=== PATIENT | female | born 1940 | race Caucasian/White ===

== ENCOUNTER 2017-10-22 19:36 | Inpatient (IN) | payer MEDICARE, OTHER ==
[~2017-10-22] VITALS: Ht 170.2 cm; Wt 69.1 kg
[2017-10-22] MEDS ORDERED: HALOPERIDOL LACT 5 MG/ML VIAL. ONE (19:51)
[2017-10-22] MEDS ORDERED: HALOPERIDOL LACT 5 MG/ML VIAL. IM ONE (20:00)
[2017-10-22] MEDS ORDERED: LORazepam 1 MG TABLET PO ONE (20:15)
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
[2017-10-22 20:40] LABS: BASO # 0.1 x10^3/uL (0.0-0.2); BASO % 1 % (0-3); EOS # 0.2 x10^3/uL (0.0-0.7); EOS % 2 % (0-3); HEMATOCRIT 32.8 % (36.0-47.0); HEMOGLOBIN 11.2 g/dL (12.0-15.5); LYMPH # 2.7 x10^3/uL (1.0-4.8); LYMPH % 29 % (24-48); MEAN CORPUSCULAR HEMOGLOBIN 30 pg (25-35); MEAN CORPUSCULAR HGB CONC 34 g/dL (31-37); MEAN CORPUSCULAR VOLUME 88 fL (79-100); MONO # 0.9 x10^3/uL (0.0-1.1); MONO % 10 % (0-9); NEUT # 5.4 x10^3uL (1.8-7.7); NEUT % 58 % (31-73); PLATELET COUNT 379 x10^3/uL (140-400); RED BLOOD COUNT 3.73 x10^6/uL (3.50-5.40); RED CELL DISTRIBUTION WIDTH 13.4 % (11.5-14.5); WHITE BLOOD COUNT 9.3 x10^3/uL (4.0-11.0)
[2017-10-22] MEDS ORDERED: BISA5TAB4 PO (20:51)
[2017-10-22] MEDS ORDERED: MAGN2400 PO (20:51)
[2017-10-22] MEDS ORDERED: ACET325T9 PO ×2 (20:51)
[2017-10-22] MEDS ORDERED: QUET50TA5 PO ×2 (20:51)
[2017-10-22] MEDS ORDERED: ASPI-612 PO (20:51)
[2017-10-22] MEDS ORDERED: CHOL10003 PO (20:51)
[2017-10-22] MEDS ORDERED: METF500T5 PO (20:51)
[2017-10-22] MEDS ORDERED: LEVE500T56 PO (20:51)
[2017-10-22] MEDS ORDERED: FURO20TA3 PO (20:51)
[2017-10-22] MEDS ORDERED: POTA10TA10 PO (20:51)
[2017-10-22] MEDS ORDERED: LORA0.5T PO (20:51)
[2017-10-22] MEDS ORDERED: QUET25TA5 PO (20:51)
[2017-10-22] MEDS ORDERED: CYAN100031 PO (20:51)
[2017-10-22] MEDS ORDERED: TRAZ50TA15 PO (20:51)
[2017-10-22 20:54] LABS: ALBUMIN 2.8 g/dL (3.4-5.0); ALBUMIN/GLOBULIN RATIO 0.6 (1.0-1.7); CALCIUM 9.3 mg/dL (8.5-10.1); CREATININE 0.9 mg/dL (0.6-1.0); GFR 60.7; POTASSIUM 4.5 mmol/L (3.5-5.1); TOTAL BILIRUBIN 0.3 mg/dL (0.2-1.0); TOTAL PROTEIN 7.3 g/dL (6.4-8.2)
[2017-10-22] MEDS ORDERED: CEPHALEXIN 250 MG CAPSULE PO ONE (21:00)
[2017-10-22 21:06] LABS: BILIRUBIN,URINE NEG (NEG); CLARITY,URINE CLOUDY; COLOR,URINE YELLOW; GLUCOSE,URINE NEG (NEG)
[2017-10-22 21:08] LABS: BACTERIA,URINE FEW /HPF (0-FEW); NITRITE,URINE POS (NEG); UROBILINOGEN,URINE 0.2 mg/dL (0.2 mg/dL); WBC,URINE >40 /HPF (0-4)
[2017-10-22] MEDS ORDERED: MAGNESIUM HYDROXIDE 2,400 MG/30 ML ORAL.SUSP. PO PRN (22:00)
[2017-10-22] MEDS ORDERED: METHYL SALICYLATE/MENTHOL TOPICAL OINTMENT 29GM TUBE. TP PRN (22:00)
[2017-10-22] MEDS ORDERED: MAG HYDROX/AL HYDROX/SIMETH 30 ML ORAL.SUSP PO PRN (22:00)
--- NOTE | 2017-10-22 22:25 | EKG ---
[address] [address] Test Date: 2017-10-22 Test Time: 20:43:10 Pat Name: GEENA CALVO Department: Room: [address] [place] [address] Gender: F [employer]: : 1940 Requested By: ZENAIDA LOZADA Order Number: [id number] Reading MD: Bob Rush MD Measurements Intervals [place] Rate: 79 P: 35 CO: 204 QRS: 24 QRSD: 86 T: 47 QT: 372 QTc: 428 Interpretive Statements SINUS RHYTHM 1ST DEGREE AVB Electronically Signed On 10-25-2017 13:10:09 CDT by Bob Rush MD
--- NOTE | 2017-10-22 22:43 | PDOC ---
Exam Note: [place] Note: Please also refer to the separate dictated note~for this date of service dictated separately.~Patient seen individually. Discussed the patient with Nursing staff reviewed the chart.~Reviewed interim history and current functioning. Reviewed vital signs,~Labs/ Radiology~and current medications noted below. Continue current treatment with the changes noted in the dictated addendum note Assessment: Vital Signs: Vital Signs Date Time Temp Pulse Resp B/P (MAP) Pulse Ox O2 Delivery O2 Flow Rate FiO2 10/22/17 20:49 98.0 84 20 98 Room Air Labs: Laboratory Tests Test 10/22/17 20:20 10/22/17 20:30 White Blood Count 9.3 x10^3/uL (4.0-11.0) Red Blood Count 3.73 x10^6/uL (3.50-5.40) Hemoglobin 11.2 g/dL (12.0-15.5) L Hematocrit 32.8 % (36.0-47.0) L Mean Corpuscular Volume 88 fL (79-100) Mean Corpuscular Hemoglobin 30 pg (25-35) Mean Corpuscular Hemoglobin Concent 34 g/dL (31-37) Red Cell Distribution Width 13.4 % (11.5-14.5) Platelet Count 379 x10^3/uL (140-400) Neutrophils (%) (Auto) 58 % (31-73) Lymphocytes (%) (Auto) 29 % (24-48) Monocytes (%) (Auto) 10 % (0-9) H Eosinophils (%) (Auto) 2 % (0-3) Basophils (%) (Auto) 1 % (0-3) Neutrophils # (Auto) 5.4 x10^3uL (1.8-7.7) Lymphocytes # (Auto) 2.7 x10^3/uL (1.0-4.8) Monocytes # (Auto) 0.9 x10^3/uL (0.0-1.1) Eosinophils # (Auto) 0.2 x10^3/uL (0.0-0.7) Basophils # (Auto) 0.1 x10^3/uL (0.0-0.2) Sodium Level 137 mmol/L (136-145) Potassium Level 4.5 mmol/L (3.5-5.1) Chloride Level 101 mmol/L (98-107) Carbon Dioxide Level 27 mmol/L (21-32) Anion Gap 9 (6-14) Blood Urea Nitrogen 18 mg/dL (7-20) Creatinine 0.9 mg/dL (0.6-1.0) Estimated GFR (Cockcroft-Gault) 60.7 BUN/Creatinine Ratio 20 (6-20) Glucose Level 141 mg/dL (70-99) H Calcium Level 9.3 mg/dL (8.5-10.1) Magnesium Level 1.8 mg/dL (1.8-2.4) Total Bilirubin 0.3 mg/dL (0.2-1.0) Aspartate Amino Transferase (AST) 20 U/L (15-37) Alanine Aminotransferase (ALT) 23 U/L (14-59) Alkaline Phosphatase 106 U/L (46-116) Total Protein 7.3 g/dL (6.4-8.2) Albumin 2.8 g/dL (3.4-5.0) L Albumin/Globulin Ratio 0.6 (1.0-1.7) L Urine Collection Type Unknown Urine Color Yellow Urine Clarity Cloudy Urine pH 5.0 Urine Specific [place] <=1.005 Urine Protein Neg (NEG-TRACE) Urine Glucose (UA) Neg mg/dL (NEG) Urine Ketones (Stick) Neg mg/dL (NEG) Urine Blood Small (NEG) Urine Nitrite Pos (NEG) Urine Bilirubin Neg (NEG) Urine Urobilinogen Dipstick 0.2 mg/dL (0.2 mg/dL) Urine Leukocyte Esterase Large (NEG) Urine RBC 3-5 /HPF (0-2) Urine WBC >40 /HPF (0-4) Urine Squamous Epithelial Cells None /LPF Urine Bacteria Few /HPF (0-FEW) Current Medications: Meds: Current Medications Haloperidol Lactate (Haldol) 5 mg STK-MED ONCE .ROUTE ; Start 10/22/17 at 19:51; Stop 10/22/17 at 19:52; Status DC Haloperidol Lactate (Haldol) 5 mg 1X ONCE IM Last administered on 10/22/17at 19: 56; Start 10/22/17 at 20:00; Stop 10/22/17 at 20:55; Status DC Lorazepam (Ativan) 1 mg 1X ONCE PO ; Start 10/22/17 at 20:15; Stop 10/22/17 at 20 :38; Status DC Cephalexin HCl (Keflex) 500 mg 1X ONCE PO Last administered on 10/22/17at 20:56 ; Start 10/22/17 at 21:00; Stop 10/22/17 at 21:01; Status DC Acetaminophen (Tylenol) 650 mg PRN Q6HRS PRN PO PAIN / TEMP; Start 10/22/17 at 22:00; Status UNV Multi-Ingredient Ointment (Analgesic [place]) 1 dane PRN QID PRN TP MUSCLE PAIN; Start 10/22/17 at 22:00; Status UNV Al Hydroxide/Mg Hydroxide (Mylanta Plus Xs) 15 ml PRN AFTMEALHC PRN PO DYSPEPSIA; Start 10/22/17 at 22:00; Status UNV Magnesium Hydroxide (Milk Of Magnesia) 2,400 mg PRN QHS PRN PO CONSTIPATION; Start 10/22/17 at 22:00; Status UNV Active Scripts Active Reported Seroquel (Quetiapine Fumarate) 50 Mg Tablet 50 Mg PO Seroquel (Quetiapine Fumarate) 25 Mg Tablet 25 Mg PO TID Seroquel (Quetiapine Fumarate) 50 Mg Tablet 50 Mg PO QHS Lorazepam 0.5 Mg Tablet 0.5 Mg PO PRN QID PRN Bisacodyl 5 Mg Tablet.dr 10 Mg PO PRN DAILY PRN Tylenol (Acetaminophen) 325 Mg Tablet 325 Mg PO PRN Q6HRS PRN Tylenol (Acetaminophen) 325 Mg Tablet 325 Mg PO PRN Q6HRS PRN Milk Of Magnesia (Magnesium Hydroxide) 2,400 Mg/10 Ml Oral.susp 2,400 Mg PO PRN Q4HRS PRN Furosemide 20 Mg Tablet 20 Mg PO DAILY Furosemide 20 Mg Tablet 1 Tab PO DAILY Potassium Chloride 10 Meq Tablet.er 10 Meq PO DAILY Vitamin D3 (Cholecalciferol (Vitamin D3)) 1,000 Unit Tablet 1,000 Unit PO DAILY B-12 (Cyanocobalamin (Vitamin B-12)) 1,000 Mcg Tablet.er 1,000 Mcg PO DAILY Aspirin Ec (Aspirin) 81 Mg Tablet.dr 81 Mg PO DAILY Trazodone Hcl 50 Mg Tablet 25 Mg PO BID@1700,2100 Keppra (Levetiracetam) 500 Mg Tablet 500 Mg PO BID Metformin Hcl 500 Mg Tablet 500 Mg PO BIDWMEALS I have reviewed the current psychotropics carefully including drug interactions. Risk benefit ratio favors no change other than as noted in my dictated progress note. MELANIE COSTELLO MD Oct 22, 2017 22:43
[2017-10-22 23:42] VITALS: BP 118/95
[2017-10-23 05:48] VITALS: BP 139/68
[2017-10-23] MEDS: QUEtiapine 25 MG TABLET. PO SCH ×3 (08:54→19:53)
[2017-10-23] MEDS: LORazepam 0.5 MG TABLET PO PRN ×2 (08:55→15:52)
[2017-10-23 11:07] LABS: T3 TOTAL 60 ng/dL (71-180); THYROXINE 6.3 ug/dL (4.5-12.0)
[2017-10-23 11:15] LABS: THYROID STIM HORMONE (TSH) 3.729 uIU/mL (0.358-3.740)
[2017-10-23 15:38] VITALS: BP 125/66
--- NOTE | 2017-10-23 15:56 | PDOC ---
Exam Note: [place] Note: Please also refer to the separate dictated note~for this date of service dictated separately.~Patient seen individually. Discussed the patient with Nursing staff reviewed the chart.~Reviewed interim history and current functioning. Reviewed vital signs,~Labs/ Radiology~and current medications noted below. Continue current treatment with the changes noted in the dictated addendum note Assessment: Vital Signs: Vital Signs Date Time Temp Pulse Resp B/P (MAP) Pulse Ox O2 Delivery O2 Flow Rate FiO2 10/23/17 15:38 97.4 81 20 125/66 (85) 99 10/22/17 20:49 Room Air Labs: Laboratory Tests Test 10/22/17 20:20 10/22/17 20:30 10/23/17 07:13 10/23/17 11:31 White Blood Count 9.3 x10^3/uL (4.0-11.0) Red Blood Count 3.73 x10^6/uL (3.50-5.40) Hemoglobin 11.2 g/dL (12.0-15.5) L Hematocrit 32.8 % (36.0-47.0) L Mean Corpuscular Volume 88 fL (79-100) Mean Corpuscular Hemoglobin 30 pg (25-35) Mean Corpuscular Hemoglobin Concent 34 g/dL (31-37) Red Cell Distribution Width 13.4 % (11.5-14.5) Platelet Count 379 x10^3/uL (140-400) Neutrophils (%) (Auto) 58 % (31-73) Lymphocytes (%) (Auto) 29 % (24-48) Monocytes (%) (Auto) 10 % (0-9) H Eosinophils (%) (Auto) 2 % (0-3) Basophils (%) (Auto) 1 % (0-3) Neutrophils # (Auto) 5.4 x10^3uL (1.8-7.7) Lymphocytes # (Auto) 2.7 x10^3/uL (1.0-4.8) Monocytes # (Auto) 0.9 x10^3/uL (0.0-1.1) Eosinophils # (Auto) 0.2 x10^3/uL (0.0-0.7) Basophils # (Auto) 0.1 x10^3/uL (0.0-0.2) Sodium Level 137 mmol/L (136-145) Potassium Level 4.5 mmol/L (3.5-5.1) Chloride Level 101 mmol/L (98-107) Carbon Dioxide Level 27 mmol/L (21-32) Anion Gap 9 (6-14) Blood Urea Nitrogen 18 mg/dL (7-20) Creatinine 0.9 mg/dL (0.6-1.0) Estimated GFR (Cockcroft-Gault) 60.7 BUN/Creatinine Ratio 20 (6-20) Glucose Level 141 mg/dL (70-99) H Calcium Level 9.3 mg/dL (8.5-10.1) Magnesium Level 1.8 mg/dL (1.8-2.4) Iron Level 26 ug/dL (50-170) L Total Iron Binding Capacity 215 ug/dL (250-450) L Iron Saturation 12 % (15-34) L Total Bilirubin 0.3 mg/dL (0.2-1.0) Aspartate Amino Transferase (AST) 20 U/L (15-37) Alanine Aminotransferase (ALT) 23 U/L (14-59) Alkaline Phosphatase 106 U/L (46-116) Total Protein 7.3 g/dL (6.4-8.2) Albumin 2.8 g/dL (3.4-5.0) L Albumin/Globulin Ratio 0.6 (1.0-1.7) L Triglycerides Level 132 mg/dL (0-150) Cholesterol Level 212 mg/dL (0-200) H LDL Cholesterol, Calculated 131 mg/dL (0-100) H VLDL Cholesterol, Calculated 26 mg/dL (0-40) Non-HDL Cholesterol Calculated 157 mg/dL (0-129) H HDL Cholesterol 55 mg/dL (40-60) Cholesterol/HDL Ratio 3.0 Thyroid Stimulating Hormone (TSH) 3.729 uIU/mL (0.358-3.740) Thyroxine (T4) 6.3 ug/dL (4.5-12.0) Total Triiodothyronine (TT3) 60 ng/dL (71-180) L Rapid Plasma Reagin Pending Urine Collection Type Unknown Urine Color Yellow Urine Clarity Cloudy Urine pH 5.0 Urine Specific [place] <=1.005 Urine Protein Neg (NEG-TRACE) Urine Glucose (UA) Neg mg/dL (NEG) Urine Ketones (Stick) Neg mg/dL (NEG) Urine Blood Small (NEG) Urine Nitrite Pos (NEG) Urine Bilirubin Neg (NEG) Urine Urobilinogen Dipstick 0.2 mg/dL (0.2 mg/dL) Urine Leukocyte Esterase Large (NEG) Urine RBC 3-5 /HPF (0-2) Urine WBC >40 /HPF (0-4) Urine Squamous Epithelial Cells None /LPF Urine Bacteria Few /HPF (0-FEW) Glucose (Fingerstick) 119 mg/dL (70-99) H 197 mg/dL (70-99) H Current Medications: Meds: Current Medications Haloperidol Lactate (Haldol) 5 mg STK-MED ONCE .ROUTE ; Start 10/22/17 at 19:51; Stop 10/22/17 at 19:52; Status DC Haloperidol Lactate (Haldol) 5 mg 1X ONCE IM Last administered on 10/22/17at 19: 56; Start 10/22/17 at 20:00; Stop 10/22/17 at 20:55; Status DC Lorazepam (Ativan) 1 mg 1X ONCE PO ; Start 10/22/17 at 20:15; Stop 10/22/17 at 20 :38; Status DC Cephalexin HCl (Keflex) 500 mg 1X ONCE PO Last administered on 10/22/17at 20:56 ; Start 10/22/17 at 21:00; Stop 10/22/17 at 21:01; Status DC Acetaminophen (Tylenol) 650 mg PRN Q6HRS PRN PO PAIN / TEMP; Start 10/22/17 at 22:00 Multi-Ingredient Ointment (Analgesic [place]) 1 dane PRN QID PRN TP MUSCLE PAIN; Start 10/22/17 at 22:00 Al Hydroxide/Mg Hydroxide (Mylanta Plus Xs) 15 ml PRN AFTMEALHC PRN PO DYSPEPSIA; Start 10/22/17 at 22:00 Magnesium Hydroxide (Milk Of Magnesia) 2,400 mg PRN QHS PRN PO CONSTIPATION; Start 10/22/17 at 22:00 Lorazepam (Ativan) 0.5 mg PRN QID PRN PO ANXIETY Last administered on 10/23/17at 15:52; Start 10/22/17 at 23:00 Quetiapine Fumarate (SEROquel) 25 mg TID PO Last administered on 10/23/17at 13:22 ; Start 10/23/17 at 09:00 Quetiapine Fumarate (SEROquel) 50 mg QHS PO ; Start 10/23/17 at 21:00 Trazodone HCl (Desyrel) 25 mg BID@1700,2100 PO ; Start 10/23/17 at 17:00 Cefpodoxime Proxetil (Vantin) 200 mg BID PO ; Start 10/23/17 at 21:00 Lactobacillus Rhamnosus (Culturelle) 1 cap BID PO ; Start 10/23/17 at 21:00 Active Scripts Active Reported Seroquel (Quetiapine Fumarate) 50 Mg Tablet 50 Mg PO Seroquel (Quetiapine Fumarate) 25 Mg Tablet 25 Mg PO TID Seroquel (Quetiapine Fumarate) 50 Mg Tablet 50 Mg PO QHS Lorazepam 0.5 Mg Tablet 0.5 Mg PO PRN QID PRN Bisacodyl 5 Mg Tablet.dr 10 Mg PO PRN DAILY PRN Tylenol (Acetaminophen) 325 Mg Tablet 325 Mg PO PRN Q6HRS PRN Tylenol (Acetaminophen) 325 Mg Tablet 325 Mg PO PRN Q6HRS PRN Milk Of Magnesia (Magnesium Hydroxide) 2,400 Mg/10 Ml Oral.susp 2,400 Mg PO PRN Q4HRS PRN Furosemide 20 Mg Tablet 20 Mg PO DAILY Furosemide 20 Mg Tablet 1 Tab PO DAILY Potassium Chloride 10 Meq Tablet.er 10 Meq PO DAILY Vitamin D3 (Cholecalciferol (Vitamin D3)) 1,000 Unit Tablet 1,000 Unit PO DAILY B-12 (Cyanocobalamin (Vitamin B-12)) 1,000 Mcg Tablet.er 1,000 Mcg PO DAILY Aspirin Ec (Aspirin) 81 Mg Tablet.dr 81 Mg PO DAILY Trazodone Hcl 50 Mg Tablet 25 Mg PO BID@1700,2100 Keppra (Levetiracetam) 500 Mg Tablet 500 Mg PO BID Metformin Hcl 500 Mg Tablet 500 Mg PO BIDWMEALS I have reviewed the current psychotropics carefully including drug interactions. Risk benefit ratio favors no change other than as noted in my dictated progress note. Diagnosis: Problems: (1) Anxiety disorder (2) Dementia in Alzheimer's disease with delusions (3) Dementia in Alzheimer's disease with depression (4) Impulse control disorder (5) Dementia, vascular, with delusions (6) Dementia, vascular, with depression MELANIE COSTELLO MD Oct 23, 2017 15:56
[2017-10-23] MEDS: traZODone 50 MG TABLET. PO SCH ×2 (17:04→19:53)
--- NOTE | 2017-10-23 17:04 | RAD ---
Three-view study of the left hand Clinical indications: Left hand pain with swelling. Findings: No acute fracture or dislocation or osteolytic process is evident. 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 Degenerative cystic change of the capitate bone is seen. IMPRESSION: No acute fracture.
[2017-10-23] MEDS: LACTOBACILLUS RHAMNOSUS GG 1 CAPSULE. PO SCH (19:53)
[2017-10-23] MEDS: CEFPODOXIME PROXETIL 100 MG TABLET PO SCH (19:54)
[2017-10-23] MEDS: MIRTAZAPINE 7.5 MG TABLET. PO SCH (19:54)
[2017-10-23] MEDS: QUEtiapine 50 MG TABLET. PO SCH (19:54)
--- NOTE | 2017-10-23 20:48 | PDOC ---
Exam Note: [place] Note: Please also refer to the separate dictated note~for this date of service dictated separately.~Patient seen individually. Discussed the patient with Nursing staff reviewed the chart.~Reviewed interim history and current functioning. Reviewed vital signs,~Labs/ Radiology~and current medications noted below. Continue current treatment with the changes noted in the dictated addendum note Assessment: Vital Signs: Vital Signs Date Time Temp Pulse Resp B/P (MAP) Pulse Ox O2 Delivery O2 Flow Rate FiO2 10/23/17 15:38 97.4 81 20 125/66 (85) 99 10/22/17 20:49 Room Air Labs: Laboratory Tests Test 10/23/17 07:13 10/23/17 11:31 10/23/17 16:13 10/23/17 19:15 Glucose (Fingerstick) 119 mg/dL (70-99) H 197 mg/dL (70-99) H 164 mg/dL (70-99) H 169 mg/dL (70-99) H Current Medications: Meds: Current Medications Haloperidol Lactate (Haldol) 5 mg STK-MED ONCE .ROUTE ; Start 10/22/17 at 19:51; Stop 10/22/17 at 19:52; Status DC Haloperidol Lactate (Haldol) 5 mg 1X ONCE IM Last administered on 10/22/17at 19: 56; Start 10/22/17 at 20:00; Stop 10/22/17 at 20:55; Status DC Lorazepam (Ativan) 1 mg 1X ONCE PO ; Start 10/22/17 at 20:15; Stop 10/22/17 at 20 :38; Status DC Cephalexin HCl (Keflex) 500 mg 1X ONCE PO Last administered on 10/22/17at 20:56 ; Start 10/22/17 at 21:00; Stop 10/22/17 at 21:01; Status DC Acetaminophen (Tylenol) 650 mg PRN Q6HRS PRN PO PAIN / TEMP; Start 10/22/17 at 22:00 Multi-Ingredient Ointment (Analgesic [place]) 1 dane PRN QID PRN TP MUSCLE PAIN; Start 10/22/17 at 22:00 Al Hydroxide/Mg Hydroxide (Mylanta Plus Xs) 15 ml PRN AFTMEALHC PRN PO DYSPEPSIA; Start 10/22/17 at 22:00 Magnesium Hydroxide (Milk Of Magnesia) 2,400 mg PRN QHS PRN PO CONSTIPATION; Start 10/22/17 at 22:00 Lorazepam (Ativan) 0.5 mg PRN QID PRN PO ANXIETY Last administered on 10/23/17 15:52; Start 10/22/17 at 23:00 Quetiapine Fumarate (SEROquel) 25 mg TID PO Last administered on 10/23/17 19:53 ; Start 10/23/17 at 09:00 Quetiapine Fumarate (SEROquel) 50 mg QHS PO Last administered on 10/23/17 19:54 ; Start 10/23/17 at 21:00 Trazodone HCl (Desyrel) 25 mg BID@1700,2100 PO Last administered on 10/23/17 19 :53; Start 10/23/17 at 17:00 Cefpodoxime Proxetil (Vantin) 200 mg BID PO Last administered on 10/23/17 19:54 ; Start 10/23/17 at 21:00 Lactobacillus Rhamnosus (Culturelle) 1 cap BID PO Last administered on 19:53; Start 10/23/17 at 21:00 Olanzapine (ZyPREXA ZYDIS) 2.5 mg PRN Q2HR PRN PO A Last administered on 17:04; Start 10/23/17 at 17:00 Mirtazapine (Remeron) 7.5 mg QHS PO Last administered on 10/23/17 19:54; Start 10/23/17 at 21:00 Active Scripts Active Reported Seroquel (Quetiapine Fumarate) 50 Mg Tablet 50 Mg PO Seroquel (Quetiapine Fumarate) 25 Mg Tablet 25 Mg PO TID Seroquel (Quetiapine Fumarate) 50 Mg Tablet 50 Mg PO QHS Lorazepam 0.5 Mg Tablet 0.5 Mg PO PRN QID PRN Bisacodyl 5 Mg Tablet.dr 10 Mg PO PRN DAILY PRN Tylenol (Acetaminophen) 325 Mg Tablet 325 Mg PO PRN Q6HRS PRN Tylenol (Acetaminophen) 325 Mg Tablet 325 Mg PO PRN Q6HRS PRN Milk Of Magnesia (Magnesium Hydroxide) 2,400 Mg/10 Ml Oral.susp 2,400 Mg PO PRN Q4HRS PRN Furosemide 20 Mg Tablet 20 Mg PO DAILY Furosemide 20 Mg Tablet 1 Tab PO DAILY Potassium Chloride 10 Meq Tablet.er 10 Meq PO DAILY Vitamin D3 (Cholecalciferol (Vitamin D3)) 1,000 Unit Tablet 1,000 Unit PO DAILY B-12 (Cyanocobalamin (Vitamin B-12)) 1,000 Mcg Tablet.er 1,000 Mcg PO DAILY Aspirin Ec (Aspirin) 81 Mg Tablet.dr 81 Mg PO DAILY Trazodone Hcl 50 Mg Tablet 25 Mg PO BID@1700,2100 Keppra (Levetiracetam) 500 Mg Tablet 500 Mg PO BID Metformin Hcl 500 Mg Tablet 500 Mg PO BIDWMEALS I have reviewed the current psychotropics carefully including drug interactions. Risk benefit ratio favors no change other than as noted in my dictated progress note. Diagnosis: Problems: (1) Anxiety disorder (2) Impulse control disorder (3) Dementia, vascular, with depression (4) Dementia, vascular, with delusions (5) Dementia in Alzheimer's disease with depression (6) Dementia in Alzheimer's disease with delusions MELANIE COSTELLO MD Oct 23, 2017 20:48
--- NOTE | 2017-10-24 03:19 | HP ---
ADMIT DATE: PSYCHIATRIC ADMISSION HISTORY/EVALUATION This note covers elements not covered in my initial note of 10/23/2017. IDENTIFYING DATA: The patient is a 76-year-old female referred to us from [facility] in [place], [place] by Dr. Ced Ruffin, her primary care physician, on account of worsening confusion, being distracted, not compliant with cares with a significant drop in her appetite, taking her clothes off, and urinating on the floors. She is rambling in her speech, upset with romel cares, sitting on the floor and urine with a drop in weight. Symptoms have worsened for the past 2-3 weeks. Multiple changes in her psychotropics were attempted at the long-term including Seroquel initiated 10/03/2017, trazodone added 25 mg 4 times a day, Ativan added q.i.d. p.r.n. on 10/09/2017, Haldol added 5 mg q. 4 hours p.r.n., and Keppra 500 mg daily added as well. She has failed all of these interventions, unmanageable at the long-term, potentially dangerous with the behavior and is referred for inpatient psychiatric stabilization. CHIEF COMPLAINT: "No." The patient is quite confused, disorganized. HISTORY OF PRESENT ILLNESS: The patient has a history of dementia, Alzheimer's vascular type. She has been residing at the above long-term for some time, but behaviors have been worsening for the past 2-3 weeks. In addition to above, she has had sleep changes, appetite and weight loss as noted, appeared somewhat delusional, depressed, extremely impulsive, aggressive. No clear symptoms of bipolar disorder, suicidal or homicidal ideation. PAST PSYCHIATRIC HISTORY: As above. MEDICAL HISTORY: UTI diagnosed in the ER at [facility], started on Vantin. She slept 1-1/2 hours previous evening. Diet is regular. Takes her medications whole. Ambulates ad riaj with walker. CODE STATUS: DNR. DRUG ALLERGIES: Negative. CURRENT PSYCHOTROPICS: Trazodone 25 mg at 1700 hours and at bedtime, Ativan 0.5 mg q.i.d. p.r.n., and Seroquel 25 mg t.i.d. 50 mg at bedtime. FAMILY HISTORY: Noncontributory. SOCIAL HISTORY: No history of alcohol, drug abuse, or physical, sexual or elder abuse history is noted. She is not known to be a perpetrator. MENTAL STATUS EXAMINATION: The patient was seen individually in the evening of 10/23/2017. She is oriented to herself, not very verbal. Insight, judgment, recent and remote memory, attention, concentration, fund of knowledge is poor consistent with her diagnoses. She was unaware of where she was, when she came here, where she was prior to coming here, essentially oriented to herself. REACTION TO HOSPITALIZATION: The patient is oblivious of this. ASSETS: Supportive living at the long-term. IMPRESSION: Major neurocognitive disorder; Alzheimer, vascular with delusion, depression, behavioral disturbance, anxiety disorder, unspecified; impulse control disorder, unspecified; and urinary tract infection. Rest diagnoses as noted above. PLAN: Admit to Geropsychiatry Unit at [facility]. I will see the patient daily individually from a psychiatric standpoint. Medical followup per Dr. Laguerre/Dr. Forrest. Continue the patient on her current psychotropics, treat the UTI, which should help with some of the agitation, mood lability. Start Remeron 7.5 mg p.o. at bedtime for her insomnia. Continue rest of the psychotropics. Adjust further as clinically indicated. MAN Glory COSTELLO MD DR: MATEO/richie JOB#: [id number] / [id number]
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
[2017-10-24 06:15] VITALS: BP 122/68
[2017-10-24] MEDS: CEFPODOXIME PROXETIL 100 MG TABLET PO SCH ×2 (08:50→19:15)
[2017-10-24] MEDS: LACTOBACILLUS RHAMNOSUS GG 1 CAPSULE. PO SCH ×2 (08:50→19:15)
[2017-10-24] MEDS: QUEtiapine 25 MG TABLET. PO SCH ×3 (08:50→17:22)
[2017-10-24] MEDS: LORazepam 0.5 MG TABLET PO PRN (08:52)
[2017-10-24] MEDS: ACETAMINOPHEN 325 MG TABLET PO PRN (08:52)
--- NOTE | 2017-10-24 12:36 | RAD ---
Left lower extremity venous duplex ultrasound. 10/24/2017 12:33 PM Indication: swelling of left leg more than right. SPOKE W/ RN, WILL DO AT 10 Comparison study: None available Discussion: Sonographic evaluation of the deep veins of the left lower extremity was performed. This includes grayscale imaging and color duplex imaging with spectral analysis. No evidence of deep venous thrombosis is seen. Interrogated veins are compressible and demonstrate augmentable blood flow and color Doppler imaging. Impression: No evidence of deep venous thrombosis involving the left lower extremity
[2017-10-24 16:06] VITALS: BP 110/68
[2017-10-24] MEDS: traZODone 50 MG TABLET. PO SCH ×2 (17:21→19:16)
[2017-10-24] MEDS ORDERED: CHOLECALCIFEROL (VITAMIN D3) 50,000 UNIT CAPSULE PO SCH (18:00)
[2017-10-24] MEDS: QUEtiapine 50 MG TABLET. PO SCH (19:16)
[2017-10-24] MEDS: MIRTAZAPINE 7.5 MG TABLET. PO SCH (19:16)
--- NOTE | 2017-10-24 21:15 | PN ---
DATE: 10/24/2017 NO DICTATION. MAN Glory COSTELLO MD DR: Satish JOB#: [id number] / [id number]
--- NOTE | 2017-10-24 21:59 | PDOC ---
Exam Note: Gonzales Note: Please also refer to the separate dictated note~for this date of service dictated separately.~Patient seen individually. Discussed the patient with Nursing staff reviewed the chart.~Reviewed interim history and current functioning. Reviewed vital signs,~Labs/ Radiology~and current medications noted below. Continue current treatment with the changes noted in the dictated addendum note Assessment: Vital Signs: Vital Signs Date Time Temp Pulse Resp B/P (MAP) Pulse Ox O2 Delivery O2 Flow Rate FiO2 10/24/17 16:06 97.5 82 20 110/68 (82) 98 10/22/17 20:49 Room Air I&O Intake and Output 10/24/17 07:00 Intake Total 1200 ml Balance 1200 ml Intake Oral 1200 ml Labs: Laboratory Tests Test 10/24/17 07:47 10/24/17 12:02 10/24/17 16:27 10/24/17 19:11 Glucose (Fingerstick) 130 mg/dL (70-99) H 104 mg/dL (70-99) H 125 mg/dL (70-99) H 174 mg/dL (70-99) H Current Medications: Meds: Current Medications Haloperidol Lactate (Haldol) 5 mg STK-MED ONCE .ROUTE ; Start 10/22/17 at 19:51; Stop 10/22/17 at 19:52; Status DC Haloperidol Lactate (Haldol) 5 mg 1X ONCE IM Last administered on 10/22/17at 19: 56; Start 10/22/17 at 20:00; Stop 10/22/17 at 20:55; Status DC Lorazepam (Ativan) 1 mg 1X ONCE PO ; Start 10/22/17 at 20:15; Stop 10/22/17 at 20 :38; Status DC Cephalexin HCl (Keflex) 500 mg 1X ONCE PO Last administered on 10/22/17at 20:56 ; Start 10/22/17 at 21:00; Stop 10/22/17 at 21:01; Status DC Acetaminophen (Tylenol) 650 mg PRN Q6HRS PRN PO PAIN / TEMP Last administered on 10/24/17at 08:52; Start 10/22/17 at 22:00 Multi-Ingredient Ointment (Analgesic [place]) 1 dane PRN QID PRN TP MUSCLE PAIN; Start 10/22/17 at 22:00 Al Hydroxide/Mg Hydroxide (Mylanta Plus Xs) 15 ml PRN AFTMEALHC PRN PO DYSPEPSIA; Start 10/22/17 at 22:00 Magnesium Hydroxide (Milk Of Magnesia) 2,400 mg PRN QHS PRN PO CONSTIPATION; Start 10/22/17 at 22:00 Lorazepam (Ativan) 0.5 mg PRN QID PRN PO ANXIETY Last administered on 10/24/17 08:52; Start 10/22/17 at 23:00 Quetiapine Fumarate (SEROquel) 25 mg TID PO Last administered on 10/23/17 19:53 ; Start 10/23/17 at 09:00; Stop 10/24/17 at 01:41; Status DC Quetiapine Fumarate (SEROquel) 50 mg QHS PO Last administered on 10/24/17 19:16 ; Start 10/23/17 at 21:00 Trazodone HCl (Desyrel) 25 mg BID@1700,2100 PO Last administered on 10/24/17 19 :16; Start 10/23/17 at 17:00 Cefpodoxime Proxetil (Vantin) 200 mg BID PO Last administered on 10/24/17 19:15 ; Start 10/23/17 at 21:00; Stop 10/31/17 at 21:00 Lactobacillus Rhamnosus (Culturelle) 1 cap BID PO Last administered on 19:15; Start 10/23/17 at 21:00 Olanzapine (ZyPREXA ZYDIS) 2.5 mg PRN Q2HR PRN PO A Last administered on 08:52; Start 10/23/17 at 17:00 Mirtazapine (Remeron) 7.5 mg QHS PO Last administered on 10/24/17 19:16; Start 10/23/17 at 21:00 Quetiapine Fumarate (SEROquel) 25 mg TID@0900,1300,1700 PO Last administered on 10/24/17 17:22; Start 10/24/17 at 09:00 Vitamin D (Vitamin D3) 50,000 unit WEEKLY PO ; Start 10/24/17 at 18:00; Stop 10/24 at 18:00; Status DC Levothyroxine Sodium (Synthroid) 25 mcg DAILY07 PO ; Start 10/25/17 at 07:00 Vitamin D (Vitamin D3) 50,000 unit WEEKLY PO ; Start 10/25/17 at 09:00 Divalproex Sodium (Depakote Sprinkles) 125 mg BID@0900,1300 PO ; Start 10/25/17 at 09:00 Active Scripts Active Reported Seroquel (Quetiapine Fumarate) 50 Mg Tablet 50 Mg PO Seroquel (Quetiapine Fumarate) 25 Mg Tablet 25 Mg PO TID Seroquel (Quetiapine Fumarate) 50 Mg Tablet 50 Mg PO QHS Lorazepam 0.5 Mg Tablet 0.5 Mg PO PRN QID PRN Bisacodyl 5 Mg Tablet.dr 10 Mg PO PRN DAILY PRN Tylenol (Acetaminophen) 325 Mg Tablet 325 Mg PO PRN Q6HRS PRN Tylenol (Acetaminophen) 325 Mg Tablet 325 Mg PO PRN Q6HRS PRN Milk Of Magnesia (Magnesium Hydroxide) 2,400 Mg/10 Ml Oral.susp 2,400 Mg PO PRN Q4HRS PRN Furosemide 20 Mg Tablet 20 Mg PO DAILY Furosemide 20 Mg Tablet 1 Tab PO DAILY Potassium Chloride 10 Meq Tablet.er 10 Meq PO DAILY Vitamin D3 (Cholecalciferol (Vitamin D3)) 1,000 Unit Tablet 1,000 Unit PO DAILY B-12 (Cyanocobalamin (Vitamin B-12)) 1,000 Mcg Tablet.er 1,000 Mcg PO DAILY Aspirin Ec (Aspirin) 81 Mg Tablet. 81 Mg PO DAILY Trazodone Hcl 50 Mg Tablet 25 Mg PO BID@1700,2100 Keppra (Levetiracetam) 500 Mg Tablet 500 Mg PO BID Metformin Hcl 500 Mg Tablet 500 Mg PO BIDWMEALS I have reviewed the current psychotropics carefully including drug interactions. Risk benefit ratio favors no change other than as noted in my dictated progress note. Diagnosis: Problems: (1) Anxiety disorder (2) Impulse control disorder (3) Dementia, vascular, with depression (4) Dementia, vascular, with delusions (5) Dementia in Alzheimer's disease with depression (6) Dementia in Alzheimer's disease with delusions MELANIE COSTELLO MD Oct 24, 2017 21:58
[2017-10-25 05:57] VITALS: BP 119/52
[2017-10-25] MEDS: LEVOTHYROXINE 25 MCG TABLET. PO SCH (06:28)
[2017-10-25] MEDS: LACTOBACILLUS RHAMNOSUS GG 1 CAPSULE. PO SCH ×2 (07:55→19:25)
[2017-10-25] MEDS: CEFPODOXIME PROXETIL 100 MG TABLET PO SCH ×2 (07:55→19:26)
[2017-10-25] MEDS: QUEtiapine 25 MG TABLET. PO SCH ×3 (07:56→16:42)
[2017-10-25] MEDS: CHOLECALCIFEROL (VITAMIN D3) 50,000 UNIT CAPSULE PO SCH (07:58)
[2017-10-25] MEDS: DIVALPROEX 125 MG CAP.SPRINK PO SCH ×2 (07:58→13:09)
--- NOTE | 2017-10-25 13:00 | PN ---
DATE: 10/24/2017 PSYCHIATRIC PROGRESS NOTE This is a late entry 10/24/2017, covers elements not covered in my initial note 10/24/2017. SUBJECTIVE: I met with the patient the evening of 10/24/2017. The patient slept 7-3/4 hours previous evening. The patient remains somewhat labile, restless, anxious, resistive to cares. Doppler was negative for DVT. In the evening, she was hallucinating, actively sarcastic having a conversation when no one was around. She remains quite manic and psychotic and certainly confused. REVIEW OF SYSTEMS: No CV, , pulmonary, eye, ENT system symptoms on review. Reliability poor. MENTAL STATUS EXAM: Oriented to herself. Insight, judgment, recent and remote memory, attention, concentration, fund of knowledge poor, consistent with her diagnoses mentioned in my initial note. IMPRESSION: Major neurocognitive disorder, Alzheimer, vascular with delusion, depression, behavioral disturbance, urinary tract infection. Rest unchanged. PLAN: Start Depakote Sprinkles 125 mg at 9:00 a.m., 1:00 p.m. Check CBC, CMP, valproic acid level in 3 days. Continue rest of the psychotropics unchanged from my initial note. MAN Glory COSTELLO MD DR: MATEO/richie JOB#: [id number] / [id number]
[2017-10-25 15:37] VITALS: BP 124/60
[2017-10-25] MEDS: traZODone 50 MG TABLET. PO SCH (16:42)
[2017-10-25] MEDS: LORazepam 0.5 MG TABLET PO PRN (16:42)
[2017-10-25] MEDS: MIRTAZAPINE 7.5 MG TABLET. PO SCH (19:25)
[2017-10-25] MEDS: QUEtiapine 50 MG TABLET. PO SCH (19:26)
--- NOTE | 2017-10-25 20:47 | PDOC ---
Exam Note: Gonzales Note: Please also refer to the separate dictated note~for this date of service dictated separately.~Patient seen individually. Discussed the patient with Nursing staff reviewed the chart.~Reviewed interim history and current functioning. Reviewed vital signs,~Labs/ Radiology~and current medications noted below. Continue current treatment with the changes noted in the dictated addendum note Assessment: Vital Signs: Vital Signs Date Time Temp Pulse Resp B/P (MAP) Pulse Ox O2 Delivery O2 Flow Rate FiO2 10/25/17 15:37 97.3 65 18 124/60 (81) 100 10/22/17 20:49 Room Air I&O Intake and Output 10/25/17 07:00 Intake Total 720 ml Balance 720 ml Intake Oral 720 ml # Voids 2 Labs: Laboratory Tests Test 10/25/17 07:26 10/25/17 11:13 10/25/17 19:27 10/25/17 19:41 Glucose (Fingerstick) 110 mg/dL (70-99) H 134 mg/dL (70-99) H 160 mg/dL (70-99) H 140 mg/dL (70-99) H Current Medications: Meds: Current Medications Haloperidol Lactate (Haldol) 5 mg STK-MED ONCE .ROUTE ; Start 10/22/17 at 19:51; Stop 10/22/17 at 19:52; Status DC Haloperidol Lactate (Haldol) 5 mg 1X ONCE IM Last administered on 10/22/17at 19: 56; Start 10/22/17 at 20:00; Stop 10/22/17 at 20:55; Status DC Lorazepam (Ativan) 1 mg 1X ONCE PO ; Start 10/22/17 at 20:15; Stop 10/22/17 at 20 :38; Status DC Cephalexin HCl (Keflex) 500 mg 1X ONCE PO Last administered on 10/22/17at 20:56 ; Start 10/22/17 at 21:00; Stop 10/22/17 at 21:01; Status DC Acetaminophen (Tylenol) 650 mg PRN Q6HRS PRN PO PAIN / TEMP Last administered on 10/24/17at 08:52; Start 10/22/17 at 22:00 Multi-Ingredient Ointment (Analgesic [place]) 1 dane PRN QID PRN TP MUSCLE PAIN; Start 10/22/17 at 22:00 Al Hydroxide/Mg Hydroxide (Mylanta Plus Xs) 15 ml PRN AFTMEALHC PRN PO DYSPEPSIA; Start 10/22/17 at 22:00 Magnesium Hydroxide (Milk Of Magnesia) 2,400 mg PRN QHS PRN PO CONSTIPATION Last administered on 10/25/17 07:58; Start 10/22/17 at 22:00 Lorazepam (Ativan) 0.5 mg PRN QID PRN PO ANXIETY Last administered on 16:42; Start 10/22/17 at 23:00 Quetiapine Fumarate (SEROquel) 25 mg TID PO Last administered on 10/23/17 19:53 ; Start 10/23/17 at 09:00; Stop 10/24/17 at 01:41; Status DC Quetiapine Fumarate (SEROquel) 50 mg QHS PO Last administered on 10/25/17 19: 26; Start 10/23/17 at 21:00 Trazodone HCl (Desyrel) 25 mg BID@1700,2100 PO Last administered on 10/25/17 16:42; Start 10/23/17 at 17:00; Stop 10/25/17 at 18:24; Status DC Cefpodoxime Proxetil (Vantin) 200 mg BID PO Last administered on 10/25/17 19: 26; Start 10/23/17 at 21:00; Stop 10/31/17 at 21:00 Lactobacillus Rhamnosus (Culturelle) 1 cap BID PO Last administered on 19:25; Start 10/23/17 at 21:00 Olanzapine (ZyPREXA ZYDIS) 2.5 mg PRN Q2HR PRN PO A Last administered on 07:58; Start 10/23/17 at 17:00 Mirtazapine (Remeron) 7.5 mg QHS PO Last administered on 10/25/17 19:25; Start 10/23/17 at 21:00 Quetiapine Fumarate (SEROquel) 25 mg TID@0900,1300,1700 PO Last administered on 10/25/17 16:42; Start 10/24/17 at 09:00 Vitamin D (Vitamin D3) 50,000 unit WEEKLY PO ; Start 10/24/17 at 18:00; Stop 10/24 at 18:00; Status DC Levothyroxine Sodium (Synthroid) 25 mcg DAILY07 PO Last administered on at 06:28; Start 10/25/17 at 07:00 Vitamin D (Vitamin D3) 50,000 unit WEEKLY PO Last administered on 10/25/17at 07: 58; Start 10/25/17 at 09:00 Divalproex Sodium (Depakote Sprinkles) 125 mg BID@0900,1300 PO Last administered on 10/25/17at 13:09; Start 10/25/17 at 09:00 Trazodone HCl (Desyrel) 25 mg TID@0900,1300,1700 PO ; Start 10/26/17 at 09:00 Active Scripts Active Reported Seroquel (Quetiapine Fumarate) 50 Mg Tablet 50 Mg PO Seroquel (Quetiapine Fumarate) 25 Mg Tablet 25 Mg PO TID Seroquel (Quetiapine Fumarate) 50 Mg Tablet 50 Mg PO QHS Lorazepam 0.5 Mg Tablet 0.5 Mg PO PRN QID PRN Bisacodyl 5 Mg Tablet.dr 10 Mg PO PRN DAILY PRN Tylenol (Acetaminophen) 325 Mg Tablet 325 Mg PO PRN Q6HRS PRN Tylenol (Acetaminophen) 325 Mg Tablet 325 Mg PO PRN Q6HRS PRN Milk Of Magnesia (Magnesium Hydroxide) 2,400 Mg/10 Ml Oral.susp 2,400 Mg PO PRN Q4HRS PRN Furosemide 20 Mg Tablet 20 Mg PO DAILY Furosemide 20 Mg Tablet 1 Tab PO DAILY Potassium Chloride 10 Meq Tablet.er 10 Meq PO DAILY Vitamin D3 (Cholecalciferol (Vitamin D3)) 1,000 Unit Tablet 1,000 Unit PO DAILY B-12 (Cyanocobalamin (Vitamin B-12)) 1,000 Mcg Tablet.er 1,000 Mcg PO DAILY Aspirin Ec (Aspirin) 81 Mg Tablet.dr 81 Mg PO DAILY Trazodone Hcl 50 Mg Tablet 25 Mg PO BID@1700,2100 Keppra (Levetiracetam) 500 Mg Tablet 500 Mg PO BID Metformin Hcl 500 Mg Tablet 500 Mg PO BIDWMEALS I have reviewed the current psychotropics carefully including drug interactions. Risk benefit ratio favors no change other than as noted in my dictated progress note. Diagnosis: Problems: (1) Anxiety disorder (2) Impulse control disorder (3) Dementia, vascular, with depression (4) Dementia, vascular, with delusions (5) Dementia in Alzheimer's disease with depression (6) Dementia in Alzheimer's disease with delusions MELANIE COSTELLO MD Oct 25, 2017 20:47
[2017-10-26] MEDS: LEVOTHYROXINE 25 MCG TABLET. PO SCH (06:06)
[2017-10-26 06:26] VITALS: BP 115/60
[2017-10-26] MEDS: QUEtiapine 25 MG TABLET. PO SCH ×3 (08:40→17:49)
[2017-10-26] MEDS: DIVALPROEX 125 MG CAP.SPRINK PO SCH ×2 (08:40→12:32)
[2017-10-26] MEDS: LACTOBACILLUS RHAMNOSUS GG 1 CAPSULE. PO SCH ×2 (08:40→19:46)
[2017-10-26] MEDS: CEFPODOXIME PROXETIL 100 MG TABLET PO SCH ×2 (08:41→19:46)
[2017-10-26] MEDS: traZODone 50 MG TABLET. PO SCH ×3 (08:42→17:49)
[2017-10-26] MEDS: ACETAMINOPHEN 325 MG TABLET PO PRN (12:32)
[2017-10-26 16:17] VITALS: BP 108/67
[2017-10-26] MEDS: QUEtiapine 50 MG TABLET. PO SCH (19:46)
[2017-10-26] MEDS: ACETAMINOPHEN 325 MG TABLET PO SCH (19:46)
[2017-10-26] MEDS: MIRTAZAPINE 7.5 MG TABLET. PO SCH (19:46)
--- NOTE | 2017-10-26 20:47 | PDOC ---
Exam Note: Gonzales Note: Please also refer to the separate dictated note~for this date of service dictated separately.~Patient seen individually. Discussed the patient with Nursing staff reviewed the chart.~Reviewed interim history and current functioning. Reviewed vital signs,~Labs/ Radiology~and current medications noted below. Continue current treatment with the changes noted in the dictated addendum note Assessment: Vital Signs: Vital Signs Date Time Temp Pulse Resp B/P (MAP) Pulse Ox O2 Delivery O2 Flow Rate FiO2 10/26/17 16:17 97.4 75 20 108/67 (81) 99 10/26/17 06:26 Room Air I&O Intake and Output 10/26/17 07:00 Intake Total 1080 ml Balance 1080 ml Intake Oral 1080 ml # Voids 2 # Bowel Movements 1 Labs: Laboratory Tests Test 10/26/17 07:14 Glucose (Fingerstick) 215 mg/dL (70-99) H Current Medications: Meds: Current Medications Haloperidol Lactate (Haldol) 5 mg STK-MED ONCE .ROUTE ; Start 10/22/17 at 19:51; Stop 10/22/17 at 19:52; Status DC Haloperidol Lactate (Haldol) 5 mg 1X ONCE IM Last administered on 10/22/17at 19: 56; Start 10/22/17 at 20:00; Stop 10/22/17 at 20:55; Status DC Lorazepam (Ativan) 1 mg 1X ONCE PO ; Start 10/22/17 at 20:15; Stop 10/22/17 at 20 :38; Status DC Cephalexin HCl (Keflex) 500 mg 1X ONCE PO Last administered on 10/22/17at 20:56 ; Start 10/22/17 at 21:00; Stop 10/22/17 at 21:01; Status DC Acetaminophen (Tylenol) 650 mg PRN Q6HRS PRN PO PAIN / TEMP Last administered on 10/26/17at 12:32; Start 10/22/17 at 22:00 Multi-Ingredient Ointment (Analgesic [place]) 1 dane PRN QID PRN TP MUSCLE PAIN; Start 10/22/17 at 22:00 Al Hydroxide/Mg Hydroxide (Mylanta Plus Xs) 15 ml PRN AFTMEALHC PRN PO DYSPEPSIA; Start 10/22/17 at 22:00 Magnesium Hydroxide (Milk Of Magnesia) 2,400 mg PRN QHS PRN PO CONSTIPATION Last administered on 10/25/17 07:58; Start 10/22/17 at 22:00 Lorazepam (Ativan) 0.5 mg PRN QID PRN PO ANXIETY Last administered on 16:42; Start 10/22/17 at 23:00 Quetiapine Fumarate (SEROquel) 25 mg TID PO Last administered on 10/23/17 19:53 ; Start 10/23/17 at 09:00; Stop 10/24/17 at 01:41; Status DC Quetiapine Fumarate (SEROquel) 50 mg QHS PO Last administered on 10/26/17 19: 46; Start 10/23/17 at 21:00 Trazodone HCl (Desyrel) 25 mg BID@1700,2100 PO Last administered on 10/25/17 16:42; Start 10/23/17 at 17:00; Stop 10/25/17 at 18:24; Status DC Cefpodoxime Proxetil (Vantin) 200 mg BID PO Last administered on 10/26/17 19: 46; Start 10/23/17 at 21:00; Stop 10/31/17 at 21:00 Lactobacillus Rhamnosus (Culturelle) 1 cap BID PO Last administered on 19:46; Start 10/23/17 at 21:00 Olanzapine (ZyPREXA ZYDIS) 2.5 mg PRN Q2HR PRN PO A Last administered on 07:58; Start 10/23/17 at 17:00 Mirtazapine (Remeron) 7.5 mg QHS PO Last administered on 10/26/17 19:46; Start 10/23/17 at 21:00 Quetiapine Fumarate (SEROquel) 25 mg TID@0900,1300,1700 PO Last administered on 10/26/17 17:49; Start 10/24/17 at 09:00 Vitamin D (Vitamin D3) 50,000 unit WEEKLY PO ; Start 10/24/17 at 18:00; Stop 10/24 at 18:00; Status DC Levothyroxine Sodium (Synthroid) 25 mcg DAILY07 PO Last administered on 06:06; Start 10/25/17 at 07:00 Vitamin D (Vitamin D3) 50,000 unit WEEKLY PO Last administered on 10/25/17at 07: 58; Start 10/25/17 at 09:00 Divalproex Sodium (Depakote Sprinkles) 125 mg BID@0900,1300 PO Last administered on 10/26/17at 12:32; Start 10/25/17 at 09:00 Trazodone HCl (Desyrel) 25 mg TID@0900,1300,1700 PO Last administered on at 17:49; Start 10/26/17 at 09:00 Acetaminophen (Tylenol) 650 mg TID PO Last administered on 10/26/17at 19:46; Start 10/26/17 at 21:00 Active Scripts Active Reported Seroquel (Quetiapine Fumarate) 50 Mg Tablet 50 Mg PO Seroquel (Quetiapine Fumarate) 25 Mg Tablet 25 Mg PO TID Seroquel (Quetiapine Fumarate) 50 Mg Tablet 50 Mg PO QHS Lorazepam 0.5 Mg Tablet 0.5 Mg PO PRN QID PRN Bisacodyl 5 Mg Tablet.dr 10 Mg PO PRN DAILY PRN Tylenol (Acetaminophen) 325 Mg Tablet 325 Mg PO PRN Q6HRS PRN Tylenol (Acetaminophen) 325 Mg Tablet 325 Mg PO PRN Q6HRS PRN Milk Of Magnesia (Magnesium Hydroxide) 2,400 Mg/10 Ml Oral.susp 2,400 Mg PO PRN Q4HRS PRN Furosemide 20 Mg Tablet 20 Mg PO DAILY Furosemide 20 Mg Tablet 1 Tab PO DAILY Potassium Chloride 10 Meq Tablet.er 10 Meq PO DAILY Vitamin D3 (Cholecalciferol (Vitamin D3)) 1,000 Unit Tablet 1,000 Unit PO DAILY B-12 (Cyanocobalamin (Vitamin B-12)) 1,000 Mcg Tablet.er 1,000 Mcg PO DAILY Aspirin Ec (Aspirin) 81 Mg Tablet. 81 Mg PO DAILY Trazodone Hcl 50 Mg Tablet 25 Mg PO BID@1700,2100 Keppra (Levetiracetam) 500 Mg Tablet 500 Mg PO BID Metformin Hcl 500 Mg Tablet 500 Mg PO BIDWMEALS I have reviewed the current psychotropics carefully including drug interactions. Risk benefit ratio favors no change other than as noted in my dictated progress note. Diagnosis: Problems: (1) Anxiety disorder (2) Impulse control disorder (3) Dementia, vascular, with depression (4) Dementia, vascular, with delusions (5) Dementia in Alzheimer's disease with depression (6) Dementia in Alzheimer's disease with delusions MELANIE COSTELLO MD Oct 26, 2017 20:47
[2017-10-27 06:04] VITALS: BP 114/51
[2017-10-27] MEDS: LEVOTHYROXINE 25 MCG TABLET. PO SCH (06:11)
[2017-10-27] MEDS: ACETAMINOPHEN 325 MG TABLET PO SCH ×3 (09:02→19:52)
[2017-10-27] MEDS: metFORMIN 500 MG TABLET PO SCH ×2 (09:02→16:59)
[2017-10-27] MEDS: traZODone 50 MG TABLET. PO SCH ×3 (09:02→16:59)
[2017-10-27] MEDS: QUEtiapine 25 MG TABLET. PO SCH (09:02)
[2017-10-27] MEDS: DIVALPROEX 125 MG CAP.SPRINK PO SCH ×2 (09:02→13:43)
[2017-10-27] MEDS: CEFPODOXIME PROXETIL 100 MG TABLET PO SCH ×2 (09:02→19:52)
[2017-10-27] MEDS: LACTOBACILLUS RHAMNOSUS GG 1 CAPSULE. PO SCH ×2 (09:03→19:52)
--- NOTE | 2017-10-27 09:06 | PN ---
DATE: 10/25/2017 This late entry 10/25/2017 covers elements not covered in my initial note 10/25/2017. Met with the patient evening of 10/25/2017. The patient slept 7-1/2 hours previous evening, extremely labile. At one moment, she tells the nursing staff she hates the nursing staff; next Moment, "I love you." Quite confused. REVIEW OF SYSTEMS: Ambulation impaired, in wheelchair or walker. No CV, , pulmonary, eye, ENT system symptoms on review. MENTAL STATUS EXAM: Oriented to herself. Insight, judgment, recent and remote memory, attention, concentration, fund of knowledge poor, consistent with her diagnosis. IMPRESSION: Major neurocognitive disorder, Alzheimer, vascular with delusion, depression. PLAN: Continue psychotropics mentioned in my initial note and Vantin for UTI. Start trazodone 25 mg at 8:00 a.m.; continue with 25 mg at 1700 and at bedtime. Rest unchanged from initial note. Follow labs level on the Depakote, then adjust as indicated. MAN Glory COSTELLO MD DR: MATEO/richie JOB#: [id number] / [id number]
[2017-10-27 09:48] LABS: BASO # 0.1 x10^3/uL (0.0-0.2); BASO % 1 % (0-3); EOS # 0.2 x10^3/uL (0.0-0.7); EOS % 2 % (0-3); HEMATOCRIT 31.9 % (36.0-47.0); HEMOGLOBIN 10.8 g/dL (12.0-15.5); LYMPH # 2.3 x10^3/uL (1.0-4.8); LYMPH % 24 % (24-48); MEAN CORPUSCULAR HEMOGLOBIN 30 pg (25-35); MEAN CORPUSCULAR HGB CONC 34 g/dL (31-37); MEAN CORPUSCULAR VOLUME 89 fL (79-100); MONO # 0.9 x10^3/uL (0.0-1.1); MONO % 9 % (0-9); NEUT # 6.1 x10^3uL (1.8-7.7); NEUT % 64 % (31-73); PLATELET COUNT 386 x10^3/uL (140-400); RED BLOOD COUNT 3.58 x10^6/uL (3.50-5.40); RED CELL DISTRIBUTION WIDTH 13.4 % (11.5-14.5); WHITE BLOOD COUNT 9.6 x10^3/uL (4.0-11.0)
[2017-10-27 10:01] LABS: ALBUMIN 2.7 g/dL (3.4-5.0); ALBUMIN/GLOBULIN RATIO 0.7 (1.0-1.7); ALK PHOS 99 U/L (46-116); ALT (SGPT) 25 U/L (14-59); ANION GAP 7 (6-14); AST (SGOT) 28 U/L (15-37); BLOOD UREA NITROGEN 29 mg/dL (7-20); BUN/CREATININE RATIO 32 (6-20); CALCIUM 9.2 mg/dL (8.5-10.1); CARBON DIOXIDE 29 mmol/L (21-32); CHLORIDE 103 mmol/L (98-107); CREATININE 0.9 mg/dL (0.6-1.0); GFR 60.7; GLUCOSE 120 mg/dL (70-99); MAGNESIUM 2.1 mg/dL (1.8-2.4); SODIUM 139 mmol/L (136-145); TOTAL BILIRUBIN 0.4 mg/dL (0.2-1.0); TOTAL PROTEIN 6.8 g/dL (6.4-8.2); VAL ACID 9 mcg/mL (50-100)
[2017-10-27] MEDS: risperiDONE 0.25 MG TABLET. PO SCH ×2 (13:43→16:59)
[2017-10-27 15:30] VITALS: BP 108/52
[2017-10-27] MEDS: LORazepam 0.5 MG TABLET PO PRN (16:03)
[2017-10-27] MEDS: MIRTAZAPINE 7.5 MG TABLET. PO SCH (19:52)
--- NOTE | 2017-10-27 20:48 | PDOC ---
Exam Note: [place] Note: Please also refer to the separate dictated note~for this date of service dictated separately.~Patient seen individually. Discussed the patient with Nursing staff reviewed the chart.~Reviewed interim history and current functioning. Reviewed vital signs,~Labs/ Radiology~and current medications noted below. Continue current treatment with the changes noted in the dictated addendum note Assessment: Vital Signs: Vital Signs Date Time Temp Pulse Resp B/P (MAP) Pulse Ox O2 Delivery O2 Flow Rate FiO2 10/27/17 15:30 96.7 86 18 108/52 (70) 97 10/26/17 06:26 Room Air I&O Intake and Output 10/27/17 07:00 Intake Total 1080 ml Balance 1080 ml Intake Oral 1080 ml # Voids 1 Labs: Laboratory Tests Test 10/27/17 07:13 10/27/17 09:20 Glucose (Fingerstick) 133 mg/dL (70-99) H White Blood Count 9.6 x10^3/uL (4.0-11.0) Red Blood Count 3.58 x10^6/uL (3.50-5.40) Hemoglobin 10.8 g/dL (12.0-15.5) L Hematocrit 31.9 % (36.0-47.0) L Mean Corpuscular Volume 89 fL (79-100) Mean Corpuscular Hemoglobin 30 pg (25-35) Mean Corpuscular Hemoglobin Concent 34 g/dL (31-37) Red Cell Distribution Width 13.4 % (11.5-14.5) Platelet Count 386 x10^3/uL (140-400) Neutrophils (%) (Auto) 64 % (31-73) Lymphocytes (%) (Auto) 24 % (24-48) Monocytes (%) (Auto) 9 % (0-9) Eosinophils (%) (Auto) 2 % (0-3) Basophils (%) (Auto) 1 % (0-3) Neutrophils # (Auto) 6.1 x10^3uL (1.8-7.7) Lymphocytes # (Auto) 2.3 x10^3/uL (1.0-4.8) Monocytes # (Auto) 0.9 x10^3/uL (0.0-1.1) Eosinophils # (Auto) 0.2 x10^3/uL (0.0-0.7) Basophils # (Auto) 0.1 x10^3/uL (0.0-0.2) Sodium Level 139 mmol/L (136-145) Potassium Level 5.0 mmol/L (3.5-5.1) Chloride Level 103 mmol/L (98-107) Carbon Dioxide Level 29 mmol/L (21-32) Anion Gap 7 (6-14) Blood Urea Nitrogen 29 mg/dL (7-20) H Creatinine 0.9 mg/dL (0.6-1.0) Estimated GFR (Cockcroft-Gault) 60.7 BUN/Creatinine Ratio 32 (6-20) H Glucose Level 120 mg/dL (70-99) H Calcium Level 9.2 mg/dL (8.5-10.1) Magnesium Level 2.1 mg/dL (1.8-2.4) Total Bilirubin 0.4 mg/dL (0.2-1.0) Aspartate Amino Transferase (AST) 28 U/L (15-37) Alanine Aminotransferase (ALT) 25 U/L (14-59) Alkaline Phosphatase 99 U/L (46-116) Total Protein 6.8 g/dL (6.4-8.2) Albumin 2.7 g/dL (3.4-5.0) L Albumin/Globulin Ratio 0.7 (1.0-1.7) L Valproic Acid Level 9 mcg/mL (50-100) L Valproic Acid Last Dose Date 10/26/17 Valproic Acid Last Dose Time 1300 Current Medications: Meds: Current Medications Haloperidol Lactate (Haldol) 5 mg STK-MED ONCE .ROUTE ; Start 10/22/17 at 19:51; Stop 10/22/17 at 19:52; Status DC Haloperidol Lactate (Haldol) 5 mg 1X ONCE IM Last administered on 10/22/17at 19: 56; Start 10/22/17 at 20:00; Stop 10/22/17 at 20:55; Status DC Lorazepam (Ativan) 1 mg 1X ONCE PO ; Start 10/22/17 at 20:15; Stop 10/22/17 at 20 :38; Status DC Cephalexin HCl (Keflex) 500 mg 1X ONCE PO Last administered on 10/22/17at 20:56 ; Start 10/22/17 at 21:00; Stop 10/22/17 at 21:01; Status DC Acetaminophen (Tylenol) 650 mg PRN Q6HRS PRN PO PAIN / TEMP Last administered on 10/26/17at 12:32; Start 10/22/17 at 22:00 Multi-Ingredient Ointment (Analgesic [place]) 1 dane PRN QID PRN TP MUSCLE PAIN; Start 10/22/17 at 22:00 Al Hydroxide/Mg Hydroxide (Mylanta Plus Xs) 15 ml PRN AFTMEALHC PRN PO DYSPEPSIA; Start 10/22/17 at 22:00 Magnesium Hydroxide (Milk Of Magnesia) 2,400 mg PRN QHS PRN PO CONSTIPATION Last administered on 10/25/17at 07:58; Start 10/22/17 at 22:00 Lorazepam (Ativan) 0.5 mg PRN QID PRN PO ANXIETY Last administered on 16:03; Start 10/22/17 at 23:00 Quetiapine Fumarate (SEROquel) 25 mg TID PO Last administered on 10/23/17 19:53 ; Start 10/23/17 at 09:00; Stop 10/24/17 at 01:41; Status DC Quetiapine Fumarate (SEROquel) 50 mg QHS PO Last administered on 10/26/17at 19: 46; Start 10/23/17 at 21:00; Stop 10/27/17 at 10:32; Status DC Trazodone HCl (Desyrel) 25 mg BID@1700,2100 PO Last administered on 10/25/17at 16:42; Start 10/23/17 at 17:00; Stop 10/25/17 at 18:24; Status DC Cefpodoxime Proxetil (Vantin) 200 mg BID PO Last administered on 10/27/17 19: 52; Start 10/23/17 at 21:00; Stop 10/31/17 at 21:00 Lactobacillus Rhamnosus (Culturelle) 1 cap BID PO Last administered on 19:52; Start 10/23/17 at 21:00 Olanzapine (ZyPREXA ZYDIS) 2.5 mg PRN Q2HR PRN PO A Last administered on at 07:58; Start 10/23/17 at 17:00 Mirtazapine (Remeron) 7.5 mg QHS PO Last administered on 10/27/17 19:52; Start 10/23/17 at 21:00 Quetiapine Fumarate (SEROquel) 25 mg TID@0900,1300,1700 PO Last administered on 10/27/17at 09:02; Start 10/24/17 at 09:00; Stop 10/27/17 at 10:32; Status DC Vitamin D (Vitamin D3) 50,000 unit WEEKLY PO ; Start 10/24/17 at 18:00; Stop 10/24 at 18:00; Status DC Levothyroxine Sodium (Synthroid) 25 mcg DAILY07 PO Last administered on 06:11; Start 10/25/17 at 07:00 Vitamin D (Vitamin D3) 50,000 unit WEEKLY PO Last administered on 10/25/17at 07: 58; Start 10/25/17 at 09:00 Divalproex Sodium (Depakote Sprinkles) 125 mg BID@0900,1300 PO Last administered on 10/27/17at 13:43; Start 10/25/17 at 09:00 Trazodone HCl (Desyrel) 25 mg TID@0900,1300,1700 PO Last administered on 16:59; Start 10/26/17 at 09:00 Acetaminophen (Tylenol) 650 mg TID PO Last administered on 10/27/17 19:52; Start 10/26/17 at 21:00 Metformin HCl (Glucophage) 500 mg BIDWMEALS PO Last administered on 10/27/17 16:59; Start 10/27/17 at 08:00 Risperidone (RisperDAL) 0.125 mg TID@0900,1300,1700 PO Last administered on 16:59; Start 10/27/17 at 13:00 Active Scripts Active Reported Seroquel (Quetiapine Fumarate) 50 Mg Tablet 50 Mg PO Seroquel (Quetiapine Fumarate) 25 Mg Tablet 25 Mg PO TID Seroquel (Quetiapine Fumarate) 50 Mg Tablet 50 Mg PO QHS Lorazepam 0.5 Mg Tablet 0.5 Mg PO PRN QID PRN Bisacodyl 5 Mg Tablet.dr 10 Mg PO PRN DAILY PRN Tylenol (Acetaminophen) 325 Mg Tablet 325 Mg PO PRN Q6HRS PRN Tylenol (Acetaminophen) 325 Mg Tablet 325 Mg PO PRN Q6HRS PRN Milk Of Magnesia (Magnesium Hydroxide) 2,400 Mg/10 Ml Oral.susp 2,400 Mg PO PRN Q4HRS PRN Furosemide 20 Mg Tablet 20 Mg PO DAILY Furosemide 20 Mg Tablet 1 Tab PO DAILY Potassium Chloride 10 Meq Tablet.er 10 Meq PO DAILY Vitamin D3 (Cholecalciferol (Vitamin D3)) 1,000 Unit Tablet 1,000 Unit PO DAILY B-12 (Cyanocobalamin (Vitamin B-12)) 1,000 Mcg Tablet.er 1,000 Mcg PO DAILY Aspirin Ec (Aspirin) 81 Mg Tablet.dr 81 Mg PO DAILY Trazodone Hcl 50 Mg Tablet 25 Mg PO BID@1700,2100 Keppra (Levetiracetam) 500 Mg Tablet 500 Mg PO BID Metformin Hcl 500 Mg Tablet 500 Mg PO BIDWMEALS I have reviewed the current psychotropics carefully including drug interactions. Risk benefit ratio favors no change other than as noted in my dictated progress note. Diagnosis: Problems: (1) Anxiety disorder (2) Impulse control disorder (3) Dementia, vascular, with depression (4) Dementia, vascular, with delusions (5) Dementia in Alzheimer's disease with depression (6) Dementia in Alzheimer's disease with delusions MELANIE COSTELLO MD Oct 27, 2017 20:48
[2017-10-28] MEDS: LEVOTHYROXINE 25 MCG TABLET. PO SCH (06:02)
[2017-10-28 06:34] VITALS: BP 141/55
[2017-10-28] MEDS: risperiDONE 0.25 MG TABLET. PO SCH ×3 (08:01→17:00)
[2017-10-28] MEDS: LACTOBACILLUS RHAMNOSUS GG 1 CAPSULE. PO SCH ×2 (08:01→19:14)
[2017-10-28] MEDS: traZODone 50 MG TABLET. PO SCH ×3 (08:01→17:00)
[2017-10-28] MEDS: metFORMIN 500 MG TABLET PO SCH ×2 (08:01→17:00)
[2017-10-28] MEDS: CEFPODOXIME PROXETIL 100 MG TABLET PO SCH ×2 (08:02→19:14)
[2017-10-28] MEDS: ACETAMINOPHEN 325 MG TABLET PO SCH ×3 (08:02→19:14)
[2017-10-28] MEDS: DIVALPROEX 125 MG CAP.SPRINK PO SCH ×2 (08:03→12:43)
[2017-10-28 16:10] VITALS: BP 162/71
[2017-10-28] MEDS: MIRTAZAPINE 7.5 MG TABLET. PO SCH (19:14)
[2017-10-28] MEDS: LORazepam 0.5 MG TABLET PO PRN (19:15)
--- NOTE | 2017-10-28 20:44 | PDOC ---
Exam Note: [place] Note: Please also refer to the separate dictated note~for this date of service dictated separately.~Patient seen individually. Discussed the patient with Nursing staff reviewed the chart.~Reviewed interim history and current functioning. Reviewed vital signs,~Labs/ Radiology~and current medications noted below. Continue current treatment with the changes noted in the dictated addendum note Assessment: Vital Signs: Vital Signs Date Time Temp Pulse Resp B/P (MAP) Pulse Ox O2 Delivery O2 Flow Rate FiO2 10/28/17 16:10 97.8 73 16 162/71 (101) 94 10/26/17 06:26 Room Air I&O Intake and Output 10/28/17 07:00 Intake Total 600 ml Balance 600 ml Intake Oral 600 ml # Voids 1 # Bowel Movements 1 Labs: Laboratory Tests Test 10/28/17 07:12 Glucose (Fingerstick) 106 mg/dL (70-99) H Current Medications: Meds: Current Medications Haloperidol Lactate (Haldol) 5 mg STK-MED ONCE .ROUTE ; Start 10/22/17 at 19:51; Stop 10/22/17 at 19:52; Status DC Haloperidol Lactate (Haldol) 5 mg 1X ONCE IM Last administered on 10/22/17at 19: 56; Start 10/22/17 at 20:00; Stop 10/22/17 at 20:55; Status DC Lorazepam (Ativan) 1 mg 1X ONCE PO ; Start 10/22/17 at 20:15; Stop 10/22/17 at 20 :38; Status DC Cephalexin HCl (Keflex) 500 mg 1X ONCE PO Last administered on 10/22/17at 20:56 ; Start 10/22/17 at 21:00; Stop 10/22/17 at 21:01; Status DC Acetaminophen (Tylenol) 650 mg PRN Q6HRS PRN PO PAIN / TEMP Last administered on 10/26/17at 12:32; Start 10/22/17 at 22:00 Multi-Ingredient Ointment (Analgesic [place]) 1 dane PRN QID PRN TP MUSCLE PAIN; Start 10/22/17 at 22:00 Al Hydroxide/Mg Hydroxide (Mylanta Plus Xs) 15 ml PRN AFTMEALHC PRN PO DYSPEPSIA; Start 10/22/17 at 22:00 Magnesium Hydroxide (Milk Of Magnesia) 2,400 mg PRN QHS PRN PO CONSTIPATION Last administered on 10/25/17 07:58; Start 10/22/17 at 22:00 Lorazepam (Ativan) 0.5 mg PRN QID PRN PO ANXIETY Last administered on 19:15; Start 10/22/17 at 23:00 Quetiapine Fumarate (SEROquel) 25 mg TID PO Last administered on 10/23/17 19:53 ; Start 10/23/17 at 09:00; Stop 10/24/17 at 01:41; Status DC Quetiapine Fumarate (SEROquel) 50 mg QHS PO Last administered on 10/26/17 19: 46; Start 10/23/17 at 21:00; Stop 10/27/17 at 10:32; Status DC Trazodone HCl (Desyrel) 25 mg BID@1700,2100 PO Last administered on 10/25/17 16:42; Start 10/23/17 at 17:00; Stop 10/25/17 at 18:24; Status DC Cefpodoxime Proxetil (Vantin) 200 mg BID PO Last administered on 10/28/17 19: 14; Start 10/23/17 at 21:00; Stop 10/31/17 at 21:00 Lactobacillus Rhamnosus (Culturelle) 1 cap BID PO Last administered on 19:14; Start 10/23/17 at 21:00 Olanzapine (ZyPREXA ZYDIS) 2.5 mg PRN Q2HR PRN PO A Last administered on 21:41; Start 10/23/17 at 17:00 Mirtazapine (Remeron) 7.5 mg QHS PO Last administered on 10/28/17 19:14; Start 10/23/17 at 21:00 Quetiapine Fumarate (SEROquel) 25 mg TID@0900,1300,1700 PO Last administered on 10/27/17 09:02; Start 10/24/17 at 09:00; Stop 10/27/17 at 10:32; Status DC Vitamin D (Vitamin D3) 50,000 unit WEEKLY PO ; Start 10/24/17 at 18:00; Stop 10/24 at 18:00; Status DC Levothyroxine Sodium (Synthroid) 25 mcg DAILY07 PO Last administered on 06:02; Start 10/25/17 at 07:00 Vitamin D (Vitamin D3) 50,000 unit WEEKLY PO Last administered on 10/25/17 07: 58; Start 10/25/17 at 09:00 Divalproex Sodium (Depakote Sprinkles) 125 mg BID@0900,1300 PO Last administered on 10/28/17 12:43; Start 10/25/17 at 09:00 Trazodone HCl (Desyrel) 25 mg TID@0900,1300,1700 PO Last administered on 17:00; Start 10/26/17 at 09:00 Acetaminophen (Tylenol) 650 mg TID PO Last administered on 10/28/17 19:14; Start 10/26/17 at 21:00 Metformin HCl (Glucophage) 500 mg BIDWMEALS PO Last administered on 10/28/17 17:00; Start 10/27/17 at 08:00 Risperidone (RisperDAL) 0.125 mg TID@0900,1300,1700 PO Last administered on 17:00; Start 10/27/17 at 13:00 Active Scripts Active Reported Seroquel (Quetiapine Fumarate) 50 Mg Tablet 50 Mg PO Seroquel (Quetiapine Fumarate) 25 Mg Tablet 25 Mg PO TID Seroquel (Quetiapine Fumarate) 50 Mg Tablet 50 Mg PO QHS Lorazepam 0.5 Mg Tablet 0.5 Mg PO PRN QID PRN Bisacodyl 5 Mg Tablet.dr 10 Mg PO PRN DAILY PRN Tylenol (Acetaminophen) 325 Mg Tablet 325 Mg PO PRN Q6HRS PRN Tylenol (Acetaminophen) 325 Mg Tablet 325 Mg PO PRN Q6HRS PRN Milk Of Magnesia (Magnesium Hydroxide) 2,400 Mg/10 Ml Oral.susp 2,400 Mg PO PRN Q4HRS PRN Furosemide 20 Mg Tablet 20 Mg PO DAILY Furosemide 20 Mg Tablet 1 Tab PO DAILY Potassium Chloride 10 Meq Tablet.er 10 Meq PO DAILY Vitamin D3 (Cholecalciferol (Vitamin D3)) 1,000 Unit Tablet 1,000 Unit PO DAILY B-12 (Cyanocobalamin (Vitamin B-12)) 1,000 Mcg Tablet.er 1,000 Mcg PO DAILY Aspirin Ec (Aspirin) 81 Mg Tablet. 81 Mg PO DAILY Trazodone Hcl 50 Mg Tablet 25 Mg PO BID@1700,2100 Keppra (Levetiracetam) 500 Mg Tablet 500 Mg PO BID Metformin Hcl 500 Mg Tablet 500 Mg PO BIDWMEALS I have reviewed the current psychotropics carefully including drug interactions. Risk benefit ratio favors no change other than as noted in my dictated progress note. Diagnosis: Problems: (1) Anxiety disorder (2) Impulse control disorder (3) Dementia, vascular, with depression (4) Dementia, vascular, with delusions (5) Dementia in Alzheimer's disease with depression (6) Dementia in Alzheimer's disease with delusions MELANIE COSTELLO MD Oct 28, 2017 20:44
--- NOTE | 2017-10-28 22:15 | PN ---
DATE: 10/26/2017 This is a late entry for 10/26/2017 covers elements not covered in my initial note of 10/26/2017. SUBJECTIVE: I met with the patient in the evening of 10/26/2017. The patient remains confused, somewhat rambling in her speech, labile, restless, slept 7 hours. We will be checking labs in the morning of 10/27/2017. REVIEW OF SYSTEMS: Ambulation impaired, in wheelchair. No CV, , pulmonary, eye, ENT system symptoms on review. Reliability poor. MENTAL STATUS EXAM: Oriented to herself. Insight, judgment, recent and remote memory, attention, concentration, fund of knowledge poor, consistent with her diagnosis, quite disorganized, but able to refer to me as doctor, which in itself was surprising because often she is oblivious totally to her situation. IMPRESSION: Major neurocognitive disorder, Alzheimer, vascular with depression, delusion, behavioral disturbance. Rest unchanged. PLAN: Continue psychotropics mentioned in my initial note. Check labs on 10/27/2017. Adjust Depakote thereafter. MAN Glory COSTELLO MD DR: MATEO/richie JOB#: [id number] / [id number]
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
[2017-10-29 06:24] VITALS: BP 133/55
[2017-10-29] MEDS: LEVOTHYROXINE 25 MCG TABLET. PO SCH (06:27)
[2017-10-29] MEDS: LACTOBACILLUS RHAMNOSUS GG 1 CAPSULE. PO SCH ×2 (07:54→19:33)
[2017-10-29] MEDS: CEFPODOXIME PROXETIL 100 MG TABLET PO SCH ×2 (07:54→19:34)
[2017-10-29] MEDS: traZODone 50 MG TABLET. PO SCH ×3 (07:54→16:53)
[2017-10-29] MEDS: ACETAMINOPHEN 325 MG TABLET PO SCH ×3 (07:54→19:34)
[2017-10-29] MEDS: DIVALPROEX 125 MG CAP.SPRINK PO SCH ×3 (07:55→19:36)
[2017-10-29] MEDS: risperiDONE 0.25 MG TABLET. PO SCH ×3 (07:55→16:53)
[2017-10-29] MEDS: metFORMIN 500 MG TABLET PO SCH ×2 (07:58→16:53)
[2017-10-29 16:24] VITALS: BP 106/61
[2017-10-29] MEDS: LORazepam 0.5 MG TABLET PO PRN (16:57)
[2017-10-29] MEDS: MIRTAZAPINE 7.5 MG TABLET. PO SCH (19:34)
--- NOTE | 2017-10-29 19:41 | PDOC ---
Exam Note: [place] Note: Please also refer to the separate dictated note~for this date of service dictated separately.~Patient seen individually. Discussed the patient with Nursing staff reviewed the chart.~Reviewed interim history and current functioning. Reviewed vital signs,~Labs/ Radiology~and current medications noted below. Continue current treatment with the changes noted in the dictated addendum note Assessment: Vital Signs: Vital Signs Date Time Temp Pulse Resp B/P (MAP) Pulse Ox O2 Delivery O2 Flow Rate FiO2 10/29/17 16:24 97.3 95 26 106/61 (76) 98 Room Air I&O Intake and Output 10/29/17 07:00 Intake Total 840 ml Balance 840 ml Intake Oral 840 ml # Voids 1 Labs: Laboratory Tests Test 10/29/17 11:35 Glucose (Fingerstick) 105 mg/dL (70-99) H Current Medications: Meds: Current Medications Haloperidol Lactate (Haldol) 5 mg STK-MED ONCE .ROUTE ; Start 10/22/17 at 19:51; Stop 10/22/17 at 19:52; Status DC Haloperidol Lactate (Haldol) 5 mg 1X ONCE IM Last administered on 10/22/17at 19: 56; Start 10/22/17 at 20:00; Stop 10/22/17 at 20:55; Status DC Lorazepam (Ativan) 1 mg 1X ONCE PO ; Start 10/22/17 at 20:15; Stop 10/22/17 at 20 :38; Status DC Cephalexin HCl (Keflex) 500 mg 1X ONCE PO Last administered on 10/22/17at 20:56 ; Start 10/22/17 at 21:00; Stop 10/22/17 at 21:01; Status DC Acetaminophen (Tylenol) 650 mg PRN Q6HRS PRN PO PAIN / TEMP Last administered on 10/26/17at 12:32; Start 10/22/17 at 22:00 Multi-Ingredient Ointment (Analgesic [place]) 1 dane PRN QID PRN TP MUSCLE PAIN; Start 10/22/17 at 22:00 Al Hydroxide/Mg Hydroxide (Mylanta Plus Xs) 15 ml PRN AFTMEALHC PRN PO DYSPEPSIA; Start 10/22/17 at 22:00 Magnesium Hydroxide (Milk Of Magnesia) 2,400 mg PRN QHS PRN PO CONSTIPATION Last administered on 10/25/17 07:58; Start 10/22/17 at 22:00 Lorazepam (Ativan) 0.5 mg PRN QID PRN PO ANXIETY Last administered on 16:57; Start 10/22/17 at 23:00 Quetiapine Fumarate (SEROquel) 25 mg TID PO Last administered on 10/23/17 19:53 ; Start 10/23/17 at 09:00; Stop 10/24/17 at 01:41; Status DC Quetiapine Fumarate (SEROquel) 50 mg QHS PO Last administered on 10/26/17 19: 46; Start 10/23/17 at 21:00; Stop 10/27/17 at 10:32; Status DC Trazodone HCl (Desyrel) 25 mg BID@1700,2100 PO Last administered on 10/25/17 16:42; Start 10/23/17 at 17:00; Stop 10/25/17 at 18:24; Status DC Cefpodoxime Proxetil (Vantin) 200 mg BID PO Last administered on 10/29/17 19: 34; Start 10/23/17 at 21:00; Stop 10/31/17 at 21:00 Lactobacillus Rhamnosus (Culturelle) 1 cap BID PO Last administered on 19:33; Start 10/23/17 at 21:00 Olanzapine (ZyPREXA ZYDIS) 2.5 mg PRN Q2HR PRN PO A Last administered on 19:36; Start 10/23/17 at 17:00 Mirtazapine (Remeron) 7.5 mg QHS PO Last administered on 10/29/17 19:34; Start 10/23/17 at 21:00 Quetiapine Fumarate (SEROquel) 25 mg TID@0900,1300,1700 PO Last administered on 10/27/17at 09:02; Start 10/24/17 at 09:00; Stop 10/27/17 at 10:32; Status DC Vitamin D (Vitamin D3) 50,000 unit WEEKLY PO ; Start 10/24/17 at 18:00; Stop 10/24 at 18:00; Status DC Levothyroxine Sodium (Synthroid) 25 mcg DAILY07 PO Last administered on at 06:27; Start 10/25/17 at 07:00 Vitamin D (Vitamin D3) 50,000 unit WEEKLY PO Last administered on 10/25/17at 07: 58; Start 10/25/17 at 09:00 Divalproex Sodium (Depakote Sprinkles) 125 mg BID@0900,1300 PO Last administered on 10/29/17at 14:55; Start 10/25/17 at 09:00; Stop 10/29/17 at 18:18 ; Status DC Trazodone HCl (Desyrel) 25 mg TID@0900,1300,1700 PO Last administered on at 16:53; Start 10/26/17 at 09:00 Acetaminophen (Tylenol) 650 mg TID PO Last administered on 10/29/17at 19:34; Start 10/26/17 at 21:00 Metformin HCl (Glucophage) 500 mg BIDWMEALS PO Last administered on 10/29/17at 16:53; Start 10/27/17 at 08:00 Risperidone (RisperDAL) 0.125 mg TID@0900,1300,1700 PO Last administered on at 16:53; Start 10/27/17 at 13:00 Divalproex Sodium (Depakote Sprinkles) 125 mg QID PO Last administered on at 19:36; Start 10/29/17 at 21:00 Active Scripts Active Reported Seroquel (Quetiapine Fumarate) 50 Mg Tablet 50 Mg PO Seroquel (Quetiapine Fumarate) 25 Mg Tablet 25 Mg PO TID Seroquel (Quetiapine Fumarate) 50 Mg Tablet 50 Mg PO QHS Lorazepam 0.5 Mg Tablet 0.5 Mg PO PRN QID PRN Bisacodyl 5 Mg Tablet.dr 10 Mg PO PRN DAILY PRN Tylenol (Acetaminophen) 325 Mg Tablet 325 Mg PO PRN Q6HRS PRN Tylenol (Acetaminophen) 325 Mg Tablet 325 Mg PO PRN Q6HRS PRN Milk Of Magnesia (Magnesium Hydroxide) 2,400 Mg/10 Ml Oral.susp 2,400 Mg PO PRN Q4HRS PRN Furosemide 20 Mg Tablet 20 Mg PO DAILY Furosemide 20 Mg Tablet 1 Tab PO DAILY Potassium Chloride 10 Meq Tablet.er 10 Meq PO DAILY Vitamin D3 (Cholecalciferol (Vitamin D3)) 1,000 Unit Tablet 1,000 Unit PO DAILY B-12 (Cyanocobalamin (Vitamin B-12)) 1,000 Mcg Tablet.er 1,000 Mcg PO DAILY Aspirin Ec (Aspirin) 81 Mg Tablet.dr 81 Mg PO DAILY Trazodone Hcl 50 Mg Tablet 25 Mg PO BID@1700,2100 Keppra (Levetiracetam) 500 Mg Tablet 500 Mg PO BID Metformin Hcl 500 Mg Tablet 500 Mg PO BIDWMEALS I have reviewed the current psychotropics carefully including drug interactions. Risk benefit ratio favors no change other than as noted in my dictated progress note. Diagnosis: Problems: (1) Anxiety disorder (2) Impulse control disorder (3) Dementia, vascular, with depression (4) Dementia, vascular, with delusions (5) Dementia in Alzheimer's disease with depression (6) Dementia in Alzheimer's disease with delusions MELANIE COSTELLO MD Oct 29, 2017 19:41
[2017-10-30] MEDS: LEVOTHYROXINE 25 MCG TABLET. PO SCH (06:01)
[2017-10-30 06:05] VITALS: BP 104/48
[2017-10-30] MEDS: ACETAMINOPHEN 325 MG TABLET PO SCH ×3 (07:36→19:25)
[2017-10-30] MEDS: LACTOBACILLUS RHAMNOSUS GG 1 CAPSULE. PO SCH ×2 (07:36→19:24)
[2017-10-30] MEDS: CEFPODOXIME PROXETIL 100 MG TABLET PO SCH ×2 (07:36→19:24)
[2017-10-30] MEDS: traZODone 50 MG TABLET. PO SCH ×3 (07:36→17:31)
[2017-10-30] MEDS: DIVALPROEX 125 MG CAP.SPRINK PO SCH ×4 (07:37→19:24)
[2017-10-30] MEDS: risperiDONE 0.25 MG TABLET. PO SCH ×3 (07:37→17:31)
[2017-10-30] MEDS: metFORMIN 500 MG TABLET PO SCH ×2 (07:37→17:34)
[2017-10-30 16:43] VITALS: BP 121/66
[2017-10-30] MEDS: MIRTAZAPINE 7.5 MG TABLET. PO SCH (19:24)
--- NOTE | 2017-10-30 22:07 | PDOC ---
Exam Note: [place] Note: Please also refer to the separate dictated note~for this date of service dictated separately.~Patient seen individually. Discussed the patient with Nursing staff reviewed the chart.~Reviewed interim history and current functioning. Reviewed vital signs,~Labs/ Radiology~and current medications noted below. Continue current treatment with the changes noted in the dictated addendum note Assessment: Vital Signs: Vital Signs Date Time Temp Pulse Resp B/P (MAP) Pulse Ox O2 Delivery O2 Flow Rate FiO2 10/30/17 16:43 98.4 100 20 121/66 (84) 95 10/30/17 06:05 Room Air I&O Intake and Output 10/30/17 07:00 Intake Total 240 ml Balance 240 ml Intake Oral 240 ml # Voids 1 Current Medications: Meds: Current Medications Haloperidol Lactate (Haldol) 5 mg STK-MED ONCE .ROUTE ; Start 10/22/17 at 19:51; Stop 10/22/17 at 19:52; Status DC Haloperidol Lactate (Haldol) 5 mg 1X ONCE IM Last administered on 10/22/17at 19: 56; Start 10/22/17 at 20:00; Stop 10/22/17 at 20:55; Status DC Lorazepam (Ativan) 1 mg 1X ONCE PO ; Start 10/22/17 at 20:15; Stop 10/22/17 at 20 :38; Status DC Cephalexin HCl (Keflex) 500 mg 1X ONCE PO Last administered on 10/22/17at 20:56 ; Start 10/22/17 at 21:00; Stop 10/22/17 at 21:01; Status DC Acetaminophen (Tylenol) 650 mg PRN Q6HRS PRN PO PAIN / TEMP Last administered on 10/26/17at 12:32; Start 10/22/17 at 22:00 Multi-Ingredient Ointment (Analgesic [place]) 1 dane PRN QID PRN TP MUSCLE PAIN; Start 10/22/17 at 22:00 Al Hydroxide/Mg Hydroxide (Mylanta Plus Xs) 15 ml PRN AFTMEALHC PRN PO DYSPEPSIA; Start 10/22/17 at 22:00 Magnesium Hydroxide (Milk Of Magnesia) 2,400 mg PRN QHS PRN PO CONSTIPATION Last administered on 10/25/17at 07:58; Start 10/22/17 at 22:00 Lorazepam (Ativan) 0.5 mg PRN QID PRN PO ANXIETY Last administered on 16:57; Start 10/22/17 at 23:00 Quetiapine Fumarate (SEROquel) 25 mg TID PO Last administered on 10/23/17 19:53 ; Start 10/23/17 at 09:00; Stop 10/24/17 at 01:41; Status DC Quetiapine Fumarate (SEROquel) 50 mg QHS PO Last administered on 10/26/17 19: 46; Start 10/23/17 at 21:00; Stop 10/27/17 at 10:32; Status DC Trazodone HCl (Desyrel) 25 mg BID@1700,2100 PO Last administered on 10/25/17 16:42; Start 10/23/17 at 17:00; Stop 10/25/17 at 18:24; Status DC Cefpodoxime Proxetil (Vantin) 200 mg BID PO Last administered on 10/30/17 19: 24; Start 10/23/17 at 21:00; Stop 10/31/17 at 21:00 Lactobacillus Rhamnosus (Culturelle) 1 cap BID PO Last administered on 19:24; Start 10/23/17 at 21:00 Olanzapine (ZyPREXA ZYDIS) 2.5 mg PRN Q2HR PRN PO A Last administered on 17:31; Start 10/23/17 at 17:00 Mirtazapine (Remeron) 7.5 mg QHS PO Last administered on 10/30/17 19:24; Start 10/23/17 at 21:00 Quetiapine Fumarate (SEROquel) 25 mg TID@0900,1300,1700 PO Last administered on 10/27/17 09:02; Start 10/24/17 at 09:00; Stop 10/27/17 at 10:32; Status DC Vitamin D (Vitamin D3) 50,000 unit WEEKLY PO ; Start 10/24/17 at 18:00; Stop 10/24 at 18:00; Status DC Levothyroxine Sodium (Synthroid) 25 mcg DAILY07 PO Last administered on at 06:01; Start 10/25/17 at 07:00 Vitamin D (Vitamin D3) 50,000 unit WEEKLY PO Last administered on 10/25/17at 07: 58; Start 10/25/17 at 09:00 Divalproex Sodium (Depakote Sprinkles) 125 mg BID@0900,1300 PO Last administered on 10/29/17at 14:55; Start 10/25/17 at 09:00; Stop 10/29/17 at 18:18 ; Status DC Trazodone HCl (Desyrel) 25 mg TID@0900,1300,1700 PO Last administered on at 17:31; Start 10/26/17 at 09:00 Acetaminophen (Tylenol) 650 mg TID PO Last administered on 10/30/17 19:25; Start 10/26/17 at 21:00 Metformin HCl (Glucophage) 500 mg BIDWMEALS PO Last administered on 10/30/17 17:34; Start 10/27/17 at 08:00 Risperidone (RisperDAL) 0.125 mg TID@0900,1300,1700 PO Last administered on at 17:31; Start 10/27/17 at 13:00 Divalproex Sodium (Depakote Sprinkles) 125 mg QID PO Last administered on 19:24; Start 10/29/17 at 21:00 Active Scripts Active Reported Seroquel (Quetiapine Fumarate) 50 Mg Tablet 50 Mg PO Seroquel (Quetiapine Fumarate) 25 Mg Tablet 25 Mg PO TID Seroquel (Quetiapine Fumarate) 50 Mg Tablet 50 Mg PO QHS Lorazepam 0.5 Mg Tablet 0.5 Mg PO PRN QID PRN Bisacodyl 5 Mg Tablet.dr 10 Mg PO PRN DAILY PRN Tylenol (Acetaminophen) 325 Mg Tablet 325 Mg PO PRN Q6HRS PRN Tylenol (Acetaminophen) 325 Mg Tablet 325 Mg PO PRN Q6HRS PRN Milk Of Magnesia (Magnesium Hydroxide) 2,400 Mg/10 Ml Oral.susp 2,400 Mg PO PRN Q4HRS PRN Furosemide 20 Mg Tablet 20 Mg PO DAILY Furosemide 20 Mg Tablet 1 Tab PO DAILY Potassium Chloride 10 Meq Tablet.er 10 Meq PO DAILY Vitamin D3 (Cholecalciferol (Vitamin D3)) 1,000 Unit Tablet 1,000 Unit PO DAILY B-12 (Cyanocobalamin (Vitamin B-12)) 1,000 Mcg Tablet.er 1,000 Mcg PO DAILY Aspirin Ec (Aspirin) 81 Mg Tablet. 81 Mg PO DAILY Trazodone Hcl 50 Mg Tablet 25 Mg PO BID@1700,2100 Keppra (Levetiracetam) 500 Mg Tablet 500 Mg PO BID Metformin Hcl 500 Mg Tablet 500 Mg PO BIDWMEALS I have reviewed the current psychotropics carefully including drug interactions. Risk benefit ratio favors no change other than as noted in my dictated progress note. Diagnosis: Problems: (1) Anxiety disorder (2) Impulse control disorder (3) Dementia, vascular, with depression (4) Dementia, vascular, with delusions (5) Dementia in Alzheimer's disease with depression (6) Dementia in Alzheimer's disease with delusions MELANIE COSTELLO MD Oct 30, 2017 22:07
--- NOTE | 2017-10-30 22:13 | PN ---
DATE: 10/28/2017 This is a late entry of 10/28/2017, and covers the elements not covered in my initial note of 10/28/2017. SUBJECTIVE: I met with the patient in the evening of 10/28/2017. Overall, the patient remains confused, walks up and down the hallway ____. She slept through a supple overstimulation ____ visual hallucinations previous evening, received Zyprexa at night. REVIEW OF SYSTEMS: No CV, , pulmonary, eye, ENT system symptoms on review. Reliability poor. MENTAL STATUS EXAM: Oriented to herself. Insight, judgment, recent and remote memory, attention, concentration, fund of knowledge poor, consistent with her diagnosis mentioned in my initial note. IMPRESSION: Major neurocognitive disorder, Alzheimer, vascular with delusion, depression, behavioral disturbance. PLAN: Continue psychotropics mentioned in my initial note. MAN Glory COSTELLO MD DR: MATEO/richie JOB#: [id number] / [id number]
--- NOTE | 2017-10-31 02:25 | OP ---
DATE OF SURGERY: 10/29/2017 PSYCHIATRIC PROGRESS NOTE This is a late entry of date of service 10/29/2017 covers elements not covered in my initial note of 10/29/2017. SUBJECTIVE: I met with the patient evening of 10/29/2017. The patient slept 5-3/4 hours previous evening. She remains quite confused, has been intermittently hallucinating, cursing all day, using foul language, hyperverbal, distractible. Valproic acid is low at 9. No CV, , pulmonary, eye, ENT system symptoms on review. Reliability is poor. MENTAL STATUS EXAM: Oriented to herself. Insight, judgment, recent and remote memory, attention, concentration, fund of knowledge poor, consistent with her diagnosis mentioned in my initial note. IMPRESSION: Major neurocognitive disorder, Alzheimer, vascular with depression, delusion, behavioral disturbance. Rest unchanged. PLAN: Increase Depakote from 125 mg b.i.d. to 125 mg 4 times a day. Continue rest unchanged. Check CBC, CMP, valproic acid level in 3 days. MAN Glory COSTELLO MD DR: MATEO/richie JOB#: [id number] / [id number]
[2017-10-31] MEDS: LEVOTHYROXINE 25 MCG TABLET. PO SCH (05:57)
[2017-10-31 06:07] VITALS: BP 122/58
[2017-10-31] MEDS: metFORMIN 500 MG TABLET PO SCH ×2 (08:50→18:31)
[2017-10-31] MEDS: LACTOBACILLUS RHAMNOSUS GG 1 CAPSULE. PO SCH ×2 (08:50→20:00)
[2017-10-31] MEDS: traZODone 50 MG TABLET. PO SCH ×3 (08:50→18:31)
[2017-10-31] MEDS: CEFPODOXIME PROXETIL 100 MG TABLET PO SCH ×2 (08:50→20:00)
[2017-10-31] MEDS: DIVALPROEX 125 MG CAP.SPRINK PO SCH ×4 (08:50→20:00)
[2017-10-31] MEDS: risperiDONE 0.25 MG TABLET. PO SCH ×3 (08:50→18:31)
[2017-10-31] MEDS: ACETAMINOPHEN 325 MG TABLET PO SCH ×3 (08:50→20:00)
[2017-10-31 15:47] VITALS: BP 108/62
[2017-10-31] MEDS: MIRTAZAPINE 7.5 MG TABLET. PO SCH (20:00)
--- NOTE | 2017-10-31 21:05 | PDOC ---
Exam Note: [place] Note: Please also refer to the separate dictated note~for this date of service dictated separately.~Patient seen individually. Discussed the patient with Nursing staff reviewed the chart.~Reviewed interim history and current functioning. Reviewed vital signs,~Labs/ Radiology~and current medications noted below. Continue current treatment with the changes noted in the dictated addendum note Assessment: Vital Signs: Vital Signs Date Time Temp Pulse Resp B/P (MAP) Pulse Ox O2 Delivery O2 Flow Rate FiO2 10/31/17 15:47 72 108/62 (77) 10/31/17 06:07 98.1 18 94 10/30/17 06:05 Room Air I&O Intake and Output 10/31/17 07:00 Intake Total 600 ml Balance 600 ml Intake Oral 600 ml # Voids 1 # Bowel Movements 1 Labs: Laboratory Tests Test 10/31/17 07:11 Glucose (Fingerstick) 93 mg/dL (70-99) Current Medications: Meds: Current Medications Haloperidol Lactate (Haldol) 5 mg STK-MED ONCE .ROUTE ; Start 10/22/17 at 19:51; Stop 10/22/17 at 19:52; Status DC Haloperidol Lactate (Haldol) 5 mg 1X ONCE IM Last administered on 10/22/17at 19: 56; Start 10/22/17 at 20:00; Stop 10/22/17 at 20:55; Status DC Lorazepam (Ativan) 1 mg 1X ONCE PO ; Start 10/22/17 at 20:15; Stop 10/22/17 at 20 :38; Status DC Cephalexin HCl (Keflex) 500 mg 1X ONCE PO Last administered on 10/22/17at 20:56 ; Start 10/22/17 at 21:00; Stop 10/22/17 at 21:01; Status DC Acetaminophen (Tylenol) 650 mg PRN Q6HRS PRN PO PAIN / TEMP Last administered on 10/26/17at 12:32; Start 10/22/17 at 22:00 Multi-Ingredient Ointment (Analgesic [place]) 1 dane PRN QID PRN TP MUSCLE PAIN; Start 10/22/17 at 22:00 Al Hydroxide/Mg Hydroxide (Mylanta Plus Xs) 15 ml PRN AFTMEALHC PRN PO DYSPEPSIA; Start 10/22/17 at 22:00 Magnesium Hydroxide (Milk Of Magnesia) 2,400 mg PRN QHS PRN PO CONSTIPATION Last administered on 10/25/17 07:58; Start 10/22/17 at 22:00 Lorazepam (Ativan) 0.5 mg PRN QID PRN PO ANXIETY Last administered on 16:57; Start 10/22/17 at 23:00 Quetiapine Fumarate (SEROquel) 25 mg TID PO Last administered on 10/23/17at 19:53 ; Start 10/23/17 at 09:00; Stop 10/24/17 at 01:41; Status DC Quetiapine Fumarate (SEROquel) 50 mg QHS PO Last administered on 10/26/17 19: 46; Start 10/23/17 at 21:00; Stop 10/27/17 at 10:32; Status DC Trazodone HCl (Desyrel) 25 mg BID@1700,2100 PO Last administered on 10/25/17at 16:42; Start 10/23/17 at 17:00; Stop 10/25/17 at 18:24; Status DC Cefpodoxime Proxetil (Vantin) 200 mg BID PO Last administered on 10/31/17at 20: 00; Start 10/23/17 at 21:00; Stop 10/31/17 at 21:00; Status DC Lactobacillus Rhamnosus (Culturelle) 1 cap BID PO Last administered on at 20:00; Start 10/23/17 at 21:00 Olanzapine (ZyPREXA ZYDIS) 2.5 mg PRN Q2HR PRN PO A Last administered on at 13:37; Start 10/23/17 at 17:00 Mirtazapine (Remeron) 7.5 mg QHS PO Last administered on 10/31/17at 20:00; Start 10/23/17 at 21:00 Quetiapine Fumarate (SEROquel) 25 mg TID@0900,1300,1700 PO Last administered on 10/27/17at 09:02; Start 10/24/17 at 09:00; Stop 10/27/17 at 10:32; Status DC Vitamin D (Vitamin D3) 50,000 unit WEEKLY PO ; Start 10/24/17 at 18:00; Stop 10/24 at 18:00; Status DC Levothyroxine Sodium (Synthroid) 25 mcg DAILY07 PO Last administered on at 05:57; Start 10/25/17 at 07:00 Vitamin D (Vitamin D3) 50,000 unit WEEKLY PO Last administered on 10/25/17at 07: 58; Start 10/25/17 at 09:00 Divalproex Sodium (Depakote Sprinkles) 125 mg BID@0900,1300 PO Last administered on 10/29/17at 14:55; Start 10/25/17 at 09:00; Stop 10/29/17 at 18:18 ; Status DC Trazodone HCl (Desyrel) 25 mg TID@0900,1300,1700 PO Last administered on at 18:31; Start 10/26/17 at 09:00 Acetaminophen (Tylenol) 650 mg TID PO Last administered on 10/31/17at 20:00; Start 10/26/17 at 21:00 Metformin HCl (Glucophage) 500 mg BIDWMEALS PO Last administered on 10/31/17at 18:31; Start 10/27/17 at 08:00 Risperidone (RisperDAL) 0.125 mg TID@0900,1300,1700 PO Last administered on at 18:31; Start 10/27/17 at 13:00; Stop 10/31/17 at 19:23; Status DC Divalproex Sodium (Depakote Sprinkles) 125 mg QID PO Last administered on at 20:00; Start 10/29/17 at 21:00 Risperidone (RisperDAL) 0.125 mg BID@0900,1300 PO ; Start 11/01/17 at 09:00 Risperidone (RisperDAL) 0.25 mg DAILY@1700 PO ; Start 11/01/17 at 17:00 Active Scripts Active Reported Seroquel (Quetiapine Fumarate) 50 Mg Tablet 50 Mg PO Seroquel (Quetiapine Fumarate) 25 Mg Tablet 25 Mg PO TID Seroquel (Quetiapine Fumarate) 50 Mg Tablet 50 Mg PO QHS Lorazepam 0.5 Mg Tablet 0.5 Mg PO PRN QID PRN Bisacodyl 5 Mg Tablet.dr 10 Mg PO PRN DAILY PRN Tylenol (Acetaminophen) 325 Mg Tablet 325 Mg PO PRN Q6HRS PRN Tylenol (Acetaminophen) 325 Mg Tablet 325 Mg PO PRN Q6HRS PRN Milk Of Magnesia (Magnesium Hydroxide) 2,400 Mg/10 Ml Oral.susp 2,400 Mg PO PRN Q4HRS PRN Furosemide 20 Mg Tablet 20 Mg PO DAILY Furosemide 20 Mg Tablet 1 Tab PO DAILY Potassium Chloride 10 Meq Tablet.er 10 Meq PO DAILY Vitamin D3 (Cholecalciferol (Vitamin D3)) 1,000 Unit Tablet 1,000 Unit PO DAILY B-12 (Cyanocobalamin (Vitamin B-12)) 1,000 Mcg Tablet.er 1,000 Mcg PO DAILY Aspirin Ec (Aspirin) 81 Mg Tablet.dr 81 Mg PO DAILY Trazodone Hcl 50 Mg Tablet 25 Mg PO BID@1700,2100 Keppra (Levetiracetam) 500 Mg Tablet 500 Mg PO BID Metformin Hcl 500 Mg Tablet 500 Mg PO BIDWMEALS I have reviewed the current psychotropics carefully including drug interactions. Risk benefit ratio favors no change other than as noted in my dictated progress note. Diagnosis: Problems: (1) Anxiety disorder (2) Impulse control disorder (3) Dementia, vascular, with depression (4) Dementia, vascular, with delusions (5) Dementia in Alzheimer's disease with depression (6) Dementia in Alzheimer's disease with delusions MELANIE COSTELLO MD Oct 31, 2017 21:05
--- NOTE | 2017-11-01 04:21 | PN ---
DATE: 10/30/2017 This is a late entry for 10/30, covers elements not covered in my initial note of 10/30. I met with the patient in the evening of 10/30. The patient remains confused, has been intermittently hallucinating having a conversation with no one, somewhat nonstop, unable to redirect, arguing with no one, agitated, aggressive with cares and redirection. REVIEW OF SYSTEMS: No CV, , pulmonary, eye, ENT system symptoms on review. Reliability poor. Gait unsteady with walker. MENTAL STATUS EXAMINATION: Oriented to herself. Insight, judgment, recent and remote memory, attention, concentration, fund of knowledge poor, consistent with her diagnosis mentioned in my initial note. IMPRESSION: Major neurocognitive disorder, Alzheimer, vascular with depression, delusion, behavioral disturbance. Rest unchanged. PLAN: Continue psychotropics mentioned in my initial note. Depakote was increased. Labs level awaited, 11/01. Risperdal initiated, may need to increase the latter. MAN Glory COSTELLO MD DR: MATEO/richie JOB#: [id number] / [id number]
[2017-11-01] MEDS: LEVOTHYROXINE 25 MCG TABLET. PO SCH ×2 (05:58→09:37)
[2017-11-01 07:02] VITALS: BP 110/61
[2017-11-01 07:43] LABS: BASO # 0.1 x10^3/uL (0.0-0.2); BASO % 1 % (0-3); EOS # 0.3 x10^3/uL (0.0-0.7); EOS % 4 % (0-3); HEMATOCRIT 33.5 % (36.0-47.0); HEMOGLOBIN 11.2 g/dL (12.0-15.5); LYMPH # 2.6 x10^3/uL (1.0-4.8); LYMPH % 33 % (24-48); MEAN CORPUSCULAR HEMOGLOBIN 30 pg (25-35); MEAN CORPUSCULAR HGB CONC 33 g/dL (31-37); MEAN CORPUSCULAR VOLUME 90 fL (79-100); MONO # 0.9 x10^3/uL (0.0-1.1); MONO % 11 % (0-9); NEUT # 4.2 x10^3uL (1.8-7.7); NEUT % 52 % (31-73); PLATELET COUNT 328 x10^3/uL (140-400); RED BLOOD COUNT 3.74 x10^6/uL (3.50-5.40)
[2017-11-01 08:04] LABS: ALBUMIN 2.8 g/dL (3.4-5.0); ALBUMIN/GLOBULIN RATIO 0.7 (1.0-1.7); ALK PHOS 89 U/L (46-116); ALT (SGPT) 23 U/L (14-59); ANION GAP 8 (6-14); AST (SGOT) 24 U/L (15-37); BLOOD UREA NITROGEN 30 mg/dL (7-20); BUN/CREATININE RATIO 33 (6-20); CALCIUM 9.4 mg/dL (8.5-10.1); CARBON DIOXIDE 28 mmol/L (21-32); CHLORIDE 104 mmol/L (98-107); CREATININE 0.9 mg/dL (0.6-1.0); GFR 60.7; GLUCOSE 107 mg/dL (70-99); POTASSIUM 4.5 mmol/L (3.5-5.1); SODIUM 140 mmol/L (136-145); TOTAL BILIRUBIN 0.5 mg/dL (0.2-1.0); TOTAL PROTEIN 6.9 g/dL (6.4-8.2)
[2017-11-01 08:05] LABS: VAL ACID 29 mcg/mL (50-100)
[2017-11-01] MEDS: CHOLECALCIFEROL (VITAMIN D3) 50,000 UNIT CAPSULE PO SCH (09:00)
[2017-11-01] MEDS: LACTOBACILLUS RHAMNOSUS GG 1 CAPSULE. PO SCH ×2 (09:37→20:01)
[2017-11-01] MEDS: metFORMIN 500 MG TABLET PO SCH ×2 (09:37→16:51)
[2017-11-01] MEDS: ACETAMINOPHEN 325 MG TABLET PO SCH ×3 (09:37→20:01)
[2017-11-01] MEDS: traZODone 50 MG TABLET. PO SCH ×3 (09:37→16:51)
[2017-11-01] MEDS: DIVALPROEX 125 MG CAP.SPRINK PO SCH ×3 (09:37→16:51)
[2017-11-01] MEDS: risperiDONE 0.25 MG TABLET. PO SCH ×3 (09:38→16:51)
[2017-11-01 15:41] VITALS: BP 112/57
[2017-11-01] MEDS: MIRTAZAPINE 7.5 MG TABLET. PO SCH (20:00)
--- NOTE | 2017-11-01 20:53 | PDOC ---
Exam Note: [place] Note: Please also refer to the separate dictated note~for this date of service dictated separately.~Patient seen individually. Discussed the patient with Nursing staff reviewed the chart.~Reviewed interim history and current functioning. Reviewed vital signs,~Labs/ Radiology~and current medications noted below. Continue current treatment with the changes noted in the dictated addendum note Assessment: Vital Signs: Vital Signs Date Time Temp Pulse Resp B/P (MAP) Pulse Ox O2 Delivery O2 Flow Rate FiO2 11/01/17 15:41 97.6 79 18 112/57 (75) 98 10/30/17 06:05 Room Air I&O Intake and Output 11/01/17 07:00 Intake Total 600 ml Balance 600 ml Intake Oral 600 ml # Voids 1 # Bowel Movements 1 Labs: Laboratory Tests Test 11/01/17 07:21 11/01/17 07:22 White Blood Count 8.0 x10^3/uL (4.0-11.0) Red Blood Count 3.74 x10^6/uL (3.50-5.40) Hemoglobin 11.2 g/dL (12.0-15.5) L Hematocrit 33.5 % (36.0-47.0) L Mean Corpuscular Volume 90 fL (79-100) Mean Corpuscular Hemoglobin 30 pg (25-35) Mean Corpuscular Hemoglobin Concent 33 g/dL (31-37) Red Cell Distribution Width 14.0 % (11.5-14.5) Platelet Count 328 x10^3/uL (140-400) Neutrophils (%) (Auto) 52 % (31-73) Lymphocytes (%) (Auto) 33 % (24-48) Monocytes (%) (Auto) 11 % (0-9) H Eosinophils (%) (Auto) 4 % (0-3) H Basophils (%) (Auto) 1 % (0-3) Neutrophils # (Auto) 4.2 x10^3uL (1.8-7.7) Lymphocytes # (Auto) 2.6 x10^3/uL (1.0-4.8) Monocytes # (Auto) 0.9 x10^3/uL (0.0-1.1) Eosinophils # (Auto) 0.3 x10^3/uL (0.0-0.7) Basophils # (Auto) 0.1 x10^3/uL (0.0-0.2) Sodium Level 140 mmol/L (136-145) Potassium Level 4.5 mmol/L (3.5-5.1) Chloride Level 104 mmol/L (98-107) Carbon Dioxide Level 28 mmol/L (21-32) Anion Gap 8 (6-14) Blood Urea Nitrogen 30 mg/dL (7-20) H Creatinine 0.9 mg/dL (0.6-1.0) Estimated GFR (Cockcroft-Gault) 60.7 BUN/Creatinine Ratio 33 (6-20) H Glucose Level 107 mg/dL (70-99) H Calcium Level 9.4 mg/dL (8.5-10.1) Total Bilirubin 0.5 mg/dL (0.2-1.0) Aspartate Amino Transferase (AST) 24 U/L (15-37) Alanine Aminotransferase (ALT) 23 U/L (14-59) Alkaline Phosphatase 89 U/L (46-116) Total Protein 6.9 g/dL (6.4-8.2) Albumin 2.8 g/dL (3.4-5.0) L Albumin/Globulin Ratio 0.7 (1.0-1.7) L Valproic Acid Level 29 mcg/mL (50-100) L Valproic Acid Last Dose Date 10/31/17 Valproic Acid Last Dose Time 2100 Glucose (Fingerstick) 113 mg/dL (70-99) H Current Medications: Meds: Current Medications Haloperidol Lactate (Haldol) 5 mg STK-MED ONCE .ROUTE ; Start 10/22/17 at 19:51; Stop 10/22/17 at 19:52; Status DC Haloperidol Lactate (Haldol) 5 mg 1X ONCE IM Last administered on 10/22/17at 19: 56; Start 10/22/17 at 20:00; Stop 10/22/17 at 20:55; Status DC Lorazepam (Ativan) 1 mg 1X ONCE PO ; Start 10/22/17 at 20:15; Stop 10/22/17 at 20 :38; Status DC Cephalexin HCl (Keflex) 500 mg 1X ONCE PO Last administered on 10/22/17at 20:56 ; Start 10/22/17 at 21:00; Stop 10/22/17 at 21:01; Status DC Acetaminophen (Tylenol) 650 mg PRN Q6HRS PRN PO PAIN / TEMP Last administered on 10/26/17at 12:32; Start 10/22/17 at 22:00 Multi-Ingredient Ointment (Analgesic [place]) 1 dane PRN QID PRN TP MUSCLE PAIN; Start 10/22/17 at 22:00 Al Hydroxide/Mg Hydroxide (Mylanta Plus Xs) 15 ml PRN AFTMEALHC PRN PO DYSPEPSIA; Start 10/22/17 at 22:00 Magnesium Hydroxide (Milk Of Magnesia) 2,400 mg PRN QHS PRN PO CONSTIPATION Last administered on 10/25/17at 07:58; Start 10/22/17 at 22:00 Lorazepam (Ativan) 0.5 mg PRN QID PRN PO ANXIETY Last administered on at 16:57; Start 10/22/17 at 23:00 Quetiapine Fumarate (SEROquel) 25 mg TID PO Last administered on 10/23/17at 19:53 ; Start 10/23/17 at 09:00; Stop 10/24/17 at 01:41; Status DC Quetiapine Fumarate (SEROquel) 50 mg QHS PO Last administered on 10/26/17at 19: 46; Start 10/23/17 at 21:00; Stop 10/27/17 at 10:32; Status DC Trazodone HCl (Desyrel) 25 mg BID@1700,2100 PO Last administered on 10/25/17at 16:42; Start 10/23/17 at 17:00; Stop 10/25/17 at 18:24; Status DC Cefpodoxime Proxetil (Vantin) 200 mg BID PO Last administered on 10/31/17at 20: 00; Start 10/23/17 at 21:00; Stop 10/31/17 at 21:00; Status DC Lactobacillus Rhamnosus (Culturelle) 1 cap BID PO Last administered on at 20:01; Start 10/23/17 at 21:00 Olanzapine (ZyPREXA ZYDIS) 2.5 mg PRN Q2HR PRN PO A Last administered on at 13:37; Start 10/23/17 at 17:00 Mirtazapine (Remeron) 7.5 mg QHS PO Last administered on 11/01/17at 20:00; Start 10/23/17 at 21:00 Quetiapine Fumarate (SEROquel) 25 mg TID@0900,1300,1700 PO Last administered on 10/27/17at 09:02; Start 10/24/17 at 09:00; Stop 10/27/17 at 10:32; Status DC Vitamin D (Vitamin D3) 50,000 unit WEEKLY PO ; Start 10/24/17 at 18:00; Stop 10/24 at 18:00; Status DC Levothyroxine Sodium (Synthroid) 25 mcg DAILY07 PO Last administered on at 09:37; Start 10/25/17 at 07:00 Vitamin D (Vitamin D3) 50,000 unit WEEKLY PO Last administered on 11/01/17at 09: 00; Start 10/25/17 at 09:00 Divalproex Sodium (Depakote Sprinkles) 125 mg BID@0900,1300 PO Last administered on 10/29/17at 14:55; Start 10/25/17 at 09:00; Stop 10/29/17 at 18:18 ; Status DC Trazodone HCl (Desyrel) 25 mg TID@0900,1300,1700 PO Last administered on at 16:51; Start 10/26/17 at 09:00 Acetaminophen (Tylenol) 650 mg TID PO Last administered on 11/01/17at 20:01; Start 10/26/17 at 21:00 Metformin HCl (Glucophage) 500 mg BIDWMEALS PO Last administered on 11/01/17at 16:51; Start 10/27/17 at 08:00 Risperidone (RisperDAL) 0.125 mg TID@0900,1300,1700 PO Last administered on at 18:31; Start 10/27/17 at 13:00; Stop 10/31/17 at 19:23; Status DC Divalproex Sodium (Depakote Sprinkles) 125 mg QID PO Last administered on at 16:51; Start 10/29/17 at 21:00; Stop 11/01/17 at 18:38; Status DC Risperidone (RisperDAL) 0.125 mg BID@0900,1300 PO Last administered on at 13:10; Start 11/01/17 at 09:00 Risperidone (RisperDAL) 0.25 mg DAILY@1700 PO Last administered on 11/01/17at 16 :51; Start 11/01/17 at 17:00 Divalproex Sodium (Depakote Sprinkles) 125 mg TID@0900,1300,1700 PO ; Start at 09:00 Active Scripts Active Reported Seroquel (Quetiapine Fumarate) 50 Mg Tablet 50 Mg PO Seroquel (Quetiapine Fumarate) 25 Mg Tablet 25 Mg PO TID Seroquel (Quetiapine Fumarate) 50 Mg Tablet 50 Mg PO QHS Lorazepam 0.5 Mg Tablet 0.5 Mg PO PRN QID PRN Bisacodyl 5 Mg Tablet.dr 10 Mg PO PRN DAILY PRN Tylenol (Acetaminophen) 325 Mg Tablet 325 Mg PO PRN Q6HRS PRN Tylenol (Acetaminophen) 325 Mg Tablet 325 Mg PO PRN Q6HRS PRN Milk Of Magnesia (Magnesium Hydroxide) 2,400 Mg/10 Ml Oral.susp 2,400 Mg PO PRN Q4HRS PRN Furosemide 20 Mg Tablet 20 Mg PO DAILY Furosemide 20 Mg Tablet 1 Tab PO DAILY Potassium Chloride 10 Meq Tablet.er 10 Meq PO DAILY Vitamin D3 (Cholecalciferol (Vitamin D3)) 1,000 Unit Tablet 1,000 Unit PO DAILY B-12 (Cyanocobalamin (Vitamin B-12)) 1,000 Mcg Tablet.er 1,000 Mcg PO DAILY Aspirin Ec (Aspirin) 81 Mg Tablet.dr 81 Mg PO DAILY Trazodone Hcl 50 Mg Tablet 25 Mg PO BID@1700,2100 Keppra (Levetiracetam) 500 Mg Tablet 500 Mg PO BID Metformin Hcl 500 Mg Tablet 500 Mg PO BIDWMEALS I have reviewed the current psychotropics carefully including drug interactions. Risk benefit ratio favors no change other than as noted in my dictated progress note. Diagnosis: Problems: (1) Anxiety disorder (2) Impulse control disorder (3) Dementia, vascular, with depression (4) Dementia, vascular, with delusions (5) Dementia in Alzheimer's disease with depression (6) Dementia in Alzheimer's disease with delusions MELANIE COSTELLO MD Nov 01, 2017 20:53
--- NOTE | 2017-11-01 23:21 | PN ---
DATE: 10/31/2017 This is a late entry, 10/31/2017, covers the elements not covered in my initial note for 10/31/2017. SUBJECTIVE: I met with the patient evening of 10/31/2017. The patient is compliant with her medications if it was given in one bite of pudding. She has been cursing; labile in the morning; received Zyprexa at 1340, seemed to help. She is in [place] because she tries to undress herself, slept 7-1/2 hours the previous evening. REVIEW OF SYSTEMS: No CV, , pulmonary, eye, ENT system symptoms on review. Ambulation impaired with walker. Reliability poor. MENTAL STATUS EXAM: Oriented to herself. Insight, judgment, recent and remote memory, attention, concentration, fund of knowledge poor, consistent with her diagnosis as mentioned in my initial note. The patient remains quite psychotic, as I assessed. LABORATORY DATA: Reviewed. IMPRESSION: Major neurocognitive disorder, Alzheimer, vascular with depression, delusion, behavioral disturbance. PLAN: Increase the 5 p.m. Risperdal from 0.125 mg to as needed 0.25 mg. Continue rest unchanged. MAN Glory COSTELLO MD DR: MATEO/richie JOB#: [id number] / [id number]
[2017-11-02 06:10] VITALS: BP 137/60
[2017-11-02] MEDS: ACETAMINOPHEN 325 MG TABLET PO SCH ×3 (08:53→19:58)
[2017-11-02] MEDS: risperiDONE 0.25 MG TABLET. PO SCH ×3 (08:53→16:37)
[2017-11-02] MEDS: metFORMIN 500 MG TABLET PO SCH ×2 (08:53→16:38)
[2017-11-02] MEDS: traZODone 50 MG TABLET. PO SCH ×3 (08:53→16:38)
[2017-11-02] MEDS: LACTOBACILLUS RHAMNOSUS GG 1 CAPSULE. PO SCH ×2 (08:53→19:58)
[2017-11-02] MEDS ORDERED: DIVALPROEX 125 MG CAP.SPRINK PO SCH (09:00)
[2017-11-02] MEDS: DIVALPROEX 125 MG CAP.SPRINK PO SCH ×3 (09:04→16:37)
[2017-11-02 16:22] VITALS: BP 96/50
--- NOTE | 2017-11-02 18:28 | PN ---
DATE: 11/01/2017 PSYCHIATRIC PROGRESS NOTE This late entry of 11/01/2017, covers elements not covered in my initial note of 11/01/2017. I met with the patient evening of 11/01/2017. HISTORY OF PRESENT ILLNESS: The patient slept 7 hours previous evening, somewhat labile, confused, angry, tearful at times, up and down in her moods per nursing report. She remains quite paranoid, restless, anxious, trying to get out of her wheelchair. She is a fall risk. REVIEW OF SYSTEMS: No CV, , pulmonary, eye, ENT system symptoms on review. MENTAL STATUS EXAM: Oriented to herself. Insight, judgment, recent and remote memory, attention, concentration, fund of knowledge poor, consistent with her diagnosis. Valproic acid level is 29, subtherapeutic. IMPRESSION: Major neurocognitive disorder, Alzheimer, vascular with delusion, depression, behavioral disturbance. PLAN: Increase Depakote from 125 mg 4 times a day to 250 mg 3 times a day. Check CBC, CMP, valproic acid level in 3 days and increase the 5 p.m. Risperdal from 0.125 mg to 0.25 mg. Continue rest unchanged. MAN Glory COSTELLO MD DR: MATEO/richie JOB#: [id number] / [id number]
[2017-11-02] MEDS: MIRTAZAPINE 7.5 MG TABLET. PO SCH (19:58)
--- NOTE | 2017-11-02 21:12 | PDOC ---
Exam Note: [place] Note: Please also refer to the separate dictated note~for this date of service dictated separately.~Patient seen individually. Discussed the patient with Nursing staff reviewed the chart.~Reviewed interim history and current functioning. Reviewed vital signs,~Labs/ Radiology~and current medications noted below. Continue current treatment with the changes noted in the dictated addendum note Assessment: Vital Signs: Vital Signs Date Time Temp Pulse Resp B/P (MAP) Pulse Ox O2 Delivery O2 Flow Rate FiO2 11/02/17 16:22 98.2 81 18 96/50 (65) 97 10/30/17 06:05 Room Air I&O Intake and Output 11/02/17 07:00 Intake Total 1080 ml Balance 1080 ml Intake Oral 1080 ml # Bowel Movements 1 Labs: Laboratory Tests Test 11/02/17 07:27 Glucose (Fingerstick) 84 mg/dL (70-99) Current Medications: Meds: Current Medications Haloperidol Lactate (Haldol) 5 mg STK-MED ONCE .ROUTE ; Start 10/22/17 at 19:51; Stop 10/22/17 at 19:52; Status DC Haloperidol Lactate (Haldol) 5 mg 1X ONCE IM Last administered on 10/22/17at 19: 56; Start 10/22/17 at 20:00; Stop 10/22/17 at 20:55; Status DC Lorazepam (Ativan) 1 mg 1X ONCE PO ; Start 10/22/17 at 20:15; Stop 10/22/17 at 20 :38; Status DC Cephalexin HCl (Keflex) 500 mg 1X ONCE PO Last administered on 10/22/17at 20:56 ; Start 10/22/17 at 21:00; Stop 10/22/17 at 21:01; Status DC Acetaminophen (Tylenol) 650 mg PRN Q6HRS PRN PO PAIN / TEMP Last administered on 10/26/17at 12:32; Start 10/22/17 at 22:00 Multi-Ingredient Ointment (Analgesic [place]) 1 dane PRN QID PRN TP MUSCLE PAIN; Start 10/22/17 at 22:00 Al Hydroxide/Mg Hydroxide (Mylanta Plus Xs) 15 ml PRN AFTMEALHC PRN PO DYSPEPSIA; Start 10/22/17 at 22:00 Magnesium Hydroxide (Milk Of Magnesia) 2,400 mg PRN QHS PRN PO CONSTIPATION Last administered on 10/25/17 07:58; Start 10/22/17 at 22:00 Lorazepam (Ativan) 0.5 mg PRN QID PRN PO ANXIETY Last administered on 16:57; Start 10/22/17 at 23:00 Quetiapine Fumarate (SEROquel) 25 mg TID PO Last administered on 10/23/17 19:53 ; Start 10/23/17 at 09:00; Stop 10/24/17 at 01:41; Status DC Quetiapine Fumarate (SEROquel) 50 mg QHS PO Last administered on 10/26/17 19: 46; Start 10/23/17 at 21:00; Stop 10/27/17 at 10:32; Status DC Trazodone HCl (Desyrel) 25 mg BID@1700,2100 PO Last administered on 10/25/17 16:42; Start 10/23/17 at 17:00; Stop 10/25/17 at 18:24; Status DC Cefpodoxime Proxetil (Vantin) 200 mg BID PO Last administered on 10/31/17at 20: 00; Start 10/23/17 at 21:00; Stop 10/31/17 at 21:00; Status DC Lactobacillus Rhamnosus (Culturelle) 1 cap BID PO Last administered on 19:58; Start 10/23/17 at 21:00 Olanzapine (ZyPREXA ZYDIS) 2.5 mg PRN Q2HR PRN PO A Last administered on at 13:37; Start 10/23/17 at 17:00 Mirtazapine (Remeron) 7.5 mg QHS PO Last administered on 11/02/17 19:58; Start 10/23/17 at 21:00 Quetiapine Fumarate (SEROquel) 25 mg TID@0900,1300,1700 PO Last administered on 10/27/17 09:02; Start 10/24/17 at 09:00; Stop 10/27/17 at 10:32; Status DC Vitamin D (Vitamin D3) 50,000 unit WEEKLY PO ; Start 10/24/17 at 18:00; Stop 10/24 at 18:00; Status DC Levothyroxine Sodium (Synthroid) 25 mcg DAILY07 PO Last administered on at 09:37; Start 10/25/17 at 07:00 Vitamin D (Vitamin D3) 50,000 unit WEEKLY PO Last administered on 11/01/17at 09: 00; Start 10/25/17 at 09:00 Divalproex Sodium (Depakote Sprinkles) 125 mg BID@0900,1300 PO Last administered on 10/29/17at 14:55; Start 10/25/17 at 09:00; Stop 10/29/17 at 18:18 ; Status DC Trazodone HCl (Desyrel) 25 mg TID@0900,1300,1700 PO Last administered on 16:38; Start 10/26/17 at 09:00 Acetaminophen (Tylenol) 650 mg TID PO Last administered on 11/02/17 19:58; Start 10/26/17 at 21:00 Metformin HCl (Glucophage) 500 mg BIDWMEALS PO Last administered on 11/02/17at 16:38; Start 10/27/17 at 08:00 Risperidone (RisperDAL) 0.125 mg TID@0900,1300,1700 PO Last administered on at 18:31; Start 10/27/17 at 13:00; Stop 10/31/17 at 19:23; Status DC Divalproex Sodium (Depakote Sprinkles) 125 mg QID PO Last administered on at 16:51; Start 10/29/17 at 21:00; Stop 11/01/17 at 18:38; Status DC Risperidone (RisperDAL) 0.125 mg BID@0900,1300 PO Last administered on at 13:14; Start 11/01/17 at 09:00 Risperidone (RisperDAL) 0.25 mg DAILY@1700 PO Last administered on 11/02/17at 16 :37; Start 11/01/17 at 17:00 Divalproex Sodium (Depakote Sprinkles) 125 mg TID@0900,1300,1700 PO ; Start at 09:00; Stop 11/02/17 at 09:00; Status DC Divalproex Sodium (Depakote Sprinkles) 250 mg TID@0900,1300,1700 PO Last administered on 11/02/17at 16:37; Start 11/02/17 at 09:00 Active Scripts Active Reported Seroquel (Quetiapine Fumarate) 50 Mg Tablet 50 Mg PO Seroquel (Quetiapine Fumarate) 25 Mg Tablet 25 Mg PO TID Seroquel (Quetiapine Fumarate) 50 Mg Tablet 50 Mg PO QHS Lorazepam 0.5 Mg Tablet 0.5 Mg PO PRN QID PRN Bisacodyl 5 Mg Tablet.dr 10 Mg PO PRN DAILY PRN Tylenol (Acetaminophen) 325 Mg Tablet 325 Mg PO PRN Q6HRS PRN Tylenol (Acetaminophen) 325 Mg Tablet 325 Mg PO PRN Q6HRS PRN Milk Of Magnesia (Magnesium Hydroxide) 2,400 Mg/10 Ml Oral.susp 2,400 Mg PO PRN Q4HRS PRN Furosemide 20 Mg Tablet 20 Mg PO DAILY Furosemide 20 Mg Tablet 1 Tab PO DAILY Potassium Chloride 10 Meq Tablet.er 10 Meq PO DAILY Vitamin D3 (Cholecalciferol (Vitamin D3)) 1,000 Unit Tablet 1,000 Unit PO DAILY B-12 (Cyanocobalamin (Vitamin B-12)) 1,000 Mcg Tablet.er 1,000 Mcg PO DAILY Aspirin Ec (Aspirin) 81 Mg Tablet.dr 81 Mg PO DAILY Trazodone Hcl 50 Mg Tablet 25 Mg PO BID@1700,2100 Keppra (Levetiracetam) 500 Mg Tablet 500 Mg PO BID Metformin Hcl 500 Mg Tablet 500 Mg PO BIDWMEALS I have reviewed the current psychotropics carefully including drug interactions. Risk benefit ratio favors no change other than as noted in my dictated progress note. Diagnosis: Problems: (1) Anxiety disorder (2) Impulse control disorder (3) Dementia, vascular, with depression (4) Dementia, vascular, with delusions (5) Dementia in Alzheimer's disease with depression (6) Dementia in Alzheimer's disease with delusions MELANIE COSTELLO MD Nov 02, 2017 21:12
[2017-11-03] MEDS: LEVOTHYROXINE 25 MCG TABLET. PO SCH (05:25)
[2017-11-03 05:45] VITALS: BP 124/52
[2017-11-03] MEDS: risperiDONE 0.25 MG TABLET. PO SCH ×3 (09:26→16:47)
[2017-11-03] MEDS: metFORMIN 500 MG TABLET PO SCH ×2 (09:27→16:47)
[2017-11-03] MEDS: LACTOBACILLUS RHAMNOSUS GG 1 CAPSULE. PO SCH ×2 (09:27→19:44)
[2017-11-03] MEDS: traZODone 50 MG TABLET. PO SCH ×3 (09:27→16:47)
[2017-11-03] MEDS: ACETAMINOPHEN 325 MG TABLET PO SCH ×3 (09:28→19:44)
[2017-11-03] MEDS: DIVALPROEX 125 MG CAP.SPRINK PO SCH ×3 (09:28→16:47)
[2017-11-03 16:13] VITALS: BP 118/56
[2017-11-03] MEDS: MIRTAZAPINE 7.5 MG TABLET. PO SCH (19:44)
--- NOTE | 2017-11-03 20:54 | PDOC ---
Exam Note: [place] Note: Please also refer to the separate dictated note~for this date of service dictated separately.~Patient seen individually. Discussed the patient with Nursing staff reviewed the chart.~Reviewed interim history and current functioning. Reviewed vital signs,~Labs/ Radiology~and current medications noted below. Continue current treatment with the changes noted in the dictated addendum note Assessment: Vital Signs: Vital Signs Date Time Temp Pulse Resp B/P (MAP) Pulse Ox O2 Delivery O2 Flow Rate FiO2 11/03/17 16:13 98.0 77 15 118/56 (76) 100 Room Air I&O Intake and Output 11/03/17 07:00 Intake Total 720 ml Balance 720 ml Intake Oral 720 ml # Voids 1 # Bowel Movements 1 Labs: Laboratory Tests Test 11/03/17 07:41 Glucose (Fingerstick) 88 mg/dL (70-99) Current Medications: Meds: Current Medications Haloperidol Lactate (Haldol) 5 mg STK-MED ONCE .ROUTE ; Start 10/22/17 at 19:51; Stop 10/22/17 at 19:52; Status DC Haloperidol Lactate (Haldol) 5 mg 1X ONCE IM Last administered on 10/22/17at 19: 56; Start 10/22/17 at 20:00; Stop 10/22/17 at 20:55; Status DC Lorazepam (Ativan) 1 mg 1X ONCE PO ; Start 10/22/17 at 20:15; Stop 10/22/17 at 20 :38; Status DC Cephalexin HCl (Keflex) 500 mg 1X ONCE PO Last administered on 10/22/17at 20:56 ; Start 10/22/17 at 21:00; Stop 10/22/17 at 21:01; Status DC Acetaminophen (Tylenol) 650 mg PRN Q6HRS PRN PO PAIN / TEMP Last administered on 10/26/17at 12:32; Start 10/22/17 at 22:00 Multi-Ingredient Ointment (Analgesic [place]) 1 dane PRN QID PRN TP MUSCLE PAIN; Start 10/22/17 at 22:00 Al Hydroxide/Mg Hydroxide (Mylanta Plus Xs) 15 ml PRN AFTMEALHC PRN PO DYSPEPSIA; Start 10/22/17 at 22:00 Magnesium Hydroxide (Milk Of Magnesia) 2,400 mg PRN QHS PRN PO CONSTIPATION Last administered on 10/25/17 07:58; Start 10/22/17 at 22:00 Lorazepam (Ativan) 0.5 mg PRN QID PRN PO ANXIETY Last administered on 16:57; Start 10/22/17 at 23:00 Quetiapine Fumarate (SEROquel) 25 mg TID PO Last administered on 10/23/17 19:53 ; Start 10/23/17 at 09:00; Stop 10/24/17 at 01:41; Status DC Quetiapine Fumarate (SEROquel) 50 mg QHS PO Last administered on 10/26/17 19: 46; Start 10/23/17 at 21:00; Stop 10/27/17 at 10:32; Status DC Trazodone HCl (Desyrel) 25 mg BID@1700,2100 PO Last administered on 10/25/17 16:42; Start 10/23/17 at 17:00; Stop 10/25/17 at 18:24; Status DC Cefpodoxime Proxetil (Vantin) 200 mg BID PO Last administered on 10/31/17at 20: 00; Start 10/23/17 at 21:00; Stop 10/31/17 at 21:00; Status DC Lactobacillus Rhamnosus (Culturelle) 1 cap BID PO Last administered on 19:44; Start 10/23/17 at 21:00 Olanzapine (ZyPREXA ZYDIS) 2.5 mg PRN Q2HR PRN PO A Last administered on 13:37; Start 10/23/17 at 17:00 Mirtazapine (Remeron) 7.5 mg QHS PO Last administered on 11/03/17at 19:44; Start 10/23/17 at 21:00 Quetiapine Fumarate (SEROquel) 25 mg TID@0900,1300,1700 PO Last administered on 10/27/17at 09:02; Start 10/24/17 at 09:00; Stop 10/27/17 at 10:32; Status DC Vitamin D (Vitamin D3) 50,000 unit WEEKLY PO ; Start 10/24/17 at 18:00; Stop 10/24 at 18:00; Status DC Levothyroxine Sodium (Synthroid) 25 mcg DAILY07 PO Last administered on at 05:25; Start 10/25/17 at 07:00 Vitamin D (Vitamin D3) 50,000 unit WEEKLY PO Last administered on 11/01/17at 09: 00; Start 10/25/17 at 09:00 Divalproex Sodium (Depakote Sprinkles) 125 mg BID@0900,1300 PO Last administered on 10/29/17at 14:55; Start 10/25/17 at 09:00; Stop 10/29/17 at 18:18 ; Status DC Trazodone HCl (Desyrel) 25 mg TID@0900,1300,1700 PO Last administered on at 16:47; Start 10/26/17 at 09:00 Acetaminophen (Tylenol) 650 mg TID PO Last administered on 11/03/17at 19:44; Start 10/26/17 at 21:00 Metformin HCl (Glucophage) 500 mg BIDWMEALS PO Last administered on 11/03/17at 16:47; Start 10/27/17 at 08:00 Risperidone (RisperDAL) 0.125 mg TID@0900,1300,1700 PO Last administered on at 18:31; Start 10/27/17 at 13:00; Stop 10/31/17 at 19:23; Status DC Divalproex Sodium (Depakote Sprinkles) 125 mg QID PO Last administered on at 16:51; Start 10/29/17 at 21:00; Stop 11/01/17 at 18:38; Status DC Risperidone (RisperDAL) 0.125 mg BID@0900,1300 PO Last administered on at 09:26; Start 11/01/17 at 09:00; Stop 11/03/17 at 11:28; Status DC Risperidone (RisperDAL) 0.25 mg DAILY@1700 PO Last administered on 11/02/17at 16 :37; Start 11/01/17 at 17:00; Stop 11/03/17 at 11:28; Status DC Divalproex Sodium (Depakote Sprinkles) 125 mg TID@0900,1300,1700 PO ; Start at 09:00; Stop 11/02/17 at 09:00; Status DC Divalproex Sodium (Depakote Sprinkles) 250 mg TID@0900,1300,1700 PO Last administered on 11/03/17at 16:47; Start 11/02/17 at 09:00 Risperidone (RisperDAL) 0.25 mg TID@0900,1300,1700 PO Last administered on 11/03at 16:47; Start 11/03/17 at 13:00 Active Scripts Active Reported Seroquel (Quetiapine Fumarate) 50 Mg Tablet 50 Mg PO Seroquel (Quetiapine Fumarate) 25 Mg Tablet 25 Mg PO TID Seroquel (Quetiapine Fumarate) 50 Mg Tablet 50 Mg PO QHS Lorazepam 0.5 Mg Tablet 0.5 Mg PO PRN QID PRN Bisacodyl 5 Mg Tablet.dr 10 Mg PO PRN DAILY PRN Tylenol (Acetaminophen) 325 Mg Tablet 325 Mg PO PRN Q6HRS PRN Tylenol (Acetaminophen) 325 Mg Tablet 325 Mg PO PRN Q6HRS PRN Milk Of Magnesia (Magnesium Hydroxide) 2,400 Mg/10 Ml Oral.susp 2,400 Mg PO PRN Q4HRS PRN Furosemide 20 Mg Tablet 20 Mg PO DAILY Furosemide 20 Mg Tablet 1 Tab PO DAILY Potassium Chloride 10 Meq Tablet.er 10 Meq PO DAILY Vitamin D3 (Cholecalciferol (Vitamin D3)) 1,000 Unit Tablet 1,000 Unit PO DAILY B-12 (Cyanocobalamin (Vitamin B-12)) 1,000 Mcg Tablet.er 1,000 Mcg PO DAILY Aspirin Ec (Aspirin) 81 Mg Tablet. 81 Mg PO DAILY Trazodone Hcl 50 Mg Tablet 25 Mg PO BID@1700,2100 Keppra (Levetiracetam) 500 Mg Tablet 500 Mg PO BID Metformin Hcl 500 Mg Tablet 500 Mg PO BIDWMEALS I have reviewed the current psychotropics carefully including drug interactions. Risk benefit ratio favors no change other than as noted in my dictated progress note. Diagnosis: Problems: (1) Anxiety disorder (2) Impulse control disorder (3) Dementia, vascular, with depression (4) Dementia, vascular, with delusions (5) Dementia in Alzheimer's disease with depression (6) Dementia in Alzheimer's disease with delusions MELANIE COSTELLO MD Nov 03, 2017 20:54
[2017-11-04] MEDS: LEVOTHYROXINE 25 MCG TABLET. PO SCH (05:33)
[2017-11-04 05:51] VITALS: BP 125/54
[2017-11-04 09:27] LABS: BASO # 0.1 x10^3/uL (0.0-0.2); BASO % 2 % (0-3); EOS # 0.2 x10^3/uL (0.0-0.7); EOS % 3 % (0-3); HEMATOCRIT 32.4 % (36.0-47.0); HEMOGLOBIN 10.9 g/dL (12.0-15.5); LYMPH # 1.7 x10^3/uL (1.0-4.8); LYMPH % 23 % (24-48); MEAN CORPUSCULAR HEMOGLOBIN 30 pg (25-35); MEAN CORPUSCULAR HGB CONC 34 g/dL (31-37); MEAN CORPUSCULAR VOLUME 90 fL (79-100); MONO # 0.6 x10^3/uL (0.0-1.1); MONO % 8 % (0-9); NEUT # 4.8 x10^3uL (1.8-7.7); NEUT % 64 % (31-73); PLATELET COUNT 288 x10^3/uL (140-400); RED BLOOD COUNT 3.61 x10^6/uL (3.50-5.40); RED CELL DISTRIBUTION WIDTH 13.7 % (11.5-14.5); WHITE BLOOD COUNT 7.5 x10^3/uL (4.0-11.0)
[2017-11-04 09:44] LABS: ALBUMIN 2.8 g/dL (3.4-5.0); ALBUMIN/GLOBULIN RATIO 0.7 (1.0-1.7); ALK PHOS 79 U/L (46-116); ALT (SGPT) 22 U/L (14-59); ANION GAP 7 (6-14); AST (SGOT) 24 U/L (15-37); BLOOD UREA NITROGEN 31 mg/dL (7-20); BUN/CREATININE RATIO 34 (6-20); CALCIUM 9.3 mg/dL (8.5-10.1); CARBON DIOXIDE 30 mmol/L (21-32); CHLORIDE 102 mmol/L (98-107); CREATININE 0.9 mg/dL (0.6-1.0); GFR 60.7; GLUCOSE 120 mg/dL (70-99); MAGNESIUM 1.8 mg/dL (1.8-2.4); POTASSIUM 4.8 mmol/L (3.5-5.1); SODIUM 139 mmol/L (136-145); TOTAL BILIRUBIN 0.3 mg/dL (0.2-1.0); TOTAL PROTEIN 6.8 g/dL (6.4-8.2)
[2017-11-04] MEDS: metFORMIN 500 MG TABLET PO SCH ×2 (09:45→16:23)
[2017-11-04] MEDS: LACTOBACILLUS RHAMNOSUS GG 1 CAPSULE. PO SCH ×2 (09:45→19:38)
[2017-11-04 09:46] LABS: VAL ACID 31 mcg/mL (50-100)
[2017-11-04] MEDS: DIVALPROEX 125 MG CAP.SPRINK PO SCH ×3 (09:46→16:24)
[2017-11-04] MEDS: traZODone 50 MG TABLET. PO SCH ×3 (09:46→16:23)
[2017-11-04] MEDS: risperiDONE 0.25 MG TABLET. PO SCH ×3 (09:46→16:23)
[2017-11-04] MEDS: ACETAMINOPHEN 325 MG TABLET PO SCH ×3 (09:47→19:38)
[2017-11-04 16:04] VITALS: BP 134/58
--- NOTE | 2017-11-04 19:14 | PN ---
DATE: 11/02/2017 PSYCHIATRIC PROGRESS NOTE This is a late entry for 11/02/2017 and covers elements not covered in my initial note of 11/02/2017. I met with the patient evening of 11/02/2017. The patient has been less restless, still talking to herself, resistive to medications, wandering. She has intermittent crying. Nursing staff wonder if it is consistent with some symptoms of pseudobulbar mood lability. REVIEW OF SYSTEMS: Ambulation impaired with walker. No CV, , pulmonary, eye, ENT system symptoms on review. Reliability poor. MENTAL STATUS EXAM: Oriented to herself. Insight, judgment, recent and remote memory, attention, concentration, fund of knowledge poor, consistent with her diagnosis as mentioned in my initial note. IMPRESSION: Major neurocognitive disorder, Alzheimer, vascular with depression, delusion, behavioral disturbance. Rest unchanged. PLAN: Continue psychotropics as mentioned in my initial note. MAN Glory COSTELLO MD DR: MATEO/richie JOB#: [id number] / [id number]
[2017-11-04] MEDS: MIRTAZAPINE 7.5 MG TABLET. PO SCH (19:38)
--- NOTE | 2017-11-04 20:49 | PDOC ---
Exam Note: [place] Note: Please also refer to the separate dictated note~for this date of service dictated separately.~Patient seen individually. Discussed the patient with Nursing staff reviewed the chart.~Reviewed interim history and current functioning. Reviewed vital signs,~Labs/ Radiology~and current medications noted below. Continue current treatment with the changes noted in the dictated addendum note Assessment: Vital Signs: Vital Signs Date Time Temp Pulse Resp B/P (MAP) Pulse Ox O2 Delivery O2 Flow Rate FiO2 11/04/17 16:04 97.0 79 18 134/58 (83) 99 Room Air I&O Intake and Output 11/04/17 07:00 Intake Total 840 ml Balance 840 ml Intake Oral 840 ml # Voids 1 # Bowel Movements 1 Labs: Laboratory Tests Test 11/04/17 07:27 11/04/17 09:15 11/04/17 11:50 Glucose (Fingerstick) 86 mg/dL (70-99) 101 mg/dL (70-99) H White Blood Count 7.5 x10^3/uL (4.0-11.0) Red Blood Count 3.61 x10^6/uL (3.50-5.40) Hemoglobin 10.9 g/dL (12.0-15.5) L Hematocrit 32.4 % (36.0-47.0) L Mean Corpuscular Volume 90 fL (79-100) Mean Corpuscular Hemoglobin 30 pg (25-35) Mean Corpuscular Hemoglobin Concent 34 g/dL (31-37) Red Cell Distribution Width 13.7 % (11.5-14.5) Platelet Count 288 x10^3/uL (140-400) Neutrophils (%) (Auto) 64 % (31-73) Lymphocytes (%) (Auto) 23 % (24-48) L Monocytes (%) (Auto) 8 % (0-9) Eosinophils (%) (Auto) 3 % (0-3) Basophils (%) (Auto) 2 % (0-3) Neutrophils # (Auto) 4.8 x10^3uL (1.8-7.7) Lymphocytes # (Auto) 1.7 x10^3/uL (1.0-4.8) Monocytes # (Auto) 0.6 x10^3/uL (0.0-1.1) Eosinophils # (Auto) 0.2 x10^3/uL (0.0-0.7) Basophils # (Auto) 0.1 x10^3/uL (0.0-0.2) Sodium Level 139 mmol/L (136-145) Potassium Level 4.8 mmol/L (3.5-5.1) Chloride Level 102 mmol/L (98-107) Carbon Dioxide Level 30 mmol/L (21-32) Anion Gap 7 (6-14) Blood Urea Nitrogen 31 mg/dL (7-20) H Creatinine 0.9 mg/dL (0.6-1.0) Estimated GFR (Cockcroft-Gault) 60.7 BUN/Creatinine Ratio 34 (6-20) H Glucose Level 120 mg/dL (70-99) H Calcium Level 9.3 mg/dL (8.5-10.1) Magnesium Level 1.8 mg/dL (1.8-2.4) Total Bilirubin 0.3 mg/dL (0.2-1.0) Aspartate Amino Transferase (AST) 24 U/L (15-37) Alanine Aminotransferase (ALT) 22 U/L (14-59) Alkaline Phosphatase 79 U/L (46-116) Total Protein 6.8 g/dL (6.4-8.2) Albumin 2.8 g/dL (3.4-5.0) L Albumin/Globulin Ratio 0.7 (1.0-1.7) L Valproic Acid Level 31 mcg/mL (50-100) L Valproic Acid Last Dose Date 11/03/2017 Valproic Acid Last Dose Time 1700 Current Medications: Meds: Current Medications Haloperidol Lactate (Haldol) 5 mg STK-MED ONCE .ROUTE ; Start 10/22/17 at 19:51; Stop 10/22/17 at 19:52; Status DC Haloperidol Lactate (Haldol) 5 mg 1X ONCE IM Last administered on 10/22/17at 19: 56; Start 10/22/17 at 20:00; Stop 10/22/17 at 20:55; Status DC Lorazepam (Ativan) 1 mg 1X ONCE PO ; Start 10/22/17 at 20:15; Stop 10/22/17 at 20 :38; Status DC Cephalexin HCl (Keflex) 500 mg 1X ONCE PO Last administered on 10/22/17at 20:56 ; Start 10/22/17 at 21:00; Stop 10/22/17 at 21:01; Status DC Acetaminophen (Tylenol) 650 mg PRN Q6HRS PRN PO PAIN / TEMP Last administered on 10/26/17at 12:32; Start 10/22/17 at 22:00 Multi-Ingredient Ointment (Analgesic [place]) 1 dane PRN QID PRN TP MUSCLE PAIN; Start 10/22/17 at 22:00 Al Hydroxide/Mg Hydroxide (Mylanta Plus Xs) 15 ml PRN AFTMEALHC PRN PO DYSPEPSIA; Start 10/22/17 at 22:00 Magnesium Hydroxide (Milk Of Magnesia) 2,400 mg PRN QHS PRN PO CONSTIPATION Last administered on 10/25/17 07:58; Start 10/22/17 at 22:00 Lorazepam (Ativan) 0.5 mg PRN QID PRN PO ANXIETY Last administered on 16:57; Start 10/22/17 at 23:00 Quetiapine Fumarate (SEROquel) 25 mg TID PO Last administered on 10/23/17 19:53 ; Start 10/23/17 at 09:00; Stop 10/24/17 at 01:41; Status DC Quetiapine Fumarate (SEROquel) 50 mg QHS PO Last administered on 10/26/17 19: 46; Start 10/23/17 at 21:00; Stop 10/27/17 at 10:32; Status DC Trazodone HCl (Desyrel) 25 mg BID@1700,2100 PO Last administered on 10/25/17 16:42; Start 10/23/17 at 17:00; Stop 10/25/17 at 18:24; Status DC Cefpodoxime Proxetil (Vantin) 200 mg BID PO Last administered on 10/31/17 20: 00; Start 10/23/17 at 21:00; Stop 10/31/17 at 21:00; Status DC Lactobacillus Rhamnosus (Culturelle) 1 cap BID PO Last administered on 19:38; Start 10/23/17 at 21:00 Olanzapine (ZyPREXA ZYDIS) 2.5 mg PRN Q2HR PRN PO A Last administered on 4/16/ 18at 13:37; Start 10/23/17 at 17:00 Mirtazapine (Remeron) 7.5 mg QHS PO Last administered on 11/04/17at 19:38; Start 10/23/17 at 21:00 Quetiapine Fumarate (SEROquel) 25 mg TID@0900,1300,1700 PO Last administered on 10/27/17at 09:02; Start 10/24/17 at 09:00; Stop 10/27/17 at 10:32; Status DC Vitamin D (Vitamin D3) 50,000 unit WEEKLY PO ; Start 10/24/17 at 18:00; Stop 10/24 at 18:00; Status DC Levothyroxine Sodium (Synthroid) 25 mcg DAILY07 PO Last administered on 05:33; Start 10/25/17 at 07:00 Vitamin D (Vitamin D3) 50,000 unit WEEKLY PO Last administered on 11/01/17at 09: 00; Start 10/25/17 at 09:00 Divalproex Sodium (Depakote Sprinkles) 125 mg BID@0900,1300 PO Last administered on 10/29/17at 14:55; Start 10/25/17 at 09:00; Stop 10/29/17 at 18:18 ; Status DC Trazodone HCl (Desyrel) 25 mg TID@0900,1300,1700 PO Last administered on 16:23; Start 10/26/17 at 09:00 Acetaminophen (Tylenol) 650 mg TID PO Last administered on 11/04/17 19:38; Start 10/26/17 at 21:00 Metformin HCl (Glucophage) 500 mg BIDWMEALS PO Last administered on 11/04/17 16:23; Start 10/27/17 at 08:00 Risperidone (RisperDAL) 0.125 mg TID@0900,1300,1700 PO Last administered on at 18:31; Start 10/27/17 at 13:00; Stop 10/31/17 at 19:23; Status DC Divalproex Sodium (Depakote Sprinkles) 125 mg QID PO Last administered on at 16:51; Start 10/29/17 at 21:00; Stop 11/01/17 at 18:38; Status DC Risperidone (RisperDAL) 0.125 mg BID@0900,1300 PO Last administered on at 09:26; Start 11/01/17 at 09:00; Stop 11/03/17 at 11:28; Status DC Risperidone (RisperDAL) 0.25 mg DAILY@1700 PO Last administered on 11/02/17at 16 :37; Start 11/01/17 at 17:00; Stop 11/03/17 at 11:28; Status DC Divalproex Sodium (Depakote Sprinkles) 125 mg TID@0900,1300,1700 PO ; Start at 09:00; Stop 11/02/17 at 09:00; Status DC Divalproex Sodium (Depakote Sprinkles) 250 mg TID@0900,1300,1700 PO Last administered on 11/04/17at 16:24; Start 11/02/17 at 09:00; Stop 11/04/17 at 18:07 ; Status DC Risperidone (RisperDAL) 0.25 mg TID@0900,1300,1700 PO Last administered on 11/04at 16:23; Start 11/03/17 at 13:00 Divalproex Sodium (Depakote Sprinkles) 375 mg TID@0900,1300,1700 PO ; Start at 09:00 Active Scripts Active Reported Seroquel (Quetiapine Fumarate) 50 Mg Tablet 50 Mg PO Seroquel (Quetiapine Fumarate) 25 Mg Tablet 25 Mg PO TID Seroquel (Quetiapine Fumarate) 50 Mg Tablet 50 Mg PO QHS Lorazepam 0.5 Mg Tablet 0.5 Mg PO PRN QID PRN Bisacodyl 5 Mg Tablet.dr 10 Mg PO PRN DAILY PRN Tylenol (Acetaminophen) 325 Mg Tablet 325 Mg PO PRN Q6HRS PRN Tylenol (Acetaminophen) 325 Mg Tablet 325 Mg PO PRN Q6HRS PRN Milk Of Magnesia (Magnesium Hydroxide) 2,400 Mg/10 Ml Oral.susp 2,400 Mg PO PRN Q4HRS PRN Furosemide 20 Mg Tablet 20 Mg PO DAILY Furosemide 20 Mg Tablet 1 Tab PO DAILY Potassium Chloride 10 Meq Tablet.er 10 Meq PO DAILY Vitamin D3 (Cholecalciferol (Vitamin D3)) 1,000 Unit Tablet 1,000 Unit PO DAILY B-12 (Cyanocobalamin (Vitamin B-12)) 1,000 Mcg Tablet.er 1,000 Mcg PO DAILY Aspirin Ec (Aspirin) 81 Mg Tablet.dr 81 Mg PO DAILY Trazodone Hcl 50 Mg Tablet 25 Mg PO BID@1700,2100 Keppra (Levetiracetam) 500 Mg Tablet 500 Mg PO BID Metformin Hcl 500 Mg Tablet 500 Mg PO BIDWMEALS I have reviewed the current psychotropics carefully including drug interactions. Risk benefit ratio favors no change other than as noted in my dictated progress note. Diagnosis: Problems: (1) Anxiety disorder (2) Impulse control disorder (3) Dementia, vascular, with depression (4) Dementia, vascular, with delusions (5) Dementia in Alzheimer's disease with depression (6) Dementia in Alzheimer's disease with delusions MELANIE COSTELLO MD Nov 04, 2017 20:49
--- NOTE | 2017-11-04 20:59 | PN ---
DATE: 11/03/2017 This is a late entry for 11/03/2017 covers elements not covered in my initial note of 11/03/2017. SUBJECTIVE: I met with the patient in the evening of 11/03/2017. The patient slept 7-1/4 hours previous evening and she was staffed at a treatment team meeting with the entire team morning of 11/03/2017. She is quite anxious, restless, distractible. confused. REVIEW OF SYSTEMS: No CV, , pulmonary, eye, ENT system symptoms on review. Gait unsteady in wheelchair. MENTAL STATUS EXAM: Oriented to herself. Insight, judgment, recent and remote memory, attention, concentration, fund of knowledge poor, consistent with her diagnosis mentioned in my initial note. PLAN: Increase Risperdal from 0.125 mg twice a day, 0.25 mg at 1700 to 0.25 mg 3 times a day. Continue rest unchanged. MAN Glory COSTELLO MD DR: MATEO/richie JOB#: [id number] / [id number]
[2017-11-05 05:51] VITALS: BP 124/59
[2017-11-05] MEDS: LEVOTHYROXINE 25 MCG TABLET. PO SCH (05:52)
[2017-11-05] MEDS: risperiDONE 0.25 MG TABLET. PO SCH ×3 (07:54→17:59)
[2017-11-05] MEDS: LACTOBACILLUS RHAMNOSUS GG 1 CAPSULE. PO SCH ×2 (07:55→19:43)
[2017-11-05] MEDS: traZODone 50 MG TABLET. PO SCH ×3 (07:55→17:58)
[2017-11-05] MEDS: metFORMIN 500 MG TABLET PO SCH ×2 (07:55→17:58)
[2017-11-05] MEDS: DIVALPROEX 125 MG CAP.SPRINK PO SCH ×3 (07:56→17:58)
[2017-11-05] MEDS: ACETAMINOPHEN 325 MG TABLET PO SCH ×3 (07:56→19:43)
[2017-11-05 16:10] VITALS: BP 113/46
[2017-11-05] MEDS: MIRTAZAPINE 7.5 MG TABLET. PO SCH (19:43)
--- NOTE | 2017-11-05 22:31 | PDOC ---
Exam Note: [place] Note: Please also refer to the separate dictated note~for this date of service dictated separately.~Patient seen individually. Discussed the patient with Nursing staff reviewed the chart.~Reviewed interim history and current functioning. Reviewed vital signs,~Labs/ Radiology~and current medications noted below. Continue current treatment with the changes noted in the dictated addendum note Assessment: Vital Signs: Vital Signs Date Time Temp Pulse Resp B/P (MAP) Pulse Ox O2 Delivery O2 Flow Rate FiO2 11/05/17 16:10 98.5 65 16 113/46 (68) 95 Room Air I&O Intake and Output 11/05/17 07:00 Intake Total 840 ml Balance 840 ml Intake Oral 840 ml # Voids 1 # Bowel Movements 1 Labs: Laboratory Tests Test 11/05/17 07:07 Glucose (Fingerstick) 82 mg/dL (70-99) Current Medications: Meds: Current Medications Haloperidol Lactate (Haldol) 5 mg STK-MED ONCE .ROUTE ; Start 10/22/17 at 19:51; Stop 10/22/17 at 19:52; Status DC Haloperidol Lactate (Haldol) 5 mg 1X ONCE IM Last administered on 10/22/17at 19: 56; Start 10/22/17 at 20:00; Stop 10/22/17 at 20:55; Status DC Lorazepam (Ativan) 1 mg 1X ONCE PO ; Start 10/22/17 at 20:15; Stop 10/22/17 at 20 :38; Status DC Cephalexin HCl (Keflex) 500 mg 1X ONCE PO Last administered on 10/22/17at 20:56 ; Start 10/22/17 at 21:00; Stop 10/22/17 at 21:01; Status DC Acetaminophen (Tylenol) 650 mg PRN Q6HRS PRN PO PAIN / TEMP Last administered on 10/26/17at 12:32; Start 10/22/17 at 22:00 Multi-Ingredient Ointment (Analgesic [place]) 1 dane PRN QID PRN TP MUSCLE PAIN; Start 10/22/17 at 22:00 Al Hydroxide/Mg Hydroxide (Mylanta Plus Xs) 15 ml PRN AFTMEALHC PRN PO DYSPEPSIA; Start 10/22/17 at 22:00 Magnesium Hydroxide (Milk Of Magnesia) 2,400 mg PRN QHS PRN PO CONSTIPATION Last administered on 10/25/17 07:58; Start 10/22/17 at 22:00 Lorazepam (Ativan) 0.5 mg PRN QID PRN PO ANXIETY Last administered on 16:57; Start 10/22/17 at 23:00 Quetiapine Fumarate (SEROquel) 25 mg TID PO Last administered on 10/23/17 19:53 ; Start 10/23/17 at 09:00; Stop 10/24/17 at 01:41; Status DC Quetiapine Fumarate (SEROquel) 50 mg QHS PO Last administered on 10/26/17 19: 46; Start 10/23/17 at 21:00; Stop 10/27/17 at 10:32; Status DC Trazodone HCl (Desyrel) 25 mg BID@1700,2100 PO Last administered on 10/25/17 16:42; Start 10/23/17 at 17:00; Stop 10/25/17 at 18:24; Status DC Cefpodoxime Proxetil (Vantin) 200 mg BID PO Last administered on 10/31/17at 20: 00; Start 10/23/17 at 21:00; Stop 10/31/17 at 21:00; Status DC Lactobacillus Rhamnosus (Culturelle) 1 cap BID PO Last administered on 19:43; Start 10/23/17 at 21:00 Olanzapine (ZyPREXA ZYDIS) 2.5 mg PRN Q2HR PRN PO A Last administered on 18:04; Start 10/23/17 at 17:00 Mirtazapine (Remeron) 7.5 mg QHS PO Last administered on 11/05/17 19:43; Start 10/23/17 at 21:00 Quetiapine Fumarate (SEROquel) 25 mg TID@0900,1300,1700 PO Last administered on 10/27/17 09:02; Start 10/24/17 at 09:00; Stop 10/27/17 at 10:32; Status DC Vitamin D (Vitamin D3) 50,000 unit WEEKLY PO ; Start 10/24/17 at 18:00; Stop 10/24 at 18:00; Status DC Levothyroxine Sodium (Synthroid) 25 mcg DAILY07 PO Last administered on at 05:52; Start 10/25/17 at 07:00 Vitamin D (Vitamin D3) 50,000 unit WEEKLY PO Last administered on 11/01/17at 09: 00; Start 10/25/17 at 09:00 Divalproex Sodium (Depakote Sprinkles) 125 mg BID@0900,1300 PO Last administered on 10/29/17at 14:55; Start 10/25/17 at 09:00; Stop 10/29/17 at 18:18 ; Status DC Trazodone HCl (Desyrel) 25 mg TID@0900,1300,1700 PO Last administered on 17:58; Start 10/26/17 at 09:00 Acetaminophen (Tylenol) 650 mg TID PO Last administered on 11/05/17at 19:43; Start 10/26/17 at 21:00 Metformin HCl (Glucophage) 500 mg BIDWMEALS PO Last administered on 11/05/17at 17:58; Start 10/27/17 at 08:00 Risperidone (RisperDAL) 0.125 mg TID@0900,1300,1700 PO Last administered on at 18:31; Start 10/27/17 at 13:00; Stop 10/31/17 at 19:23; Status DC Divalproex Sodium (Depakote Sprinkles) 125 mg QID PO Last administered on at 16:51; Start 10/29/17 at 21:00; Stop 11/01/17 at 18:38; Status DC Risperidone (RisperDAL) 0.125 mg BID@0900,1300 PO Last administered on at 09:26; Start 11/01/17 at 09:00; Stop 11/03/17 at 11:28; Status DC Risperidone (RisperDAL) 0.25 mg DAILY@1700 PO Last administered on 11/02/17at 16 :37; Start 11/01/17 at 17:00; Stop 11/03/17 at 11:28; Status DC Divalproex Sodium (Depakote Sprinkles) 125 mg TID@0900,1300,1700 PO ; Start at 09:00; Stop 11/02/17 at 09:00; Status DC Divalproex Sodium (Depakote Sprinkles) 250 mg TID@0900,1300,1700 PO Last administered on 11/04/17at 16:24; Start 11/02/17 at 09:00; Stop 11/04/17 at 18:07 ; Status DC Risperidone (RisperDAL) 0.25 mg TID@0900,1300,1700 PO Last administered on 11/05at 17:59; Start 11/03/17 at 13:00 Divalproex Sodium (Depakote Sprinkles) 375 mg TID@0900,1300,1700 PO Last administered on 11/05/17at 17:58; Start 11/05/17 at 09:00 Active Scripts Active Reported Seroquel (Quetiapine Fumarate) 50 Mg Tablet 50 Mg PO Seroquel (Quetiapine Fumarate) 25 Mg Tablet 25 Mg PO TID Seroquel (Quetiapine Fumarate) 50 Mg Tablet 50 Mg PO QHS Lorazepam 0.5 Mg Tablet 0.5 Mg PO PRN QID PRN Bisacodyl 5 Mg Tablet.dr 10 Mg PO PRN DAILY PRN Tylenol (Acetaminophen) 325 Mg Tablet 325 Mg PO PRN Q6HRS PRN Tylenol (Acetaminophen) 325 Mg Tablet 325 Mg PO PRN Q6HRS PRN Milk Of Magnesia (Magnesium Hydroxide) 2,400 Mg/10 Ml Oral.susp 2,400 Mg PO PRN Q4HRS PRN Furosemide 20 Mg Tablet 20 Mg PO DAILY Furosemide 20 Mg Tablet 1 Tab PO DAILY Potassium Chloride 10 Meq Tablet.er 10 Meq PO DAILY Vitamin D3 (Cholecalciferol (Vitamin D3)) 1,000 Unit Tablet 1,000 Unit PO DAILY B-12 (Cyanocobalamin (Vitamin B-12)) 1,000 Mcg Tablet.er 1,000 Mcg PO DAILY Aspirin Ec (Aspirin) 81 Mg Tablet.dr 81 Mg PO DAILY Trazodone Hcl 50 Mg Tablet 25 Mg PO BID@1700,2100 Keppra (Levetiracetam) 500 Mg Tablet 500 Mg PO BID Metformin Hcl 500 Mg Tablet 500 Mg PO BIDWMEALS I have reviewed the current psychotropics carefully including drug interactions. Risk benefit ratio favors no change other than as noted in my dictated progress note. Diagnosis: Problems: (1) Anxiety disorder (2) Impulse control disorder (3) Dementia, vascular, with depression (4) Dementia, vascular, with delusions (5) Dementia in Alzheimer's disease with depression (6) Dementia in Alzheimer's disease with delusions MELANIE COSTELLO MD Nov 05, 2017 22:31
[2017-11-06] MEDS: LEVOTHYROXINE 25 MCG TABLET. PO SCH (06:05)
[2017-11-06 06:12] VITALS: BP 126/46
[2017-11-06] MEDS: DIVALPROEX 125 MG CAP.SPRINK PO SCH ×3 (08:06→16:53)
[2017-11-06] MEDS: traZODone 50 MG TABLET. PO SCH ×3 (08:07→16:54)
[2017-11-06] MEDS: metFORMIN 500 MG TABLET PO SCH ×2 (08:07→16:55)
[2017-11-06] MEDS: risperiDONE 0.25 MG TABLET. PO SCH ×3 (08:07→16:54)
[2017-11-06] MEDS: LACTOBACILLUS RHAMNOSUS GG 1 CAPSULE. PO SCH ×2 (08:07→19:50)
[2017-11-06] MEDS: ACETAMINOPHEN 325 MG TABLET PO SCH ×3 (08:07→19:50)
--- NOTE | 2017-11-06 09:56 | PN ---
DATE: 11/04/2017 PSYCHIATRIC PROGRESS NOTE This late entry of 11/04/2017 covers elements not covered in my initial note 11/04/2017. SUBJECTIVE: I met with the patient the evening of 11/04/2017. The patient remains confused, delusional, wanders the hallways, hallucinating, combative with cares. Take some of her medications whole. Valproic acid level subtherapeutic at 31 on Depakote 250 t.i.d. REVIEW OF SYSTEMS: Ambulation impaired, in wheelchair. No CV, , pulmonary, eye, ENT system symptoms on review. Reliability poor. MENTAL STATUS EXAM: Oriented to herself. Insight, judgment, recent and remote memory, attention, concentration, fund of knowledge poor, consistent with her diagnoses mentioned in my initial note. IMPRESSION: Major neurocognitive disorder, Alzheimer, vascular with delusion, depression, behavioral disturbance. PLAN: Increase Depakote to 375 mg 3 times a day. Check CBC, CMP, valproic acid level in 3 days. Rest unchanged. MAN Glory COSTELLO MD DR: MATEO/richie JOB#: [id number] / [id number]
[2017-11-06 15:40] VITALS: BP 106/60
[2017-11-06] MEDS: MIRTAZAPINE 7.5 MG TABLET. PO SCH (19:50)
--- NOTE | 2017-11-06 20:51 | PDOC ---
Exam Note: [place] Note: Please also refer to the separate dictated note~for this date of service dictated separately.~Patient seen individually. Discussed the patient with Nursing staff reviewed the chart.~Reviewed interim history and current functioning. Reviewed vital signs,~Labs/ Radiology~and current medications noted below. Continue current treatment with the changes noted in the dictated addendum note Assessment: Vital Signs: Vital Signs Date Time Temp Pulse Resp B/P (MAP) Pulse Ox O2 Delivery O2 Flow Rate FiO2 11/06/17 15:40 98.2 86 17 106/60 (75) 92 11/06/17 06:12 Room Air I&O Intake and Output 11/06/17 07:00 Intake Total 725 ml Balance 725 ml Intake Oral 725 ml # Voids 1 # Bowel Movements 3 Labs: Laboratory Tests Test 11/06/17 07:59 Glucose (Fingerstick) 75 mg/dL (70-99) Current Medications: Meds: Current Medications Haloperidol Lactate (Haldol) 5 mg STK-MED ONCE .ROUTE ; Start 10/22/17 at 19:51; Stop 10/22/17 at 19:52; Status DC Haloperidol Lactate (Haldol) 5 mg 1X ONCE IM Last administered on 10/22/17at 19: 56; Start 10/22/17 at 20:00; Stop 10/22/17 at 20:55; Status DC Lorazepam (Ativan) 1 mg 1X ONCE PO ; Start 10/22/17 at 20:15; Stop 10/22/17 at 20 :38; Status DC Cephalexin HCl (Keflex) 500 mg 1X ONCE PO Last administered on 10/22/17at 20:56 ; Start 10/22/17 at 21:00; Stop 10/22/17 at 21:01; Status DC Acetaminophen (Tylenol) 650 mg PRN Q6HRS PRN PO PAIN / TEMP Last administered on 10/26/17at 12:32; Start 10/22/17 at 22:00 Multi-Ingredient Ointment (Analgesic [place]) 1 dane PRN QID PRN TP MUSCLE PAIN; Start 10/22/17 at 22:00 Al Hydroxide/Mg Hydroxide (Mylanta Plus Xs) 15 ml PRN AFTMEALHC PRN PO DYSPEPSIA; Start 10/22/17 at 22:00 Magnesium Hydroxide (Milk Of Magnesia) 2,400 mg PRN QHS PRN PO CONSTIPATION Last administered on 10/25/17at 07:58; Start 10/22/17 at 22:00 Lorazepam (Ativan) 0.5 mg PRN QID PRN PO ANXIETY Last administered on at 16:57; Start 10/22/17 at 23:00 Quetiapine Fumarate (SEROquel) 25 mg TID PO Last administered on 10/23/17 19:53 ; Start 10/23/17 at 09:00; Stop 10/24/17 at 01:41; Status DC Quetiapine Fumarate (SEROquel) 50 mg QHS PO Last administered on 10/26/17at 19: 46; Start 10/23/17 at 21:00; Stop 10/27/17 at 10:32; Status DC Trazodone HCl (Desyrel) 25 mg BID@1700,2100 PO Last administered on 10/25/17at 16:42; Start 10/23/17 at 17:00; Stop 10/25/17 at 18:24; Status DC Cefpodoxime Proxetil (Vantin) 200 mg BID PO Last administered on 10/31/17at 20: 00; Start 10/23/17 at 21:00; Stop 10/31/17 at 21:00; Status DC Lactobacillus Rhamnosus (Culturelle) 1 cap BID PO Last administered on at 19:50; Start 10/23/17 at 21:00 Olanzapine (ZyPREXA ZYDIS) 2.5 mg PRN Q2HR PRN PO A Last administered on at 18:04; Start 10/23/17 at 17:00 Mirtazapine (Remeron) 7.5 mg QHS PO Last administered on 11/06/17at 19:50; Start 10/23/17 at 21:00 Quetiapine Fumarate (SEROquel) 25 mg TID@0900,1300,1700 PO Last administered on 10/27/17at 09:02; Start 10/24/17 at 09:00; Stop 10/27/17 at 10:32; Status DC Vitamin D (Vitamin D3) 50,000 unit WEEKLY PO ; Start 10/24/17 at 18:00; Stop 10/24 at 18:00; Status DC Levothyroxine Sodium (Synthroid) 25 mcg DAILY07 PO Last administered on at 06:05; Start 10/25/17 at 07:00 Vitamin D (Vitamin D3) 50,000 unit WEEKLY PO Last administered on 11/01/17at 09: 00; Start 10/25/17 at 09:00 Divalproex Sodium (Depakote Sprinkles) 125 mg BID@0900,1300 PO Last administered on 10/29/17at 14:55; Start 10/25/17 at 09:00; Stop 10/29/17 at 18:18 ; Status DC Trazodone HCl (Desyrel) 25 mg TID@0900,1300,1700 PO Last administered on 16:54; Start 10/26/17 at 09:00 Acetaminophen (Tylenol) 650 mg TID PO Last administered on 11/06/17 19:50; Start 10/26/17 at 21:00 Metformin HCl (Glucophage) 500 mg BIDWMEALS PO Last administered on 11/06/17 16:55; Start 10/27/17 at 08:00 Risperidone (RisperDAL) 0.125 mg TID@0900,1300,1700 PO Last administered on at 18:31; Start 10/27/17 at 13:00; Stop 10/31/17 at 19:23; Status DC Divalproex Sodium (Depakote Sprinkles) 125 mg QID PO Last administered on at 16:51; Start 10/29/17 at 21:00; Stop 11/01/17 at 18:38; Status DC Risperidone (RisperDAL) 0.125 mg BID@0900,1300 PO Last administered on at 09:26; Start 11/01/17 at 09:00; Stop 11/03/17 at 11:28; Status DC Risperidone (RisperDAL) 0.25 mg DAILY@1700 PO Last administered on 11/02/17at 16 :37; Start 11/01/17 at 17:00; Stop 11/03/17 at 11:28; Status DC Divalproex Sodium (Depakote Sprinkles) 125 mg TID@0900,1300,1700 PO ; Start at 09:00; Stop 11/02/17 at 09:00; Status DC Divalproex Sodium (Depakote Sprinkles) 250 mg TID@0900,1300,1700 PO Last administered on 11/04/17at 16:24; Start 11/02/17 at 09:00; Stop 11/04/17 at 18:07 ; Status DC Risperidone (RisperDAL) 0.25 mg TID@0900,1300,1700 PO Last administered on 11/06at 16:54; Start 11/03/17 at 13:00 Divalproex Sodium (Depakote Sprinkles) 375 mg TID@0900,1300,1700 PO Last administered on 11/06/17at 16:53; Start 11/05/17 at 09:00 Active Scripts Active Reported Seroquel (Quetiapine Fumarate) 50 Mg Tablet 50 Mg PO Seroquel (Quetiapine Fumarate) 25 Mg Tablet 25 Mg PO TID Seroquel (Quetiapine Fumarate) 50 Mg Tablet 50 Mg PO QHS Lorazepam 0.5 Mg Tablet 0.5 Mg PO PRN QID PRN Bisacodyl 5 Mg Tablet.dr 10 Mg PO PRN DAILY PRN Tylenol (Acetaminophen) 325 Mg Tablet 325 Mg PO PRN Q6HRS PRN Tylenol (Acetaminophen) 325 Mg Tablet 325 Mg PO PRN Q6HRS PRN Milk Of Magnesia (Magnesium Hydroxide) 2,400 Mg/10 Ml Oral.susp 2,400 Mg PO PRN Q4HRS PRN Furosemide 20 Mg Tablet 20 Mg PO DAILY Furosemide 20 Mg Tablet 1 Tab PO DAILY Potassium Chloride 10 Meq Tablet.er 10 Meq PO DAILY Vitamin D3 (Cholecalciferol (Vitamin D3)) 1,000 Unit Tablet 1,000 Unit PO DAILY B-12 (Cyanocobalamin (Vitamin B-12)) 1,000 Mcg Tablet.er 1,000 Mcg PO DAILY Aspirin Ec (Aspirin) 81 Mg Tablet. 81 Mg PO DAILY Trazodone Hcl 50 Mg Tablet 25 Mg PO BID@1700,2100 Keppra (Levetiracetam) 500 Mg Tablet 500 Mg PO BID Metformin Hcl 500 Mg Tablet 500 Mg PO BIDWMEALS I have reviewed the current psychotropics carefully including drug interactions. Risk benefit ratio favors no change other than as noted in my dictated progress note. Diagnosis: Problems: (1) Anxiety disorder (2) Impulse control disorder (3) Dementia, vascular, with depression (4) Dementia, vascular, with delusions (5) Dementia in Alzheimer's disease with depression (6) Dementia in Alzheimer's disease with delusions MELANIE COSTELLO MD Nov 06, 2017 20:51
[2017-11-07 06:29] VITALS: BP 121/64
[2017-11-07] MEDS: LEVOTHYROXINE 25 MCG TABLET. PO SCH (06:40)
[2017-11-07] MEDS: ACETAMINOPHEN 325 MG TABLET PO SCH ×3 (08:21→19:51)
[2017-11-07] MEDS: DIVALPROEX 125 MG CAP.SPRINK PO SCH ×3 (08:21→17:16)
[2017-11-07] MEDS: risperiDONE 0.25 MG TABLET. PO SCH ×3 (08:21→17:16)
[2017-11-07] MEDS: LACTOBACILLUS RHAMNOSUS GG 1 CAPSULE. PO SCH ×2 (08:21→19:50)
[2017-11-07] MEDS: metFORMIN 500 MG TABLET PO SCH ×2 (08:21→17:17)
[2017-11-07] MEDS: traZODone 50 MG TABLET. PO SCH ×3 (08:22→17:17)
--- NOTE | 2017-11-07 09:17 | PN ---
DATE: 11/06/2017 PSYCHIATRIC PROGRESS NOTE This note covers elements not covered in my initial note 11/06/2017. SUBJECTIVE: I met with the patient afternoon of 11/06/1017. The patient slept 8-1/4 hours previous evening. At times, she is talking to people who are not there. Undressing herself inappropriately, oblivious of what she is doing, resistive to medications. We will be checking labs in the morning. REVIEW OF SYSTEMS: Ambulation impaired, in wheelchair. No CV, , pulmonary, eye, ENT system symptoms on review. MENTAL STATUS EXAM: Oriented to herself. Insight, judgment, recent and remote memory, attention, concentration, fund of knowledge poor, consistent with her diagnosis mentioned in my initial note. IMPRESSION: Major neurocognitive disorder, Alzheimer, vascular with depression, delusion, behavioral disturbance. Rest unchanged PLAN: Contributes psychotropics mentioned in my initial note. MAN Glory COSTELLO MD DR: MATEO/richie JOB#: [id number] / [id number]
--- NOTE | 2017-11-07 15:50 | PN ---
DATE: 11/05/2017 This late entry 11/05/2017 covers elements not covered in my initial note of 11/05/2017. I met with the patient evening of 11/05/2017. The patient is quite psychotic. ____. REVIEW OF SYSTEMS: No CV, , pulmonary, eye, ENT system symptoms on review ____. MENTAL STATUS EXAM: Oriented to herself. Insight, judgment, recent and remote memory, attention, concentration, fund of knowledge poor, consistent with the diagnosis mentioned in my initial note. PLAN: ____ adjusting this Depakote. LABORATORY DATA: To be checked on 11/08/2017. If symptoms persist, then we have to increase the Risperdal for psychotic symptoms. MELANIE COSTELLO MD DR: MATEO/richie JOB#: [id number] / [id number]
[2017-11-07 16:17] VITALS: BP 110/61
[2017-11-07] MEDS: MIRTAZAPINE 7.5 MG TABLET. PO SCH (19:50)
--- NOTE | 2017-11-07 20:47 | PDOC ---
Exam Note: [place] Note: Please also refer to the separate dictated note~for this date of service dictated separately.~Patient seen individually. Discussed the patient with Nursing staff reviewed the chart.~Reviewed interim history and current functioning. Reviewed vital signs,~Labs/ Radiology~and current medications noted below. Continue current treatment with the changes noted in the dictated addendum note Assessment: Vital Signs: Vital Signs Date Time Temp Pulse Resp B/P (MAP) Pulse Ox O2 Delivery O2 Flow Rate FiO2 11/07/17 16:17 98.4 88 16 110/61 (77) 98 11/07/17 06:29 Room Air I&O Intake and Output 11/07/17 07:00 Intake Total 1080 ml Balance 1080 ml Intake Oral 1080 ml # Voids 1 Labs: Laboratory Tests Test 11/07/17 07:25 Glucose (Fingerstick) 85 mg/dL (70-99) Current Medications: Meds: Current Medications Haloperidol Lactate (Haldol) 5 mg STK-MED ONCE .ROUTE ; Start 10/22/17 at 19:51; Stop 10/22/17 at 19:52; Status DC Haloperidol Lactate (Haldol) 5 mg 1X ONCE IM Last administered on 10/22/17at 19: 56; Start 10/22/17 at 20:00; Stop 10/22/17 at 20:55; Status DC Lorazepam (Ativan) 1 mg 1X ONCE PO ; Start 10/22/17 at 20:15; Stop 10/22/17 at 20 :38; Status DC Cephalexin HCl (Keflex) 500 mg 1X ONCE PO Last administered on 10/22/17at 20:56 ; Start 10/22/17 at 21:00; Stop 10/22/17 at 21:01; Status DC Acetaminophen (Tylenol) 650 mg PRN Q6HRS PRN PO PAIN / TEMP Last administered on 10/26/17at 12:32; Start 10/22/17 at 22:00 Multi-Ingredient Ointment (Analgesic [place]) 1 dane PRN QID PRN TP MUSCLE PAIN; Start 10/22/17 at 22:00 Al Hydroxide/Mg Hydroxide (Mylanta Plus Xs) 15 ml PRN AFTMEALHC PRN PO DYSPEPSIA; Start 10/22/17 at 22:00 Magnesium Hydroxide (Milk Of Magnesia) 2,400 mg PRN QHS PRN PO CONSTIPATION Last administered on 10/25/17 07:58; Start 10/22/17 at 22:00 Lorazepam (Ativan) 0.5 mg PRN QID PRN PO ANXIETY Last administered on 16:57; Start 10/22/17 at 23:00 Quetiapine Fumarate (SEROquel) 25 mg TID PO Last administered on 10/23/17 19:53 ; Start 10/23/17 at 09:00; Stop 10/24/17 at 01:41; Status DC Quetiapine Fumarate (SEROquel) 50 mg QHS PO Last administered on 10/26/17 19: 46; Start 10/23/17 at 21:00; Stop 10/27/17 at 10:32; Status DC Trazodone HCl (Desyrel) 25 mg BID@1700,2100 PO Last administered on 10/25/17 16:42; Start 10/23/17 at 17:00; Stop 10/25/17 at 18:24; Status DC Cefpodoxime Proxetil (Vantin) 200 mg BID PO Last administered on 10/31/17at 20: 00; Start 10/23/17 at 21:00; Stop 10/31/17 at 21:00; Status DC Lactobacillus Rhamnosus (Culturelle) 1 cap BID PO Last administered on 19:50; Start 10/23/17 at 21:00 Olanzapine (ZyPREXA ZYDIS) 2.5 mg PRN Q2HR PRN PO A Last administered on 18:04; Start 10/23/17 at 17:00 Mirtazapine (Remeron) 7.5 mg QHS PO Last administered on 11/07/17 19:50; Start 10/23/17 at 21:00 Quetiapine Fumarate (SEROquel) 25 mg TID@0900,1300,1700 PO Last administered on 10/27/17 09:02; Start 10/24/17 at 09:00; Stop 10/27/17 at 10:32; Status DC Vitamin D (Vitamin D3) 50,000 unit WEEKLY PO ; Start 10/24/17 at 18:00; Stop 10/24 at 18:00; Status DC Levothyroxine Sodium (Synthroid) 25 mcg DAILY07 PO Last administered on at 06:40; Start 10/25/17 at 07:00 Vitamin D (Vitamin D3) 50,000 unit WEEKLY PO Last administered on 11/01/17at 09: 00; Start 10/25/17 at 09:00 Divalproex Sodium (Depakote Sprinkles) 125 mg BID@0900,1300 PO Last administered on 10/29/17at 14:55; Start 10/25/17 at 09:00; Stop 10/29/17 at 18:18 ; Status DC Trazodone HCl (Desyrel) 25 mg TID@0900,1300,1700 PO Last administered on 17:17; Start 10/26/17 at 09:00 Acetaminophen (Tylenol) 650 mg TID PO Last administered on 11/07/17at 19:51; Start 10/26/17 at 21:00 Metformin HCl (Glucophage) 500 mg BIDWMEALS PO Last administered on 11/07/17at 17:17; Start 10/27/17 at 08:00 Risperidone (RisperDAL) 0.125 mg TID@0900,1300,1700 PO Last administered on at 18:31; Start 10/27/17 at 13:00; Stop 10/31/17 at 19:23; Status DC Divalproex Sodium (Depakote Sprinkles) 125 mg QID PO Last administered on at 16:51; Start 10/29/17 at 21:00; Stop 11/01/17 at 18:38; Status DC Risperidone (RisperDAL) 0.125 mg BID@0900,1300 PO Last administered on at 09:26; Start 11/01/17 at 09:00; Stop 11/03/17 at 11:28; Status DC Risperidone (RisperDAL) 0.25 mg DAILY@1700 PO Last administered on 11/02/17at 16 :37; Start 11/01/17 at 17:00; Stop 11/03/17 at 11:28; Status DC Divalproex Sodium (Depakote Sprinkles) 125 mg TID@0900,1300,1700 PO ; Start at 09:00; Stop 11/02/17 at 09:00; Status DC Divalproex Sodium (Depakote Sprinkles) 250 mg TID@0900,1300,1700 PO Last administered on 11/04/17at 16:24; Start 11/02/17 at 09:00; Stop 11/04/17 at 18:07 ; Status DC Risperidone (RisperDAL) 0.25 mg TID@0900,1300,1700 PO Last administered on 11/07at 17:16; Start 11/03/17 at 13:00 Divalproex Sodium (Depakote Sprinkles) 375 mg TID@0900,1300,1700 PO Last administered on 11/07/17at 17:16; Start 11/05/17 at 09:00 Active Scripts Active Reported Seroquel (Quetiapine Fumarate) 50 Mg Tablet 50 Mg PO Seroquel (Quetiapine Fumarate) 25 Mg Tablet 25 Mg PO TID Seroquel (Quetiapine Fumarate) 50 Mg Tablet 50 Mg PO QHS Lorazepam 0.5 Mg Tablet 0.5 Mg PO PRN QID PRN Bisacodyl 5 Mg Tablet.dr 10 Mg PO PRN DAILY PRN Tylenol (Acetaminophen) 325 Mg Tablet 325 Mg PO PRN Q6HRS PRN Tylenol (Acetaminophen) 325 Mg Tablet 325 Mg PO PRN Q6HRS PRN Milk Of Magnesia (Magnesium Hydroxide) 2,400 Mg/10 Ml Oral.susp 2,400 Mg PO PRN Q4HRS PRN Furosemide 20 Mg Tablet 20 Mg PO DAILY Furosemide 20 Mg Tablet 1 Tab PO DAILY Potassium Chloride 10 Meq Tablet.er 10 Meq PO DAILY Vitamin D3 (Cholecalciferol (Vitamin D3)) 1,000 Unit Tablet 1,000 Unit PO DAILY B-12 (Cyanocobalamin (Vitamin B-12)) 1,000 Mcg Tablet.er 1,000 Mcg PO DAILY Aspirin Ec (Aspirin) 81 Mg Tablet.dr 81 Mg PO DAILY Trazodone Hcl 50 Mg Tablet 25 Mg PO BID@1700,2100 Keppra (Levetiracetam) 500 Mg Tablet 500 Mg PO BID Metformin Hcl 500 Mg Tablet 500 Mg PO BIDWMEALS I have reviewed the current psychotropics carefully including drug interactions. Risk benefit ratio favors no change other than as noted in my dictated progress note. Diagnosis: Problems: (1) Anxiety disorder (2) Impulse control disorder (3) Dementia, vascular, with depression (4) Dementia, vascular, with delusions (5) Dementia in Alzheimer's disease with depression (6) Dementia in Alzheimer's disease with delusions MELANIE COSTELLO MD Nov 07, 2017 20:47
--- NOTE | 2017-11-08 01:17 | PN ---
DATE: 11/06/2017 This is a late entry for 11/06/2017 and covers elements not covered in my initial note of 11/06/2017. SUBJECTIVE: I met with the patient in the afternoon. This note is being redictated as requested by medical records. The patient slept 8-1/4 hours, talking to people not there, actively hallucinating, resistive to medications. Labs to be checked morning of 11/07/2017. No CV, , pulmonary, eye, ENT system symptoms on review. Gait unsteady, in wheelchair. MENTAL STATUS EXAM: Oriented to herself. Insight, judgment, recent and remote memory, attention, concentration, fund of knowledge poor, consistent with her diagnosis as mentioned in my initial note. IMPRESSION: Major neurocognitive disorder, Alzheimer, vascular with depression, delusion, behavioral disturbance. Rest unchanged. PLAN: Continue current psychotropics. We will adjust Depakote post labs and may need to increase Risperdal as well. MAN Glory COSTELLO MD DR: MATEO/richie JOB#: [id number] / [id number]
--- NOTE | 2017-11-08 01:37 | PN ---
DATE: 11/05/2017 This late entry 11/05/2017 covers elements not covered in my initial note 11/05/2017. SUBJECTIVE: I met with the patient in the evening. This note is being redictated as requested by medical records. She has been hallucinating the previous evening, wandering labile mostly in her wheelchair, looking for her baby. REVIEW OF SYSTEMS: No CV, , pulmonary, eye system symptoms on review. Reliability poor. MENTAL STATUS EXAM: Oriented to herself. Insight, judgment, recent and remote memory, attention, concentration, fund of knowledge poor, consistent with her diagnosis mentioned in my initial note. PLAN: Continue psychotropics mentioned in my initial note. Depakote is being adjusted, may need to increase Risperdal after that. MAN Glory COSTELLO MD DR: MATEO/richie JOB#: [id number] / [id number]
[2017-11-08] MEDS: LEVOTHYROXINE 25 MCG TABLET. PO SCH (05:49)
[2017-11-08 06:27] VITALS: BP 159/81
[2017-11-08 07:55] LABS: BASO # 0.1 x10^3/uL (0.0-0.2); BASO % 1 % (0-3); EOS # 0.2 x10^3/uL (0.0-0.7); EOS % 3 % (0-3); HEMATOCRIT 33.9 % (36.0-47.0); HEMOGLOBIN 11.4 g/dL (12.0-15.5); LYMPH # 1.7 x10^3/uL (1.0-4.8); LYMPH % 19 % (24-48); MEAN CORPUSCULAR HEMOGLOBIN 30 pg (25-35); MEAN CORPUSCULAR HGB CONC 34 g/dL (31-37); MEAN CORPUSCULAR VOLUME 89 fL (79-100); MONO # 0.8 x10^3/uL (0.0-1.1); MONO % 9 % (0-9); NEUT # 6.1 x10^3uL (1.8-7.7); NEUT % 68 % (31-73); PLATELET COUNT 274 x10^3/uL (140-400); RED CELL DISTRIBUTION WIDTH 14.4 % (11.5-14.5)
[2017-11-08 08:05] LABS: ALBUMIN 2.9 g/dL (3.4-5.0); ALBUMIN/GLOBULIN RATIO 0.7 (1.0-1.7); ALK PHOS 82 U/L (46-116); ALT (SGPT) 24 U/L (14-59); ANION GAP 5 (6-14); AST (SGOT) 25 U/L (15-37); BLOOD UREA NITROGEN 33 mg/dL (7-20); BUN/CREATININE RATIO 37 (6-20); CALCIUM 9.1 mg/dL (8.5-10.1); CARBON DIOXIDE 32 mmol/L (21-32); CHLORIDE 103 mmol/L (98-107); CREATININE 0.9 mg/dL (0.6-1.0); GFR 60.7; GLUCOSE 94 mg/dL (70-99); POTASSIUM 4.5 mmol/L (3.5-5.1); SODIUM 140 mmol/L (136-145); TOTAL BILIRUBIN 0.4 mg/dL (0.2-1.0); TOTAL PROTEIN 6.9 g/dL (6.4-8.2); VAL ACID 35 mcg/mL (50-100)
[2017-11-08] MEDS: traZODone 50 MG TABLET. PO SCH ×3 (08:09→17:17)
[2017-11-08] MEDS: metFORMIN 500 MG TABLET PO SCH ×2 (08:09→17:17)
[2017-11-08] MEDS: DIVALPROEX 125 MG CAP.SPRINK PO SCH ×3 (08:09→17:20)
[2017-11-08] MEDS: LACTOBACILLUS RHAMNOSUS GG 1 CAPSULE. PO SCH ×2 (08:09→20:48)
[2017-11-08] MEDS: risperiDONE 0.25 MG TABLET. PO SCH ×3 (08:09→17:17)
[2017-11-08] MEDS: ACETAMINOPHEN 325 MG TABLET PO SCH ×3 (08:10→20:48)
[2017-11-08] MEDS: CHOLECALCIFEROL (VITAMIN D3) 50,000 UNIT CAPSULE PO SCH (08:11)
[2017-11-08 08:19] LABS: MAGNESIUM 1.9 mg/dL (1.8-2.4)
--- NOTE | 2017-11-08 20:45 | PDOC ---
Exam Note: [place] Note: Please also refer to the separate dictated note~for this date of service dictated separately.~Patient seen individually. Discussed the patient with Nursing staff reviewed the chart.~Reviewed interim history and current functioning. Reviewed vital signs,~Labs/ Radiology~and current medications noted below. Continue current treatment with the changes noted in the dictated addendum note Assessment: Vital Signs: Vital Signs Date Time Temp Pulse Resp B/P (MAP) Pulse Ox O2 Delivery O2 Flow Rate FiO2 11/08/17 06:27 98.1 88 18 159/81 (107) 98 11/07/17 06:29 Room Air I&O Intake and Output 11/08/17 07:00 Intake Total 720 ml Balance 720 ml Intake Oral 720 ml # Voids 1 # Bowel Movements 1 Labs: Laboratory Tests Test 11/08/17 07:10 11/08/17 07:45 Glucose (Fingerstick) 101 mg/dL (70-99) H White Blood Count 9.0 x10^3/uL (4.0-11.0) Red Blood Count 3.80 x10^6/uL (3.50-5.40) Hemoglobin 11.4 g/dL (12.0-15.5) L Hematocrit 33.9 % (36.0-47.0) L Mean Corpuscular Volume 89 fL (79-100) Mean Corpuscular Hemoglobin 30 pg (25-35) Mean Corpuscular Hemoglobin Concent 34 g/dL (31-37) Red Cell Distribution Width 14.4 % (11.5-14.5) Platelet Count 274 x10^3/uL (140-400) Neutrophils (%) (Auto) 68 % (31-73) Lymphocytes (%) (Auto) 19 % (24-48) L Monocytes (%) (Auto) 9 % (0-9) Eosinophils (%) (Auto) 3 % (0-3) Basophils (%) (Auto) 1 % (0-3) Neutrophils # (Auto) 6.1 x10^3uL (1.8-7.7) Lymphocytes # (Auto) 1.7 x10^3/uL (1.0-4.8) Monocytes # (Auto) 0.8 x10^3/uL (0.0-1.1) Eosinophils # (Auto) 0.2 x10^3/uL (0.0-0.7) Basophils # (Auto) 0.1 x10^3/uL (0.0-0.2) Sodium Level 140 mmol/L (136-145) Potassium Level 4.5 mmol/L (3.5-5.1) Chloride Level 103 mmol/L (98-107) Carbon Dioxide Level 32 mmol/L (21-32) Anion Gap 5 (6-14) L Blood Urea Nitrogen 33 mg/dL (7-20) H Creatinine 0.9 mg/dL (0.6-1.0) Estimated GFR (Cockcroft-Gault) 60.7 BUN/Creatinine Ratio 37 (6-20) H Glucose Level 94 mg/dL (70-99) Calcium Level 9.1 mg/dL (8.5-10.1) Magnesium Level 1.9 mg/dL (1.8-2.4) Total Bilirubin 0.4 mg/dL (0.2-1.0) Aspartate Amino Transferase (AST) 25 U/L (15-37) Alanine Aminotransferase (ALT) 24 U/L (14-59) Alkaline Phosphatase 82 U/L (46-116) Total Protein 6.9 g/dL (6.4-8.2) Albumin 2.9 g/dL (3.4-5.0) L Albumin/Globulin Ratio 0.7 (1.0-1.7) L Valproic Acid Level 35 mcg/mL (50-100) L Valproic Acid Last Dose Date 11/07/17 Valproic Acid Last Dose Time 1700 Current Medications: Meds: Current Medications Haloperidol Lactate (Haldol) 5 mg STK-MED ONCE .ROUTE ; Start 10/22/17 at 19:51; Stop 10/22/17 at 19:52; Status DC Haloperidol Lactate (Haldol) 5 mg 1X ONCE IM Last administered on 10/22/17at 19: 56; Start 10/22/17 at 20:00; Stop 10/22/17 at 20:55; Status DC Lorazepam (Ativan) 1 mg 1X ONCE PO ; Start 10/22/17 at 20:15; Stop 10/22/17 at 20 :38; Status DC Cephalexin HCl (Keflex) 500 mg 1X ONCE PO Last administered on 10/22/17at 20:56 ; Start 10/22/17 at 21:00; Stop 10/22/17 at 21:01; Status DC Acetaminophen (Tylenol) 650 mg PRN Q6HRS PRN PO PAIN / TEMP Last administered on 10/26/17at 12:32; Start 10/22/17 at 22:00 Multi-Ingredient Ointment (Analgesic [place]) 1 dane PRN QID PRN TP MUSCLE PAIN; Start 10/22/17 at 22:00 Al Hydroxide/Mg Hydroxide (Mylanta Plus Xs) 15 ml PRN AFTMEALHC PRN PO DYSPEPSIA; Start 10/22/17 at 22:00 Magnesium Hydroxide (Milk Of Magnesia) 2,400 mg PRN QHS PRN PO CONSTIPATION Last administered on 10/25/17at 07:58; Start 10/22/17 at 22:00 Lorazepam (Ativan) 0.5 mg PRN QID PRN PO ANXIETY Last administered on 16:57; Start 10/22/17 at 23:00 Quetiapine Fumarate (SEROquel) 25 mg TID PO Last administered on 10/23/17at 19:53 ; Start 10/23/17 at 09:00; Stop 10/24/17 at 01:41; Status DC Quetiapine Fumarate (SEROquel) 50 mg QHS PO Last administered on 10/26/17at 19: 46; Start 10/23/17 at 21:00; Stop 10/27/17 at 10:32; Status DC Trazodone HCl (Desyrel) 25 mg BID@1700,2100 PO Last administered on 10/25/17at 16:42; Start 10/23/17 at 17:00; Stop 10/25/17 at 18:24; Status DC Cefpodoxime Proxetil (Vantin) 200 mg BID PO Last administered on 10/31/17at 20: 00; Start 10/23/17 at 21:00; Stop 10/31/17 at 21:00; Status DC Lactobacillus Rhamnosus (Culturelle) 1 cap BID PO Last administered on at 08:09; Start 10/23/17 at 21:00 Olanzapine (ZyPREXA ZYDIS) 2.5 mg PRN Q2HR PRN PO A Last administered on at 18:04; Start 10/23/17 at 17:00 Mirtazapine (Remeron) 7.5 mg QHS PO Last administered on 11/07/17at 19:50; Start 10/23/17 at 21:00 Quetiapine Fumarate (SEROquel) 25 mg TID@0900,1300,1700 PO Last administered on 10/27/17at 09:02; Start 10/24/17 at 09:00; Stop 10/27/17 at 10:32; Status DC Vitamin D (Vitamin D3) 50,000 unit WEEKLY PO ; Start 10/24/17 at 18:00; Stop 10/24 at 18:00; Status DC Levothyroxine Sodium (Synthroid) 25 mcg DAILY07 PO Last administered on at 05:49; Start 10/25/17 at 07:00 Vitamin D (Vitamin D3) 50,000 unit WEEKLY PO Last administered on 11/08/17at 08: 11; Start 10/25/17 at 09:00 Divalproex Sodium (Depakote Sprinkles) 125 mg BID@0900,1300 PO Last administered on 10/29/17at 14:55; Start 10/25/17 at 09:00; Stop 10/29/17 at 18:18 ; Status DC Trazodone HCl (Desyrel) 25 mg TID@0900,1300,1700 PO Last administered on at 17:17; Start 10/26/17 at 09:00 Acetaminophen (Tylenol) 650 mg TID PO Last administered on 11/08/17at 13:36; Start 10/26/17 at 21:00 Metformin HCl (Glucophage) 500 mg BIDWMEALS PO Last administered on 11/08/17at 17:17; Start 10/27/17 at 08:00 Risperidone (RisperDAL) 0.125 mg TID@0900,1300,1700 PO Last administered on at 18:31; Start 10/27/17 at 13:00; Stop 10/31/17 at 19:23; Status DC Divalproex Sodium (Depakote Sprinkles) 125 mg QID PO Last administered on at 16:51; Start 10/29/17 at 21:00; Stop 11/01/17 at 18:38; Status DC Risperidone (RisperDAL) 0.125 mg BID@0900,1300 PO Last administered on at 09:26; Start 11/01/17 at 09:00; Stop 11/03/17 at 11:28; Status DC Risperidone (RisperDAL) 0.25 mg DAILY@1700 PO Last administered on 11/02/17at 16 :37; Start 11/01/17 at 17:00; Stop 11/03/17 at 11:28; Status DC Divalproex Sodium (Depakote Sprinkles) 125 mg TID@0900,1300,1700 PO ; Start at 09:00; Stop 11/02/17 at 09:00; Status DC Divalproex Sodium (Depakote Sprinkles) 250 mg TID@0900,1300,1700 PO Last administered on 11/04/17at 16:24; Start 11/02/17 at 09:00; Stop 11/04/17 at 18:07 ; Status DC Risperidone (RisperDAL) 0.25 mg TID@0900,1300,1700 PO Last administered on 11/08at 17:17; Start 11/03/17 at 13:00 Divalproex Sodium (Depakote Sprinkles) 375 mg TID@0900,1300,1700 PO Last administered on 11/08/17at 17:20; Start 11/05/17 at 09:00; Stop 11/08/17 at 19:21 ; Status DC Divalproex Sodium (Depakote Sprinkles) 375 mg BID@0900,1700 PO ; Start 11/09/17 at 09:00 Divalproex Sodium (Depakote Sprinkles) 375 mg DAILY@1300 PO ; Start 11/09/17 at 13:00 Active Scripts Active Reported Seroquel (Quetiapine Fumarate) 50 Mg Tablet 50 Mg PO Seroquel (Quetiapine Fumarate) 25 Mg Tablet 25 Mg PO TID Seroquel (Quetiapine Fumarate) 50 Mg Tablet 50 Mg PO QHS Lorazepam 0.5 Mg Tablet 0.5 Mg PO PRN QID PRN Bisacodyl 5 Mg Tablet.dr 10 Mg PO PRN DAILY PRN Tylenol (Acetaminophen) 325 Mg Tablet 325 Mg PO PRN Q6HRS PRN Tylenol (Acetaminophen) 325 Mg Tablet 325 Mg PO PRN Q6HRS PRN Milk Of Magnesia (Magnesium Hydroxide) 2,400 Mg/10 Ml Oral.susp 2,400 Mg PO PRN Q4HRS PRN Furosemide 20 Mg Tablet 20 Mg PO DAILY Furosemide 20 Mg Tablet 1 Tab PO DAILY Potassium Chloride 10 Meq Tablet.er 10 Meq PO DAILY Vitamin D3 (Cholecalciferol (Vitamin D3)) 1,000 Unit Tablet 1,000 Unit PO DAILY B-12 (Cyanocobalamin (Vitamin B-12)) 1,000 Mcg Tablet.er 1,000 Mcg PO DAILY Aspirin Ec (Aspirin) 81 Mg Tablet.dr 81 Mg PO DAILY Trazodone Hcl 50 Mg Tablet 25 Mg PO BID@1700,2100 Keppra (Levetiracetam) 500 Mg Tablet 500 Mg PO BID Metformin Hcl 500 Mg Tablet 500 Mg PO BIDWMEALS I have reviewed the current psychotropics carefully including drug interactions. Risk benefit ratio favors no change other than as noted in my dictated progress note. Diagnosis: Problems: (1) Anxiety disorder (2) Impulse control disorder (3) Dementia, vascular, with depression (4) Dementia, vascular, with delusions (5) Dementia in Alzheimer's disease with depression (6) Dementia in Alzheimer's disease with delusions MELANIE COSTELLO MD Nov 08, 2017 20:45
[2017-11-08] MEDS: MIRTAZAPINE 7.5 MG TABLET. PO SCH (20:48)
--- NOTE | 2017-11-08 22:35 | PN ---
DATE: 11/07/2017 This is a late entry for 11/07/2017 covers elements not covered in my initial note of 11/07/2017. SUBJECTIVE: I met with the patient in the evening of 11/07/2017. The patient slept 6-3/4 hours previous evening, doing about the same, confused, forgetful, somewhat delusional. We will check labs in the morning of 11/08/2017. REVIEW OF SYSTEMS: Ambulation impaired, in wheelchair. No CV, , pulmonary, eye system symptoms on review. MENTAL STATUS EXAM: Oriented to herself. Insight, judgment, recent and remote memory, attention, concentration, fund of knowledge poor, consistent with her diagnosis mentioned in my initial note. IMPRESSION: Major neurocognitive disorder, Alzheimer, vascular with delusion, depression, behavioral disturbance. Rest unchanged. PLAN: Continue psychotropics mentioned in my initial note. MAN Glory COSTELLO MD DR: MATEO/richie JOB#: [id number] / [id number]
[2017-11-09 06:30] VITALS: BP 150/64
[2017-11-09] MEDS: LEVOTHYROXINE 25 MCG TABLET. PO SCH (06:50)
[2017-11-09] MEDS ORDERED: DIVALPROEX 125 MG CAP.SPRINK PO SCH (09:00)
[2017-11-09] MEDS: metFORMIN 500 MG TABLET PO SCH ×2 (09:04→18:08)
[2017-11-09] MEDS: ACETAMINOPHEN 325 MG TABLET PO SCH ×3 (09:04→20:05)
[2017-11-09] MEDS: traZODone 50 MG TABLET. PO SCH ×3 (09:04→18:08)
[2017-11-09] MEDS: risperiDONE 0.25 MG TABLET. PO SCH ×3 (09:04→18:08)
[2017-11-09] MEDS: LACTOBACILLUS RHAMNOSUS GG 1 CAPSULE. PO SCH ×2 (09:04→20:05)
[2017-11-09] MEDS: DIVALPROEX 125 MG CAP.SPRINK PO SCH ×3 (09:10→18:09)
[2017-11-09 15:44] VITALS: BP 107/54
[2017-11-09] MEDS: MIRTAZAPINE 7.5 MG TABLET. PO SCH (20:05)
--- NOTE | 2017-11-09 20:22 | PDOC ---
Exam Note: [place] Note: Please also refer to the separate dictated note~for this date of service dictated separately.~Patient seen individually. Discussed the patient with Nursing staff reviewed the chart.~Reviewed interim history and current functioning. Reviewed vital signs,~Labs/ Radiology~and current medications noted below. Continue current treatment with the changes noted in the dictated addendum note Assessment: Vital Signs: Vital Signs Date Time Temp Pulse Resp B/P (MAP) Pulse Ox O2 Delivery O2 Flow Rate FiO2 11/09/17 15:44 97.7 75 16 107/54 (71) 100 11/09/17 06:30 Room Air I&O Intake and Output 11/09/17 07:00 Intake Total 1320 ml Balance 1320 ml Intake Oral 1320 ml # Voids 1 Labs: Laboratory Tests Test 11/09/17 07:41 Glucose (Fingerstick) 105 mg/dL (70-99) H Current Medications: Meds: Current Medications Haloperidol Lactate (Haldol) 5 mg STK-MED ONCE .ROUTE ; Start 10/22/17 at 19:51; Stop 10/22/17 at 19:52; Status DC Haloperidol Lactate (Haldol) 5 mg 1X ONCE IM Last administered on 10/22/17at 19: 56; Start 10/22/17 at 20:00; Stop 10/22/17 at 20:55; Status DC Lorazepam (Ativan) 1 mg 1X ONCE PO ; Start 10/22/17 at 20:15; Stop 10/22/17 at 20 :38; Status DC Cephalexin HCl (Keflex) 500 mg 1X ONCE PO Last administered on 10/22/17at 20:56 ; Start 10/22/17 at 21:00; Stop 10/22/17 at 21:01; Status DC Acetaminophen (Tylenol) 650 mg PRN Q6HRS PRN PO PAIN / TEMP Last administered on 10/26/17at 12:32; Start 10/22/17 at 22:00 Multi-Ingredient Ointment (Analgesic [place]) 1 dane PRN QID PRN TP MUSCLE PAIN; Start 10/22/17 at 22:00 Al Hydroxide/Mg Hydroxide (Mylanta Plus Xs) 15 ml PRN AFTMEALHC PRN PO DYSPEPSIA; Start 10/22/17 at 22:00 Magnesium Hydroxide (Milk Of Magnesia) 2,400 mg PRN QHS PRN PO CONSTIPATION Last administered on 10/25/17 07:58; Start 10/22/17 at 22:00 Lorazepam (Ativan) 0.5 mg PRN QID PRN PO ANXIETY Last administered on 16:57; Start 10/22/17 at 23:00 Quetiapine Fumarate (SEROquel) 25 mg TID PO Last administered on 10/23/17 19:53 ; Start 10/23/17 at 09:00; Stop 10/24/17 at 01:41; Status DC Quetiapine Fumarate (SEROquel) 50 mg QHS PO Last administered on 10/26/17at 19: 46; Start 10/23/17 at 21:00; Stop 10/27/17 at 10:32; Status DC Trazodone HCl (Desyrel) 25 mg BID@1700,2100 PO Last administered on 10/25/17at 16:42; Start 10/23/17 at 17:00; Stop 10/25/17 at 18:24; Status DC Cefpodoxime Proxetil (Vantin) 200 mg BID PO Last administered on 10/31/17at 20: 00; Start 10/23/17 at 21:00; Stop 10/31/17 at 21:00; Status DC Lactobacillus Rhamnosus (Culturelle) 1 cap BID PO Last administered on 20:05; Start 10/23/17 at 21:00 Olanzapine (ZyPREXA ZYDIS) 2.5 mg PRN Q2HR PRN PO A Last administered on at 18:04; Start 10/23/17 at 17:00 Mirtazapine (Remeron) 7.5 mg QHS PO Last administered on 11/09/17at 20:05; Start 10/23/17 at 21:00 Quetiapine Fumarate (SEROquel) 25 mg TID@0900,1300,1700 PO Last administered on 10/27/17at 09:02; Start 10/24/17 at 09:00; Stop 10/27/17 at 10:32; Status DC Vitamin D (Vitamin D3) 50,000 unit WEEKLY PO ; Start 10/24/17 at 18:00; Stop 10/24 at 18:00; Status DC Levothyroxine Sodium (Synthroid) 25 mcg DAILY07 PO Last administered on 06:50; Start 10/25/17 at 07:00 Vitamin D (Vitamin D3) 50,000 unit WEEKLY PO Last administered on 11/08/17at 08: 11; Start 10/25/17 at 09:00 Divalproex Sodium (Depakote Sprinkles) 125 mg BID@0900,1300 PO Last administered on 10/29/17at 14:55; Start 10/25/17 at 09:00; Stop 10/29/17 at 18:18 ; Status DC Trazodone HCl (Desyrel) 25 mg TID@0900,1300,1700 PO Last administered on 18:08; Start 10/26/17 at 09:00 Acetaminophen (Tylenol) 650 mg TID PO Last administered on 11/09/17at 20:05; Start 10/26/17 at 21:00 Metformin HCl (Glucophage) 500 mg BIDWMEALS PO Last administered on 11/09/17 18:08; Start 10/27/17 at 08:00 Risperidone (RisperDAL) 0.125 mg TID@0900,1300,1700 PO Last administered on at 18:31; Start 10/27/17 at 13:00; Stop 10/31/17 at 19:23; Status DC Divalproex Sodium (Depakote Sprinkles) 125 mg QID PO Last administered on at 16:51; Start 10/29/17 at 21:00; Stop 11/01/17 at 18:38; Status DC Risperidone (RisperDAL) 0.125 mg BID@0900,1300 PO Last administered on at 09:26; Start 11/01/17 at 09:00; Stop 11/03/17 at 11:28; Status DC Risperidone (RisperDAL) 0.25 mg DAILY@1700 PO Last administered on 11/02/17at 16 :37; Start 11/01/17 at 17:00; Stop 11/03/17 at 11:28; Status DC Divalproex Sodium (Depakote Sprinkles) 125 mg TID@0900,1300,1700 PO ; Start at 09:00; Stop 11/02/17 at 09:00; Status DC Divalproex Sodium (Depakote Sprinkles) 250 mg TID@0900,1300,1700 PO Last administered on 11/04/17at 16:24; Start 11/02/17 at 09:00; Stop 11/04/17 at 18:07 ; Status DC Risperidone (RisperDAL) 0.25 mg TID@0900,1300,1700 PO Last administered on 11/09at 18:08; Start 11/03/17 at 13:00 Divalproex Sodium (Depakote Sprinkles) 375 mg TID@0900,1300,1700 PO Last administered on 11/08/17at 17:20; Start 11/05/17 at 09:00; Stop 11/08/17 at 19:21 ; Status DC Divalproex Sodium (Depakote Sprinkles) 375 mg BID@0900,1700 PO ; Start 11/09/17 at 09:00; Stop 11/09/17 at 09:06; Status DC Divalproex Sodium (Depakote Sprinkles) 375 mg DAILY@1300 PO Last administered on 11/09/17at 12:06; Start 11/09/17 at 13:00 Divalproex Sodium (Depakote Sprinkles) 500 mg BID@0900,1700 PO Last administered on 11/09/17at 18:09; Start 11/09/17 at 09:05 Active Scripts Active Reported Seroquel (Quetiapine Fumarate) 50 Mg Tablet 50 Mg PO Seroquel (Quetiapine Fumarate) 25 Mg Tablet 25 Mg PO TID Seroquel (Quetiapine Fumarate) 50 Mg Tablet 50 Mg PO QHS Lorazepam 0.5 Mg Tablet 0.5 Mg PO PRN QID PRN Bisacodyl 5 Mg Tablet.dr 10 Mg PO PRN DAILY PRN Tylenol (Acetaminophen) 325 Mg Tablet 325 Mg PO PRN Q6HRS PRN Tylenol (Acetaminophen) 325 Mg Tablet 325 Mg PO PRN Q6HRS PRN Milk Of Magnesia (Magnesium Hydroxide) 2,400 Mg/10 Ml Oral.susp 2,400 Mg PO PRN Q4HRS PRN Furosemide 20 Mg Tablet 20 Mg PO DAILY Furosemide 20 Mg Tablet 1 Tab PO DAILY Potassium Chloride 10 Meq Tablet.er 10 Meq PO DAILY Vitamin D3 (Cholecalciferol (Vitamin D3)) 1,000 Unit Tablet 1,000 Unit PO DAILY B-12 (Cyanocobalamin (Vitamin B-12)) 1,000 Mcg Tablet.er 1,000 Mcg PO DAILY Aspirin Ec (Aspirin) 81 Mg Tablet.dr 81 Mg PO DAILY Trazodone Hcl 50 Mg Tablet 25 Mg PO BID@1700,2100 Keppra (Levetiracetam) 500 Mg Tablet 500 Mg PO BID Metformin Hcl 500 Mg Tablet 500 Mg PO BIDWMEALS I have reviewed the current psychotropics carefully including drug interactions. Risk benefit ratio favors no change other than as noted in my dictated progress note. Diagnosis: Problems: (1) Anxiety disorder (2) Impulse control disorder (3) Dementia, vascular, with depression (4) Dementia, vascular, with delusions (5) Dementia in Alzheimer's disease with depression (6) Dementia in Alzheimer's disease with delusions MELANIE COSTELLO MD Nov 09, 2017 20:22
--- NOTE | 2017-11-09 22:06 | PN ---
DATE: 11/08/2017 This is a late entry, 11/08/2017, covers the elements not covered in my initial note, 11/08/2017. SUBJECTIVE: I met with the patient in the evening. The patient slept 7-1/2 hours, extremely restless, anxious, in a wheelchair, labile in her mood quite delusional, paranoid, as I met with her. REVIEW OF SYSTEMS: Ambulation impaired, in a wheelchair. No CV, , pulmonary, eye system symptoms on review. MENTAL STATUS EXAM: Oriented to herself. Insight, judgment, recent and remote memory, attention, concentration, fund of knowledge poor, consistent with her diagnosis. She is constantly trying to get out of her wheelchair. LABORATORY DATA: Reviewed. IMPRESSION: Unchanged from initial note. PLAN: Increase Depakote from 375 mg 3 times a day to 500 mg twice a day, 375 mg once a day. Check CBC, CMP, valproic acid level in 3 days since the current level at the current Depakote dosage is subtherapeutic at 35, continue rest unchanged. MAN Glory COSTELLO MD DR: MATEO/richie JOB#: [id number] / [id number]
[2017-11-10] MEDS: LEVOTHYROXINE 25 MCG TABLET. PO SCH (05:36)
[2017-11-10 06:12] VITALS: BP 134/76
[2017-11-10] MEDS: DIVALPROEX 125 MG CAP.SPRINK PO SCH ×3 (07:54→16:59)
[2017-11-10] MEDS: risperiDONE 0.25 MG TABLET. PO SCH ×3 (07:54→17:00)
[2017-11-10] MEDS: traZODone 50 MG TABLET. PO SCH ×3 (07:55→17:00)
[2017-11-10] MEDS: LACTOBACILLUS RHAMNOSUS GG 1 CAPSULE. PO SCH ×2 (07:55→20:13)
[2017-11-10] MEDS: ACETAMINOPHEN 325 MG TABLET PO SCH ×3 (07:56→20:13)
[2017-11-10] MEDS: metFORMIN 500 MG TABLET PO SCH ×2 (07:56→16:59)
[2017-11-10 16:18] VITALS: BP 106/67
[2017-11-10] MEDS: MIRTAZAPINE 7.5 MG TABLET. PO SCH (20:13)
--- NOTE | 2017-11-10 21:07 | PDOC ---
Exam Note: [place] Note: Please also refer to the separate dictated note~for this date of service dictated separately.~Patient seen individually. Discussed the patient with Nursing staff reviewed the chart.~Reviewed interim history and current functioning. Reviewed vital signs,~Labs/ Radiology~and current medications noted below. Continue current treatment with the changes noted in the dictated addendum note Assessment: Vital Signs: Vital Signs Date Time Temp Pulse Resp B/P (MAP) Pulse Ox O2 Delivery O2 Flow Rate FiO2 11/10/17 16:18 96.6 91 16 106/67 (80) 98 11/09/17 06:30 Room Air I&O Intake and Output 11/10/17 07:00 Intake Total 960 ml Output Total 1 ml Balance 959 ml Intake Oral 960 ml Output Urine Total 1 ml Labs: Laboratory Tests Test 11/10/17 07:12 Glucose (Fingerstick) 83 mg/dL (70-99) Current Medications: Meds: Current Medications Haloperidol Lactate (Haldol) 5 mg STK-MED ONCE .ROUTE ; Start 10/22/17 at 19:51; Stop 10/22/17 at 19:52; Status DC Haloperidol Lactate (Haldol) 5 mg 1X ONCE IM Last administered on 10/22/17at 19: 56; Start 10/22/17 at 20:00; Stop 10/22/17 at 20:55; Status DC Lorazepam (Ativan) 1 mg 1X ONCE PO ; Start 10/22/17 at 20:15; Stop 10/22/17 at 20 :38; Status DC Cephalexin HCl (Keflex) 500 mg 1X ONCE PO Last administered on 10/22/17at 20:56 ; Start 10/22/17 at 21:00; Stop 10/22/17 at 21:01; Status DC Acetaminophen (Tylenol) 650 mg PRN Q6HRS PRN PO PAIN / TEMP Last administered on 10/26/17at 12:32; Start 10/22/17 at 22:00 Multi-Ingredient Ointment (Analgesic [place]) 1 dane PRN QID PRN TP MUSCLE PAIN; Start 10/22/17 at 22:00 Al Hydroxide/Mg Hydroxide (Mylanta Plus Xs) 15 ml PRN AFTMEALHC PRN PO DYSPEPSIA; Start 10/22/17 at 22:00 Magnesium Hydroxide (Milk Of Magnesia) 2,400 mg PRN QHS PRN PO CONSTIPATION Last administered on 10/25/17 07:58; Start 10/22/17 at 22:00 Lorazepam (Ativan) 0.5 mg PRN QID PRN PO ANXIETY Last administered on at 16:57; Start 10/22/17 at 23:00 Quetiapine Fumarate (SEROquel) 25 mg TID PO Last administered on 10/23/17 19:53 ; Start 10/23/17 at 09:00; Stop 10/24/17 at 01:41; Status DC Quetiapine Fumarate (SEROquel) 50 mg QHS PO Last administered on 10/26/17at 19: 46; Start 10/23/17 at 21:00; Stop 10/27/17 at 10:32; Status DC Trazodone HCl (Desyrel) 25 mg BID@1700,2100 PO Last administered on 10/25/17at 16:42; Start 10/23/17 at 17:00; Stop 10/25/17 at 18:24; Status DC Cefpodoxime Proxetil (Vantin) 200 mg BID PO Last administered on 10/31/17at 20: 00; Start 10/23/17 at 21:00; Stop 10/31/17 at 21:00; Status DC Lactobacillus Rhamnosus (Culturelle) 1 cap BID PO Last administered on at 20:13; Start 10/23/17 at 21:00 Olanzapine (ZyPREXA ZYDIS) 2.5 mg PRN Q2HR PRN PO A Last administered on at 18:04; Start 10/23/17 at 17:00 Mirtazapine (Remeron) 7.5 mg QHS PO Last administered on 11/10/17at 20:13; Start 10/23/17 at 21:00 Quetiapine Fumarate (SEROquel) 25 mg TID@0900,1300,1700 PO Last administered on 10/27/17at 09:02; Start 10/24/17 at 09:00; Stop 10/27/17 at 10:32; Status DC Vitamin D (Vitamin D3) 50,000 unit WEEKLY PO ; Start 10/24/17 at 18:00; Stop 10/24 at 18:00; Status DC Levothyroxine Sodium (Synthroid) 25 mcg DAILY07 PO Last administered on at 05:36; Start 10/25/17 at 07:00 Vitamin D (Vitamin D3) 50,000 unit WEEKLY PO Last administered on 11/08/17at 08: 11; Start 10/25/17 at 09:00 Divalproex Sodium (Depakote Sprinkles) 125 mg BID@0900,1300 PO Last administered on 10/29/17at 14:55; Start 10/25/17 at 09:00; Stop 10/29/17 at 18:18 ; Status DC Trazodone HCl (Desyrel) 25 mg TID@0900,1300,1700 PO Last administered on at 17:00; Start 10/26/17 at 09:00 Acetaminophen (Tylenol) 650 mg TID PO Last administered on 11/10/17at 20:13; Start 10/26/17 at 21:00 Metformin HCl (Glucophage) 500 mg BIDWMEALS PO Last administered on 11/10/17at 16:59; Start 10/27/17 at 08:00 Risperidone (RisperDAL) 0.125 mg TID@0900,1300,1700 PO Last administered on at 18:31; Start 10/27/17 at 13:00; Stop 10/31/17 at 19:23; Status DC Divalproex Sodium (Depakote Sprinkles) 125 mg QID PO Last administered on at 16:51; Start 10/29/17 at 21:00; Stop 11/01/17 at 18:38; Status DC Risperidone (RisperDAL) 0.125 mg BID@0900,1300 PO Last administered on at 09:26; Start 11/01/17 at 09:00; Stop 11/03/17 at 11:28; Status DC Risperidone (RisperDAL) 0.25 mg DAILY@1700 PO Last administered on 11/02/17at 16 :37; Start 11/01/17 at 17:00; Stop 11/03/17 at 11:28; Status DC Divalproex Sodium (Depakote Sprinkles) 125 mg TID@0900,1300,1700 PO ; Start at 09:00; Stop 11/02/17 at 09:00; Status DC Divalproex Sodium (Depakote Sprinkles) 250 mg TID@0900,1300,1700 PO Last administered on 11/04/17at 16:24; Start 11/02/17 at 09:00; Stop 11/04/17 at 18:07 ; Status DC Risperidone (RisperDAL) 0.25 mg TID@0900,1300,1700 PO Last administered on 11/10at 17:00; Start 11/03/17 at 13:00 Divalproex Sodium (Depakote Sprinkles) 375 mg TID@0900,1300,1700 PO Last administered on 11/08/17at 17:20; Start 11/05/17 at 09:00; Stop 11/08/17 at 19:21 ; Status DC Divalproex Sodium (Depakote Sprinkles) 375 mg BID@0900,1700 PO ; Start 11/09/17 at 09:00; Stop 11/09/17 at 09:06; Status DC Divalproex Sodium (Depakote Sprinkles) 375 mg DAILY@1300 PO Last administered on 11/10/17at 14:52; Start 11/09/17 at 13:00 Divalproex Sodium (Depakote Sprinkles) 500 mg BID@0900,1700 PO Last administered on 11/10/17at 16:59; Start 11/09/17 at 09:05 Active Scripts Active Reported Seroquel (Quetiapine Fumarate) 50 Mg Tablet 50 Mg PO Seroquel (Quetiapine Fumarate) 25 Mg Tablet 25 Mg PO TID Seroquel (Quetiapine Fumarate) 50 Mg Tablet 50 Mg PO QHS Lorazepam 0.5 Mg Tablet 0.5 Mg PO PRN QID PRN Bisacodyl 5 Mg Tablet.dr 10 Mg PO PRN DAILY PRN Tylenol (Acetaminophen) 325 Mg Tablet 325 Mg PO PRN Q6HRS PRN Tylenol (Acetaminophen) 325 Mg Tablet 325 Mg PO PRN Q6HRS PRN Milk Of Magnesia (Magnesium Hydroxide) 2,400 Mg/10 Ml Oral.susp 2,400 Mg PO PRN Q4HRS PRN Furosemide 20 Mg Tablet 20 Mg PO DAILY Furosemide 20 Mg Tablet 1 Tab PO DAILY Potassium Chloride 10 Meq Tablet.er 10 Meq PO DAILY Vitamin D3 (Cholecalciferol (Vitamin D3)) 1,000 Unit Tablet 1,000 Unit PO DAILY B-12 (Cyanocobalamin (Vitamin B-12)) 1,000 Mcg Tablet.er 1,000 Mcg PO DAILY Aspirin Ec (Aspirin) 81 Mg Tablet.dr 81 Mg PO DAILY Trazodone Hcl 50 Mg Tablet 25 Mg PO BID@1700,2100 Keppra (Levetiracetam) 500 Mg Tablet 500 Mg PO BID Metformin Hcl 500 Mg Tablet 500 Mg PO BIDWMEALS I have reviewed the current psychotropics carefully including drug interactions. Risk benefit ratio favors no change other than as noted in my dictated progress note. Diagnosis: Problems: (1) Anxiety disorder (2) Impulse control disorder (3) Dementia, vascular, with depression (4) Dementia, vascular, with delusions (5) Dementia in Alzheimer's disease with depression (6) Dementia in Alzheimer's disease with delusions MELANIE COSTELLO MD Nov 10, 2017 21:07
[2017-11-11 05:52] VITALS: BP 133/54
[2017-11-11] MEDS: LEVOTHYROXINE 25 MCG TABLET. PO SCH (06:00)
[2017-11-11 08:00] LABS: BASO # 0.1 x10^3/uL (0.0-0.2); BASO % 1 % (0-3); EOS # 0.3 x10^3/uL (0.0-0.7); EOS % 4 % (0-3); HEMATOCRIT 33.2 % (36.0-47.0); HEMOGLOBIN 11.2 g/dL (12.0-15.5); LYMPH # 2.5 x10^3/uL (1.0-4.8); LYMPH % 35 % (24-48); MEAN CORPUSCULAR HEMOGLOBIN 30 pg (25-35); MEAN CORPUSCULAR HGB CONC 34 g/dL (31-37); MEAN CORPUSCULAR VOLUME 89 fL (79-100); MONO # 0.7 x10^3/uL (0.0-1.1); MONO % 11 % (0-9); NEUT # 3.5 x10^3uL (1.8-7.7); NEUT % 49 % (31-73); PLATELET COUNT 286 x10^3/uL (140-400); RED BLOOD COUNT 3.72 x10^6/uL (3.50-5.40); RED CELL DISTRIBUTION WIDTH 14.2 % (11.5-14.5); WHITE BLOOD COUNT 7.1 x10^3/uL (4.0-11.0)
[2017-11-11 08:09] LABS: ALBUMIN 2.8 g/dL (3.4-5.0); ALBUMIN/GLOBULIN RATIO 0.7 (1.0-1.7); ALK PHOS 78 U/L (46-116); ALT (SGPT) 24 U/L (14-59); ANION GAP 3 (6-14); AST (SGOT) 25 U/L (15-37); BLOOD UREA NITROGEN 31 mg/dL (7-20); BUN/CREATININE RATIO 39 (6-20); CALCIUM 9.1 mg/dL (8.5-10.1); CARBON DIOXIDE 32 mmol/L (21-32); CHLORIDE 105 mmol/L (98-107); CREATININE 0.8 mg/dL (0.6-1.0); GFR 69.6; GLUCOSE 82 mg/dL (70-99); MAGNESIUM 1.9 mg/dL (1.8-2.4); POTASSIUM 4.9 mmol/L (3.5-5.1); SODIUM 140 mmol/L (136-145); TOTAL BILIRUBIN 0.4 mg/dL (0.2-1.0); TOTAL PROTEIN 6.9 g/dL (6.4-8.2)
[2017-11-11 08:12] LABS: VAL ACID 40 mcg/mL (50-100)
[2017-11-11] MEDS: risperiDONE 0.25 MG TABLET. PO SCH ×3 (09:33→17:39)
[2017-11-11] MEDS: traZODone 50 MG TABLET. PO SCH ×3 (09:33→17:39)
[2017-11-11] MEDS: DIVALPROEX 125 MG CAP.SPRINK PO SCH ×4 (09:33→19:37)
[2017-11-11] MEDS: metFORMIN 500 MG TABLET PO SCH ×2 (09:33→17:39)
[2017-11-11] MEDS: LACTOBACILLUS RHAMNOSUS GG 1 CAPSULE. PO SCH ×2 (09:33→19:36)
[2017-11-11] MEDS: ACETAMINOPHEN 325 MG TABLET PO SCH ×3 (09:34→19:36)
[2017-11-11 16:21] VITALS: BP 92/51
[2017-11-11] MEDS: MIRTAZAPINE 7.5 MG TABLET. PO SCH (19:36)
--- NOTE | 2017-11-11 22:54 | PDOC ---
Exam Note: [place] Note: Please also refer to the separate dictated note~for this date of service dictated separately.~Patient seen individually. Discussed the patient with Nursing staff reviewed the chart.~Reviewed interim history and current functioning. Reviewed vital signs,~Labs/ Radiology~and current medications noted below. Continue current treatment with the changes noted in the dictated addendum note Assessment: Vital Signs: Vital Signs Date Time Temp Pulse Resp B/P (MAP) Pulse Ox O2 Delivery O2 Flow Rate FiO2 11/11/17 16:21 97.9 66 16 92/51 (65) 96 11/09/17 06:30 Room Air I&O Intake and Output 11/11/17 07:00 Intake Total 1200 ml Balance 1200 ml Intake Oral 1200 ml Labs: Laboratory Tests Test 11/11/17 07:22 11/11/17 07:29 White Blood Count 7.1 x10^3/uL (4.0-11.0) Red Blood Count 3.72 x10^6/uL (3.50-5.40) Hemoglobin 11.2 g/dL (12.0-15.5) L Hematocrit 33.2 % (36.0-47.0) L Mean Corpuscular Volume 89 fL (79-100) Mean Corpuscular Hemoglobin 30 pg (25-35) Mean Corpuscular Hemoglobin Concent 34 g/dL (31-37) Red Cell Distribution Width 14.2 % (11.5-14.5) Platelet Count 286 x10^3/uL (140-400) Neutrophils (%) (Auto) 49 % (31-73) Lymphocytes (%) (Auto) 35 % (24-48) Monocytes (%) (Auto) 11 % (0-9) H Eosinophils (%) (Auto) 4 % (0-3) H Basophils (%) (Auto) 1 % (0-3) Neutrophils # (Auto) 3.5 x10^3uL (1.8-7.7) Lymphocytes # (Auto) 2.5 x10^3/uL (1.0-4.8) Monocytes # (Auto) 0.7 x10^3/uL (0.0-1.1) Eosinophils # (Auto) 0.3 x10^3/uL (0.0-0.7) Basophils # (Auto) 0.1 x10^3/uL (0.0-0.2) Sodium Level 140 mmol/L (136-145) Potassium Level 4.9 mmol/L (3.5-5.1) Chloride Level 105 mmol/L (98-107) Carbon Dioxide Level 32 mmol/L (21-32) Anion Gap 3 (6-14) L Blood Urea Nitrogen 31 mg/dL (7-20) H Creatinine 0.8 mg/dL (0.6-1.0) Estimated GFR (Cockcroft-Gault) 69.6 BUN/Creatinine Ratio 39 (6-20) H Glucose Level 82 mg/dL (70-99) Calcium Level 9.1 mg/dL (8.5-10.1) Magnesium Level 1.9 mg/dL (1.8-2.4) Total Bilirubin 0.4 mg/dL (0.2-1.0) Aspartate Amino Transferase (AST) 25 U/L (15-37) Alanine Aminotransferase (ALT) 24 U/L (14-59) Alkaline Phosphatase 78 U/L (46-116) Total Protein 6.9 g/dL (6.4-8.2) Albumin 2.8 g/dL (3.4-5.0) L Albumin/Globulin Ratio 0.7 (1.0-1.7) L Valproic Acid Level 40 mcg/mL (50-100) L Valproic Acid Last Dose Date 11/10/2016 Valproic Acid Last Dose Time 1700 Glucose (Fingerstick) 79 mg/dL (70-99) Current Medications: Meds: Current Medications Haloperidol Lactate (Haldol) 5 mg STK-MED ONCE .ROUTE ; Start 10/22/17 at 19:51; Stop 10/22/17 at 19:52; Status DC Haloperidol Lactate (Haldol) 5 mg 1X ONCE IM Last administered on 10/22/17at 19: 56; Start 10/22/17 at 20:00; Stop 10/22/17 at 20:55; Status DC Lorazepam (Ativan) 1 mg 1X ONCE PO ; Start 10/22/17 at 20:15; Stop 10/22/17 at 20 :38; Status DC Cephalexin HCl (Keflex) 500 mg 1X ONCE PO Last administered on 10/22/17at 20:56 ; Start 10/22/17 at 21:00; Stop 10/22/17 at 21:01; Status DC Acetaminophen (Tylenol) 650 mg PRN Q6HRS PRN PO PAIN / TEMP Last administered on 10/26/17at 12:32; Start 10/22/17 at 22:00 Multi-Ingredient Ointment (Analgesic [place]) 1 dane PRN QID PRN TP MUSCLE PAIN; Start 10/22/17 at 22:00 Al Hydroxide/Mg Hydroxide (Mylanta Plus Xs) 15 ml PRN AFTMEALHC PRN PO DYSPEPSIA; Start 10/22/17 at 22:00 Magnesium Hydroxide (Milk Of Magnesia) 2,400 mg PRN QHS PRN PO CONSTIPATION Last administered on 10/25/17at 07:58; Start 10/22/17 at 22:00 Lorazepam (Ativan) 0.5 mg PRN QID PRN PO ANXIETY Last administered on at 16:57; Start 10/22/17 at 23:00 Quetiapine Fumarate (SEROquel) 25 mg TID PO Last administered on 10/23/17at 19:53 ; Start 10/23/17 at 09:00; Stop 10/24/17 at 01:41; Status DC Quetiapine Fumarate (SEROquel) 50 mg QHS PO Last administered on 10/26/17at 19: 46; Start 10/23/17 at 21:00; Stop 10/27/17 at 10:32; Status DC Trazodone HCl (Desyrel) 25 mg BID@1700,2100 PO Last administered on 10/25/17at 16:42; Start 10/23/17 at 17:00; Stop 10/25/17 at 18:24; Status DC Cefpodoxime Proxetil (Vantin) 200 mg BID PO Last administered on 10/31/17at 20: 00; Start 10/23/17 at 21:00; Stop 10/31/17 at 21:00; Status DC Lactobacillus Rhamnosus (Culturelle) 1 cap BID PO Last administered on at 19:36; Start 10/23/17 at 21:00 Olanzapine (ZyPREXA ZYDIS) 2.5 mg PRN Q2HR PRN PO A Last administered on at 18:04; Start 10/23/17 at 17:00 Mirtazapine (Remeron) 7.5 mg QHS PO Last administered on 11/11/17 19:36; Start 10/23/17 at 21:00 Quetiapine Fumarate (SEROquel) 25 mg TID@0900,1300,1700 PO Last administered on 10/27/17at 09:02; Start 10/24/17 at 09:00; Stop 10/27/17 at 10:32; Status DC Vitamin D (Vitamin D3) 50,000 unit WEEKLY PO ; Start 10/24/17 at 18:00; Stop 10/24 at 18:00; Status DC Levothyroxine Sodium (Synthroid) 25 mcg DAILY07 PO Last administered on at 06:00; Start 10/25/17 at 07:00 Vitamin D (Vitamin D3) 50,000 unit WEEKLY PO Last administered on 11/08/17at 08: 11; Start 10/25/17 at 09:00 Divalproex Sodium (Depakote Sprinkles) 125 mg BID@0900,1300 PO Last administered on 10/29/17at 14:55; Start 10/25/17 at 09:00; Stop 10/29/17 at 18:18 ; Status DC Trazodone HCl (Desyrel) 25 mg TID@0900,1300,1700 PO Last administered on at 17:39; Start 10/26/17 at 09:00 Acetaminophen (Tylenol) 650 mg TID PO Last administered on 11/11/17 19:36; Start 10/26/17 at 21:00 Metformin HCl (Glucophage) 500 mg BIDWMEALS PO Last administered on 11/11/17at 17:39; Start 10/27/17 at 08:00 Risperidone (RisperDAL) 0.125 mg TID@0900,1300,1700 PO Last administered on at 18:31; Start 10/27/17 at 13:00; Stop 10/31/17 at 19:23; Status DC Divalproex Sodium (Depakote Sprinkles) 125 mg QID PO Last administered on at 16:51; Start 10/29/17 at 21:00; Stop 11/01/17 at 18:38; Status DC Risperidone (RisperDAL) 0.125 mg BID@0900,1300 PO Last administered on at 09:26; Start 11/01/17 at 09:00; Stop 11/03/17 at 11:28; Status DC Risperidone (RisperDAL) 0.25 mg DAILY@1700 PO Last administered on 11/02/17at 16 :37; Start 11/01/17 at 17:00; Stop 11/03/17 at 11:28; Status DC Divalproex Sodium (Depakote Sprinkles) 125 mg TID@0900,1300,1700 PO ; Start at 09:00; Stop 11/02/17 at 09:00; Status DC Divalproex Sodium (Depakote Sprinkles) 250 mg TID@0900,1300,1700 PO Last administered on 11/04/17at 16:24; Start 11/02/17 at 09:00; Stop 11/04/17 at 18:07 ; Status DC Risperidone (RisperDAL) 0.25 mg TID@0900,1300,1700 PO Last administered on 11/11at 17:39; Start 11/03/17 at 13:00 Divalproex Sodium (Depakote Sprinkles) 375 mg TID@0900,1300,1700 PO Last administered on 11/08/17at 17:20; Start 11/05/17 at 09:00; Stop 11/08/17 at 19:21 ; Status DC Divalproex Sodium (Depakote Sprinkles) 375 mg BID@0900,1700 PO ; Start 11/09/17 at 09:00; Stop 11/09/17 at 09:06; Status DC Divalproex Sodium (Depakote Sprinkles) 375 mg DAILY@1300 PO Last administered on 11/11/17at 14:06; Start 11/09/17 at 13:00; Stop 11/11/17 at 18:54; Status DC Divalproex Sodium (Depakote Sprinkles) 500 mg BID@0900,1700 PO Last administered on 11/11/17at 17:40; Start 11/09/17 at 09:05; Stop 11/11/17 at 18:54 ; Status DC Divalproex Sodium (Depakote Sprinkles) 500 mg BID@1300,2100 PO Last administered on 11/11/17at 19:37; Start 11/11/17 at 21:00 Divalproex Sodium (Depakote Sprinkles) 625 mg DAILY@0900 PO ; Start 11/12/17 at 09:00 Active Scripts Active Reported Seroquel (Quetiapine Fumarate) 50 Mg Tablet 50 Mg PO Seroquel (Quetiapine Fumarate) 25 Mg Tablet 25 Mg PO TID Seroquel (Quetiapine Fumarate) 50 Mg Tablet 50 Mg PO QHS Lorazepam 0.5 Mg Tablet 0.5 Mg PO PRN QID PRN Bisacodyl 5 Mg Tablet.dr 10 Mg PO PRN DAILY PRN Tylenol (Acetaminophen) 325 Mg Tablet 325 Mg PO PRN Q6HRS PRN Tylenol (Acetaminophen) 325 Mg Tablet 325 Mg PO PRN Q6HRS PRN Milk Of Magnesia (Magnesium Hydroxide) 2,400 Mg/10 Ml Oral.susp 2,400 Mg PO PRN Q4HRS PRN Furosemide 20 Mg Tablet 20 Mg PO DAILY Furosemide 20 Mg Tablet 1 Tab PO DAILY Potassium Chloride 10 Meq Tablet.er 10 Meq PO DAILY Vitamin D3 (Cholecalciferol (Vitamin D3)) 1,000 Unit Tablet 1,000 Unit PO DAILY B-12 (Cyanocobalamin (Vitamin B-12)) 1,000 Mcg Tablet.er 1,000 Mcg PO DAILY Aspirin Ec (Aspirin) 81 Mg Tablet.dr 81 Mg PO DAILY Trazodone Hcl 50 Mg Tablet 25 Mg PO BID@1700,2100 Keppra (Levetiracetam) 500 Mg Tablet 500 Mg PO BID Metformin Hcl 500 Mg Tablet 500 Mg PO BIDWMEALS I have reviewed the current psychotropics carefully including drug interactions. Risk benefit ratio favors no change other than as noted in my dictated progress note. Diagnosis: Problems: (1) Anxiety disorder (2) Impulse control disorder (3) Dementia, vascular, with depression (4) Dementia, vascular, with delusions (5) Dementia in Alzheimer's disease with depression (6) Dementia in Alzheimer's disease with delusions MELANIE COSTELLO MD Nov 11, 2017 22:54
--- NOTE | 2017-11-11 23:24 | OP ---
DATE OF SURGERY: 11/10/2017 This late entry 11/10/2017 covers elements not covered in my initial note 11/10/2017. The patient was staffed at a treatment team meeting with entire team in the morning and seen individually in the evening. Reviewed her history at length, sleeping about 7-1/2 hours, appetite 75%. She remains confused, cursing at times, had to be placed in ____ anxious. REVIEW OF SYSTEMS: Ambulation impaired, in wheelchair. No CV, , pulmonary, eye, ENT system symptoms on review. Reliability poor. MENTAL STATUS EXAM: Oriented to herself. Insight, judgment, recent and remote memory, attention, concentration, fund of knowledge poor, consistent with her diagnosis mentioned in my initial note. PLAN: Continue current psychotropics. Adjust as clinically indicated. Risperdal was increased, may have to increase further. Check labs morning of 11/11/2017 and then decide on the Depakote dosage. MELANIE COSTELLO MD DR: MATEO/richie JOB#: [id number] / [id number]
[2017-11-12 06:20] VITALS: BP 126/62
[2017-11-12] MEDS: LEVOTHYROXINE 25 MCG TABLET. PO SCH (06:25)
[2017-11-12] MEDS: LACTOBACILLUS RHAMNOSUS GG 1 CAPSULE. PO SCH ×2 (09:40→20:21)
[2017-11-12] MEDS: traZODone 50 MG TABLET. PO SCH ×3 (09:40→17:16)
[2017-11-12] MEDS: metFORMIN 500 MG TABLET PO SCH ×2 (09:41→17:15)
[2017-11-12] MEDS: ACETAMINOPHEN 325 MG TABLET PO SCH ×3 (09:41→20:22)
[2017-11-12] MEDS: risperiDONE 0.25 MG TABLET. PO SCH ×3 (09:41→17:15)
[2017-11-12] MEDS: DIVALPROEX 125 MG CAP.SPRINK PO SCH ×3 (09:43→20:22)
--- NOTE | 2017-11-12 11:08 | PN ---
DATE: 11/09/2017 This late entry, 11/09/2017, covers elements not covered in my initial note of 11/09/2017. SUBJECTIVE: I met with the patient the evening of 11/09/2017. The patient slept 6-3/4 hours previous evening. She is quite confused, anxious, restless, up and down the hallway in her wheelchair, resistive during toileting, takes 3-4 staff members to help her with this. Later, she was calmer, wandering, but still labile in her mood and psychotic. REVIEW OF SYSTEMS: No CV, , pulmonary, eye, ENT system symptoms on review. Reliability poor. MENTAL STATUS EXAM: Oriented to herself. Insight, judgment, recent and remote memory, attention, concentration, fund of knowledge poor, consistent with her diagnosis mentioned in my initial note. PLAN: Continue psychotropics mentioned in my initial note. May need to increase Risperdal further, but given her age, I would like to wait a little longer and see how she does at current dosage. MAN Glory COSTELLO MD DR: MATEO/richie JOB#: [id number] / [id number]
[2017-11-12] MEDS: SERTRALINE 25 MG TABLET. PO SCH (17:15)
[2017-11-12 17:16] VITALS: BP 91/57
[2017-11-12] MEDS: MIRTAZAPINE 7.5 MG TABLET. PO SCH (20:21)
--- NOTE | 2017-11-12 22:24 | PDOC ---
Exam Note: [place] Note: Please also refer to the separate dictated note~for this date of service dictated separately.~Patient seen individually. Discussed the patient with Nursing staff reviewed the chart.~Reviewed interim history and current functioning. Reviewed vital signs,~Labs/ Radiology~and current medications noted below. Continue current treatment with the changes noted in the dictated addendum note Assessment: Vital Signs: Vital Signs Date Time Temp Pulse Resp B/P (MAP) Pulse Ox O2 Delivery O2 Flow Rate FiO2 11/12/17 17:16 98.0 87 20 91/57 (68) 99 Room Air I&O Intake and Output 11/12/17 07:00 Intake Total 1080 ml Balance 1080 ml Intake Oral 1080 ml Labs: Laboratory Tests Test 11/12/17 07:40 Glucose (Fingerstick) 106 mg/dL (70-99) H Current Medications: Meds: Current Medications Haloperidol Lactate (Haldol) 5 mg STK-MED ONCE .ROUTE ; Start 10/22/17 at 19:51; Stop 10/22/17 at 19:52; Status DC Haloperidol Lactate (Haldol) 5 mg 1X ONCE IM Last administered on 10/22/17at 19: 56; Start 10/22/17 at 20:00; Stop 10/22/17 at 20:55; Status DC Lorazepam (Ativan) 1 mg 1X ONCE PO ; Start 10/22/17 at 20:15; Stop 10/22/17 at 20 :38; Status DC Cephalexin HCl (Keflex) 500 mg 1X ONCE PO Last administered on 10/22/17at 20:56 ; Start 10/22/17 at 21:00; Stop 10/22/17 at 21:01; Status DC Acetaminophen (Tylenol) 650 mg PRN Q6HRS PRN PO PAIN / TEMP Last administered on 10/26/17at 12:32; Start 10/22/17 at 22:00 Multi-Ingredient Ointment (Analgesic [place]) 1 dane PRN QID PRN TP MUSCLE PAIN; Start 10/22/17 at 22:00 Al Hydroxide/Mg Hydroxide (Mylanta Plus Xs) 15 ml PRN AFTMEALHC PRN PO DYSPEPSIA; Start 10/22/17 at 22:00 Magnesium Hydroxide (Milk Of Magnesia) 2,400 mg PRN QHS PRN PO CONSTIPATION Last administered on 10/25/17at 07:58; Start 10/22/17 at 22:00 Lorazepam (Ativan) 0.5 mg PRN QID PRN PO ANXIETY Last administered on 16:57; Start 10/22/17 at 23:00 Quetiapine Fumarate (SEROquel) 25 mg TID PO Last administered on 10/23/17 19:53 ; Start 10/23/17 at 09:00; Stop 10/24/17 at 01:41; Status DC Quetiapine Fumarate (SEROquel) 50 mg QHS PO Last administered on 10/26/17 19: 46; Start 10/23/17 at 21:00; Stop 10/27/17 at 10:32; Status DC Trazodone HCl (Desyrel) 25 mg BID@1700,2100 PO Last administered on 10/25/17 16:42; Start 10/23/17 at 17:00; Stop 10/25/17 at 18:24; Status DC Cefpodoxime Proxetil (Vantin) 200 mg BID PO Last administered on 10/31/17 20: 00; Start 10/23/17 at 21:00; Stop 10/31/17 at 21:00; Status DC Lactobacillus Rhamnosus (Culturelle) 1 cap BID PO Last administered on 20:21; Start 10/23/17 at 21:00 Olanzapine (ZyPREXA ZYDIS) 2.5 mg PRN Q2HR PRN PO A Last administered on 09:43; Start 10/23/17 at 17:00 Mirtazapine (Remeron) 7.5 mg QHS PO Last administered on 11/12/17 20:21; Start 10/23/17 at 21:00 Quetiapine Fumarate (SEROquel) 25 mg TID@0900,1300,1700 PO Last administered on 10/27/17 09:02; Start 10/24/17 at 09:00; Stop 10/27/17 at 10:32; Status DC Vitamin D (Vitamin D3) 50,000 unit WEEKLY PO ; Start 10/24/17 at 18:00; Stop 10/24 at 18:00; Status DC Levothyroxine Sodium (Synthroid) 25 mcg DAILY07 PO Last administered on 06:25; Start 10/25/17 at 07:00 Vitamin D (Vitamin D3) 50,000 unit WEEKLY PO Last administered on 11/08/17at 08: 11; Start 10/25/17 at 09:00 Divalproex Sodium (Depakote Sprinkles) 125 mg BID@0900,1300 PO Last administered on 10/29/17at 14:55; Start 10/25/17 at 09:00; Stop 10/29/17 at 18:18 ; Status DC Trazodone HCl (Desyrel) 25 mg TID@0900,1300,1700 PO Last administered on 17:16; Start 10/26/17 at 09:00 Acetaminophen (Tylenol) 650 mg TID PO Last administered on 11/12/17 20:22; Start 10/26/17 at 21:00 Metformin HCl (Glucophage) 500 mg BIDWMEALS PO Last administered on 11/12/17 17:15; Start 10/27/17 at 08:00 Risperidone (RisperDAL) 0.125 mg TID@0900,1300,1700 PO Last administered on at 18:31; Start 10/27/17 at 13:00; Stop 10/31/17 at 19:23; Status DC Divalproex Sodium (Depakote Sprinkles) 125 mg QID PO Last administered on at 16:51; Start 10/29/17 at 21:00; Stop 11/01/17 at 18:38; Status DC Risperidone (RisperDAL) 0.125 mg BID@0900,1300 PO Last administered on at 09:26; Start 11/01/17 at 09:00; Stop 11/03/17 at 11:28; Status DC Risperidone (RisperDAL) 0.25 mg DAILY@1700 PO Last administered on 11/02/17at 16 :37; Start 11/01/17 at 17:00; Stop 11/03/17 at 11:28; Status DC Divalproex Sodium (Depakote Sprinkles) 125 mg TID@0900,1300,1700 PO ; Start at 09:00; Stop 11/02/17 at 09:00; Status DC Divalproex Sodium (Depakote Sprinkles) 250 mg TID@0900,1300,1700 PO Last administered on 11/04/17at 16:24; Start 11/02/17 at 09:00; Stop 11/04/17 at 18:07 ; Status DC Risperidone (RisperDAL) 0.25 mg TID@0900,1300,1700 PO Last administered on 11/12at 17:15; Start 11/03/17 at 13:00 Divalproex Sodium (Depakote Sprinkles) 375 mg TID@0900,1300,1700 PO Last administered on 11/08/17at 17:20; Start 11/05/17 at 09:00; Stop 11/08/17 at 19:21 ; Status DC Divalproex Sodium (Depakote Sprinkles) 375 mg BID@0900,1700 PO ; Start 11/09/17 at 09:00; Stop 11/09/17 at 09:06; Status DC Divalproex Sodium (Depakote Sprinkles) 375 mg DAILY@1300 PO Last administered on 11/11/17at 14:06; Start 11/09/17 at 13:00; Stop 11/11/17 at 18:54; Status DC Divalproex Sodium (Depakote Sprinkles) 500 mg BID@0900,1700 PO Last administered on 11/11/17at 17:40; Start 11/09/17 at 09:05; Stop 11/11/17 at 18:54 ; Status DC Divalproex Sodium (Depakote Sprinkles) 500 mg BID@1300,2100 PO Last administered on 11/12/17at 20:22; Start 11/11/17 at 21:00 Divalproex Sodium (Depakote Sprinkles) 625 mg DAILY@0900 PO Last administered on 11/12/17at 09:43; Start 11/12/17 at 09:00 Sertraline HCl (Zoloft) 25 mg DAILY@1700 PO Last administered on 11/12/17at 17: 15; Start 11/12/17 at 17:00; Stop 11/15/17 at 16:59 Sertraline HCl (Zoloft) 50 mg DAILY@1700 PO ; Start 5/1/18 at 17:00 Active Scripts Active Reported Seroquel (Quetiapine Fumarate) 50 Mg Tablet 50 Mg PO Seroquel (Quetiapine Fumarate) 25 Mg Tablet 25 Mg PO TID Seroquel (Quetiapine Fumarate) 50 Mg Tablet 50 Mg PO QHS Lorazepam 0.5 Mg Tablet 0.5 Mg PO PRN QID PRN Bisacodyl 5 Mg Tablet.dr 10 Mg PO PRN DAILY PRN Tylenol (Acetaminophen) 325 Mg Tablet 325 Mg PO PRN Q6HRS PRN Tylenol (Acetaminophen) 325 Mg Tablet 325 Mg PO PRN Q6HRS PRN Milk Of Magnesia (Magnesium Hydroxide) 2,400 Mg/10 Ml Oral.susp 2,400 Mg PO PRN Q4HRS PRN Furosemide 20 Mg Tablet 20 Mg PO DAILY Furosemide 20 Mg Tablet 1 Tab PO DAILY Potassium Chloride 10 Meq Tablet.er 10 Meq PO DAILY Vitamin D3 (Cholecalciferol (Vitamin D3)) 1,000 Unit Tablet 1,000 Unit PO DAILY B-12 (Cyanocobalamin (Vitamin B-12)) 1,000 Mcg Tablet.er 1,000 Mcg PO DAILY Aspirin Ec (Aspirin) 81 Mg Tablet.dr 81 Mg PO DAILY Trazodone Hcl 50 Mg Tablet 25 Mg PO BID@1700,2100 Keppra (Levetiracetam) 500 Mg Tablet 500 Mg PO BID Metformin Hcl 500 Mg Tablet 500 Mg PO BIDWMEALS I have reviewed the current psychotropics carefully including drug interactions. Risk benefit ratio favors no change other than as noted in my dictated progress note. Diagnosis: Problems: (1) Anxiety disorder (2) Impulse control disorder (3) Dementia, vascular, with depression (4) Dementia, vascular, with delusions (5) Dementia in Alzheimer's disease with depression (6) Dementia in Alzheimer's disease with delusions MELANIE COSTELLO MD Nov 12, 2017 22:24
[2017-11-13] MEDS: LEVOTHYROXINE 25 MCG TABLET. PO SCH (06:02)
[2017-11-13 06:16] VITALS: BP 113/51
[2017-11-13] MEDS: metFORMIN 500 MG TABLET PO SCH ×2 (08:02→17:12)
[2017-11-13] MEDS: traZODone 50 MG TABLET. PO SCH ×3 (08:03→17:12)
[2017-11-13] MEDS: DIVALPROEX 125 MG CAP.SPRINK PO SCH ×3 (08:03→20:26)
[2017-11-13] MEDS: LACTOBACILLUS RHAMNOSUS GG 1 CAPSULE. PO SCH ×2 (08:03→20:26)
[2017-11-13] MEDS: risperiDONE 0.25 MG TABLET. PO SCH ×3 (08:03→17:12)
[2017-11-13] MEDS: ACETAMINOPHEN 325 MG TABLET PO SCH ×3 (08:04→20:26)
[2017-11-13 16:09] VITALS: BP 123/63
[2017-11-13] MEDS: SERTRALINE 25 MG TABLET. PO SCH (17:12)
--- NOTE | 2017-11-13 20:20 | PDOC ---
Exam Note: [place] Note: Please also refer to the separate dictated note~for this date of service dictated separately.~Patient seen individually. Discussed the patient with Nursing staff reviewed the chart.~Reviewed interim history and current functioning. Reviewed vital signs,~Labs/ Radiology~and current medications noted below. Continue current treatment with the changes noted in the dictated addendum note Assessment: Vital Signs: Vital Signs Date Time Temp Pulse Resp B/P (MAP) Pulse Ox O2 Delivery O2 Flow Rate FiO2 11/13/17 16:09 97.6 76 20 123/63 (83) 100 11/12/17 17:16 Room Air I&O Intake and Output 11/13/17 07:00 Intake Total 960 ml Balance 960 ml Intake Oral 960 ml # Bowel Movements 1 Labs: Laboratory Tests Test 11/13/17 07:27 Glucose (Fingerstick) 85 mg/dL (70-99) Current Medications: Meds: Current Medications Haloperidol Lactate (Haldol) 5 mg STK-MED ONCE .ROUTE ; Start 10/22/17 at 19:51; Stop 10/22/17 at 19:52; Status DC Haloperidol Lactate (Haldol) 5 mg 1X ONCE IM Last administered on 10/22/17at 19: 56; Start 10/22/17 at 20:00; Stop 10/22/17 at 20:55; Status DC Lorazepam (Ativan) 1 mg 1X ONCE PO ; Start 10/22/17 at 20:15; Stop 10/22/17 at 20 :38; Status DC Cephalexin HCl (Keflex) 500 mg 1X ONCE PO Last administered on 10/22/17at 20:56 ; Start 10/22/17 at 21:00; Stop 10/22/17 at 21:01; Status DC Acetaminophen (Tylenol) 650 mg PRN Q6HRS PRN PO PAIN / TEMP Last administered on 10/26/17at 12:32; Start 10/22/17 at 22:00 Multi-Ingredient Ointment (Analgesic [place]) 1 dane PRN QID PRN TP MUSCLE PAIN; Start 10/22/17 at 22:00 Al Hydroxide/Mg Hydroxide (Mylanta Plus Xs) 15 ml PRN AFTMEALHC PRN PO DYSPEPSIA; Start 10/22/17 at 22:00 Magnesium Hydroxide (Milk Of Magnesia) 2,400 mg PRN QHS PRN PO CONSTIPATION Last administered on 10/25/17 07:58; Start 10/22/17 at 22:00 Lorazepam (Ativan) 0.5 mg PRN QID PRN PO ANXIETY Last administered on 16:57; Start 10/22/17 at 23:00 Quetiapine Fumarate (SEROquel) 25 mg TID PO Last administered on 10/23/17 19:53 ; Start 10/23/17 at 09:00; Stop 10/24/17 at 01:41; Status DC Quetiapine Fumarate (SEROquel) 50 mg QHS PO Last administered on 10/26/17 19: 46; Start 10/23/17 at 21:00; Stop 10/27/17 at 10:32; Status DC Trazodone HCl (Desyrel) 25 mg BID@1700,2100 PO Last administered on 10/25/17 16:42; Start 10/23/17 at 17:00; Stop 10/25/17 at 18:24; Status DC Cefpodoxime Proxetil (Vantin) 200 mg BID PO Last administered on 10/31/17at 20: 00; Start 10/23/17 at 21:00; Stop 10/31/17 at 21:00; Status DC Lactobacillus Rhamnosus (Culturelle) 1 cap BID PO Last administered on 08:03; Start 10/23/17 at 21:00 Olanzapine (ZyPREXA ZYDIS) 2.5 mg PRN Q2HR PRN PO A Last administered on 09:43; Start 10/23/17 at 17:00 Mirtazapine (Remeron) 7.5 mg QHS PO Last administered on 11/12/17 20:21; Start 10/23/17 at 21:00 Quetiapine Fumarate (SEROquel) 25 mg TID@0900,1300,1700 PO Last administered on 10/27/17 09:02; Start 10/24/17 at 09:00; Stop 10/27/17 at 10:32; Status DC Vitamin D (Vitamin D3) 50,000 unit WEEKLY PO ; Start 10/24/17 at 18:00; Stop 10/24 at 18:00; Status DC Levothyroxine Sodium (Synthroid) 25 mcg DAILY07 PO Last administered on 06:02; Start 10/25/17 at 07:00 Vitamin D (Vitamin D3) 50,000 unit WEEKLY PO Last administered on 11/08/17at 08: 11; Start 10/25/17 at 09:00 Divalproex Sodium (Depakote Sprinkles) 125 mg BID@0900,1300 PO Last administered on 10/29/17at 14:55; Start 10/25/17 at 09:00; Stop 10/29/17 at 18:18 ; Status DC Trazodone HCl (Desyrel) 25 mg TID@0900,1300,1700 PO Last administered on 17:12; Start 10/26/17 at 09:00 Acetaminophen (Tylenol) 650 mg TID PO Last administered on 11/13/17 13:25; Start 10/26/17 at 21:00 Metformin HCl (Glucophage) 500 mg BIDWMEALS PO Last administered on 11/13/17 17:12; Start 10/27/17 at 08:00 Risperidone (RisperDAL) 0.125 mg TID@0900,1300,1700 PO Last administered on at 18:31; Start 10/27/17 at 13:00; Stop 10/31/17 at 19:23; Status DC Divalproex Sodium (Depakote Sprinkles) 125 mg QID PO Last administered on at 16:51; Start 10/29/17 at 21:00; Stop 11/01/17 at 18:38; Status DC Risperidone (RisperDAL) 0.125 mg BID@0900,1300 PO Last administered on at 09:26; Start 11/01/17 at 09:00; Stop 11/03/17 at 11:28; Status DC Risperidone (RisperDAL) 0.25 mg DAILY@1700 PO Last administered on 11/02/17at 16 :37; Start 11/01/17 at 17:00; Stop 11/03/17 at 11:28; Status DC Divalproex Sodium (Depakote Sprinkles) 125 mg TID@0900,1300,1700 PO ; Start at 09:00; Stop 11/02/17 at 09:00; Status DC Divalproex Sodium (Depakote Sprinkles) 250 mg TID@0900,1300,1700 PO Last administered on 11/04/17at 16:24; Start 11/02/17 at 09:00; Stop 11/04/17 at 18:07 ; Status DC Risperidone (RisperDAL) 0.25 mg TID@0900,1300,1700 PO Last administered on 11/13at 17:12; Start 11/03/17 at 13:00 Divalproex Sodium (Depakote Sprinkles) 375 mg TID@0900,1300,1700 PO Last administered on 11/08/17at 17:20; Start 11/05/17 at 09:00; Stop 11/08/17 at 19:21 ; Status DC Divalproex Sodium (Depakote Sprinkles) 375 mg BID@0900,1700 PO ; Start 11/09/17 at 09:00; Stop 11/09/17 at 09:06; Status DC Divalproex Sodium (Depakote Sprinkles) 375 mg DAILY@1300 PO Last administered on 11/11/17at 14:06; Start 11/09/17 at 13:00; Stop 11/11/17 at 18:54; Status DC Divalproex Sodium (Depakote Sprinkles) 500 mg BID@0900,1700 PO Last administered on 11/11/17at 17:40; Start 11/09/17 at 09:05; Stop 11/11/17 at 18:54 ; Status DC Divalproex Sodium (Depakote Sprinkles) 500 mg BID@1300,2100 PO Last administered on 11/13/17at 13:24; Start 11/11/17 at 21:00 Divalproex Sodium (Depakote Sprinkles) 625 mg DAILY@0900 PO Last administered on 11/13/17at 08:03; Start 11/12/17 at 09:00 Sertraline HCl (Zoloft) 25 mg DAILY@1700 PO Last administered on 11/13/17at 17: 12; Start 11/12/17 at 17:00; Stop 11/15/17 at 16:59 Sertraline HCl (Zoloft) 50 mg DAILY@1700 PO ; Start 11/15/17 at 17:00 Active Scripts Active Reported Seroquel (Quetiapine Fumarate) 50 Mg Tablet 50 Mg PO Seroquel (Quetiapine Fumarate) 25 Mg Tablet 25 Mg PO TID Seroquel (Quetiapine Fumarate) 50 Mg Tablet 50 Mg PO QHS Lorazepam 0.5 Mg Tablet 0.5 Mg PO PRN QID PRN Bisacodyl 5 Mg Tablet.dr 10 Mg PO PRN DAILY PRN Tylenol (Acetaminophen) 325 Mg Tablet 325 Mg PO PRN Q6HRS PRN Tylenol (Acetaminophen) 325 Mg Tablet 325 Mg PO PRN Q6HRS PRN Milk Of Magnesia (Magnesium Hydroxide) 2,400 Mg/10 Ml Oral.susp 2,400 Mg PO PRN Q4HRS PRN Furosemide 20 Mg Tablet 20 Mg PO DAILY Furosemide 20 Mg Tablet 1 Tab PO DAILY Potassium Chloride 10 Meq Tablet.er 10 Meq PO DAILY Vitamin D3 (Cholecalciferol (Vitamin D3)) 1,000 Unit Tablet 1,000 Unit PO DAILY B-12 (Cyanocobalamin (Vitamin B-12)) 1,000 Mcg Tablet.er 1,000 Mcg PO DAILY Aspirin Ec (Aspirin) 81 Mg Tablet.dr 81 Mg PO DAILY Trazodone Hcl 50 Mg Tablet 25 Mg PO BID@1700,2100 Keppra (Levetiracetam) 500 Mg Tablet 500 Mg PO BID Metformin Hcl 500 Mg Tablet 500 Mg PO BIDWMEALS I have reviewed the current psychotropics carefully including drug interactions. Risk benefit ratio favors no change other than as noted in my dictated progress note. Diagnosis: Problems: (1) Anxiety disorder (2) Impulse control disorder (3) Dementia, vascular, with depression (4) Dementia, vascular, with delusions (5) Dementia in Alzheimer's disease with depression (6) Dementia in Alzheimer's disease with delusions MELANIE COSTELLO MD Nov 13, 2017 20:19
[2017-11-13] MEDS: MIRTAZAPINE 7.5 MG TABLET. PO SCH (20:26)
--- NOTE | 2017-11-13 23:30 | PN ---
DATE: 11/11/2017 This is a late entry, 11/11/2017, covers the elements not covered in my initial note, 11/11/2017. SUBJECTIVE: I met with the patient in the evening. The patient slept 6-1/2 hours, resistive to medications in the morning, took them later in the day, less tearful. REVIEW OF SYSTEMS: No CV, , pulmonary, eye system symptoms on review. Reliability poor. Gait unsteady in wheelchair. MENTAL STATUS EXAM: Oriented to herself. Insight, judgment, recent and remote memory, attention, concentration, fund of knowledge poor, consistent with her diagnosis as mentioned in my initial note. PLAN: Valproic acid level is 40, on Depakote 500 two times a day 375 mg at 1300. We will increase it to 625 mg in the morning and 500 mg twice a day. Check CBC, CMP, valproic acid level in 3 days. Continue rest unchanged. MAN Glory COSTELLO MD DR: MATEO/richie JOB#: [id number] / [id number]
[2017-11-14] MEDS: LEVOTHYROXINE 25 MCG TABLET. PO SCH (05:28)
[2017-11-14 06:09] VITALS: BP 151/73
--- NOTE | 2017-11-14 09:35 | PN ---
DATE: 11/10/2017 This late entry 11/10/2017 covers elements not covered in my initial note 11/10/2017. The patient was staffed at a treatment team meeting with entire team in the morning and seen individually in the evening. Reviewed her history at length, sleeping about 7-1/2 hours, appetite 75%. She remains confused, cursing at times, had to be placed in ____ anxious. REVIEW OF SYSTEMS: Ambulation impaired, in wheelchair. No CV, , pulmonary, eye, ENT system symptoms on review. Reliability poor. MENTAL STATUS EXAM: Oriented to herself. Insight, judgment, recent and remote memory, attention, concentration, fund of knowledge poor, consistent with her diagnosis mentioned in my initial note. PLAN: Continue current psychotropics. Adjust as clinically indicated. Risperdal was increased, may have to increase further. Check labs morning of 11/11/2017 and then decide on the Depakote dosage. MELANIE COSTELLO MD DR: MATEO/richie JOB#: [id number] / [id number]
[2017-11-14] MEDS: LACTOBACILLUS RHAMNOSUS GG 1 CAPSULE. PO SCH ×2 (10:04→20:29)
[2017-11-14] MEDS: traZODone 50 MG TABLET. PO SCH ×3 (10:04→18:10)
[2017-11-14] MEDS: risperiDONE 0.25 MG TABLET. PO SCH ×3 (10:04→18:10)
[2017-11-14] MEDS: ACETAMINOPHEN 325 MG TABLET PO SCH ×3 (10:04→20:30)
[2017-11-14] MEDS: DIVALPROEX 125 MG CAP.SPRINK PO SCH ×3 (10:04→20:30)
[2017-11-14] MEDS: metFORMIN 500 MG TABLET PO SCH ×2 (10:14→18:10)
[2017-11-14 16:06] VITALS: BP 121/64
[2017-11-14] MEDS: SERTRALINE 25 MG TABLET. PO SCH (18:11)
[2017-11-14] MEDS: MIRTAZAPINE 7.5 MG TABLET. PO SCH (20:30)
--- NOTE | 2017-11-14 21:28 | PDOC ---
Exam Note: [place] Note: Please also refer to the separate dictated note~for this date of service dictated separately.~Patient seen individually. Discussed the patient with Nursing staff reviewed the chart.~Reviewed interim history and current functioning. Reviewed vital signs,~Labs/ Radiology~and current medications noted below. Continue current treatment with the changes noted in the dictated addendum note Assessment: Vital Signs: Vital Signs Date Time Temp Pulse Resp B/P (MAP) Pulse Ox O2 Delivery O2 Flow Rate FiO2 11/14/17 16:06 98.4 91 22 121/64 (83) 94 11/12/17 17:16 Room Air I&O Intake and Output 11/14/17 07:00 Intake Total 1080 ml Balance 1080 ml Intake Oral 1080 ml # Voids 2 Labs: Laboratory Tests Test 11/14/17 07:26 Glucose (Fingerstick) 84 mg/dL (70-99) Current Medications: Meds: Current Medications Haloperidol Lactate (Haldol) 5 mg STK-MED ONCE .ROUTE ; Start 10/22/17 at 19:51; Stop 10/22/17 at 19:52; Status DC Haloperidol Lactate (Haldol) 5 mg 1X ONCE IM Last administered on 10/22/17at 19: 56; Start 10/22/17 at 20:00; Stop 10/22/17 at 20:55; Status DC Lorazepam (Ativan) 1 mg 1X ONCE PO ; Start 10/22/17 at 20:15; Stop 10/22/17 at 20 :38; Status DC Cephalexin HCl (Keflex) 500 mg 1X ONCE PO Last administered on 10/22/17at 20:56 ; Start 10/22/17 at 21:00; Stop 10/22/17 at 21:01; Status DC Acetaminophen (Tylenol) 650 mg PRN Q6HRS PRN PO PAIN / TEMP Last administered on 10/26/17at 12:32; Start 10/22/17 at 22:00 Multi-Ingredient Ointment (Analgesic [place]) 1 dane PRN QID PRN TP MUSCLE PAIN; Start 10/22/17 at 22:00 Al Hydroxide/Mg Hydroxide (Mylanta Plus Xs) 15 ml PRN AFTMEALHC PRN PO DYSPEPSIA; Start 10/22/17 at 22:00 Magnesium Hydroxide (Milk Of Magnesia) 2,400 mg PRN QHS PRN PO CONSTIPATION Last administered on 10/25/17 07:58; Start 10/22/17 at 22:00 Lorazepam (Ativan) 0.5 mg PRN QID PRN PO ANXIETY Last administered on 16:57; Start 10/22/17 at 23:00 Quetiapine Fumarate (SEROquel) 25 mg TID PO Last administered on 10/23/17 19:53 ; Start 10/23/17 at 09:00; Stop 10/24/17 at 01:41; Status DC Quetiapine Fumarate (SEROquel) 50 mg QHS PO Last administered on 10/26/17 19: 46; Start 10/23/17 at 21:00; Stop 10/27/17 at 10:32; Status DC Trazodone HCl (Desyrel) 25 mg BID@1700,2100 PO Last administered on 10/25/17 16:42; Start 10/23/17 at 17:00; Stop 10/25/17 at 18:24; Status DC Cefpodoxime Proxetil (Vantin) 200 mg BID PO Last administered on 10/31/17at 20: 00; Start 10/23/17 at 21:00; Stop 10/31/17 at 21:00; Status DC Lactobacillus Rhamnosus (Culturelle) 1 cap BID PO Last administered on 20:29; Start 10/23/17 at 21:00 Olanzapine (ZyPREXA ZYDIS) 2.5 mg PRN Q2HR PRN PO A Last administered on 09:43; Start 10/23/17 at 17:00 Mirtazapine (Remeron) 7.5 mg QHS PO Last administered on 11/14/17 20:30; Start 10/23/17 at 21:00 Quetiapine Fumarate (SEROquel) 25 mg TID@0900,1300,1700 PO Last administered on 10/27/17 09:02; Start 10/24/17 at 09:00; Stop 10/27/17 at 10:32; Status DC Vitamin D (Vitamin D3) 50,000 unit WEEKLY PO ; Start 10/24/17 at 18:00; Stop 10/24 at 18:00; Status DC Levothyroxine Sodium (Synthroid) 25 mcg DAILY07 PO Last administered on at 05:28; Start 10/25/17 at 07:00 Vitamin D (Vitamin D3) 50,000 unit WEEKLY PO Last administered on 11/08/17at 08: 11; Start 10/25/17 at 09:00 Divalproex Sodium (Depakote Sprinkles) 125 mg BID@0900,1300 PO Last administered on 10/29/17at 14:55; Start 10/25/17 at 09:00; Stop 10/29/17 at 18:18 ; Status DC Trazodone HCl (Desyrel) 25 mg TID@0900,1300,1700 PO Last administered on 18:10; Start 10/26/17 at 09:00 Acetaminophen (Tylenol) 650 mg TID PO Last administered on 11/14/17at 20:30; Start 10/26/17 at 21:00 Metformin HCl (Glucophage) 500 mg BIDWMEALS PO Last administered on 11/14/17at 18:10; Start 10/27/17 at 08:00 Risperidone (RisperDAL) 0.125 mg TID@0900,1300,1700 PO Last administered on at 18:31; Start 10/27/17 at 13:00; Stop 10/31/17 at 19:23; Status DC Divalproex Sodium (Depakote Sprinkles) 125 mg QID PO Last administered on at 16:51; Start 10/29/17 at 21:00; Stop 11/01/17 at 18:38; Status DC Risperidone (RisperDAL) 0.125 mg BID@0900,1300 PO Last administered on at 09:26; Start 11/01/17 at 09:00; Stop 11/03/17 at 11:28; Status DC Risperidone (RisperDAL) 0.25 mg DAILY@1700 PO Last administered on 11/02/17at 16 :37; Start 11/01/17 at 17:00; Stop 11/03/17 at 11:28; Status DC Divalproex Sodium (Depakote Sprinkles) 125 mg TID@0900,1300,1700 PO ; Start at 09:00; Stop 11/02/17 at 09:00; Status DC Divalproex Sodium (Depakote Sprinkles) 250 mg TID@0900,1300,1700 PO Last administered on 11/04/17at 16:24; Start 11/02/17 at 09:00; Stop 11/04/17 at 18:07 ; Status DC Risperidone (RisperDAL) 0.25 mg TID@0900,1300,1700 PO Last administered on 11/14at 18:10; Start 11/03/17 at 13:00 Divalproex Sodium (Depakote Sprinkles) 375 mg TID@0900,1300,1700 PO Last administered on 11/08/17at 17:20; Start 11/05/17 at 09:00; Stop 11/08/17 at 19:21 ; Status DC Divalproex Sodium (Depakote Sprinkles) 375 mg BID@0900,1700 PO ; Start 11/09/17 at 09:00; Stop 11/09/17 at 09:06; Status DC Divalproex Sodium (Depakote Sprinkles) 375 mg DAILY@1300 PO Last administered on 11/11/17at 14:06; Start 11/09/17 at 13:00; Stop 11/11/17 at 18:54; Status DC Divalproex Sodium (Depakote Sprinkles) 500 mg BID@0900,1700 PO Last administered on 11/11/17at 17:40; Start 11/09/17 at 09:05; Stop 11/11/17 at 18:54 ; Status DC Divalproex Sodium (Depakote Sprinkles) 500 mg BID@1300,2100 PO Last administered on 11/14/17at 20:30; Start 11/11/17 at 21:00 Divalproex Sodium (Depakote Sprinkles) 625 mg DAILY@0900 PO Last administered on 11/14/17at 10:04; Start 11/12/17 at 09:00 Sertraline HCl (Zoloft) 25 mg DAILY@1700 PO Last administered on 11/14/17at 18: 11; Start 11/12/17 at 17:00; Stop 11/15/17 at 16:59 Sertraline HCl (Zoloft) 50 mg DAILY@1700 PO ; Start 11/15/17 at 17:00 Active Scripts Active Reported Seroquel (Quetiapine Fumarate) 50 Mg Tablet 50 Mg PO Seroquel (Quetiapine Fumarate) 25 Mg Tablet 25 Mg PO TID Seroquel (Quetiapine Fumarate) 50 Mg Tablet 50 Mg PO QHS Lorazepam 0.5 Mg Tablet 0.5 Mg PO PRN QID PRN Bisacodyl 5 Mg Tablet.dr 10 Mg PO PRN DAILY PRN Tylenol (Acetaminophen) 325 Mg Tablet 325 Mg PO PRN Q6HRS PRN Tylenol (Acetaminophen) 325 Mg Tablet 325 Mg PO PRN Q6HRS PRN Milk Of Magnesia (Magnesium Hydroxide) 2,400 Mg/10 Ml Oral.susp 2,400 Mg PO PRN Q4HRS PRN Furosemide 20 Mg Tablet 20 Mg PO DAILY Furosemide 20 Mg Tablet 1 Tab PO DAILY Potassium Chloride 10 Meq Tablet.er 10 Meq PO DAILY Vitamin D3 (Cholecalciferol (Vitamin D3)) 1,000 Unit Tablet 1,000 Unit PO DAILY B-12 (Cyanocobalamin (Vitamin B-12)) 1,000 Mcg Tablet.er 1,000 Mcg PO DAILY Aspirin Ec (Aspirin) 81 Mg Tablet. 81 Mg PO DAILY Trazodone Hcl 50 Mg Tablet 25 Mg PO BID@1700,2100 Keppra (Levetiracetam) 500 Mg Tablet 500 Mg PO BID Metformin Hcl 500 Mg Tablet 500 Mg PO BIDWMEALS I have reviewed the current psychotropics carefully including drug interactions. Risk benefit ratio favors no change other than as noted in my dictated progress note. Diagnosis: Problems: (1) Anxiety disorder (2) Impulse control disorder (3) Dementia, vascular, with depression (4) Dementia, vascular, with delusions (5) Dementia in Alzheimer's disease with depression (6) Dementia in Alzheimer's disease with delusions MELANIE COSTELLO MD Nov 14, 2017 21:28
--- NOTE | 2017-11-15 02:22 | PN ---
DATE: 11/12/2017 PSYCHIATRIC PROGRESS NOTE This is a late entry for 11/12/2017, covers elements not covered in my initial note of 11/12/2017. SUBJECTIVE: I met with the patient in the evening. She slept 6 hours previous evening, quite agitated in the morning, received Zyprexa, tearful, restless, anxious in the morning, depressed, minimizes this. REVIEW OF SYSTEMS: Ambulation impaired in wheelchair. No CV, , pulmonary, eye, ENT system symptoms on review. Reliability poor. MENTAL STATUS EXAM: Oriented to herself. Insight, judgment, recent and remote memory, attention, concentration, fund of knowledge poor, consistent with her diagnosis mentioned in my initial note. IMPRESSION: Unchanged from initial note. PLAN: Start Zoloft 25 mg a day for 3 days including increasing to 50 mg a day. Continue rest unchanged. MAN Glory COSTELLO MD DR: MATEO/richie JOB#: [id number] / [id number]
--- NOTE | 2017-11-15 03:37 | PN ---
DATE: 11/14/2017 This is a late entry of 11/13/2017 covers elements not covered in my initial note of 11/13/2017. SUBJECTIVE: I met with the patient in the evening. The patient slept 6-1/4 hours, refused her dinner, restless. REVIEW OF SYSTEMS: Ambulation impaired, in wheelchair. No CV, , pulmonary, eye, ENT system symptoms on review. Reliability poor. MENTAL STATUS EXAM: Oriented to herself. Insight, judgment, recent and remote memory, attention, concentration, fund of knowledge poor, consistent with her diagnosis mentioned in my initial note. PLAN: Continue current psychotropics mentioned in my initial note. MAN Glory COSTELLO MD DR: MATEO/richie JOB#: [id number] / [id number]
[2017-11-15 06:20] VITALS: BP 126/69
[2017-11-15] MEDS: LEVOTHYROXINE 25 MCG TABLET. PO SCH (07:06)
[2017-11-15 08:42] LABS: VAL ACID 58 mcg/mL (50-100)
[2017-11-15] MEDS: risperiDONE 0.25 MG TABLET. PO SCH ×3 (09:20→16:56)
[2017-11-15] MEDS: LACTOBACILLUS RHAMNOSUS GG 1 CAPSULE. PO SCH ×2 (09:20→19:20)
[2017-11-15] MEDS: ACETAMINOPHEN 325 MG TABLET PO SCH ×3 (09:20→19:20)
[2017-11-15] MEDS: DIVALPROEX 125 MG CAP.SPRINK PO SCH ×3 (09:21→19:20)
[2017-11-15] MEDS: metFORMIN 500 MG TABLET PO SCH ×2 (09:21→16:55)
[2017-11-15] MEDS: traZODone 50 MG TABLET. PO SCH ×3 (09:22→16:55)
[2017-11-15] MEDS: CHOLECALCIFEROL (VITAMIN D3) 50,000 UNIT CAPSULE PO SCH (09:22)
[2017-11-15 15:52] VITALS: BP 127/52
[2017-11-15] MEDS: SERTRALINE 50 MG TABLET. PO SCH (16:57)
[2017-11-15] MEDS: MIRTAZAPINE 7.5 MG TABLET. PO SCH (19:20)
--- NOTE | 2017-11-15 21:30 | PDOC ---
Exam Note: [place] Note: Please also refer to the separate dictated note~for this date of service dictated separately.~Patient seen individually. Discussed the patient with Nursing staff reviewed the chart.~Reviewed interim history and current functioning. Reviewed vital signs,~Labs/ Radiology~and current medications noted below. Continue current treatment with the changes noted in the dictated addendum note Assessment: Vital Signs: Vital Signs Date Time Temp Pulse Resp B/P (MAP) Pulse Ox O2 Delivery O2 Flow Rate FiO2 11/15/17 15:52 97.3 75 18 127/52 (77) 100 11/15/17 06:20 Room Air I&O Intake and Output 11/15/17 07:00 Intake Total 960 ml Balance 960 ml Intake Oral 960 ml # Voids 1 Labs: Laboratory Tests Test 11/15/17 07:27 11/15/17 07:31 Valproic Acid Level 58 mcg/mL (50-100) Valproic Acid Last Dose Date 11/14/17 Valproic Acid Last Dose Time 1700 Glucose (Fingerstick) 86 mg/dL (70-99) Current Medications: Meds: Current Medications Haloperidol Lactate (Haldol) 5 mg STK-MED ONCE .ROUTE ; Start 10/22/17 at 19:51; Stop 10/22/17 at 19:52; Status DC Haloperidol Lactate (Haldol) 5 mg 1X ONCE IM Last administered on 10/22/17at 19: 56; Start 10/22/17 at 20:00; Stop 10/22/17 at 20:55; Status DC Lorazepam (Ativan) 1 mg 1X ONCE PO ; Start 10/22/17 at 20:15; Stop 10/22/17 at 20 :38; Status DC Cephalexin HCl (Keflex) 500 mg 1X ONCE PO Last administered on 10/22/17at 20:56 ; Start 10/22/17 at 21:00; Stop 10/22/17 at 21:01; Status DC Acetaminophen (Tylenol) 650 mg PRN Q6HRS PRN PO PAIN / TEMP Last administered on 10/26/17at 12:32; Start 10/22/17 at 22:00 Multi-Ingredient Ointment (Analgesic [place]) 1 dane PRN QID PRN TP MUSCLE PAIN; Start 10/22/17 at 22:00 Al Hydroxide/Mg Hydroxide (Mylanta Plus Xs) 15 ml PRN AFTMEALHC PRN PO DYSPEPSIA; Start 10/22/17 at 22:00 Magnesium Hydroxide (Milk Of Magnesia) 2,400 mg PRN QHS PRN PO CONSTIPATION Last administered on 10/25/17 07:58; Start 10/22/17 at 22:00 Lorazepam (Ativan) 0.5 mg PRN QID PRN PO ANXIETY Last administered on 16:57; Start 10/22/17 at 23:00 Quetiapine Fumarate (SEROquel) 25 mg TID PO Last administered on 10/23/17 19:53 ; Start 10/23/17 at 09:00; Stop 10/24/17 at 01:41; Status DC Quetiapine Fumarate (SEROquel) 50 mg QHS PO Last administered on 10/26/17 19: 46; Start 10/23/17 at 21:00; Stop 10/27/17 at 10:32; Status DC Trazodone HCl (Desyrel) 25 mg BID@1700,2100 PO Last administered on 10/25/17 16:42; Start 10/23/17 at 17:00; Stop 10/25/17 at 18:24; Status DC Cefpodoxime Proxetil (Vantin) 200 mg BID PO Last administered on 10/31/17 20: 00; Start 10/23/17 at 21:00; Stop 10/31/17 at 21:00; Status DC Lactobacillus Rhamnosus (Culturelle) 1 cap BID PO Last administered on 19:20; Start 10/23/17 at 21:00 Olanzapine (ZyPREXA ZYDIS) 2.5 mg PRN Q2HR PRN PO A Last administered on 09:43; Start 10/23/17 at 17:00 Mirtazapine (Remeron) 7.5 mg QHS PO Last administered on 11/15/17 19:20; Start 10/23/17 at 21:00 Quetiapine Fumarate (SEROquel) 25 mg TID@0900,1300,1700 PO Last administered on 10/27/17 09:02; Start 10/24/17 at 09:00; Stop 10/27/17 at 10:32; Status DC Vitamin D (Vitamin D3) 50,000 unit WEEKLY PO ; Start 10/24/17 at 18:00; Stop 10/24 at 18:00; Status DC Levothyroxine Sodium (Synthroid) 25 mcg DAILY07 PO Last administered on 07:06; Start 10/25/17 at 07:00 Vitamin D (Vitamin D3) 50,000 unit WEEKLY PO Last administered on 11/15/17 09: 22; Start 10/25/17 at 09:00 Divalproex Sodium (Depakote Sprinkles) 125 mg BID@0900,1300 PO Last administered on 10/29/17 14:55; Start 10/25/17 at 09:00; Stop 10/29/17 at 18:18 ; Status DC Trazodone HCl (Desyrel) 25 mg TID@0900,1300,1700 PO Last administered on 16:55; Start 10/26/17 at 09:00 Acetaminophen (Tylenol) 650 mg TID PO Last administered on 11/15/17 19:20; Start 10/26/17 at 21:00 Metformin HCl (Glucophage) 500 mg BIDWMEALS PO Last administered on 11/15/17 16 :55; Start 10/27/17 at 08:00 Risperidone (RisperDAL) 0.125 mg TID@0900,1300,1700 PO Last administered on 18:31; Start 10/27/17 at 13:00; Stop 10/31/17 at 19:23; Status DC Divalproex Sodium (Depakote Sprinkles) 125 mg QID PO Last administered on at 16:51; Start 10/29/17 at 21:00; Stop 11/01/17 at 18:38; Status DC Risperidone (RisperDAL) 0.125 mg BID@0900,1300 PO Last administered on at 09:26; Start 11/01/17 at 09:00; Stop 11/03/17 at 11:28; Status DC Risperidone (RisperDAL) 0.25 mg DAILY@1700 PO Last administered on 11/02/17at 16 :37; Start 11/01/17 at 17:00; Stop 11/03/17 at 11:28; Status DC Divalproex Sodium (Depakote Sprinkles) 125 mg TID@0900,1300,1700 PO ; Start at 09:00; Stop 11/02/17 at 09:00; Status DC Divalproex Sodium (Depakote Sprinkles) 250 mg TID@0900,1300,1700 PO Last administered on 11/04/17at 16:24; Start 11/02/17 at 09:00; Stop 11/04/17 at 18:07 ; Status DC Risperidone (RisperDAL) 0.25 mg TID@0900,1300,1700 PO Last administered on at 16:56; Start 11/03/17 at 13:00 Divalproex Sodium (Depakote Sprinkles) 375 mg TID@0900,1300,1700 PO Last administered on 11/08/17at 17:20; Start 11/05/17 at 09:00; Stop 11/08/17 at 19:21 ; Status DC Divalproex Sodium (Depakote Sprinkles) 375 mg BID@0900,1700 PO ; Start 11/09/17 at 09:00; Stop 11/09/17 at 09:06; Status DC Divalproex Sodium (Depakote Sprinkles) 375 mg DAILY@1300 PO Last administered on 11/11/17at 14:06; Start 11/09/17 at 13:00; Stop 11/11/17 at 18:54; Status DC Divalproex Sodium (Depakote Sprinkles) 500 mg BID@0900,1700 PO Last administered on 11/11/17at 17:40; Start 11/09/17 at 09:05; Stop 11/11/17 at 18:54 ; Status DC Divalproex Sodium (Depakote Sprinkles) 500 mg BID@1300,2100 PO Last administered on 11/15/17at 19:20; Start 11/11/17 at 21:00 Divalproex Sodium (Depakote Sprinkles) 625 mg DAILY@0900 PO Last administered on 11/15/17at 09:21; Start 11/12/17 at 09:00 Sertraline HCl (Zoloft) 25 mg DAILY@1700 PO Last administered on 4/30/18at 18: 11; Start 11/12/17 at 17:00; Stop 11/15/17 at 16:59; Status DC Sertraline HCl (Zoloft) 50 mg DAILY@1700 PO Last administered on 11/15/17at 16:57 ; Start 11/15/17 at 17:00 Active Scripts Active Reported Seroquel (Quetiapine Fumarate) 50 Mg Tablet 50 Mg PO Seroquel (Quetiapine Fumarate) 25 Mg Tablet 25 Mg PO TID Seroquel (Quetiapine Fumarate) 50 Mg Tablet 50 Mg PO QHS Lorazepam 0.5 Mg Tablet 0.5 Mg PO PRN QID PRN Bisacodyl 5 Mg Tablet.dr 10 Mg PO PRN DAILY PRN Tylenol (Acetaminophen) 325 Mg Tablet 325 Mg PO PRN Q6HRS PRN Tylenol (Acetaminophen) 325 Mg Tablet 325 Mg PO PRN Q6HRS PRN Milk Of Magnesia (Magnesium Hydroxide) 2,400 Mg/10 Ml Oral.susp 2,400 Mg PO PRN Q4HRS PRN Furosemide 20 Mg Tablet 20 Mg PO DAILY Furosemide 20 Mg Tablet 1 Tab PO DAILY Potassium Chloride 10 Meq Tablet.er 10 Meq PO DAILY Vitamin D3 (Cholecalciferol (Vitamin D3)) 1,000 Unit Tablet 1,000 Unit PO DAILY B-12 (Cyanocobalamin (Vitamin B-12)) 1,000 Mcg Tablet.er 1,000 Mcg PO DAILY Aspirin Ec (Aspirin) 81 Mg Tablet. 81 Mg PO DAILY Trazodone Hcl 50 Mg Tablet 25 Mg PO BID@1700,2100 Keppra (Levetiracetam) 500 Mg Tablet 500 Mg PO BID Metformin Hcl 500 Mg Tablet 500 Mg PO BIDWMEALS I have reviewed the current psychotropics carefully including drug interactions. Risk benefit ratio favors no change other than as noted in my dictated progress note. Diagnosis: Problems: (1) Anxiety disorder (2) Impulse control disorder (3) Dementia, vascular, with depression (4) Dementia, vascular, with delusions (5) Dementia in Alzheimer's disease with depression (6) Dementia in Alzheimer's disease with delusions MELANIE COSTELLO MD November 15, 2017 21:30
--- NOTE | 2017-11-16 02:45 | PN ---
DATE: 11/14/2017 This late entry of 11/14/2017 covers elements not covered in my initial note of 11/14/2017. SUBJECTIVE: I met with the patient evening of 11/14/2017. The patient slept 7-1/2 hours, less tearful, less labile, but still anxious, ambulates in her wheelchair, running over other patients tools, oblivious of what she is doing. REVIEW OF SYSTEMS: No CV, , pulmonary, eye, ENT system symptoms on review. MENTAL STATUS EXAM: Oriented to herself. Insight, judgment, recent and remote memory, attention, concentration, fund of knowledge poor, consistent with her diagnosis mentioned in my initial note. PLAN: Continue current psychotropics. Depakote has been adjusted. Repeat labs on 11/15/2017 and make further changes thereafter. MAN Glory COSTELLO MD DR: MATEO/richie JOB#: [id number] / [id number]
[2017-11-16] MEDS: LEVOTHYROXINE 25 MCG TABLET. PO SCH (06:28)
[2017-11-16 06:30] VITALS: BP 132/55
[2017-11-16] MEDS: ACETAMINOPHEN 325 MG TABLET PO SCH ×3 (09:14→20:14)
[2017-11-16] MEDS: risperiDONE 0.25 MG TABLET. PO SCH ×3 (09:14→17:46)
[2017-11-16] MEDS: DIVALPROEX 125 MG CAP.SPRINK PO SCH ×3 (09:14→20:14)
[2017-11-16] MEDS: metFORMIN 500 MG TABLET PO SCH ×2 (09:14→17:46)
[2017-11-16] MEDS: LACTOBACILLUS RHAMNOSUS GG 1 CAPSULE. PO SCH ×2 (09:14→20:14)
[2017-11-16] MEDS: traZODone 50 MG TABLET. PO SCH ×3 (09:14→17:46)
[2017-11-16 16:45] VITALS: BP 114/93
[2017-11-16] MEDS: SERTRALINE 50 MG TABLET. PO SCH (17:46)
[2017-11-16] MEDS: MIRTAZAPINE 7.5 MG TABLET. PO SCH (20:14)
--- NOTE | 2017-11-16 20:51 | PDOC ---
Exam Note: [place] Note: Please also refer to the separate dictated note~for this date of service dictated separately.~Patient seen individually. Discussed the patient with Nursing staff reviewed the chart.~Reviewed interim history and current functioning. Reviewed vital signs,~Labs/ Radiology~and current medications noted below. Continue current treatment with the changes noted in the dictated addendum note Assessment: Vital Signs: Vital Signs Date Time Temp Pulse Resp B/P (MAP) Pulse Ox O2 Delivery O2 Flow Rate FiO2 11/16/17 16:45 97.5 75 16 114/93 (100) 92 11/15/17 06:20 Room Air I&O Intake and Output 11/16/17 07:00 Intake Total 840 ml Balance 840 ml Intake Oral 840 ml # Voids 3 # Bowel Movements 2 Labs: Laboratory Tests Test 11/16/17 07:58 Glucose (Fingerstick) 83 mg/dL (70-99) Current Medications: Meds: Current Medications Haloperidol Lactate (Haldol) 5 mg STK-MED ONCE .ROUTE ; Start 10/22/17 at 19:51; Stop 10/22/17 at 19:52; Status DC Haloperidol Lactate (Haldol) 5 mg 1X ONCE IM Last administered on 10/22/17at 19: 56; Start 10/22/17 at 20:00; Stop 10/22/17 at 20:55; Status DC Lorazepam (Ativan) 1 mg 1X ONCE PO ; Start 10/22/17 at 20:15; Stop 10/22/17 at 20 :38; Status DC Cephalexin HCl (Keflex) 500 mg 1X ONCE PO Last administered on 10/22/17at 20:56 ; Start 10/22/17 at 21:00; Stop 10/22/17 at 21:01; Status DC Acetaminophen (Tylenol) 650 mg PRN Q6HRS PRN PO PAIN / TEMP Last administered on 10/26/17at 12:32; Start 10/22/17 at 22:00 Multi-Ingredient Ointment (Analgesic [place]) 1 dane PRN QID PRN TP MUSCLE PAIN; Start 10/22/17 at 22:00 Al Hydroxide/Mg Hydroxide (Mylanta Plus Xs) 15 ml PRN AFTMEALHC PRN PO DYSPEPSIA; Start 10/22/17 at 22:00 Magnesium Hydroxide (Milk Of Magnesia) 2,400 mg PRN QHS PRN PO CONSTIPATION Last administered on 10/25/17 07:58; Start 10/22/17 at 22:00 Lorazepam (Ativan) 0.5 mg PRN QID PRN PO ANXIETY Last administered on 16:57; Start 10/22/17 at 23:00 Quetiapine Fumarate (SEROquel) 25 mg TID PO Last administered on 10/23/17 19:53 ; Start 10/23/17 at 09:00; Stop 10/24/17 at 01:41; Status DC Quetiapine Fumarate (SEROquel) 50 mg QHS PO Last administered on 10/26/17at 19: 46; Start 10/23/17 at 21:00; Stop 10/27/17 at 10:32; Status DC Trazodone HCl (Desyrel) 25 mg BID@1700,2100 PO Last administered on 10/25/17at 16:42; Start 10/23/17 at 17:00; Stop 10/25/17 at 18:24; Status DC Cefpodoxime Proxetil (Vantin) 200 mg BID PO Last administered on 10/31/17at 20: 00; Start 10/23/17 at 21:00; Stop 10/31/17 at 21:00; Status DC Lactobacillus Rhamnosus (Culturelle) 1 cap BID PO Last administered on 20:14; Start 10/23/17 at 21:00 Olanzapine (ZyPREXA ZYDIS) 2.5 mg PRN Q2HR PRN PO A Last administered on at 09:43; Start 10/23/17 at 17:00 Mirtazapine (Remeron) 7.5 mg QHS PO Last administered on 11/16/17 20:14; Start 10/23/17 at 21:00 Quetiapine Fumarate (SEROquel) 25 mg TID@0900,1300,1700 PO Last administered on 10/27/17at 09:02; Start 10/24/17 at 09:00; Stop 10/27/17 at 10:32; Status DC Vitamin D (Vitamin D3) 50,000 unit WEEKLY PO ; Start 10/24/17 at 18:00; Stop 10/24 at 18:00; Status DC Levothyroxine Sodium (Synthroid) 25 mcg DAILY07 PO Last administered on 06:28; Start 10/25/17 at 07:00 Vitamin D (Vitamin D3) 50,000 unit WEEKLY PO Last administered on 11/15/17at 09: 22; Start 10/25/17 at 09:00 Divalproex Sodium (Depakote Sprinkles) 125 mg BID@0900,1300 PO Last administered on 10/29/17at 14:55; Start 10/25/17 at 09:00; Stop 10/29/17 at 18:18 ; Status DC Trazodone HCl (Desyrel) 25 mg TID@0900,1300,1700 PO Last administered on 17:46; Start 10/26/17 at 09:00 Acetaminophen (Tylenol) 650 mg TID PO Last administered on 11/16/17 20:14; Start 10/26/17 at 21:00 Metformin HCl (Glucophage) 500 mg BIDWMEALS PO Last administered on 11/16/17 17 :46; Start 10/27/17 at 08:00 Risperidone (RisperDAL) 0.125 mg TID@0900,1300,1700 PO Last administered on 18:31; Start 10/27/17 at 13:00; Stop 10/31/17 at 19:23; Status DC Divalproex Sodium (Depakote Sprinkles) 125 mg QID PO Last administered on at 16:51; Start 10/29/17 at 21:00; Stop 11/01/17 at 18:38; Status DC Risperidone (RisperDAL) 0.125 mg BID@0900,1300 PO Last administered on at 09:26; Start 11/01/17 at 09:00; Stop 11/03/17 at 11:28; Status DC Risperidone (RisperDAL) 0.25 mg DAILY@1700 PO Last administered on 11/02/17at 16 :37; Start 11/01/17 at 17:00; Stop 11/03/17 at 11:28; Status DC Divalproex Sodium (Depakote Sprinkles) 125 mg TID@0900,1300,1700 PO ; Start at 09:00; Stop 11/02/17 at 09:00; Status DC Divalproex Sodium (Depakote Sprinkles) 250 mg TID@0900,1300,1700 PO Last administered on 11/04/17at 16:24; Start 11/02/17 at 09:00; Stop 11/04/17 at 18:07 ; Status DC Risperidone (RisperDAL) 0.25 mg TID@0900,1300,1700 PO Last administered on at 17:46; Start 11/03/17 at 13:00 Divalproex Sodium (Depakote Sprinkles) 375 mg TID@0900,1300,1700 PO Last administered on 11/08/17at 17:20; Start 11/05/17 at 09:00; Stop 11/08/17 at 19:21 ; Status DC Divalproex Sodium (Depakote Sprinkles) 375 mg BID@0900,1700 PO ; Start 11/09/17 at 09:00; Stop 11/09/17 at 09:06; Status DC Divalproex Sodium (Depakote Sprinkles) 375 mg DAILY@1300 PO Last administered on 11/11/17at 14:06; Start 11/09/17 at 13:00; Stop 11/11/17 at 18:54; Status DC Divalproex Sodium (Depakote Sprinkles) 500 mg BID@0900,1700 PO Last administered on 11/11/17at 17:40; Start 11/09/17 at 09:05; Stop 11/11/17 at 18:54 ; Status DC Divalproex Sodium (Depakote Sprinkles) 500 mg BID@1300,2100 PO Last administered on 11/16/17 20:14; Start 11/11/17 at 21:00 Divalproex Sodium (Depakote Sprinkles) 625 mg DAILY@0900 PO Last administered on 11/16/17at 09:14; Start 11/12/17 at 09:00 Sertraline HCl (Zoloft) 25 mg DAILY@1700 PO Last administered on 11/14/17at 18: 11; Start 11/12/17 at 17:00; Stop 11/15/17 at 16:59; Status DC Sertraline HCl (Zoloft) 50 mg DAILY@1700 PO Last administered on 11/16/17at 17:46 ; Start 11/15/17 at 17:00; Stop 11/17/17 at 23:30 Sertraline HCl (Zoloft) 75 mg 1700 PO ; Start 11/18/17 at 17:00 Active Scripts Active Reported Seroquel (Quetiapine Fumarate) 50 Mg Tablet 50 Mg PO Seroquel (Quetiapine Fumarate) 25 Mg Tablet 25 Mg PO TID Seroquel (Quetiapine Fumarate) 50 Mg Tablet 50 Mg PO QHS Lorazepam 0.5 Mg Tablet 0.5 Mg PO PRN QID PRN Bisacodyl 5 Mg Tablet.dr 10 Mg PO PRN DAILY PRN Tylenol (Acetaminophen) 325 Mg Tablet 325 Mg PO PRN Q6HRS PRN Tylenol (Acetaminophen) 325 Mg Tablet 325 Mg PO PRN Q6HRS PRN Milk Of Magnesia (Magnesium Hydroxide) 2,400 Mg/10 Ml Oral.susp 2,400 Mg PO PRN Q4HRS PRN Furosemide 20 Mg Tablet 20 Mg PO DAILY Furosemide 20 Mg Tablet 1 Tab PO DAILY Potassium Chloride 10 Meq Tablet.er 10 Meq PO DAILY Vitamin D3 (Cholecalciferol (Vitamin D3)) 1,000 Unit Tablet 1,000 Unit PO DAILY B-12 (Cyanocobalamin (Vitamin B-12)) 1,000 Mcg Tablet.er 1,000 Mcg PO DAILY Aspirin Ec (Aspirin) 81 Mg Tablet. 81 Mg PO DAILY Trazodone Hcl 50 Mg Tablet 25 Mg PO BID@1700,2100 Keppra (Levetiracetam) 500 Mg Tablet 500 Mg PO BID Metformin Hcl 500 Mg Tablet 500 Mg PO BIDWMEALS I have reviewed the current psychotropics carefully including drug interactions. Risk benefit ratio favors no change other than as noted in my dictated progress note. Diagnosis: Problems: (1) Anxiety disorder (2) Impulse control disorder (3) Dementia, vascular, with depression (4) Dementia, vascular, with delusions (5) Dementia in Alzheimer's disease with depression (6) Dementia in Alzheimer's disease with delusions MELANIE COSTELLO MD November 16, 2017 20:51
--- NOTE | 2017-11-16 22:14 | PN ---
DATE: 11/15/2017 This is a late entry of 11/15/2017 covers elements not covered in my initial note of 11/15/2017. SUBJECTIVE: I met with the patient in the evening. The patient slept 6-3/4 hours previous evening, less agitated, psychotic, less swearing towards others is noticed. Valproic acid level is 58 on 11/15/2017. REVIEW OF SYSTEMS: Ambulation impaired, in wheelchair. No CV, , pulmonary, eye system symptoms on review. MENTAL STATUS EXAM: Oriented to herself. Insight, judgment, recent and remote memory, attention, concentration, fund of knowledge poor, consistent with her diagnosis. IMPRESSION: Major neurocognitive disorder, Alzheimer, vascular with delusion, behavioral disturbance; bipolar 1 disorder, unspecified. PLAN: Continue current psychotropics. Valproic acid level is therapeutic. Maintain the rest unchanged for now. MAN Glory COSTELLO MD DR: MATEO/richie JOB#: [id number] / [id number]
[2017-11-17 05:34] VITALS: BP 127/55
[2017-11-17] MEDS: LEVOTHYROXINE 25 MCG TABLET. PO SCH (06:16)
[2017-11-17] MEDS: LACTOBACILLUS RHAMNOSUS GG 1 CAPSULE. PO SCH ×2 (07:39→19:23)
[2017-11-17] MEDS: metFORMIN 500 MG TABLET PO SCH ×2 (07:39→17:17)
[2017-11-17] MEDS: DIVALPROEX 125 MG CAP.SPRINK PO SCH ×3 (07:39→19:23)
[2017-11-17] MEDS: risperiDONE 0.25 MG TABLET. PO SCH ×3 (07:40→17:17)
[2017-11-17] MEDS: traZODone 50 MG TABLET. PO SCH ×3 (07:40→17:17)
[2017-11-17] MEDS: ACETAMINOPHEN 325 MG TABLET PO SCH ×3 (07:41→19:23)
[2017-11-17 09:06] LABS: BASO # 0.1 x10^3/uL (0.0-0.2); BASO % 2 % (0-3); EOS # 0.2 x10^3/uL (0.0-0.7); EOS % 4 % (0-3); HEMATOCRIT 33.4 % (36.0-47.0); HEMOGLOBIN 11.3 g/dL (12.0-15.5); LYMPH # 1.6 x10^3/uL (1.0-4.8); LYMPH % 27 % (24-48); MEAN CORPUSCULAR HEMOGLOBIN 31 pg (25-35); MEAN CORPUSCULAR HGB CONC 34 g/dL (31-37); MEAN CORPUSCULAR VOLUME 90 fL (79-100); MONO # 0.6 x10^3/uL (0.0-1.1); MONO % 9 % (0-9); NEUT # 3.6 x10^3uL (1.8-7.7); NEUT % 58 % (31-73); PLATELET COUNT 251 x10^3/uL (140-400); RED BLOOD COUNT 3.71 x10^6/uL (3.50-5.40); RED CELL DISTRIBUTION WIDTH 14.2 % (11.5-14.5); WHITE BLOOD COUNT 6.1 x10^3/uL (4.0-11.0)
[2017-11-17 09:18] LABS: ALBUMIN 2.7 g/dL (3.4-5.0); ALBUMIN/GLOBULIN RATIO 0.7 (1.0-1.7); CALCIUM 9.1 mg/dL (8.5-10.1); CREATININE 0.8 mg/dL (0.6-1.0); GFR 69.6; POTASSIUM 4.4 mmol/L (3.5-5.1); TOTAL BILIRUBIN 0.4 mg/dL (0.2-1.0); TOTAL PROTEIN 6.7 g/dL (6.4-8.2)
[2017-11-17 16:17] VITALS: BP 112/50
[2017-11-17] MEDS: SERTRALINE 50 MG TABLET. PO SCH (17:17)
[2017-11-17] MEDS: MIRTAZAPINE 7.5 MG TABLET. PO SCH (19:23)
--- NOTE | 2017-11-17 20:58 | PDOC ---
Exam Note: [place] Note: Please also refer to the separate dictated note~for this date of service dictated separately.~Patient seen individually. Discussed the patient with Nursing staff reviewed the chart.~Reviewed interim history and current functioning. Reviewed vital signs,~Labs/ Radiology~and current medications noted below. Continue current treatment with the changes noted in the dictated addendum note Assessment: Vital Signs: Vital Signs Date Time Temp Pulse Resp B/P (MAP) Pulse Ox O2 Delivery O2 Flow Rate FiO2 11/17/17 16:17 98.1 89 18 112/50 (70) 96 11/15/17 06:20 Room Air I&O Intake and Output 11/17/17 06:59 Intake Total 700 ml Balance 700 ml Intake Oral 700 ml # Voids 2 # Bowel Movements 1 Labs: Laboratory Tests Test 11/17/17 07:27 11/17/17 08:58 Glucose (Fingerstick) 79 mg/dL (70-99) White Blood Count 6.1 x10^3/uL (4.0-11.0) Red Blood Count 3.71 x10^6/uL (3.50-5.40) Hemoglobin 11.3 g/dL (12.0-15.5) L Hematocrit 33.4 % (36.0-47.0) L Mean Corpuscular Volume 90 fL (79-100) Mean Corpuscular Hemoglobin 31 pg (25-35) Mean Corpuscular Hemoglobin Concent 34 g/dL (31-37) Red Cell Distribution Width 14.2 % (11.5-14.5) Platelet Count 251 x10^3/uL (140-400) Neutrophils (%) (Auto) 58 % (31-73) Lymphocytes (%) (Auto) 27 % (24-48) Monocytes (%) (Auto) 9 % (0-9) Eosinophils (%) (Auto) 4 % (0-3) H Basophils (%) (Auto) 2 % (0-3) Neutrophils # (Auto) 3.6 x10^3uL (1.8-7.7) Lymphocytes # (Auto) 1.6 x10^3/uL (1.0-4.8) Monocytes # (Auto) 0.6 x10^3/uL (0.0-1.1) Eosinophils # (Auto) 0.2 x10^3/uL (0.0-0.7) Basophils # (Auto) 0.1 x10^3/uL (0.0-0.2) Sodium Level 137 mmol/L (136-145) Potassium Level 4.4 mmol/L (3.5-5.1) Chloride Level 102 mmol/L (98-107) Carbon Dioxide Level 32 mmol/L (21-32) Anion Gap 3 (6-14) L Blood Urea Nitrogen 31 mg/dL (7-20) H Creatinine 0.8 mg/dL (0.6-1.0) Estimated GFR (Cockcroft-Gault) 69.6 BUN/Creatinine Ratio 39 (6-20) H Glucose Level 140 mg/dL (70-99) H Calcium Level 9.1 mg/dL (8.5-10.1) Magnesium Level 2.0 mg/dL (1.8-2.4) Total Bilirubin 0.4 mg/dL (0.2-1.0) Aspartate Amino Transferase (AST) 24 U/L (15-37) Alanine Aminotransferase (ALT) 22 U/L (14-59) Alkaline Phosphatase 73 U/L (46-116) Total Protein 6.7 g/dL (6.4-8.2) Albumin 2.7 g/dL (3.4-5.0) L Albumin/Globulin Ratio 0.7 (1.0-1.7) L Current Medications: Meds: Current Medications Haloperidol Lactate (Haldol) 5 mg STK-MED ONCE .ROUTE ; Start 10/22/17 at 19:51; Stop 10/22/17 at 19:52; Status DC Haloperidol Lactate (Haldol) 5 mg 1X ONCE IM Last administered on 10/22/17at 19: 56; Start 10/22/17 at 20:00; Stop 10/22/17 at 20:55; Status DC Lorazepam (Ativan) 1 mg 1X ONCE PO ; Start 10/22/17 at 20:15; Stop 10/22/17 at 20 :38; Status DC Cephalexin HCl (Keflex) 500 mg 1X ONCE PO Last administered on 10/22/17at 20:56 ; Start 10/22/17 at 21:00; Stop 10/22/17 at 21:01; Status DC Acetaminophen (Tylenol) 650 mg PRN Q6HRS PRN PO PAIN / TEMP Last administered on 10/26/17 12:32; Start 10/22/17 at 22:00 Multi-Ingredient Ointment (Analgesic Lapel) 1 dane PRN QID PRN TP MUSCLE PAIN; Start 10/22/17 at 22:00 Al Hydroxide/Mg Hydroxide (Mylanta Plus Xs) 15 ml PRN AFTMEALHC PRN PO DYSPEPSIA; Start 10/22/17 at 22:00 Magnesium Hydroxide (Milk Of Magnesia) 2,400 mg PRN QHS PRN PO CONSTIPATION Last administered on 10/25/17 07:58; Start 10/22/17 at 22:00 Lorazepam (Ativan) 0.5 mg PRN QID PRN PO ANXIETY Last administered on 16:57; Start 10/22/17 at 23:00 Quetiapine Fumarate (SEROquel) 25 mg TID PO Last administered on 10/23/17 19:53 ; Start 10/23/17 at 09:00; Stop 10/24/17 at 01:41; Status DC Quetiapine Fumarate (SEROquel) 50 mg QHS PO Last administered on 10/26/17 19: 46; Start 10/23/17 at 21:00; Stop 10/27/17 at 10:32; Status DC Trazodone HCl (Desyrel) 25 mg BID@1700,2100 PO Last administered on 10/25/17 16:42; Start 10/23/17 at 17:00; Stop 10/25/17 at 18:24; Status DC Cefpodoxime Proxetil (Vantin) 200 mg BID PO Last administered on 10/31/17at 20: 00; Start 10/23/17 at 21:00; Stop 10/31/17 at 21:00; Status DC Lactobacillus Rhamnosus (Culturelle) 1 cap BID PO Last administered on 19:23; Start 10/23/17 at 21:00 Olanzapine (ZyPREXA ZYDIS) 2.5 mg PRN Q2HR PRN PO A Last administered on 09:43; Start 10/23/17 at 17:00 Mirtazapine (Remeron) 7.5 mg QHS PO Last administered on 11/17/17 19:23; Start 10/23/17 at 21:00 Quetiapine Fumarate (SEROquel) 25 mg TID@0900,1300,1700 PO Last administered on 10/27/17at 09:02; Start 10/24/17 at 09:00; Stop 10/27/17 at 10:32; Status DC Vitamin D (Vitamin D3) 50,000 unit WEEKLY PO ; Start 10/24/17 at 18:00; Stop 10/24 at 18:00; Status DC Levothyroxine Sodium (Synthroid) 25 mcg DAILY07 PO Last administered on 06:16; Start 10/25/17 at 07:00 Vitamin D (Vitamin D3) 50,000 unit WEEKLY PO Last administered on 11/15/17at 09: 22; Start 10/25/17 at 09:00 Divalproex Sodium (Depakote Sprinkles) 125 mg BID@0900,1300 PO Last administered on 10/29/17at 14:55; Start 10/25/17 at 09:00; Stop 10/29/17 at 18:18 ; Status DC Trazodone HCl (Desyrel) 25 mg TID@0900,1300,1700 PO Last administered on 17:17; Start 10/26/17 at 09:00 Acetaminophen (Tylenol) 650 mg TID PO Last administered on 11/17/17 19:23; Start 10/26/17 at 21:00 Metformin HCl (Glucophage) 500 mg BIDWMEALS PO Last administered on 11/17/17 17 :17; Start 10/27/17 at 08:00 Risperidone (RisperDAL) 0.125 mg TID@0900,1300,1700 PO Last administered on at 18:31; Start 10/27/17 at 13:00; Stop 10/31/17 at 19:23; Status DC Divalproex Sodium (Depakote Sprinkles) 125 mg QID PO Last administered on at 16:51; Start 10/29/17 at 21:00; Stop 11/01/17 at 18:38; Status DC Risperidone (RisperDAL) 0.125 mg BID@0900,1300 PO Last administered on at 09:26; Start 11/01/17 at 09:00; Stop 11/03/17 at 11:28; Status DC Risperidone (RisperDAL) 0.25 mg DAILY@1700 PO Last administered on 11/02/17at 16 :37; Start 11/01/17 at 17:00; Stop 11/03/17 at 11:28; Status DC Divalproex Sodium (Depakote Sprinkles) 125 mg TID@0900,1300,1700 PO ; Start at 09:00; Stop 11/02/17 at 09:00; Status DC Divalproex Sodium (Depakote Sprinkles) 250 mg TID@0900,1300,1700 PO Last administered on 11/04/17at 16:24; Start 11/02/17 at 09:00; Stop 11/04/17 at 18:07 ; Status DC Risperidone (RisperDAL) 0.25 mg TID@0900,1300,1700 PO Last administered on at 17:17; Start 11/03/17 at 13:00 Divalproex Sodium (Depakote Sprinkles) 375 mg TID@0900,1300,1700 PO Last administered on 11/08/17at 17:20; Start 11/05/17 at 09:00; Stop 11/08/17 at 19:21 ; Status DC Divalproex Sodium (Depakote Sprinkles) 375 mg BID@0900,1700 PO ; Start 11/09/17 at 09:00; Stop 11/09/17 at 09:06; Status DC Divalproex Sodium (Depakote Sprinkles) 375 mg DAILY@1300 PO Last administered on 11/11/17at 14:06; Start 11/09/17 at 13:00; Stop 11/11/17 at 18:54; Status DC Divalproex Sodium (Depakote Sprinkles) 500 mg BID@0900,1700 PO Last administered on 11/11/17at 17:40; Start 11/09/17 at 09:05; Stop 11/11/17 at 18:54 ; Status DC Divalproex Sodium (Depakote Sprinkles) 500 mg BID@1300,2100 PO Last administered on 11/17/17at 19:23; Start 11/11/17 at 21:00 Divalproex Sodium (Depakote Sprinkles) 625 mg DAILY@0900 PO Last administered on 11/17/17at 07:39; Start 11/12/17 at 09:00 Sertraline HCl (Zoloft) 25 mg DAILY@1700 PO Last administered on 11/14/17at 18: 11; Start 11/12/17 at 17:00; Stop 11/15/17 at 16:59; Status DC Sertraline HCl (Zoloft) 50 mg DAILY@1700 PO Last administered on 11/17/17at 17:17 ; Start 11/15/17 at 17:00; Stop 11/17/17 at 23:30 Sertraline HCl (Zoloft) 75 mg 1700 PO ; Start 11/18/17 at 17:00 Furosemide (Lasix) 20 mg DAILY PO ; Start 11/18/17 at 09:00 Active Scripts Active Reported Seroquel (Quetiapine Fumarate) 50 Mg Tablet 50 Mg PO Seroquel (Quetiapine Fumarate) 25 Mg Tablet 25 Mg PO TID Seroquel (Quetiapine Fumarate) 50 Mg Tablet 50 Mg PO QHS Lorazepam 0.5 Mg Tablet 0.5 Mg PO PRN QID PRN Bisacodyl 5 Mg Tablet.dr 10 Mg PO PRN DAILY PRN Tylenol (Acetaminophen) 325 Mg Tablet 325 Mg PO PRN Q6HRS PRN Tylenol (Acetaminophen) 325 Mg Tablet 325 Mg PO PRN Q6HRS PRN Milk Of Magnesia (Magnesium Hydroxide) 2,400 Mg/10 Ml Oral.susp 2,400 Mg PO PRN Q4HRS PRN Furosemide 20 Mg Tablet 20 Mg PO DAILY Furosemide 20 Mg Tablet 1 Tab PO DAILY Potassium Chloride 10 Meq Tablet.er 10 Meq PO DAILY Vitamin D3 (Cholecalciferol (Vitamin D3)) 1,000 Unit Tablet 1,000 Unit PO DAILY B-12 (Cyanocobalamin (Vitamin B-12)) 1,000 Mcg Tablet.er 1,000 Mcg PO DAILY Aspirin Ec (Aspirin) 81 Mg Tablet.dr 81 Mg PO DAILY Trazodone Hcl 50 Mg Tablet 25 Mg PO BID@1700,2100 Keppra (Levetiracetam) 500 Mg Tablet 500 Mg PO BID Metformin Hcl 500 Mg Tablet 500 Mg PO BIDWMEALS I have reviewed the current psychotropics carefully including drug interactions. Risk benefit ratio favors no change other than as noted in my dictated progress note. Diagnosis: Problems: (1) Anxiety disorder (2) Impulse control disorder (3) Dementia, vascular, with depression (4) Dementia, vascular, with delusions (5) Dementia in Alzheimer's disease with depression (6) Dementia in Alzheimer's disease with delusions MELANIE COSTELLO MD November 17, 2017 20:58
[2017-11-18 05:53] VITALS: BP 133/48
[2017-11-18] MEDS: LEVOTHYROXINE 25 MCG TABLET. PO SCH (05:54)
[2017-11-18] MEDS: LACTOBACILLUS RHAMNOSUS GG 1 CAPSULE. PO SCH ×2 (08:58→19:43)
[2017-11-18] MEDS: traZODone 50 MG TABLET. PO SCH ×3 (08:58→16:52)
[2017-11-18] MEDS: risperiDONE 0.25 MG TABLET. PO SCH ×3 (08:58→16:53)
[2017-11-18] MEDS: metFORMIN 500 MG TABLET PO SCH ×2 (08:58→16:52)
[2017-11-18] MEDS: ACETAMINOPHEN 325 MG TABLET PO SCH ×3 (08:58→19:43)
[2017-11-18] MEDS: DIVALPROEX 125 MG CAP.SPRINK PO SCH ×3 (09:00→19:43)
[2017-11-18] MEDS: FUROSEMIDE 20 MG TABLET PO SCH (09:01)
[2017-11-18 15:51] VITALS: BP 100/54
[2017-11-18] MEDS: SERTRALINE 25 MG TABLET. PO SCH (16:53)
[2017-11-18] MEDS: MIRTAZAPINE 7.5 MG TABLET. PO SCH (19:43)
--- NOTE | 2017-11-19 01:50 | PN ---
DATE: 11/16/2017 PSYCHIATRIC PROGRESS NOTE This is a late entry of 11/16/2017 covers elements not covered in my initial note of 11/16/2017. I met with the patient in the evening. The patient slept 8-3/4 hours previous evening. The patient remains quite confused, anxious, restless, constantly moving her wheelchair around the hallways, oblivious of whom she may be running over. REVIEW OF SYSTEMS: No CV, , pulmonary, eye, ENT system symptoms on review. Reliability poor. MENTAL STATUS EXAM: Oriented to herself. Insight, judgment, recent and remote memory, attention, concentration, fund of knowledge poor, consistent with her diagnosis mentioned in my initial note. PLAN: Increase Zoloft to 75 mg a day starting 11/18/2017. Continue rest unchanged. MAN Glory COSTELLO MD DR: MATEO/richie JOB#: [id number] / [id number]
[2017-11-19 06:14] VITALS: BP 116/62
[2017-11-19] MEDS: LEVOTHYROXINE 25 MCG TABLET. PO SCH (06:31)
[2017-11-19] MEDS: metFORMIN 500 MG TABLET PO SCH ×2 (07:50→18:14)
[2017-11-19] MEDS: DIVALPROEX 125 MG CAP.SPRINK PO SCH ×3 (07:50→19:40)
[2017-11-19] MEDS: risperiDONE 0.25 MG TABLET. PO SCH ×3 (07:50→18:14)
[2017-11-19] MEDS: traZODone 50 MG TABLET. PO SCH ×3 (07:50→18:15)
[2017-11-19] MEDS: FUROSEMIDE 20 MG TABLET PO SCH (07:50)
[2017-11-19] MEDS: LACTOBACILLUS RHAMNOSUS GG 1 CAPSULE. PO SCH ×2 (07:50→19:39)
[2017-11-19] MEDS: ACETAMINOPHEN 325 MG TABLET PO SCH ×3 (07:51→19:39)
--- NOTE | 2017-11-19 09:45 | PN ---
DATE: 11/17/2017 PSYCHIATRIC PROGRESS NOTE This is a late entry for 11/17/2017, covers elements not covered in my initial note of 11/17/2017. SUBJECTIVE: I met with the patient in the evening, staffed at a treatment team meeting with the entire team in the morning. The patient is sleeping average 7 hours, appetite 90%, was screaming with cares the previous evening. During the day on 11/17/2017, she was a little better, but in the evening she is again agitated with changing in cares. Her valproic acid level is 58. REVIEW OF SYSTEMS: Ambulation impaired, in wheelchair. No CV, , pulmonary, eye, ENT system symptoms on review. MENTAL STATUS EXAM: Oriented to herself. Insight, judgment, recent and remote memory, attention, concentration, fund of knowledge poor, consistent with her diagnosis mentioned in my initial note. PLAN: Continue current psychotropics. Adjust as indicated. MELANIE COSTELLO MD DR: MATEO/richie JOB#: [id number] / [id number]
[2017-11-19 16:44] VITALS: BP 117/69
[2017-11-19] MEDS: SERTRALINE 25 MG TABLET. PO SCH (18:15)
[2017-11-19] MEDS: MIRTAZAPINE 7.5 MG TABLET. PO SCH (19:39)
--- NOTE | 2017-11-19 22:55 | PDOC ---
Exam Note: [place] Note: Please also refer to the separate dictated note~for this date of service dictated separately.~Patient seen individually. Discussed the patient with Nursing staff reviewed the chart.~Reviewed interim history and current functioning. Reviewed vital signs,~Labs/ Radiology~and current medications noted below. Continue current treatment with the changes noted in the dictated addendum note Assessment: Vital Signs: Vital Signs Date Time Temp Pulse Resp B/P (MAP) Pulse Ox O2 Delivery O2 Flow Rate FiO2 11/19/17 21:15 97 11/19/17 16:44 97.4 76 16 117/69 (85) 11/15/17 06:20 Room Air I&O Intake and Output 11/19/17 07:00 Intake Total 1560 ml Balance 1560 ml Intake Oral 1560 ml # Bowel Movements 2 Labs: Laboratory Tests Test 11/19/17 07:35 Glucose (Fingerstick) 72 mg/dL (70-99) Current Medications: Meds: Current Medications Haloperidol Lactate (Haldol) 5 mg STK-MED ONCE .ROUTE ; Start 10/22/17 at 19:51; Stop 10/22/17 at 19:52; Status DC Haloperidol Lactate (Haldol) 5 mg 1X ONCE IM Last administered on 10/22/17at 19: 56; Start 10/22/17 at 20:00; Stop 10/22/17 at 20:55; Status DC Lorazepam (Ativan) 1 mg 1X ONCE PO ; Start 10/22/17 at 20:15; Stop 10/22/17 at 20 :38; Status DC Cephalexin HCl (Keflex) 500 mg 1X ONCE PO Last administered on 10/22/17at 20:56 ; Start 10/22/17 at 21:00; Stop 10/22/17 at 21:01; Status DC Acetaminophen (Tylenol) 650 mg PRN Q6HRS PRN PO PAIN / TEMP Last administered on 10/26/17at 12:32; Start 10/22/17 at 22:00 Multi-Ingredient Ointment (Analgesic Marlette) 1 dane PRN QID PRN TP MUSCLE PAIN; Start 10/22/17 at 22:00 Al Hydroxide/Mg Hydroxide (Mylanta Plus Xs) 15 ml PRN AFTMEALHC PRN PO DYSPEPSIA; Start 10/22/17 at 22:00 Magnesium Hydroxide (Milk Of Magnesia) 2,400 mg PRN QHS PRN PO CONSTIPATION Last administered on 10/25/17 07:58; Start 10/22/17 at 22:00 Lorazepam (Ativan) 0.5 mg PRN QID PRN PO ANXIETY Last administered on 16:57; Start 10/22/17 at 23:00 Quetiapine Fumarate (SEROquel) 25 mg TID PO Last administered on 10/23/17 19:53 ; Start 10/23/17 at 09:00; Stop 10/24/17 at 01:41; Status DC Quetiapine Fumarate (SEROquel) 50 mg QHS PO Last administered on 10/26/17 19: 46; Start 10/23/17 at 21:00; Stop 10/27/17 at 10:32; Status DC Trazodone HCl (Desyrel) 25 mg BID@1700,2100 PO Last administered on 10/25/17at 16:42; Start 10/23/17 at 17:00; Stop 10/25/17 at 18:24; Status DC Cefpodoxime Proxetil (Vantin) 200 mg BID PO Last administered on 10/31/17at 20: 00; Start 10/23/17 at 21:00; Stop 10/31/17 at 21:00; Status DC Lactobacillus Rhamnosus (Culturelle) 1 cap BID PO Last administered on 19:39; Start 10/23/17 at 21:00 Olanzapine (ZyPREXA ZYDIS) 2.5 mg PRN Q2HR PRN PO A Last administered on at 09:43; Start 10/23/17 at 17:00 Mirtazapine (Remeron) 7.5 mg QHS PO Last administered on 11/19/17 19:39; Start 10/23/17 at 21:00 Quetiapine Fumarate (SEROquel) 25 mg TID@0900,1300,1700 PO Last administered on 10/27/17at 09:02; Start 10/24/17 at 09:00; Stop 10/27/17 at 10:32; Status DC Vitamin D (Vitamin D3) 50,000 unit WEEKLY PO ; Start 10/24/17 at 18:00; Stop 10/24 at 18:00; Status DC Levothyroxine Sodium (Synthroid) 25 mcg DAILY07 PO Last administered on 06:31; Start 10/25/17 at 07:00 Vitamin D (Vitamin D3) 50,000 unit WEEKLY PO Last administered on 11/15/17at 09: 22; Start 10/25/17 at 09:00 Divalproex Sodium (Depakote Sprinkles) 125 mg BID@0900,1300 PO Last administered on 10/29/17at 14:55; Start 10/25/17 at 09:00; Stop 10/29/17 at 18:18 ; Status DC Trazodone HCl (Desyrel) 25 mg TID@0900,1300,1700 PO Last administered on 18:15; Start 10/26/17 at 09:00 Acetaminophen (Tylenol) 650 mg TID PO Last administered on 11/19/17 19:39; Start 10/26/17 at 21:00 Metformin HCl (Glucophage) 500 mg BIDWMEALS PO Last administered on 11/19/17 18 :14; Start 10/27/17 at 08:00 Risperidone (RisperDAL) 0.125 mg TID@0900,1300,1700 PO Last administered on 18:31; Start 10/27/17 at 13:00; Stop 10/31/17 at 19:23; Status DC Divalproex Sodium (Depakote Sprinkles) 125 mg QID PO Last administered on at 16:51; Start 10/29/17 at 21:00; Stop 11/01/17 at 18:38; Status DC Risperidone (RisperDAL) 0.125 mg BID@0900,1300 PO Last administered on at 09:26; Start 11/01/17 at 09:00; Stop 11/03/17 at 11:28; Status DC Risperidone (RisperDAL) 0.25 mg DAILY@1700 PO Last administered on 11/02/17at 16 :37; Start 11/01/17 at 17:00; Stop 11/03/17 at 11:28; Status DC Divalproex Sodium (Depakote Sprinkles) 125 mg TID@0900,1300,1700 PO ; Start at 09:00; Stop 11/02/17 at 09:00; Status DC Divalproex Sodium (Depakote Sprinkles) 250 mg TID@0900,1300,1700 PO Last administered on 11/04/17at 16:24; Start 11/02/17 at 09:00; Stop 11/04/17 at 18:07 ; Status DC Risperidone (RisperDAL) 0.25 mg TID@0900,1300,1700 PO Last administered on at 18:14; Start 11/03/17 at 13:00 Divalproex Sodium (Depakote Sprinkles) 375 mg TID@0900,1300,1700 PO Last administered on 11/08/17at 17:20; Start 11/05/17 at 09:00; Stop 11/08/17 at 19:21 ; Status DC Divalproex Sodium (Depakote Sprinkles) 375 mg BID@0900,1700 PO ; Start 11/09/17 at 09:00; Stop 11/09/17 at 09:06; Status DC Divalproex Sodium (Depakote Sprinkles) 375 mg DAILY@1300 PO Last administered on 11/11/17at 14:06; Start 11/09/17 at 13:00; Stop 11/11/17 at 18:54; Status DC Divalproex Sodium (Depakote Sprinkles) 500 mg BID@0900,1700 PO Last administered on 11/11/17at 17:40; Start 11/09/17 at 09:05; Stop 11/11/17 at 18:54 ; Status DC Divalproex Sodium (Depakote Sprinkles) 500 mg BID@1300,2100 PO Last administered on 11/19/17at 19:40; Start 11/11/17 at 21:00 Divalproex Sodium (Depakote Sprinkles) 625 mg DAILY@0900 PO Last administered on 11/19/17at 07:50; Start 11/12/17 at 09:00 Sertraline HCl (Zoloft) 25 mg DAILY@1700 PO Last administered on 11/14/17at 18: 11; Start 11/12/17 at 17:00; Stop 11/15/17 at 16:59; Status DC Sertraline HCl (Zoloft) 50 mg DAILY@1700 PO Last administered on 11/17/17at 17:17 ; Start 11/15/17 at 17:00; Stop 11/17/17 at 23:30; Status DC Sertraline HCl (Zoloft) 75 mg 1700 PO Last administered on 11/19/17at 18:15; Start 11/18/17 at 17:00 Furosemide (Lasix) 20 mg DAILY PO Last administered on 11/19/17at 07:50; Start at 09:00 Active Scripts Active Reported Seroquel (Quetiapine Fumarate) 50 Mg Tablet 50 Mg PO Seroquel (Quetiapine Fumarate) 25 Mg Tablet 25 Mg PO TID Seroquel (Quetiapine Fumarate) 50 Mg Tablet 50 Mg PO QHS Lorazepam 0.5 Mg Tablet 0.5 Mg PO PRN QID PRN Bisacodyl 5 Mg Tablet.dr 10 Mg PO PRN DAILY PRN Tylenol (Acetaminophen) 325 Mg Tablet 325 Mg PO PRN Q6HRS PRN Tylenol (Acetaminophen) 325 Mg Tablet 325 Mg PO PRN Q6HRS PRN Milk Of Magnesia (Magnesium Hydroxide) 2,400 Mg/10 Ml Oral.susp 2,400 Mg PO PRN Q4HRS PRN Furosemide 20 Mg Tablet 20 Mg PO DAILY Furosemide 20 Mg Tablet 1 Tab PO DAILY Potassium Chloride 10 Meq Tablet.er 10 Meq PO DAILY Vitamin D3 (Cholecalciferol (Vitamin D3)) 1,000 Unit Tablet 1,000 Unit PO DAILY B-12 (Cyanocobalamin (Vitamin B-12)) 1,000 Mcg Tablet.er 1,000 Mcg PO DAILY Aspirin Ec (Aspirin) 81 Mg Tablet.dr 81 Mg PO DAILY Trazodone Hcl 50 Mg Tablet 25 Mg PO BID@1700,2100 Keppra (Levetiracetam) 500 Mg Tablet 500 Mg PO BID Metformin Hcl 500 Mg Tablet 500 Mg PO BIDWMEALS I have reviewed the current psychotropics carefully including drug interactions. Risk benefit ratio favors no change other than as noted in my dictated progress note. Diagnosis: Problems: (1) Anxiety disorder (2) Impulse control disorder (3) Dementia, vascular, with depression (4) Dementia, vascular, with delusions (5) Dementia in Alzheimer's disease with depression (6) Dementia in Alzheimer's disease with delusions PRAVIN,MAN M MD November 19, 2017 22:55
[2017-11-20] MEDS: LEVOTHYROXINE 25 MCG TABLET. PO SCH (05:52)
[2017-11-20 06:18] VITALS: BP 121/64
[2017-11-20] MEDS: metFORMIN 500 MG TABLET PO SCH ×2 (07:34→18:40)
[2017-11-20] MEDS: risperiDONE 0.25 MG TABLET. PO SCH ×3 (07:34→18:40)
[2017-11-20] MEDS: ACETAMINOPHEN 325 MG TABLET PO SCH ×3 (07:34→20:21)
[2017-11-20] MEDS: DIVALPROEX 125 MG CAP.SPRINK PO SCH ×3 (07:35→20:21)
[2017-11-20] MEDS: FUROSEMIDE 20 MG TABLET PO SCH (07:35)
[2017-11-20] MEDS: LACTOBACILLUS RHAMNOSUS GG 1 CAPSULE. PO SCH ×2 (07:35→20:21)
[2017-11-20] MEDS: traZODone 50 MG TABLET. PO SCH ×3 (07:35→18:40)
[2017-11-20 16:33] VITALS: BP 128/50
[2017-11-20] MEDS: SERTRALINE 25 MG TABLET. PO SCH (18:40)
--- NOTE | 2017-11-20 18:42 | PDOC ---
Exam Note: [place] Note: Please also refer to the separate dictated note~for this date of service dictated separately.~Patient seen individually. Discussed the patient with Nursing staff reviewed the chart.~Reviewed interim history and current functioning. Reviewed vital signs,~Labs/ Radiology~and current medications noted below. Continue current treatment with the changes noted in the dictated addendum note Assessment: Vital Signs: Vital Signs Date Time Temp Pulse Resp B/P (MAP) Pulse Ox O2 Delivery O2 Flow Rate FiO2 11/20/17 16:33 97.6 76 18 128/50 (76) 100 11/15/17 06:20 Room Air I&O Intake and Output 11/20/17 07:00 Intake Total 660 ml Balance 660 ml Intake Oral 660 ml # Bowel Movements 1 Labs: Laboratory Tests Test 11/20/17 07:27 Glucose (Fingerstick) 91 mg/dL (70-99) Current Medications: Meds: Current Medications Haloperidol Lactate (Haldol) 5 mg STK-MED ONCE .ROUTE ; Start 10/22/17 at 19:51; Stop 10/22/17 at 19:52; Status DC Haloperidol Lactate (Haldol) 5 mg 1X ONCE IM Last administered on 10/22/17at 19: 56; Start 10/22/17 at 20:00; Stop 10/22/17 at 20:55; Status DC Lorazepam (Ativan) 1 mg 1X ONCE PO ; Start 10/22/17 at 20:15; Stop 10/22/17 at 20 :38; Status DC Cephalexin HCl (Keflex) 500 mg 1X ONCE PO Last administered on 10/22/17at 20:56 ; Start 10/22/17 at 21:00; Stop 10/22/17 at 21:01; Status DC Acetaminophen (Tylenol) 650 mg PRN Q6HRS PRN PO PAIN / TEMP Last administered on 10/26/17at 12:32; Start 10/22/17 at 22:00 Multi-Ingredient Ointment (Analgesic [place]) 1 dane PRN QID PRN TP MUSCLE PAIN; Start 10/22/17 at 22:00 Al Hydroxide/Mg Hydroxide (Mylanta Plus Xs) 15 ml PRN AFTMEALHC PRN PO DYSPEPSIA; Start 10/22/17 at 22:00 Magnesium Hydroxide (Milk Of Magnesia) 2,400 mg PRN QHS PRN PO CONSTIPATION Last administered on 10/25/17 07:58; Start 10/22/17 at 22:00 Lorazepam (Ativan) 0.5 mg PRN QID PRN PO ANXIETY Last administered on 16:57; Start 10/22/17 at 23:00 Quetiapine Fumarate (SEROquel) 25 mg TID PO Last administered on 10/23/17 19:53 ; Start 10/23/17 at 09:00; Stop 10/24/17 at 01:41; Status DC Quetiapine Fumarate (SEROquel) 50 mg QHS PO Last administered on 10/26/17 19: 46; Start 10/23/17 at 21:00; Stop 10/27/17 at 10:32; Status DC Trazodone HCl (Desyrel) 25 mg BID@1700,2100 PO Last administered on 10/25/17 16:42; Start 10/23/17 at 17:00; Stop 10/25/17 at 18:24; Status DC Cefpodoxime Proxetil (Vantin) 200 mg BID PO Last administered on 10/31/17at 20: 00; Start 10/23/17 at 21:00; Stop 10/31/17 at 21:00; Status DC Lactobacillus Rhamnosus (Culturelle) 1 cap BID PO Last administered on 07:35; Start 10/23/17 at 21:00 Olanzapine (ZyPREXA ZYDIS) 2.5 mg PRN Q2HR PRN PO A Last administered on 09:43; Start 10/23/17 at 17:00 Mirtazapine (Remeron) 7.5 mg QHS PO Last administered on 11/19/17 19:39; Start 10/23/17 at 21:00 Quetiapine Fumarate (SEROquel) 25 mg TID@0900,1300,1700 PO Last administered on 10/27/17 09:02; Start 10/24/17 at 09:00; Stop 10/27/17 at 10:32; Status DC Vitamin D (Vitamin D3) 50,000 unit WEEKLY PO ; Start 10/24/17 at 18:00; Stop 10/24 at 18:00; Status DC Levothyroxine Sodium (Synthroid) 25 mcg DAILY07 PO Last administered on 05:52; Start 10/25/17 at 07:00 Vitamin D (Vitamin D3) 50,000 unit WEEKLY PO Last administered on 11/15/17at 09: 22; Start 10/25/17 at 09:00 Divalproex Sodium (Depakote Sprinkles) 125 mg BID@0900,1300 PO Last administered on 10/29/17at 14:55; Start 10/25/17 at 09:00; Stop 10/29/17 at 18:18 ; Status DC Trazodone HCl (Desyrel) 25 mg TID@0900,1300,1700 PO Last administered on 18:40; Start 10/26/17 at 09:00 Acetaminophen (Tylenol) 650 mg TID PO Last administered on 11/20/17 12:03; Start 10/26/17 at 21:00 Metformin HCl (Glucophage) 500 mg BIDWMEALS PO Last administered on 11/20/17 18 :40; Start 10/27/17 at 08:00 Risperidone (RisperDAL) 0.125 mg TID@0900,1300,1700 PO Last administered on at 18:31; Start 10/27/17 at 13:00; Stop 10/31/17 at 19:23; Status DC Divalproex Sodium (Depakote Sprinkles) 125 mg QID PO Last administered on at 16:51; Start 10/29/17 at 21:00; Stop 11/01/17 at 18:38; Status DC Risperidone (RisperDAL) 0.125 mg BID@0900,1300 PO Last administered on at 09:26; Start 11/01/17 at 09:00; Stop 11/03/17 at 11:28; Status DC Risperidone (RisperDAL) 0.25 mg DAILY@1700 PO Last administered on 11/02/17at 16 :37; Start 11/01/17 at 17:00; Stop 11/03/17 at 11:28; Status DC Divalproex Sodium (Depakote Sprinkles) 125 mg TID@0900,1300,1700 PO ; Start at 09:00; Stop 11/02/17 at 09:00; Status DC Divalproex Sodium (Depakote Sprinkles) 250 mg TID@0900,1300,1700 PO Last administered on 11/04/17at 16:24; Start 11/02/17 at 09:00; Stop 11/04/17 at 18:07 ; Status DC Risperidone (RisperDAL) 0.25 mg TID@0900,1300,1700 PO Last administered on at 18:40; Start 11/03/17 at 13:00 Divalproex Sodium (Depakote Sprinkles) 375 mg TID@0900,1300,1700 PO Last administered on 11/08/17at 17:20; Start 11/05/17 at 09:00; Stop 11/08/17 at 19:21 ; Status DC Divalproex Sodium (Depakote Sprinkles) 375 mg BID@0900,1700 PO ; Start 11/09/17 at 09:00; Stop 11/09/17 at 09:06; Status DC Divalproex Sodium (Depakote Sprinkles) 375 mg DAILY@1300 PO Last administered on 11/11/17at 14:06; Start 11/09/17 at 13:00; Stop 11/11/17 at 18:54; Status DC Divalproex Sodium (Depakote Sprinkles) 500 mg BID@0900,1700 PO Last administered on 11/11/17at 17:40; Start 11/09/17 at 09:05; Stop 11/11/17 at 18:54 ; Status DC Divalproex Sodium (Depakote Sprinkles) 500 mg BID@1300,2100 PO Last administered on 11/20/17at 12:02; Start 11/11/17 at 21:00 Divalproex Sodium (Depakote Sprinkles) 625 mg DAILY@0900 PO Last administered on 11/20/17at 07:35; Start 11/12/17 at 09:00 Sertraline HCl (Zoloft) 25 mg DAILY@1700 PO Last administered on 11/14/17at 18: 11; Start 11/12/17 at 17:00; Stop 11/15/17 at 16:59; Status DC Sertraline HCl (Zoloft) 50 mg DAILY@1700 PO Last administered on 11/17/17at 17:17 ; Start 11/15/17 at 17:00; Stop 11/17/17 at 23:30; Status DC Sertraline HCl (Zoloft) 75 mg 1700 PO Last administered on 11/20/17at 18:40; Start 11/18/17 at 17:00 Furosemide (Lasix) 20 mg DAILY PO Last administered on 11/20/17at 07:35; Start at 09:00 Active Scripts Active Reported Seroquel (Quetiapine Fumarate) 50 Mg Tablet 50 Mg PO Seroquel (Quetiapine Fumarate) 25 Mg Tablet 25 Mg PO TID Seroquel (Quetiapine Fumarate) 50 Mg Tablet 50 Mg PO QHS Lorazepam 0.5 Mg Tablet 0.5 Mg PO PRN QID PRN Bisacodyl 5 Mg Tablet.dr 10 Mg PO PRN DAILY PRN Tylenol (Acetaminophen) 325 Mg Tablet 325 Mg PO PRN Q6HRS PRN Tylenol (Acetaminophen) 325 Mg Tablet 325 Mg PO PRN Q6HRS PRN Milk Of Magnesia (Magnesium Hydroxide) 2,400 Mg/10 Ml Oral.susp 2,400 Mg PO PRN Q4HRS PRN Furosemide 20 Mg Tablet 20 Mg PO DAILY Furosemide 20 Mg Tablet 1 Tab PO DAILY Potassium Chloride 10 Meq Tablet.er 10 Meq PO DAILY Vitamin D3 (Cholecalciferol (Vitamin D3)) 1,000 Unit Tablet 1,000 Unit PO DAILY B-12 (Cyanocobalamin (Vitamin B-12)) 1,000 Mcg Tablet.er 1,000 Mcg PO DAILY Aspirin Ec (Aspirin) 81 Mg Tablet. 81 Mg PO DAILY Trazodone Hcl 50 Mg Tablet 25 Mg PO BID@1700,2100 Keppra (Levetiracetam) 500 Mg Tablet 500 Mg PO BID Metformin Hcl 500 Mg Tablet 500 Mg PO BIDWMEALS I have reviewed the current psychotropics carefully including drug interactions. Risk benefit ratio favors no change other than as noted in my dictated progress note. Diagnosis: Problems: (1) Dementia in Alzheimer's disease with delusions (2) Dementia in Alzheimer's disease with depression (3) Dementia, vascular, with delusions (4) Dementia, vascular, with depression (5) Impulse control disorder (6) Anxiety disorder MELANIE COSTELLO MD November 20, 2017 18:42
[2017-11-20] MEDS: MIRTAZAPINE 7.5 MG TABLET. PO SCH (20:21)
[2017-11-21] MEDS: LEVOTHYROXINE 25 MCG TABLET. PO SCH (05:14)
[2017-11-21] MEDS: DIVALPROEX 125 MG CAP.SPRINK PO SCH ×3 (06:17→19:36)
[2017-11-21] MEDS: ACETAMINOPHEN 325 MG TABLET PO SCH ×3 (06:18→19:36)
[2017-11-21] MEDS: metFORMIN 500 MG TABLET PO SCH ×2 (06:18→17:05)
[2017-11-21] MEDS: traZODone 50 MG TABLET. PO SCH ×3 (06:18→17:04)
[2017-11-21] MEDS: risperiDONE 0.25 MG TABLET. PO SCH ×3 (06:18→17:05)
[2017-11-21] MEDS: LACTOBACILLUS RHAMNOSUS GG 1 CAPSULE. PO SCH ×2 (06:18→19:36)
[2017-11-21] MEDS: FUROSEMIDE 20 MG TABLET PO SCH (06:18)
[2017-11-21 06:21] VITALS: BP 112/53
[2017-11-21 10:44] LABS: BASO # 0.1 x10^3/uL (0.0-0.2); BASO % 1 % (0-3); EOS # 0.1 x10^3/uL (0.0-0.7); EOS % 1 % (0-3); HEMATOCRIT 32.6 % (36.0-47.0); HEMOGLOBIN 10.8 g/dL (12.0-15.5); LYMPH # 2.2 x10^3/uL (1.0-4.8); LYMPH % 21 % (24-48); MEAN CORPUSCULAR HEMOGLOBIN 30 pg (25-35); MEAN CORPUSCULAR HGB CONC 33 g/dL (31-37); MEAN CORPUSCULAR VOLUME 90 fL (79-100); MONO # 0.8 x10^3/uL (0.0-1.1); MONO % 8 % (0-9); NEUT % 69 % (31-73); PLATELET COUNT 238 x10^3/uL (140-400); RED BLOOD COUNT 3.63 x10^6/uL (3.50-5.40); RED CELL DISTRIBUTION WIDTH 14.1 % (11.5-14.5); WHITE BLOOD COUNT 10.2 x10^3/uL (4.0-11.0)
[2017-11-21 11:03] LABS: ALBUMIN 2.8 g/dL (3.4-5.0); ALBUMIN/GLOBULIN RATIO 0.7 (1.0-1.7); ALK PHOS 72 U/L (46-116); ALT (SGPT) 21 U/L (14-59); ANION GAP 5 (6-14); AST (SGOT) 23 U/L (15-37); BLOOD UREA NITROGEN 39 mg/dL (7-20); BUN/CREATININE RATIO 39 (6-20); CALCIUM 9.2 mg/dL (8.5-10.1); CARBON DIOXIDE 31 mmol/L (21-32); CHLORIDE 101 mmol/L (98-107); GFR 53.8; GLUCOSE 128 mg/dL (70-99); POTASSIUM 4.9 mmol/L (3.5-5.1); SODIUM 137 mmol/L (136-145); TOTAL BILIRUBIN 0.4 mg/dL (0.2-1.0)
[2017-11-21 11:05] LABS: VAL ACID 62 mcg/mL (50-100)
[2017-11-21 16:27] VITALS: BP 123/75
[2017-11-21] MEDS: SERTRALINE 100 MG TABLET. PO SCH (17:04)
[2017-11-21] MEDS: MIRTAZAPINE 7.5 MG TABLET. PO SCH (19:36)
--- NOTE | 2017-11-21 20:53 | PDOC ---
Exam Note: [place] Note: Please also refer to the separate dictated note~for this date of service dictated separately.~Patient seen individually. Discussed the patient with Nursing staff reviewed the chart.~Reviewed interim history and current functioning. Reviewed vital signs,~Labs/ Radiology~and current medications noted below. Continue current treatment with the changes noted in the dictated addendum note Assessment: Vital Signs: Vital Signs Date Time Temp Pulse Resp B/P (MAP) Pulse Ox O2 Delivery O2 Flow Rate FiO2 11/21/17 16:27 98.6 66 20 123/75 (91) 100 I&O Intake and Output 11/21/17 07:00 Intake Total 1080 ml Balance 1080 ml Intake Oral 1080 ml # Bowel Movements 2 Labs: Laboratory Tests Test 11/21/17 07:43 11/21/17 10:20 Glucose (Fingerstick) 101 mg/dL (70-99) H White Blood Count 10.2 x10^3/uL (4.0-11.0) # Red Blood Count 3.63 x10^6/uL (3.50-5.40) Hemoglobin 10.8 g/dL (12.0-15.5) L Hematocrit 32.6 % (36.0-47.0) L Mean Corpuscular Volume 90 fL (79-100) Mean Corpuscular Hemoglobin 30 pg (25-35) Mean Corpuscular Hemoglobin Concent 33 g/dL (31-37) Red Cell Distribution Width 14.1 % (11.5-14.5) Platelet Count 238 x10^3/uL (140-400) Neutrophils (%) (Auto) 69 % (31-73) Lymphocytes (%) (Auto) 21 % (24-48) L Monocytes (%) (Auto) 8 % (0-9) Eosinophils (%) (Auto) 1 % (0-3) Basophils (%) (Auto) 1 % (0-3) Neutrophils # (Auto) 7.0 x10^3uL (1.8-7.7) Lymphocytes # (Auto) 2.2 x10^3/uL (1.0-4.8) Monocytes # (Auto) 0.8 x10^3/uL (0.0-1.1) Eosinophils # (Auto) 0.1 x10^3/uL (0.0-0.7) Basophils # (Auto) 0.1 x10^3/uL (0.0-0.2) Sodium Level 137 mmol/L (136-145) Potassium Level 4.9 mmol/L (3.5-5.1) Chloride Level 101 mmol/L (98-107) Carbon Dioxide Level 31 mmol/L (21-32) Anion Gap 5 (6-14) L Blood Urea Nitrogen 39 mg/dL (7-20) H Creatinine 1.0 mg/dL (0.6-1.0) Estimated GFR (Cockcroft-Gault) 53.8 BUN/Creatinine Ratio 39 (6-20) H Glucose Level 128 mg/dL (70-99) H Calcium Level 9.2 mg/dL (8.5-10.1) Magnesium Level 2.0 mg/dL (1.8-2.4) Total Bilirubin 0.4 mg/dL (0.2-1.0) Aspartate Amino Transferase (AST) 23 U/L (15-37) Alanine Aminotransferase (ALT) 21 U/L (14-59) Alkaline Phosphatase 72 U/L (46-116) Total Protein 7.0 g/dL (6.4-8.2) Albumin 2.8 g/dL (3.4-5.0) L Albumin/Globulin Ratio 0.7 (1.0-1.7) L Valproic Acid Level 62 mcg/mL (50-100) Valproic Acid Last Dose Date 11/20/17 Valproic Acid Last Dose Time 1700 Current Medications: Meds: Current Medications Haloperidol Lactate (Haldol) 5 mg STK-MED ONCE .ROUTE ; Start 10/22/17 at 19:51; Stop 10/22/17 at 19:52; Status DC Haloperidol Lactate (Haldol) 5 mg 1X ONCE IM Last administered on 10/22/17at 19: 56; Start 10/22/17 at 20:00; Stop 10/22/17 at 20:55; Status DC Lorazepam (Ativan) 1 mg 1X ONCE PO ; Start 10/22/17 at 20:15; Stop 10/22/17 at 20 :38; Status DC Cephalexin HCl (Keflex) 500 mg 1X ONCE PO Last administered on 10/22/17at 20:56 ; Start 10/22/17 at 21:00; Stop 10/22/17 at 21:01; Status DC Acetaminophen (Tylenol) 650 mg PRN Q6HRS PRN PO PAIN / TEMP Last administered on 10/26/17at 12:32; Start 10/22/17 at 22:00 Multi-Ingredient Ointment (Analgesic [place]) 1 dane PRN QID PRN TP MUSCLE PAIN; Start 10/22/17 at 22:00 Al Hydroxide/Mg Hydroxide (Mylanta Plus Xs) 15 ml PRN AFTMEALHC PRN PO DYSPEPSIA; Start 10/22/17 at 22:00 Magnesium Hydroxide (Milk Of Magnesia) 2,400 mg PRN QHS PRN PO CONSTIPATION Last administered on 10/25/17 07:58; Start 10/22/17 at 22:00 Lorazepam (Ativan) 0.5 mg PRN QID PRN PO ANXIETY Last administered on 16:57; Start 10/22/17 at 23:00 Quetiapine Fumarate (SEROquel) 25 mg TID PO Last administered on 10/23/17at 19:53 ; Start 10/23/17 at 09:00; Stop 10/24/17 at 01:41; Status DC Quetiapine Fumarate (SEROquel) 50 mg QHS PO Last administered on 10/26/17at 19: 46; Start 10/23/17 at 21:00; Stop 10/27/17 at 10:32; Status DC Trazodone HCl (Desyrel) 25 mg BID@1700,2100 PO Last administered on 10/25/17at 16:42; Start 10/23/17 at 17:00; Stop 10/25/17 at 18:24; Status DC Cefpodoxime Proxetil (Vantin) 200 mg BID PO Last administered on 10/31/17at 20: 00; Start 10/23/17 at 21:00; Stop 10/31/17 at 21:00; Status DC Lactobacillus Rhamnosus (Culturelle) 1 cap BID PO Last administered on 19:36; Start 10/23/17 at 21:00 Olanzapine (ZyPREXA ZYDIS) 2.5 mg PRN Q2HR PRN PO A Last administered on at 09:43; Start 10/23/17 at 17:00 Mirtazapine (Remeron) 7.5 mg QHS PO Last administered on 11/21/17 19:36; Start 10/23/17 at 21:00 Quetiapine Fumarate (SEROquel) 25 mg TID@0900,1300,1700 PO Last administered on 10/27/17at 09:02; Start 10/24/17 at 09:00; Stop 10/27/17 at 10:32; Status DC Vitamin D (Vitamin D3) 50,000 unit WEEKLY PO ; Start 10/24/17 at 18:00; Stop 10/24 at 18:00; Status DC Levothyroxine Sodium (Synthroid) 25 mcg DAILY07 PO Last administered on at 05:14; Start 10/25/17 at 07:00 Vitamin D (Vitamin D3) 50,000 unit WEEKLY PO Last administered on 11/15/17at 09: 22; Start 10/25/17 at 09:00 Divalproex Sodium (Depakote Sprinkles) 125 mg BID@0900,1300 PO Last administered on 10/29/17at 14:55; Start 10/25/17 at 09:00; Stop 10/29/17 at 18:18 ; Status DC Trazodone HCl (Desyrel) 25 mg TID@0900,1300,1700 PO Last administered on 17:04; Start 10/26/17 at 09:00 Acetaminophen (Tylenol) 650 mg TID PO Last administered on 11/21/17 19:36; Start 10/26/17 at 21:00 Metformin HCl (Glucophage) 500 mg BIDWMEALS PO Last administered on 11/21/17at 17 :05; Start 10/27/17 at 08:00 Risperidone (RisperDAL) 0.125 mg TID@0900,1300,1700 PO Last administered on at 18:31; Start 10/27/17 at 13:00; Stop 10/31/17 at 19:23; Status DC Divalproex Sodium (Depakote Sprinkles) 125 mg QID PO Last administered on at 16:51; Start 10/29/17 at 21:00; Stop 11/01/17 at 18:38; Status DC Risperidone (RisperDAL) 0.125 mg BID@0900,1300 PO Last administered on at 09:26; Start 11/01/17 at 09:00; Stop 11/03/17 at 11:28; Status DC Risperidone (RisperDAL) 0.25 mg DAILY@1700 PO Last administered on 11/02/17at 16 :37; Start 11/01/17 at 17:00; Stop 11/03/17 at 11:28; Status DC Divalproex Sodium (Depakote Sprinkles) 125 mg TID@0900,1300,1700 PO ; Start at 09:00; Stop 11/02/17 at 09:00; Status DC Divalproex Sodium (Depakote Sprinkles) 250 mg TID@0900,1300,1700 PO Last administered on 11/04/17at 16:24; Start 11/02/17 at 09:00; Stop 11/04/17 at 18:07 ; Status DC Risperidone (RisperDAL) 0.25 mg TID@0900,1300,1700 PO Last administered on at 17:05; Start 11/03/17 at 13:00 Divalproex Sodium (Depakote Sprinkles) 375 mg TID@0900,1300,1700 PO Last administered on 11/08/17at 17:20; Start 11/05/17 at 09:00; Stop 11/08/17 at 19:21 ; Status DC Divalproex Sodium (Depakote Sprinkles) 375 mg BID@0900,1700 PO ; Start 11/09/17 at 09:00; Stop 11/09/17 at 09:06; Status DC Divalproex Sodium (Depakote Sprinkles) 375 mg DAILY@1300 PO Last administered on 11/11/17at 14:06; Start 11/09/17 at 13:00; Stop 11/11/17 at 18:54; Status DC Divalproex Sodium (Depakote Sprinkles) 500 mg BID@0900,1700 PO Last administered on 11/11/17at 17:40; Start 11/09/17 at 09:05; Stop 11/11/17 at 18:54 ; Status DC Divalproex Sodium (Depakote Sprinkles) 500 mg BID@1300,2100 PO Last administered on 11/21/17at 19:36; Start 11/11/17 at 21:00 Divalproex Sodium (Depakote Sprinkles) 625 mg DAILY@0900 PO Last administered on 11/21/17at 06:17; Start 11/12/17 at 09:00 Sertraline HCl (Zoloft) 25 mg DAILY@1700 PO Last administered on 11/14/17at 18: 11; Start 11/12/17 at 17:00; Stop 11/15/17 at 16:59; Status DC Sertraline HCl (Zoloft) 50 mg DAILY@1700 PO Last administered on 11/17/17at 17:17 ; Start 11/15/17 at 17:00; Stop 11/17/17 at 23:30; Status DC Sertraline HCl (Zoloft) 75 mg 1700 PO Last administered on 11/20/17at 18:40; Start 11/18/17 at 17:00; Stop 11/20/17 at 19:20; Status DC Furosemide (Lasix) 20 mg DAILY PO Last administered on 11/21/17at 06:18; Start at 09:00 Sertraline HCl (Zoloft) 100 mg 1700 PO Last administered on 11/21/17at 17:04; Start 11/21/17 at 17:00 Active Scripts Active Reported Seroquel (Quetiapine Fumarate) 50 Mg Tablet 50 Mg PO Seroquel (Quetiapine Fumarate) 25 Mg Tablet 25 Mg PO TID Seroquel (Quetiapine Fumarate) 50 Mg Tablet 50 Mg PO QHS Lorazepam 0.5 Mg Tablet 0.5 Mg PO PRN QID PRN Bisacodyl 5 Mg Tablet.dr 10 Mg PO PRN DAILY PRN Tylenol (Acetaminophen) 325 Mg Tablet 325 Mg PO PRN Q6HRS PRN Tylenol (Acetaminophen) 325 Mg Tablet 325 Mg PO PRN Q6HRS PRN Milk Of Magnesia (Magnesium Hydroxide) 2,400 Mg/10 Ml Oral.susp 2,400 Mg PO PRN Q4HRS PRN Furosemide 20 Mg Tablet 20 Mg PO DAILY Furosemide 20 Mg Tablet 1 Tab PO DAILY Potassium Chloride 10 Meq Tablet.er 10 Meq PO DAILY Vitamin D3 (Cholecalciferol (Vitamin D3)) 1,000 Unit Tablet 1,000 Unit PO DAILY B-12 (Cyanocobalamin (Vitamin B-12)) 1,000 Mcg Tablet.er 1,000 Mcg PO DAILY Aspirin Ec (Aspirin) 81 Mg Tablet.dr 81 Mg PO DAILY Trazodone Hcl 50 Mg Tablet 25 Mg PO BID@1700,2100 Keppra (Levetiracetam) 500 Mg Tablet 500 Mg PO BID Metformin Hcl 500 Mg Tablet 500 Mg PO BIDWMEALS I have reviewed the current psychotropics carefully including drug interactions. Risk benefit ratio favors no change other than as noted in my dictated progress note. Diagnosis: Problems: (1) Anxiety disorder (2) Impulse control disorder (3) Dementia, vascular, with depression (4) Dementia, vascular, with delusions (5) Dementia in Alzheimer's disease with depression (6) Dementia in Alzheimer's disease with delusions MELANIE COSTELLO MD November 21, 2017 20:53
--- NOTE | 2017-11-22 03:00 | PN ---
DATE: 11/18/2017 PSYCHIATRIC PROGRESS NOTE This is a late entry of 11/18/2017, covers elements not covered in my initial note of 11/18/2017. I met with the patient in the evening. The patient has had a better day, was quite restless in the morning, wheeling her wheelchair up and down the hallway, oblivious away. She was actively hallucinating, at times talking to herself. Zoloft was increased. She is resistive to medications. Slept 6-3/4 hours. REVIEW OF SYSTEMS: Ambulation impaired, in wheelchair. No CV, , pulmonary, eye, ENT system symptoms on review. Reliability is poor. MENTAL STATUS EXAM: Oriented to herself. Insight, judgment, recent and remote memory, attention, concentration, fund of knowledge poor, consistent with her diagnosis. The patient always refers to me as doctor. LABORATORY DATA: Reviewed. IMPRESSION: Unchanged from initial note. PLAN: Continue current psychotropics, Zoloft was increased. We may consider increasing again in due course. MAN Glory COSTELLO MD DR: MATEO/richie JOB#: [id number] / [id number]
--- NOTE | 2017-11-22 03:01 | PN ---
DATE: 11/20/2017 This is a late entry, 11/20/2017, covers the elements not covered in my initial note, 11/20/2017. SUBJECTIVE: I met with the patient in the evening. The patient was compliant with her medications, had a better day, did have a shower with some help. REVIEW OF SYSTEMS: Ambulation impaired, in a wheelchair. No CV, , pulmonary, eye, ENT system symptoms on review, still anxious, labile in her mood. MENTAL STATUS EXAM: Oriented to herself. Insight, judgment, recent and remote memory, attention, concentration, fund of knowledge poor, consistent with her diagnosis as mentioned in my initial note. PLAN: Increase Zoloft to 100 mg a day after she has been on 75 mg for 3 days. Maintain rest unchanged. MAN Glory COSTELLO MD DR: MATEO/richie JOB#: [id number] / [id number]
--- NOTE | 2017-11-22 03:06 | PN ---
DATE: 11/19/2017 This late entry 11/19/2017 covers elements not covered in my initial note 11/19/2017. Met with the patient in the evening. The patient has been hallucinating, wandering at times, compliant with medications hidden in ice cream. Little less restless, per nursing report. REVIEW OF SYSTEMS: Ambulation impaired, in wheelchair. No CV, , pulmonary, eye system symptoms on review. Reliability poor. MENTAL STATUS EXAM: Oriented to herself. Insight, judgment, recent and remote memory, attention, concentration, fund of knowledge poor, consistent with her diagnosis mentioned in my initial note. As I met with her, she was up and down the hallway trying to open doors, talking to herself rapidly. IMPRESSION: Unchanged from initial note. PLAN: Continue current psychotropics, may need to increase Zoloft. MAN Glory COSTELLO MD DR: MATEO/richie JOB#: [id number] / [id number]
[2017-11-22] MEDS: LEVOTHYROXINE 25 MCG TABLET. PO SCH (06:07)
[2017-11-22 06:14] VITALS: BP 124/69
[2017-11-22] MEDS: risperiDONE 0.25 MG TABLET. PO SCH ×4 (07:51→18:07)
[2017-11-22] MEDS: metFORMIN 500 MG TABLET PO SCH ×3 (07:51→18:07)
[2017-11-22] MEDS: FUROSEMIDE 20 MG TABLET PO SCH (07:51)
[2017-11-22] MEDS: DIVALPROEX 125 MG CAP.SPRINK PO SCH ×3 (07:51→20:59)
[2017-11-22] MEDS: ACETAMINOPHEN 325 MG TABLET PO SCH ×3 (07:51→20:59)
[2017-11-22] MEDS: LACTOBACILLUS RHAMNOSUS GG 1 CAPSULE. PO SCH ×2 (07:51→20:59)
[2017-11-22] MEDS: traZODone 50 MG TABLET. PO SCH ×4 (07:51→18:07)
[2017-11-22] MEDS: CHOLECALCIFEROL (VITAMIN D3) 50,000 UNIT CAPSULE PO SCH (07:53)
[2017-11-22] MEDS: SERTRALINE 100 MG TABLET. PO SCH ×2 (17:00→18:07)
--- NOTE | 2017-11-22 20:46 | PDOC ---
Exam Note: Gonzales Note: Please also refer to the separate dictated note~for this date of service dictated separately.~Patient seen individually. Discussed the patient with Nursing staff reviewed the chart.~Reviewed interim history and current functioning. Reviewed vital signs,~Labs/ Radiology~and current medications noted below. Continue current treatment with the changes noted in the dictated addendum note Assessment: Vital Signs: Vital Signs Date Time Temp Pulse Resp B/P (MAP) Pulse Ox O2 Delivery O2 Flow Rate FiO2 11/22/17 16:46 97.3 80 23 96 11/22/17 06:14 124/69 (87) I&O Intake and Output 11/22/17 07:00 Intake Total 720 ml Balance 720 ml Intake Oral 720 ml # Voids 2 # Bowel Movements 2 Labs: Laboratory Tests Test 11/22/17 07:40 Glucose (Fingerstick) 93 mg/dL (70-99) Current Medications: Meds: Current Medications Haloperidol Lactate (Haldol) 5 mg STK-MED ONCE .ROUTE ; Start 10/22/17 at 19:51; Stop 10/22/17 at 19:52; Status DC Haloperidol Lactate (Haldol) 5 mg 1X ONCE IM Last administered on 10/22/17at 19: 56; Start 10/22/17 at 20:00; Stop 10/22/17 at 20:55; Status DC Lorazepam (Ativan) 1 mg 1X ONCE PO ; Start 10/22/17 at 20:15; Stop 10/22/17 at 20 :38; Status DC Cephalexin HCl (Keflex) 500 mg 1X ONCE PO Last administered on 10/22/17at 20:56 ; Start 10/22/17 at 21:00; Stop 10/22/17 at 21:01; Status DC Acetaminophen (Tylenol) 650 mg PRN Q6HRS PRN PO PAIN / TEMP Last administered on 10/26/17at 12:32; Start 10/22/17 at 22:00 Multi-Ingredient Ointment (Analgesic Strawberry) 1 dane PRN QID PRN TP MUSCLE PAIN; Start 10/22/17 at 22:00 Al Hydroxide/Mg Hydroxide (Mylanta Plus Xs) 15 ml PRN AFTMEALHC PRN PO DYSPEPSIA; Start 10/22/17 at 22:00 Magnesium Hydroxide (Milk Of Magnesia) 2,400 mg PRN QHS PRN PO CONSTIPATION Last administered on 10/25/17 07:58; Start 10/22/17 at 22:00 Lorazepam (Ativan) 0.5 mg PRN QID PRN PO ANXIETY Last administered on 16:57; Start 10/22/17 at 23:00 Quetiapine Fumarate (SEROquel) 25 mg TID PO Last administered on 10/23/17 19:53 ; Start 10/23/17 at 09:00; Stop 10/24/17 at 01:41; Status DC Quetiapine Fumarate (SEROquel) 50 mg QHS PO Last administered on 10/26/17 19: 46; Start 10/23/17 at 21:00; Stop 10/27/17 at 10:32; Status DC Trazodone HCl (Desyrel) 25 mg BID@1700,2100 PO Last administered on 10/25/17 16:42; Start 10/23/17 at 17:00; Stop 10/25/17 at 18:24; Status DC Cefpodoxime Proxetil (Vantin) 200 mg BID PO Last administered on 10/31/17at 20: 00; Start 10/23/17 at 21:00; Stop 10/31/17 at 21:00; Status DC Lactobacillus Rhamnosus (Culturelle) 1 cap BID PO Last administered on 07:51; Start 10/23/17 at 21:00 Olanzapine (ZyPREXA ZYDIS) 2.5 mg PRN Q2HR PRN PO A Last administered on 09:43; Start 10/23/17 at 17:00 Mirtazapine (Remeron) 7.5 mg QHS PO Last administered on 11/21/17 19:36; Start 10/23/17 at 21:00 Quetiapine Fumarate (SEROquel) 25 mg TID@0900,1300,1700 PO Last administered on 10/27/17 09:02; Start 10/24/17 at 09:00; Stop 10/27/17 at 10:32; Status DC Vitamin D (Vitamin D3) 50,000 unit WEEKLY PO ; Start 10/24/17 at 18:00; Stop 10/24 at 18:00; Status DC Levothyroxine Sodium (Synthroid) 25 mcg DAILY07 PO Last administered on 06:07; Start 10/25/17 at 07:00 Vitamin D (Vitamin D3) 50,000 unit WEEKLY PO Last administered on 11/22/17 07: 53; Start 10/25/17 at 09:00 Divalproex Sodium (Depakote Sprinkles) 125 mg BID@0900,1300 PO Last administered on 10/29/17 14:55; Start 10/25/17 at 09:00; Stop 10/29/17 at 18:18 ; Status DC Trazodone HCl (Desyrel) 25 mg TID@0900,1300,1700 PO Last administered on 12:32; Start 10/26/17 at 09:00 Acetaminophen (Tylenol) 650 mg TID PO Last administered on 11/22/17 12:32; Start 10/26/17 at 21:00 Metformin HCl (Glucophage) 500 mg BIDWMEALS PO Last administered on 11/22/17 07 :51; Start 10/27/17 at 08:00 Risperidone (RisperDAL) 0.125 mg TID@0900,1300,1700 PO Last administered on 18:31; Start 10/27/17 at 13:00; Stop 10/31/17 at 19:23; Status DC Divalproex Sodium (Depakote Sprinkles) 125 mg QID PO Last administered on at 16:51; Start 10/29/17 at 21:00; Stop 11/01/17 at 18:38; Status DC Risperidone (RisperDAL) 0.125 mg BID@0900,1300 PO Last administered on 09:26; Start 11/01/17 at 09:00; Stop 11/03/17 at 11:28; Status DC Risperidone (RisperDAL) 0.25 mg DAILY@1700 PO Last administered on 11/02/17at 16 :37; Start 11/01/17 at 17:00; Stop 11/03/17 at 11:28; Status DC Divalproex Sodium (Depakote Sprinkles) 125 mg TID@0900,1300,1700 PO ; Start at 09:00; Stop 11/02/17 at 09:00; Status DC Divalproex Sodium (Depakote Sprinkles) 250 mg TID@0900,1300,1700 PO Last administered on 11/04/17at 16:24; Start 11/02/17 at 09:00; Stop 11/04/17 at 18:07 ; Status DC Risperidone (RisperDAL) 0.25 mg TID@0900,1300,1700 PO Last administered on at 12:32; Start 11/03/17 at 13:00 Divalproex Sodium (Depakote Sprinkles) 375 mg TID@0900,1300,1700 PO Last administered on 11/08/17at 17:20; Start 11/05/17 at 09:00; Stop 11/08/17 at 19:21 ; Status DC Divalproex Sodium (Depakote Sprinkles) 375 mg BID@0900,1700 PO ; Start 11/09/17 at 09:00; Stop 11/09/17 at 09:06; Status DC Divalproex Sodium (Depakote Sprinkles) 375 mg DAILY@1300 PO Last administered on 11/11/17at 14:06; Start 11/09/17 at 13:00; Stop 11/11/17 at 18:54; Status DC Divalproex Sodium (Depakote Sprinkles) 500 mg BID@0900,1700 PO Last administered on 11/11/17at 17:40; Start 11/09/17 at 09:05; Stop 11/11/17 at 18:54 ; Status DC Divalproex Sodium (Depakote Sprinkles) 500 mg BID@1300,2100 PO Last administered on 11/22/17 12:32; Start 11/11/17 at 21:00 Divalproex Sodium (Depakote Sprinkles) 625 mg DAILY@0900 PO Last administered on 11/22/17at 07:51; Start 11/12/17 at 09:00 Sertraline HCl (Zoloft) 25 mg DAILY@1700 PO Last administered on 11/14/17at 18: 11; Start 11/12/17 at 17:00; Stop 11/15/17 at 16:59; Status DC Sertraline HCl (Zoloft) 50 mg DAILY@1700 PO Last administered on 11/17/17at 17:17 ; Start 11/15/17 at 17:00; Stop 11/17/17 at 23:30; Status DC Sertraline HCl (Zoloft) 75 mg 1700 PO Last administered on 11/20/17at 18:40; Start 11/18/17 at 17:00; Stop 11/20/17 at 19:20; Status DC Furosemide (Lasix) 20 mg DAILY PO Last administered on 11/22/17at 07:51; Start at 09:00 Sertraline HCl (Zoloft) 100 mg 1700 PO Last administered on 11/21/17at 17:04; Start 11/21/17 at 17:00 Active Scripts Active Reported Seroquel (Quetiapine Fumarate) 50 Mg Tablet 50 Mg PO Seroquel (Quetiapine Fumarate) 25 Mg Tablet 25 Mg PO TID Seroquel (Quetiapine Fumarate) 50 Mg Tablet 50 Mg PO QHS Lorazepam 0.5 Mg Tablet 0.5 Mg PO PRN QID PRN Bisacodyl 5 Mg Tablet.dr 10 Mg PO PRN DAILY PRN Tylenol (Acetaminophen) 325 Mg Tablet 325 Mg PO PRN Q6HRS PRN Tylenol (Acetaminophen) 325 Mg Tablet 325 Mg PO PRN Q6HRS PRN Milk Of Magnesia (Magnesium Hydroxide) 2,400 Mg/10 Ml Oral.susp 2,400 Mg PO PRN Q4HRS PRN Furosemide 20 Mg Tablet 20 Mg PO DAILY Furosemide 20 Mg Tablet 1 Tab PO DAILY Potassium Chloride 10 Meq Tablet.er 10 Meq PO DAILY Vitamin D3 (Cholecalciferol (Vitamin D3)) 1,000 Unit Tablet 1,000 Unit PO DAILY B-12 (Cyanocobalamin (Vitamin B-12)) 1,000 Mcg Tablet.er 1,000 Mcg PO DAILY Aspirin Ec (Aspirin) 81 Mg Tablet. 81 Mg PO DAILY Trazodone Hcl 50 Mg Tablet 25 Mg PO BID@1700,2100 Keppra (Levetiracetam) 500 Mg Tablet 500 Mg PO BID Metformin Hcl 500 Mg Tablet 500 Mg PO BIDWMEALS I have reviewed the current psychotropics carefully including drug interactions. Risk benefit ratio favors no change other than as noted in my dictated progress note. Diagnosis: Problems: (1) Anxiety disorder (2) Impulse control disorder (3) Dementia, vascular, with depression (4) Dementia, vascular, with delusions (5) Dementia in Alzheimer's disease with depression (6) Dementia in Alzheimer's disease with delusions MELANIE COSTELLO MD November 22, 2017 20:46
[2017-11-22] MEDS: MIRTAZAPINE 7.5 MG TABLET. PO SCH (20:58)
--- NOTE | 2017-11-22 22:18 | PN ---
DATE: 11/21/2017 This is a late entry for 11/21/2017 covers elements not covered in my initial note of 11/21/2017. SUBJECTIVE: I met with the patient in the evening. The patient slept for 4-3/4 hours. She seems to sundown, gets more agitated, delusional in the evening. During the day, she was better, resistive to toileting; however. REVIEW OF SYSTEMS: Ambulation impaired, in wheelchair. No CV, , pulmonary, eye, ENT system symptoms on review. Reliability poor. MENTAL STATUS EXAM: Oriented to herself. Insight, judgment, recent and remote memory, attention, concentration, fund of knowledge poor, consistent with her diagnosis mentioned in my initial note. PLAN: Continue current psychotropics. Valproic acid level is 62 therapeutic. Adjust as indicated. MAN Glory COSTELLO MD DR: MATEO/richie JOB#: [id number] / [id number]
[2017-11-23 05:55] VITALS: BP 112/61
[2017-11-23] MEDS: LEVOTHYROXINE 25 MCG TABLET. PO SCH (06:21)
[2017-11-23] MEDS: ACETAMINOPHEN 325 MG TABLET PO SCH ×3 (09:26→20:09)
[2017-11-23] MEDS: metFORMIN 500 MG TABLET PO SCH ×2 (09:27→17:38)
[2017-11-23] MEDS: FUROSEMIDE 20 MG TABLET PO SCH (09:27)
[2017-11-23] MEDS: DIVALPROEX 125 MG CAP.SPRINK PO SCH ×3 (09:27→20:09)
[2017-11-23] MEDS: risperiDONE 0.25 MG TABLET. PO SCH ×3 (09:27→17:38)
[2017-11-23] MEDS: traZODone 50 MG TABLET. PO SCH ×3 (09:27→17:38)
[2017-11-23] MEDS: LACTOBACILLUS RHAMNOSUS GG 1 CAPSULE. PO SCH ×2 (09:27→20:09)
[2017-11-23] MEDS: SERTRALINE 100 MG TABLET. PO SCH (17:38)
[2017-11-23 18:11] VITALS: BP 151/74
[2017-11-23] MEDS: MIRTAZAPINE 7.5 MG TABLET. PO SCH (20:09)
--- NOTE | 2017-11-23 22:13 | PDOC ---
Exam Note: [place] Note: Please also refer to the separate dictated note~for this date of service dictated separately.~Patient seen individually. Discussed the patient with Nursing staff reviewed the chart.~Reviewed interim history and current functioning. Reviewed vital signs,~Labs/ Radiology~and current medications noted below. Continue current treatment with the changes noted in the dictated addendum note Assessment: Vital Signs: Vital Signs Date Time Temp Pulse Resp B/P (MAP) Pulse Ox O2 Delivery O2 Flow Rate FiO2 11/23/17 18:11 98.4 79 20 151/74 (99) 99 I&O Intake and Output 11/23/17 07:00 Intake Total 480 ml Balance 480 ml Intake Oral 480 ml # Bowel Movements 1 Labs: Laboratory Tests Test 11/23/17 07:32 Glucose (Fingerstick) 82 mg/dL (70-99) Current Medications: Meds: Current Medications Haloperidol Lactate (Haldol) 5 mg STK-MED ONCE .ROUTE ; Start 10/22/17 at 19:51; Stop 10/22/17 at 19:52; Status DC Haloperidol Lactate (Haldol) 5 mg 1X ONCE IM Last administered on 10/22/17at 19: 56; Start 10/22/17 at 20:00; Stop 10/22/17 at 20:55; Status DC Lorazepam (Ativan) 1 mg 1X ONCE PO ; Start 10/22/17 at 20:15; Stop 10/22/17 at 20 :38; Status DC Cephalexin HCl (Keflex) 500 mg 1X ONCE PO Last administered on 10/22/17at 20:56 ; Start 10/22/17 at 21:00; Stop 10/22/17 at 21:01; Status DC Acetaminophen (Tylenol) 650 mg PRN Q6HRS PRN PO PAIN / TEMP Last administered on 10/26/17at 12:32; Start 10/22/17 at 22:00 Multi-Ingredient Ointment (Analgesic Limestone) 1 dane PRN QID PRN TP MUSCLE PAIN; Start 10/22/17 at 22:00 Al Hydroxide/Mg Hydroxide (Mylanta Plus Xs) 15 ml PRN AFTMEALHC PRN PO DYSPEPSIA; Start 10/22/17 at 22:00 Magnesium Hydroxide (Milk Of Magnesia) 2,400 mg PRN QHS PRN PO CONSTIPATION Last administered on 10/25/17at 07:58; Start 10/22/17 at 22:00 Lorazepam (Ativan) 0.5 mg PRN QID PRN PO ANXIETY Last administered on 16:57; Start 10/22/17 at 23:00 Quetiapine Fumarate (SEROquel) 25 mg TID PO Last administered on 10/23/17 19:53 ; Start 10/23/17 at 09:00; Stop 10/24/17 at 01:41; Status DC Quetiapine Fumarate (SEROquel) 50 mg QHS PO Last administered on 10/26/17 19: 46; Start 10/23/17 at 21:00; Stop 10/27/17 at 10:32; Status DC Trazodone HCl (Desyrel) 25 mg BID@1700,2100 PO Last administered on 10/25/17at 16:42; Start 10/23/17 at 17:00; Stop 10/25/17 at 18:24; Status DC Cefpodoxime Proxetil (Vantin) 200 mg BID PO Last administered on 10/31/17at 20: 00; Start 10/23/17 at 21:00; Stop 10/31/17 at 21:00; Status DC Lactobacillus Rhamnosus (Culturelle) 1 cap BID PO Last administered on 20:09; Start 10/23/17 at 21:00 Olanzapine (ZyPREXA ZYDIS) 2.5 mg PRN Q2HR PRN PO A Last administered on at 09:43; Start 10/23/17 at 17:00 Mirtazapine (Remeron) 7.5 mg QHS PO Last administered on 11/23/17 20:09; Start 10/23/17 at 21:00 Quetiapine Fumarate (SEROquel) 25 mg TID@0900,1300,1700 PO Last administered on 10/27/17at 09:02; Start 10/24/17 at 09:00; Stop 10/27/17 at 10:32; Status DC Vitamin D (Vitamin D3) 50,000 unit WEEKLY PO ; Start 10/24/17 at 18:00; Stop 10/24 at 18:00; Status DC Levothyroxine Sodium (Synthroid) 25 mcg DAILY07 PO Last administered on 06:21; Start 10/25/17 at 07:00 Vitamin D (Vitamin D3) 50,000 unit WEEKLY PO Last administered on 11/22/17 07: 53; Start 10/25/17 at 09:00 Divalproex Sodium (Depakote Sprinkles) 125 mg BID@0900,1300 PO Last administered on 10/29/17at 14:55; Start 10/25/17 at 09:00; Stop 10/29/17 at 18:18 ; Status DC Trazodone HCl (Desyrel) 25 mg TID@0900,1300,1700 PO Last administered on 17:38; Start 10/26/17 at 09:00 Acetaminophen (Tylenol) 650 mg TID PO Last administered on 11/23/17 20:09; Start 10/26/17 at 21:00 Metformin HCl (Glucophage) 500 mg BIDWMEALS PO Last administered on 11/23/17 17 :38; Start 10/27/17 at 08:00 Risperidone (RisperDAL) 0.125 mg TID@0900,1300,1700 PO Last administered on 18:31; Start 10/27/17 at 13:00; Stop 10/31/17 at 19:23; Status DC Divalproex Sodium (Depakote Sprinkles) 125 mg QID PO Last administered on at 16:51; Start 10/29/17 at 21:00; Stop 11/01/17 at 18:38; Status DC Risperidone (RisperDAL) 0.125 mg BID@0900,1300 PO Last administered on at 09:26; Start 11/01/17 at 09:00; Stop 11/03/17 at 11:28; Status DC Risperidone (RisperDAL) 0.25 mg DAILY@1700 PO Last administered on 11/02/17at 16 :37; Start 11/01/17 at 17:00; Stop 11/03/17 at 11:28; Status DC Divalproex Sodium (Depakote Sprinkles) 125 mg TID@0900,1300,1700 PO ; Start at 09:00; Stop 11/02/17 at 09:00; Status DC Divalproex Sodium (Depakote Sprinkles) 250 mg TID@0900,1300,1700 PO Last administered on 11/04/17at 16:24; Start 11/02/17 at 09:00; Stop 11/04/17 at 18:07 ; Status DC Risperidone (RisperDAL) 0.25 mg TID@0900,1300,1700 PO Last administered on at 17:38; Start 11/03/17 at 13:00 Divalproex Sodium (Depakote Sprinkles) 375 mg TID@0900,1300,1700 PO Last administered on 11/08/17 17:20; Start 11/05/17 at 09:00; Stop 11/08/17 at 19:21 ; Status DC Divalproex Sodium (Depakote Sprinkles) 375 mg BID@0900,1700 PO ; Start 11/09/17 at 09:00; Stop 11/09/17 at 09:06; Status DC Divalproex Sodium (Depakote Sprinkles) 375 mg DAILY@1300 PO Last administered on 11/11/17at 14:06; Start 11/09/17 at 13:00; Stop 11/11/17 at 18:54; Status DC Divalproex Sodium (Depakote Sprinkles) 500 mg BID@0900,1700 PO Last administered on 11/11/17at 17:40; Start 11/09/17 at 09:05; Stop 11/11/17 at 18:54 ; Status DC Divalproex Sodium (Depakote Sprinkles) 500 mg BID@1300,2100 PO Last administered on 11/23/17 20:09; Start 11/11/17 at 21:00 Divalproex Sodium (Depakote Sprinkles) 625 mg DAILY@0900 PO Last administered on 11/23/17 09:27; Start 11/12/17 at 09:00 Sertraline HCl (Zoloft) 25 mg DAILY@1700 PO Last administered on 11/14/17 18: 11; Start 11/12/17 at 17:00; Stop 11/15/17 at 16:59; Status DC Sertraline HCl (Zoloft) 50 mg DAILY@1700 PO Last administered on 5/3/18at 17:17 ; Start 11/15/17 at 17:00; Stop 11/17/17 at 23:30; Status DC Sertraline HCl (Zoloft) 75 mg 1700 PO Last administered on 11/20/17at 18:40; Start 11/18/17 at 17:00; Stop 11/20/17 at 19:20; Status DC Furosemide (Lasix) 20 mg DAILY PO Last administered on 11/23/17at 09:27; Start at 09:00 Sertraline HCl (Zoloft) 100 mg 1700 PO Last administered on 11/23/17at 17:38; Start 11/21/17 at 17:00 Buspirone HCl (Buspar) 5 mg 0900,1300 PO ; Start 11/24/17 at 09:00 Active Scripts Active Reported Seroquel (Quetiapine Fumarate) 50 Mg Tablet 50 Mg PO Seroquel (Quetiapine Fumarate) 25 Mg Tablet 25 Mg PO TID Seroquel (Quetiapine Fumarate) 50 Mg Tablet 50 Mg PO QHS Lorazepam 0.5 Mg Tablet 0.5 Mg PO PRN QID PRN Bisacodyl 5 Mg Tablet.dr 10 Mg PO PRN DAILY PRN Tylenol (Acetaminophen) 325 Mg Tablet 325 Mg PO PRN Q6HRS PRN Tylenol (Acetaminophen) 325 Mg Tablet 325 Mg PO PRN Q6HRS PRN Milk Of Magnesia (Magnesium Hydroxide) 2,400 Mg/10 Ml Oral.susp 2,400 Mg PO PRN Q4HRS PRN Furosemide 20 Mg Tablet 20 Mg PO DAILY Furosemide 20 Mg Tablet 1 Tab PO DAILY Potassium Chloride 10 Meq Tablet.er 10 Meq PO DAILY Vitamin D3 (Cholecalciferol (Vitamin D3)) 1,000 Unit Tablet 1,000 Unit PO DAILY B-12 (Cyanocobalamin (Vitamin B-12)) 1,000 Mcg Tablet.er 1,000 Mcg PO DAILY Aspirin Ec (Aspirin) 81 Mg Tablet. 81 Mg PO DAILY Trazodone Hcl 50 Mg Tablet 25 Mg PO BID@1700,2100 Keppra (Levetiracetam) 500 Mg Tablet 500 Mg PO BID Metformin Hcl 500 Mg Tablet 500 Mg PO BIDWMEALS I have reviewed the current psychotropics carefully including drug interactions. Risk benefit ratio favors no change other than as noted in my dictated progress note. Diagnosis: Problems: (1) Anxiety disorder (2) Impulse control disorder (3) Dementia, vascular, with depression (4) Dementia, vascular, with delusions (5) Dementia in Alzheimer's disease with depression (6) Dementia in Alzheimer's disease with delusions MELANIE COSTELLO MD November 23, 2017 22:13
--- NOTE | 2017-11-24 00:54 | PN ---
DATE: 11/23/2017 NO DICTATION. MAN Glory COSTELLO MD DR: Satish JOB#: [id number] / [id number]
--- NOTE | 2017-11-24 01:07 | PN ---
DATE: 11/22/2017 This is a late entry for 11/22/2017 covers elements not covered in my initial note of 11/22/2017. SUBJECTIVE: I met with the patient evening of 11/22/2017. The patient slept 7 hours previous evening. She is somewhat resistive to medications, constantly moving in her wheelchair, restless. REVIEW OF SYSTEMS: Ambulation impaired. No CV, , pulmonary, eye, ENT system symptoms on review. Reliability poor. MENTAL STATUS EXAM: Oriented to herself. Insight, judgment, recent and remote memory, attention, concentration, fund of knowledge poor, consistent with her diagnosis mentioned in my initial note. PLAN: Continue psychotropics mentioned in my initial note. Valproic acid level therapeutic at 62. We will make further adjustments depending on her progress over the next day or so. MAN Glory COSTELLO MD DR: MATEO/richie JOB#: [id number] / [id number]
[2017-11-24 06:30] VITALS: BP 121/62
[2017-11-24] MEDS: LEVOTHYROXINE 25 MCG TABLET. PO SCH (07:00)
[2017-11-24] MEDS: risperiDONE 0.25 MG TABLET. PO SCH ×3 (09:00→16:55)
[2017-11-24] MEDS: ACETAMINOPHEN 325 MG TABLET PO SCH ×3 (09:00→20:20)
[2017-11-24] MEDS: FUROSEMIDE 20 MG TABLET PO SCH (09:00)
[2017-11-24] MEDS: DIVALPROEX 125 MG CAP.SPRINK PO SCH ×3 (09:00→20:21)
[2017-11-24] MEDS: traZODone 50 MG TABLET. PO SCH ×3 (09:00→16:55)
[2017-11-24] MEDS: busPIRone 5 MG TABLET. PO SCH ×2 (09:00→13:55)
[2017-11-24] MEDS: LACTOBACILLUS RHAMNOSUS GG 1 CAPSULE. PO SCH ×2 (09:00→20:20)
[2017-11-24] MEDS: metFORMIN 500 MG TABLET PO SCH (16:55)
[2017-11-24] MEDS: SERTRALINE 100 MG TABLET. PO SCH (16:55)
[2017-11-24 18:11] VITALS: BP 105/53
[2017-11-24] MEDS: MIRTAZAPINE 7.5 MG TABLET. PO SCH (20:20)
--- NOTE | 2017-11-24 20:42 | PDOC ---
Exam Note: [place] Note: Please also refer to the separate dictated note~for this date of service dictated separately.~Patient seen individually. Discussed the patient with Nursing staff reviewed the chart.~Reviewed interim history and current functioning. Reviewed vital signs,~Labs/ Radiology~and current medications noted below. Continue current treatment with the changes noted in the dictated addendum note Assessment: Vital Signs: Vital Signs Date Time Temp Pulse Resp B/P (MAP) Pulse Ox O2 Delivery O2 Flow Rate FiO2 11/24/17 18:11 97.9 76 18 105/53 (70) 100 11/24/17 06:30 Room Air I&O Intake and Output 11/24/17 07:00 Intake Total 720 ml Output Total 1 ml Balance 719 ml Intake Oral 720 ml Output Urine Total 1 ml Labs: Laboratory Tests Test 11/24/17 07:59 Glucose (Fingerstick) 94 mg/dL (70-99) Current Medications: Meds: Current Medications Haloperidol Lactate (Haldol) 5 mg STK-MED ONCE .ROUTE ; Start 10/22/17 at 19:51; Stop 10/22/17 at 19:52; Status DC Haloperidol Lactate (Haldol) 5 mg 1X ONCE IM Last administered on 10/22/17at 19: 56; Start 10/22/17 at 20:00; Stop 10/22/17 at 20:55; Status DC Lorazepam (Ativan) 1 mg 1X ONCE PO ; Start 10/22/17 at 20:15; Stop 10/22/17 at 20 :38; Status DC Cephalexin HCl (Keflex) 500 mg 1X ONCE PO Last administered on 10/22/17at 20:56 ; Start 10/22/17 at 21:00; Stop 10/22/17 at 21:01; Status DC Acetaminophen (Tylenol) 650 mg PRN Q6HRS PRN PO PAIN / TEMP Last administered on 10/26/17at 12:32; Start 10/22/17 at 22:00 Multi-Ingredient Ointment (Analgesic [place]) 1 dane PRN QID PRN TP MUSCLE PAIN; Start 10/22/17 at 22:00 Al Hydroxide/Mg Hydroxide (Mylanta Plus Xs) 15 ml PRN AFTMEALHC PRN PO DYSPEPSIA; Start 10/22/17 at 22:00 Magnesium Hydroxide (Milk Of Magnesia) 2,400 mg PRN QHS PRN PO CONSTIPATION Last administered on 10/25/17 07:58; Start 10/22/17 at 22:00 Lorazepam (Ativan) 0.5 mg PRN QID PRN PO ANXIETY Last administered on 16:57; Start 10/22/17 at 23:00 Quetiapine Fumarate (SEROquel) 25 mg TID PO Last administered on 10/23/17 19:53 ; Start 10/23/17 at 09:00; Stop 10/24/17 at 01:41; Status DC Quetiapine Fumarate (SEROquel) 50 mg QHS PO Last administered on 10/26/17 19: 46; Start 10/23/17 at 21:00; Stop 10/27/17 at 10:32; Status DC Trazodone HCl (Desyrel) 25 mg BID@1700,2100 PO Last administered on 10/25/17at 16:42; Start 10/23/17 at 17:00; Stop 10/25/17 at 18:24; Status DC Cefpodoxime Proxetil (Vantin) 200 mg BID PO Last administered on 10/31/17 20: 00; Start 10/23/17 at 21:00; Stop 10/31/17 at 21:00; Status DC Lactobacillus Rhamnosus (Culturelle) 1 cap BID PO Last administered on 20:20; Start 10/23/17 at 21:00 Olanzapine (ZyPREXA ZYDIS) 2.5 mg PRN Q2HR PRN PO A Last administered on at 09:43; Start 10/23/17 at 17:00 Mirtazapine (Remeron) 7.5 mg QHS PO Last administered on 11/24/17 20:20; Start 10/23/17 at 21:00 Quetiapine Fumarate (SEROquel) 25 mg TID@0900,1300,1700 PO Last administered on 10/27/17 09:02; Start 10/24/17 at 09:00; Stop 10/27/17 at 10:32; Status DC Vitamin D (Vitamin D3) 50,000 unit WEEKLY PO ; Start 10/24/17 at 18:00; Stop 10/24 at 18:00; Status DC Levothyroxine Sodium (Synthroid) 25 mcg DAILY07 PO Last administered on 06:21; Start 10/25/17 at 07:00 Vitamin D (Vitamin D3) 50,000 unit WEEKLY PO Last administered on 11/22/17at 07: 53; Start 10/25/17 at 09:00 Divalproex Sodium (Depakote Sprinkles) 125 mg BID@0900,1300 PO Last administered on 10/29/17at 14:55; Start 10/25/17 at 09:00; Stop 10/29/17 at 18:18 ; Status DC Trazodone HCl (Desyrel) 25 mg TID@0900,1300,1700 PO Last administered on 16:55; Start 10/26/17 at 09:00 Acetaminophen (Tylenol) 650 mg TID PO Last administered on 11/24/17 20:20; Start 10/26/17 at 21:00 Metformin HCl (Glucophage) 500 mg BIDWMEALS PO Last administered on 11/24/17 16:55; Start 10/27/17 at 08:00 Risperidone (RisperDAL) 0.125 mg TID@0900,1300,1700 PO Last administered on at 18:31; Start 10/27/17 at 13:00; Stop 10/31/17 at 19:23; Status DC Divalproex Sodium (Depakote Sprinkles) 125 mg QID PO Last administered on at 16:51; Start 10/29/17 at 21:00; Stop 11/01/17 at 18:38; Status DC Risperidone (RisperDAL) 0.125 mg BID@0900,1300 PO Last administered on at 09:26; Start 11/01/17 at 09:00; Stop 11/03/17 at 11:28; Status DC Risperidone (RisperDAL) 0.25 mg DAILY@1700 PO Last administered on 11/02/17at 16 :37; Start 11/01/17 at 17:00; Stop 11/03/17 at 11:28; Status DC Divalproex Sodium (Depakote Sprinkles) 125 mg TID@0900,1300,1700 PO ; Start at 09:00; Stop 11/02/17 at 09:00; Status DC Divalproex Sodium (Depakote Sprinkles) 250 mg TID@0900,1300,1700 PO Last administered on 11/04/17at 16:24; Start 11/02/17 at 09:00; Stop 11/04/17 at 18:07 ; Status DC Risperidone (RisperDAL) 0.25 mg TID@0900,1300,1700 PO Last administered on 11/24at 16:55; Start 11/03/17 at 13:00 Divalproex Sodium (Depakote Sprinkles) 375 mg TID@0900,1300,1700 PO Last administered on 11/08/17at 17:20; Start 11/05/17 at 09:00; Stop 11/08/17 at 19:21 ; Status DC Divalproex Sodium (Depakote Sprinkles) 375 mg BID@0900,1700 PO ; Start 11/09/17 at 09:00; Stop 11/09/17 at 09:06; Status DC Divalproex Sodium (Depakote Sprinkles) 375 mg DAILY@1300 PO Last administered on 11/11/17at 14:06; Start 11/09/17 at 13:00; Stop 11/11/17 at 18:54; Status DC Divalproex Sodium (Depakote Sprinkles) 500 mg BID@0900,1700 PO Last administered on 11/11/17at 17:40; Start 11/09/17 at 09:05; Stop 11/11/17 at 18:54 ; Status DC Divalproex Sodium (Depakote Sprinkles) 500 mg BID@1300,2100 PO Last administered on 11/24/17at 20:21; Start 11/11/17 at 21:00 Divalproex Sodium (Depakote Sprinkles) 625 mg DAILY@0900 PO Last administered on 11/23/17at 09:27; Start 11/12/17 at 09:00 Sertraline HCl (Zoloft) 25 mg DAILY@1700 PO Last administered on 11/14/17at 18: 11; Start 11/12/17 at 17:00; Stop 11/15/17 at 16:59; Status DC Sertraline HCl (Zoloft) 50 mg DAILY@1700 PO Last administered on 11/17/17at 17:17 ; Start 11/15/17 at 17:00; Stop 11/17/17 at 23:30; Status DC Sertraline HCl (Zoloft) 75 mg 1700 PO Last administered on 11/20/17at 18:40; Start 11/18/17 at 17:00; Stop 11/20/17 at 19:20; Status DC Furosemide (Lasix) 20 mg DAILY PO Last administered on 11/23/17at 09:27; Start at 09:00 Sertraline HCl (Zoloft) 100 mg 1700 PO Last administered on 11/24/17at 16:55; Start 11/21/17 at 17:00 Buspirone HCl (Buspar) 5 mg 0900,1300 PO Last administered on 11/24/17at 13:55; Start 11/24/17 at 09:00 Active Scripts Active Reported Seroquel (Quetiapine Fumarate) 50 Mg Tablet 50 Mg PO Seroquel (Quetiapine Fumarate) 25 Mg Tablet 25 Mg PO TID Seroquel (Quetiapine Fumarate) 50 Mg Tablet 50 Mg PO QHS Lorazepam 0.5 Mg Tablet 0.5 Mg PO PRN QID PRN Bisacodyl 5 Mg Tablet.dr 10 Mg PO PRN DAILY PRN Tylenol (Acetaminophen) 325 Mg Tablet 325 Mg PO PRN Q6HRS PRN Tylenol (Acetaminophen) 325 Mg Tablet 325 Mg PO PRN Q6HRS PRN Milk Of Magnesia (Magnesium Hydroxide) 2,400 Mg/10 Ml Oral.susp 2,400 Mg PO PRN Q4HRS PRN Furosemide 20 Mg Tablet 20 Mg PO DAILY Furosemide 20 Mg Tablet 1 Tab PO DAILY Potassium Chloride 10 Meq Tablet.er 10 Meq PO DAILY Vitamin D3 (Cholecalciferol (Vitamin D3)) 1,000 Unit Tablet 1,000 Unit PO DAILY B-12 (Cyanocobalamin (Vitamin B-12)) 1,000 Mcg Tablet.er 1,000 Mcg PO DAILY Aspirin Ec (Aspirin) 81 Mg Tablet.dr 81 Mg PO DAILY Trazodone Hcl 50 Mg Tablet 25 Mg PO BID@1700,2100 Keppra (Levetiracetam) 500 Mg Tablet 500 Mg PO BID Metformin Hcl 500 Mg Tablet 500 Mg PO BIDWMEALS I have reviewed the current psychotropics carefully including drug interactions. Risk benefit ratio favors no change other than as noted in my dictated progress note. Diagnosis: Problems: (1) Anxiety disorder (2) Impulse control disorder (3) Dementia, vascular, with depression (4) Dementia, vascular, with delusions (5) Dementia in Alzheimer's disease with depression (6) Dementia in Alzheimer's disease with delusions MELANIE COSTELLO MD November 24, 2017 20:42
[2017-11-25 05:25] VITALS: BP 138/66
[2017-11-25] MEDS: LEVOTHYROXINE 25 MCG TABLET. PO SCH (05:45)
[2017-11-25] MEDS: risperiDONE 0.25 MG TABLET. PO SCH ×3 (09:39→17:30)
[2017-11-25] MEDS: metFORMIN 500 MG TABLET PO SCH ×2 (09:39→17:30)
[2017-11-25] MEDS: ACETAMINOPHEN 325 MG TABLET PO SCH ×3 (09:39→20:13)
[2017-11-25] MEDS: LACTOBACILLUS RHAMNOSUS GG 1 CAPSULE. PO SCH ×2 (09:40→20:13)
[2017-11-25] MEDS: DIVALPROEX 125 MG CAP.SPRINK PO SCH ×3 (09:40→20:13)
[2017-11-25] MEDS: traZODone 50 MG TABLET. PO SCH ×3 (09:40→17:30)
[2017-11-25] MEDS: FUROSEMIDE 20 MG TABLET PO SCH (09:40)
[2017-11-25] MEDS: busPIRone 5 MG TABLET. PO SCH ×2 (09:40→13:15)
[2017-11-25 16:29] VITALS: BP 107/49
[2017-11-25] MEDS: SERTRALINE 100 MG TABLET. PO SCH (17:30)
[2017-11-25] MEDS: MIRTAZAPINE 7.5 MG TABLET. PO SCH (20:13)
--- NOTE | 2017-11-25 20:42 | PDOC ---
Exam Note: [place] Note: Please also refer to the separate dictated note~for this date of service dictated separately.~Patient seen individually. Discussed the patient with Nursing staff reviewed the chart.~Reviewed interim history and current functioning. Reviewed vital signs,~Labs/ Radiology~and current medications noted below. Continue current treatment with the changes noted in the dictated addendum note Assessment: Vital Signs: Vital Signs Date Time Temp Pulse Resp B/P (MAP) Pulse Ox O2 Delivery O2 Flow Rate FiO2 11/25/17 16:29 95.7 73 19 107/49 (68) 96 11/24/17 06:30 Room Air I&O Intake and Output 11/25/17 07:00 Intake Total 1080 ml Balance 1080 ml Intake Oral 1080 ml Labs: Laboratory Tests Test 11/25/17 07:39 Glucose (Fingerstick) 96 mg/dL (70-99) Current Medications: Meds: Current Medications Haloperidol Lactate (Haldol) 5 mg STK-MED ONCE .ROUTE ; Start 10/22/17 at 19:51; Stop 10/22/17 at 19:52; Status DC Haloperidol Lactate (Haldol) 5 mg 1X ONCE IM Last administered on 10/22/17at 19: 56; Start 10/22/17 at 20:00; Stop 10/22/17 at 20:55; Status DC Lorazepam (Ativan) 1 mg 1X ONCE PO ; Start 10/22/17 at 20:15; Stop 10/22/17 at 20 :38; Status DC Cephalexin HCl (Keflex) 500 mg 1X ONCE PO Last administered on 10/22/17at 20:56 ; Start 10/22/17 at 21:00; Stop 10/22/17 at 21:01; Status DC Acetaminophen (Tylenol) 650 mg PRN Q6HRS PRN PO PAIN / TEMP Last administered on 10/26/17at 12:32; Start 10/22/17 at 22:00 Multi-Ingredient Ointment (Analgesic [place]) 1 dane PRN QID PRN TP MUSCLE PAIN; Start 10/22/17 at 22:00 Al Hydroxide/Mg Hydroxide (Mylanta Plus Xs) 15 ml PRN AFTMEALHC PRN PO DYSPEPSIA; Start 10/22/17 at 22:00 Magnesium Hydroxide (Milk Of Magnesia) 2,400 mg PRN QHS PRN PO CONSTIPATION Last administered on 10/25/17 07:58; Start 10/22/17 at 22:00 Lorazepam (Ativan) 0.5 mg PRN QID PRN PO ANXIETY Last administered on 16:57; Start 10/22/17 at 23:00 Quetiapine Fumarate (SEROquel) 25 mg TID PO Last administered on 10/23/17 19:53 ; Start 10/23/17 at 09:00; Stop 10/24/17 at 01:41; Status DC Quetiapine Fumarate (SEROquel) 50 mg QHS PO Last administered on 10/26/17 19: 46; Start 10/23/17 at 21:00; Stop 10/27/17 at 10:32; Status DC Trazodone HCl (Desyrel) 25 mg BID@1700,2100 PO Last administered on 10/25/17 16:42; Start 10/23/17 at 17:00; Stop 10/25/17 at 18:24; Status DC Cefpodoxime Proxetil (Vantin) 200 mg BID PO Last administered on 10/31/17 20: 00; Start 10/23/17 at 21:00; Stop 10/31/17 at 21:00; Status DC Lactobacillus Rhamnosus (Culturelle) 1 cap BID PO Last administered on 20:13; Start 10/23/17 at 21:00 Olanzapine (ZyPREXA ZYDIS) 2.5 mg PRN Q2HR PRN PO A Last administered on 09:43; Start 10/23/17 at 17:00 Mirtazapine (Remeron) 7.5 mg QHS PO Last administered on 11/25/17 20:13; Start 10/23/17 at 21:00 Quetiapine Fumarate (SEROquel) 25 mg TID@0900,1300,1700 PO Last administered on 10/27/17 09:02; Start 10/24/17 at 09:00; Stop 10/27/17 at 10:32; Status DC Vitamin D (Vitamin D3) 50,000 unit WEEKLY PO ; Start 10/24/17 at 18:00; Stop 10/24 at 18:00; Status DC Levothyroxine Sodium (Synthroid) 25 mcg DAILY07 PO Last administered on at 05:45; Start 10/25/17 at 07:00 Vitamin D (Vitamin D3) 50,000 unit WEEKLY PO Last administered on 11/22/17at 07: 53; Start 10/25/17 at 09:00 Divalproex Sodium (Depakote Sprinkles) 125 mg BID@0900,1300 PO Last administered on 10/29/17at 14:55; Start 10/25/17 at 09:00; Stop 10/29/17 at 18:18 ; Status DC Trazodone HCl (Desyrel) 25 mg TID@0900,1300,1700 PO Last administered on 17:30; Start 10/26/17 at 09:00 Acetaminophen (Tylenol) 650 mg TID PO Last administered on 11/25/17at 20:13; Start 10/26/17 at 21:00 Metformin HCl (Glucophage) 500 mg BIDWMEALS PO Last administered on 11/25/17 17:30; Start 10/27/17 at 08:00 Risperidone (RisperDAL) 0.125 mg TID@0900,1300,1700 PO Last administered on at 18:31; Start 10/27/17 at 13:00; Stop 10/31/17 at 19:23; Status DC Divalproex Sodium (Depakote Sprinkles) 125 mg QID PO Last administered on at 16:51; Start 10/29/17 at 21:00; Stop 11/01/17 at 18:38; Status DC Risperidone (RisperDAL) 0.125 mg BID@0900,1300 PO Last administered on at 09:26; Start 11/01/17 at 09:00; Stop 11/03/17 at 11:28; Status DC Risperidone (RisperDAL) 0.25 mg DAILY@1700 PO Last administered on 11/02/17at 16 :37; Start 11/01/17 at 17:00; Stop 11/03/17 at 11:28; Status DC Divalproex Sodium (Depakote Sprinkles) 125 mg TID@0900,1300,1700 PO ; Start at 09:00; Stop 11/02/17 at 09:00; Status DC Divalproex Sodium (Depakote Sprinkles) 250 mg TID@0900,1300,1700 PO Last administered on 11/04/17at 16:24; Start 11/02/17 at 09:00; Stop 11/04/17 at 18:07 ; Status DC Risperidone (RisperDAL) 0.25 mg TID@0900,1300,1700 PO Last administered on 11/25at 17:30; Start 11/03/17 at 13:00 Divalproex Sodium (Depakote Sprinkles) 375 mg TID@0900,1300,1700 PO Last administered on 11/08/17at 17:20; Start 11/05/17 at 09:00; Stop 11/08/17 at 19:21 ; Status DC Divalproex Sodium (Depakote Sprinkles) 375 mg BID@0900,1700 PO ; Start 11/09/17 at 09:00; Stop 11/09/17 at 09:06; Status DC Divalproex Sodium (Depakote Sprinkles) 375 mg DAILY@1300 PO Last administered on 11/11/17at 14:06; Start 11/09/17 at 13:00; Stop 11/11/17 at 18:54; Status DC Divalproex Sodium (Depakote Sprinkles) 500 mg BID@0900,1700 PO Last administered on 11/11/17at 17:40; Start 11/09/17 at 09:05; Stop 11/11/17 at 18:54 ; Status DC Divalproex Sodium (Depakote Sprinkles) 500 mg BID@1300,2100 PO Last administered on 11/25/17at 20:13; Start 11/11/17 at 21:00 Divalproex Sodium (Depakote Sprinkles) 625 mg DAILY@0900 PO Last administered on 11/25/17at 09:40; Start 11/12/17 at 09:00 Sertraline HCl (Zoloft) 25 mg DAILY@1700 PO Last administered on 11/14/17at 18: 11; Start 11/12/17 at 17:00; Stop 11/15/17 at 16:59; Status DC Sertraline HCl (Zoloft) 50 mg DAILY@1700 PO Last administered on 11/17/17at 17:17 ; Start 11/15/17 at 17:00; Stop 11/17/17 at 23:30; Status DC Sertraline HCl (Zoloft) 75 mg 1700 PO Last administered on 11/20/17at 18:40; Start 11/18/17 at 17:00; Stop 11/20/17 at 19:20; Status DC Furosemide (Lasix) 20 mg DAILY PO Last administered on 11/25/17at 09:40; Start 11/18/17 at 09:00 Sertraline HCl (Zoloft) 100 mg 1700 PO Last administered on 11/25/17at 17:30; Start 11/21/17 at 17:00 Buspirone HCl (Buspar) 5 mg 0900,1300 PO Last administered on 11/25/17at 13:15; Start 11/24/17 at 09:00 Active Scripts Active Reported Seroquel (Quetiapine Fumarate) 50 Mg Tablet 50 Mg PO Seroquel (Quetiapine Fumarate) 25 Mg Tablet 25 Mg PO TID Seroquel (Quetiapine Fumarate) 50 Mg Tablet 50 Mg PO QHS Lorazepam 0.5 Mg Tablet 0.5 Mg PO PRN QID PRN Bisacodyl 5 Mg Tablet.dr 10 Mg PO PRN DAILY PRN Tylenol (Acetaminophen) 325 Mg Tablet 325 Mg PO PRN Q6HRS PRN Tylenol (Acetaminophen) 325 Mg Tablet 325 Mg PO PRN Q6HRS PRN Milk Of Magnesia (Magnesium Hydroxide) 2,400 Mg/10 Ml Oral.susp 2,400 Mg PO PRN Q4HRS PRN Furosemide 20 Mg Tablet 20 Mg PO DAILY Furosemide 20 Mg Tablet 1 Tab PO DAILY Potassium Chloride 10 Meq Tablet.er 10 Meq PO DAILY Vitamin D3 (Cholecalciferol (Vitamin D3)) 1,000 Unit Tablet 1,000 Unit PO DAILY B-12 (Cyanocobalamin (Vitamin B-12)) 1,000 Mcg Tablet.er 1,000 Mcg PO DAILY Aspirin Ec (Aspirin) 81 Mg Tablet.dr 81 Mg PO DAILY Trazodone Hcl 50 Mg Tablet 25 Mg PO BID@1700,2100 Keppra (Levetiracetam) 500 Mg Tablet 500 Mg PO BID Metformin Hcl 500 Mg Tablet 500 Mg PO BIDWMEALS I have reviewed the current psychotropics carefully including drug interactions. Risk benefit ratio favors no change other than as noted in my dictated progress note. Diagnosis: Problems: (1) Anxiety disorder (2) Impulse control disorder (3) Dementia, vascular, with depression (4) Dementia, vascular, with delusions (5) Dementia in Alzheimer's disease with depression (6) Dementia in Alzheimer's disease with delusions MELANIE COSTELLO MD November 25, 2017 20:42
[2017-11-26 05:43] VITALS: BP 102/47
[2017-11-26 05:46] VITALS: BP 102/47
[2017-11-26] MEDS: LEVOTHYROXINE 25 MCG TABLET. PO SCH (05:56)
[2017-11-26 08:34] LABS: HEMATOCRIT 31.5 % (36.0-47.0); HEMOGLOBIN 10.6 g/dL (12.0-15.5); RED BLOOD COUNT 3.53 x10^6/uL (3.50-5.40); RED CELL DISTRIBUTION WIDTH 14.9 % (11.5-14.5); WHITE BLOOD COUNT 6.2 x10^3/uL (4.0-11.0)
[2017-11-26 08:55] LABS: ALBUMIN 2.8 g/dL (3.4-5.0); ALBUMIN/GLOBULIN RATIO 0.7 (1.0-1.7); CALCIUM 8.8 mg/dL (8.5-10.1); CREATININE 0.9 mg/dL (0.6-1.0); GFR 60.6; POTASSIUM 4.6 mmol/L (3.5-5.1); TOTAL BILIRUBIN 0.3 mg/dL (0.2-1.0); TOTAL PROTEIN 6.8 g/dL (6.4-8.2)
[2017-11-26] MEDS: LACTOBACILLUS RHAMNOSUS GG 1 CAPSULE. PO SCH ×2 (09:11→19:55)
[2017-11-26] MEDS: FUROSEMIDE 20 MG TABLET PO SCH (09:11)
[2017-11-26] MEDS: metFORMIN 500 MG TABLET PO SCH ×2 (09:11→18:15)
[2017-11-26] MEDS: ACETAMINOPHEN 325 MG TABLET PO SCH ×3 (09:11→19:55)
[2017-11-26] MEDS: risperiDONE 0.25 MG TABLET. PO SCH ×3 (09:11→18:16)
[2017-11-26] MEDS: busPIRone 5 MG TABLET. PO SCH ×2 (09:11→13:56)
[2017-11-26] MEDS: DIVALPROEX 125 MG CAP.SPRINK PO SCH ×3 (09:11→19:56)
[2017-11-26] MEDS: traZODone 50 MG TABLET. PO SCH ×3 (09:11→18:15)
--- NOTE | 2017-11-26 11:13 | PN ---
DATE: 11/23/2017 PSYCHIATRIC PROGRESS NOTE This is a late entry 11/23/2017, covers elements not covered in my initial note 11/23/2017. SUBJECTIVE: I met with the patient the evening of 11/23/2017. The patient slept 5-3/4 hours, refused the medications the day before. Morning of 11/23/2017 she was calm, answering questions, almost coherent at times, but then agitated, intermittently psychotic, very anxious, up and down the hallway in her wheelchair. REVIEW OF SYSTEMS: Ambulation impaired. No CV, , pulmonary, eye, ENT system symptoms on review. Reliability poor. MENTAL STATUS EXAM: Oriented to herself. Insight, judgment, recent and remote memory, attention, concentration, fund of knowledge poor, consistent with her diagnoses mentioned in my initial note. PLAN: Continue current psychotropics. Adjust Risperdal further as clinically indicated. MAN Glory COSTELLO MD DR: MATEO/richie JOB#: [id number] / [id number]
--- NOTE | 2017-11-26 11:34 | PN ---
DATE: 11/24/2017 This late entry, 11/24/2017, covers elements not covered in my initial note of 11/24/2017. SUBJECTIVE: The patient was staffed at treatment team meeting with the entire team in the morning and seen individually in the evening. She slept 6-1/2 hours. We tried to get the [facility] to join us at the treatment team meeting as arranged, but they were not available. REVIEW OF SYSTEMS: Ambulation impaired, in wheelchair. No CV, , pulmonary, eye, ENT system symptoms on review. She is combative with showers in the morning, but the shower was a cold shower and this was understandable. MENTAL STATUS EXAM: Oriented to herself. Insight, judgment, recent and remote memory, attention, concentration, and fund of knowledge poor, consistent with her diagnosis mentioned in my initial note. PLAN: Continue current psychotropics. Repeat valproic acid level is 62. May need to increase Risperdal further, but for now, it seems adequate. MELANIE COSTELLO MD DR: MATEO/richie JOB#: [id number] / [id number]
[2017-11-26 16:02] VITALS: BP 126/58
[2017-11-26] MEDS: SERTRALINE 100 MG TABLET. PO SCH (18:15)
[2017-11-26] MEDS: MIRTAZAPINE 7.5 MG TABLET. PO SCH (19:55)
--- NOTE | 2017-11-26 22:46 | PDOC ---
Exam Note: [place] Note: Please also refer to the separate dictated note~for this date of service dictated separately.~Patient seen individually. Discussed the patient with Nursing staff reviewed the chart.~Reviewed interim history and current functioning. Reviewed vital signs,~Labs/ Radiology~and current medications noted below. Continue current treatment with the changes noted in the dictated addendum note Assessment: Vital Signs: Vital Signs Date Time Temp Pulse Resp B/P (MAP) Pulse Ox O2 Delivery O2 Flow Rate FiO2 11/26/17 16:02 97.7 77 20 126/58 (80) 99 11/24/17 06:30 Room Air I&O Intake and Output 11/26/17 07:00 Intake Total 960 ml Balance 960 ml Intake Oral 960 ml # Voids 1 # Bowel Movements 1 Labs: Laboratory Tests Test 11/26/17 07:50 11/26/17 08:03 White Blood Count 6.2 x10^3/uL (4.0-11.0) Red Blood Count 3.53 x10^6/uL (3.50-5.40) Hemoglobin 10.6 g/dL (12.0-15.5) L Hematocrit 31.5 % (36.0-47.0) L Mean Corpuscular Volume 89 fL (79-100) Mean Corpuscular Hemoglobin 30 pg (25-35) Mean Corpuscular Hemoglobin Concent 34 g/dL (31-37) Red Cell Distribution Width 14.9 % (11.5-14.5) H Platelet Count 243 x10^3/uL (140-400) Sodium Level 139 mmol/L (136-145) Potassium Level 4.6 mmol/L (3.5-5.1) Chloride Level 102 mmol/L (98-107) Carbon Dioxide Level 32 mmol/L (21-32) Anion Gap 5 (6-14) L Blood Urea Nitrogen 36 mg/dL (7-20) H Creatinine 0.9 mg/dL (0.6-1.0) Estimated GFR (Cockcroft-Gault) 60.6 BUN/Creatinine Ratio 40 (6-20) H Glucose Level 86 mg/dL (70-99) Calcium Level 8.8 mg/dL (8.5-10.1) Total Bilirubin 0.3 mg/dL (0.2-1.0) Aspartate Amino Transferase (AST) 23 U/L (15-37) Alanine Aminotransferase (ALT) 21 U/L (14-59) Alkaline Phosphatase 68 U/L (46-116) Total Protein 6.8 g/dL (6.4-8.2) Albumin 2.8 g/dL (3.4-5.0) L Albumin/Globulin Ratio 0.7 (1.0-1.7) L Glucose (Fingerstick) 85 mg/dL (70-99) Current Medications: Meds: Current Medications Haloperidol Lactate (Haldol) 5 mg STK-MED ONCE .ROUTE ; Start 10/22/17 at 19:51; Stop 10/22/17 at 19:52; Status DC Haloperidol Lactate (Haldol) 5 mg 1X ONCE IM Last administered on 10/22/17at 19: 56; Start 10/22/17 at 20:00; Stop 10/22/17 at 20:55; Status DC Lorazepam (Ativan) 1 mg 1X ONCE PO ; Start 10/22/17 at 20:15; Stop 10/22/17 at 20 :38; Status DC Cephalexin HCl (Keflex) 500 mg 1X ONCE PO Last administered on 10/22/17at 20:56 ; Start 10/22/17 at 21:00; Stop 10/22/17 at 21:01; Status DC Acetaminophen (Tylenol) 650 mg PRN Q6HRS PRN PO PAIN / TEMP Last administered on 10/26/17at 12:32; Start 10/22/17 at 22:00 Multi-Ingredient Ointment (Analgesic [place]) 1 dane PRN QID PRN TP MUSCLE PAIN; Start 10/22/17 at 22:00 Al Hydroxide/Mg Hydroxide (Mylanta Plus Xs) 15 ml PRN AFTMEALHC PRN PO DYSPEPSIA; Start 10/22/17 at 22:00 Magnesium Hydroxide (Milk Of Magnesia) 2,400 mg PRN QHS PRN PO CONSTIPATION Last administered on 10/25/17at 07:58; Start 10/22/17 at 22:00 Lorazepam (Ativan) 0.5 mg PRN QID PRN PO ANXIETY Last administered on at 16:57; Start 10/22/17 at 23:00 Quetiapine Fumarate (SEROquel) 25 mg TID PO Last administered on 10/23/17 19:53 ; Start 10/23/17 at 09:00; Stop 10/24/17 at 01:41; Status DC Quetiapine Fumarate (SEROquel) 50 mg QHS PO Last administered on 10/26/17at 19: 46; Start 10/23/17 at 21:00; Stop 10/27/17 at 10:32; Status DC Trazodone HCl (Desyrel) 25 mg BID@1700,2100 PO Last administered on 10/25/17 16:42; Start 10/23/17 at 17:00; Stop 10/25/17 at 18:24; Status DC Cefpodoxime Proxetil (Vantin) 200 mg BID PO Last administered on 10/31/17 20: 00; Start 10/23/17 at 21:00; Stop 10/31/17 at 21:00; Status DC Lactobacillus Rhamnosus (Culturelle) 1 cap BID PO Last administered on 19:55; Start 10/23/17 at 21:00 Olanzapine (ZyPREXA ZYDIS) 2.5 mg PRN Q2HR PRN PO A Last administered on 09:43; Start 10/23/17 at 17:00 Mirtazapine (Remeron) 7.5 mg QHS PO Last administered on 11/26/17 19:55; Start 10/23/17 at 21:00 Quetiapine Fumarate (SEROquel) 25 mg TID@0900,1300,1700 PO Last administered on 10/27/17 09:02; Start 10/24/17 at 09:00; Stop 10/27/17 at 10:32; Status DC Vitamin D (Vitamin D3) 50,000 unit WEEKLY PO ; Start 10/24/17 at 18:00; Stop 10/24 at 18:00; Status DC Levothyroxine Sodium (Synthroid) 25 mcg DAILY07 PO Last administered on 05:56; Start 10/25/17 at 07:00 Vitamin D (Vitamin D3) 50,000 unit WEEKLY PO Last administered on 11/22/17 07: 53; Start 10/25/17 at 09:00 Divalproex Sodium (Depakote Sprinkles) 125 mg BID@0900,1300 PO Last administered on 10/29/17at 14:55; Start 10/25/17 at 09:00; Stop 10/29/17 at 18:18 ; Status DC Trazodone HCl (Desyrel) 25 mg TID@0900,1300,1700 PO Last administered on at 18:15; Start 10/26/17 at 09:00; Stop 11/26/17 at 20:18; Status DC Acetaminophen (Tylenol) 650 mg TID PO Last administered on 11/26/17at 19:55; Start 10/26/17 at 21:00 Metformin HCl (Glucophage) 500 mg BIDWMEALS PO Last administered on 11/26/17 18:15; Start 10/27/17 at 08:00 Risperidone (RisperDAL) 0.125 mg TID@0900,1300,1700 PO Last administered on at 18:31; Start 10/27/17 at 13:00; Stop 10/31/17 at 19:23; Status DC Divalproex Sodium (Depakote Sprinkles) 125 mg QID PO Last administered on at 16:51; Start 10/29/17 at 21:00; Stop 11/01/17 at 18:38; Status DC Risperidone (RisperDAL) 0.125 mg BID@0900,1300 PO Last administered on at 09:26; Start 11/01/17 at 09:00; Stop 11/03/17 at 11:28; Status DC Risperidone (RisperDAL) 0.25 mg DAILY@1700 PO Last administered on 11/02/17at 16 :37; Start 11/01/17 at 17:00; Stop 11/03/17 at 11:28; Status DC Divalproex Sodium (Depakote Sprinkles) 125 mg TID@0900,1300,1700 PO ; Start at 09:00; Stop 11/02/17 at 09:00; Status DC Divalproex Sodium (Depakote Sprinkles) 250 mg TID@0900,1300,1700 PO Last administered on 11/04/17at 16:24; Start 11/02/17 at 09:00; Stop 11/04/17 at 18:07 ; Status DC Risperidone (RisperDAL) 0.25 mg TID@0900,1300,1700 PO Last administered on 11/26at 18:16; Start 11/03/17 at 13:00 Divalproex Sodium (Depakote Sprinkles) 375 mg TID@0900,1300,1700 PO Last administered on 11/08/17at 17:20; Start 11/05/17 at 09:00; Stop 11/08/17 at 19:21 ; Status DC Divalproex Sodium (Depakote Sprinkles) 375 mg BID@0900,1700 PO ; Start 11/09/17 at 09:00; Stop 11/09/17 at 09:06; Status DC Divalproex Sodium (Depakote Sprinkles) 375 mg DAILY@1300 PO Last administered on 11/11/17at 14:06; Start 11/09/17 at 13:00; Stop 11/11/17 at 18:54; Status DC Divalproex Sodium (Depakote Sprinkles) 500 mg BID@0900,1700 PO Last administered on 11/11/17at 17:40; Start 11/09/17 at 09:05; Stop 11/11/17 at 18:54 ; Status DC Divalproex Sodium (Depakote Sprinkles) 500 mg BID@1300,2100 PO Last administered on 11/26/17at 19:56; Start 11/11/17 at 21:00 Divalproex Sodium (Depakote Sprinkles) 625 mg DAILY@0900 PO Last administered on 11/26/17at 09:11; Start 11/12/17 at 09:00 Sertraline HCl (Zoloft) 25 mg DAILY@1700 PO Last administered on 11/14/17 18: 11; Start 11/12/17 at 17:00; Stop 11/15/17 at 16:59; Status DC Sertraline HCl (Zoloft) 50 mg DAILY@1700 PO Last administered on 11/17/17 17:17 ; Start 11/15/17 at 17:00; Stop 11/17/17 at 23:30; Status DC Sertraline HCl (Zoloft) 75 mg 1700 PO Last administered on 11/20/17at 18:40; Start 11/18/17 at 17:00; Stop 11/20/17 at 19:20; Status DC Furosemide (Lasix) 20 mg DAILY PO Last administered on 11/26/17at 09:11; Start 11/18/17 at 09:00 Sertraline HCl (Zoloft) 100 mg 1700 PO Last administered on 11/26/17at 18:15; Start 11/21/17 at 17:00 Buspirone HCl (Buspar) 5 mg 0900,1300 PO Last administered on 11/26/17at 13:56; Start 11/24/17 at 09:00 Trazodone HCl (Desyrel) 25 mg BID@1300,1700 PO ; Start 11/27/17 at 13:00 Trazodone HCl (Desyrel) 37.5 mg DAILY PO ; Start 11/27/17 at 09:00 Active Scripts Active Reported Seroquel (Quetiapine Fumarate) 50 Mg Tablet 50 Mg PO Seroquel (Quetiapine Fumarate) 25 Mg Tablet 25 Mg PO TID Seroquel (Quetiapine Fumarate) 50 Mg Tablet 50 Mg PO QHS Lorazepam 0.5 Mg Tablet 0.5 Mg PO PRN QID PRN Bisacodyl 5 Mg Tablet.dr 10 Mg PO PRN DAILY PRN Tylenol (Acetaminophen) 325 Mg Tablet 325 Mg PO PRN Q6HRS PRN Tylenol (Acetaminophen) 325 Mg Tablet 325 Mg PO PRN Q6HRS PRN Milk Of Magnesia (Magnesium Hydroxide) 2,400 Mg/10 Ml Oral.susp 2,400 Mg PO PRN Q4HRS PRN Furosemide 20 Mg Tablet 20 Mg PO DAILY Furosemide 20 Mg Tablet 1 Tab PO DAILY Potassium Chloride 10 Meq Tablet.er 10 Meq PO DAILY Vitamin D3 (Cholecalciferol (Vitamin D3)) 1,000 Unit Tablet 1,000 Unit PO DAILY B-12 (Cyanocobalamin (Vitamin B-12)) 1,000 Mcg Tablet.er 1,000 Mcg PO DAILY Aspirin Ec (Aspirin) 81 Mg Tablet.dr 81 Mg PO DAILY Trazodone Hcl 50 Mg Tablet 25 Mg PO BID@1700,2100 Keppra (Levetiracetam) 500 Mg Tablet 500 Mg PO BID Metformin Hcl 500 Mg Tablet 500 Mg PO BIDWMEALS I have reviewed the current psychotropics carefully including drug interactions. Risk benefit ratio favors no change other than as noted in my dictated progress note. Diagnosis: Problems: (1) Anxiety disorder (2) Impulse control disorder (3) Dementia, vascular, with depression (4) Dementia, vascular, with delusions (5) Dementia in Alzheimer's disease with depression (6) Dementia in Alzheimer's disease with delusions MELANIE COSTELLO MD November 26, 2017 22:46
[2017-11-27 05:28] VITALS: BP 111/58
[2017-11-27] MEDS: LEVOTHYROXINE 25 MCG TABLET. PO SCH (06:10)
[2017-11-27] MEDS: ACETAMINOPHEN 325 MG TABLET PO SCH ×3 (07:40→20:33)
[2017-11-27] MEDS: FUROSEMIDE 20 MG TABLET PO SCH (07:40)
[2017-11-27] MEDS: LACTOBACILLUS RHAMNOSUS GG 1 CAPSULE. PO SCH ×2 (07:41→20:32)
[2017-11-27] MEDS: risperiDONE 0.25 MG TABLET. PO SCH ×3 (07:41→17:00)
[2017-11-27] MEDS: DIVALPROEX 125 MG CAP.SPRINK PO SCH ×3 (07:41→20:33)
[2017-11-27] MEDS: busPIRone 5 MG TABLET. PO SCH ×2 (07:41→15:34)
[2017-11-27] MEDS: metFORMIN 500 MG TABLET PO SCH ×2 (07:41→17:00)
[2017-11-27] MEDS: traZODone 50 MG TABLET. PO SCH ×3 (07:43→17:00)
[2017-11-27 16:40] VITALS: BP 165/85
[2017-11-27] MEDS: SERTRALINE 100 MG TABLET. PO SCH (17:00)
[2017-11-27] MEDS: MIRTAZAPINE 7.5 MG TABLET. PO SCH (20:32)
--- NOTE | 2017-11-27 20:44 | PDOC ---
Exam Note: [place] Note: Please also refer to the separate dictated note~for this date of service dictated separately.~Patient seen individually. Discussed the patient with Nursing staff reviewed the chart.~Reviewed interim history and current functioning. Reviewed vital signs,~Labs/ Radiology~and current medications noted below. Continue current treatment with the changes noted in the dictated addendum note Assessment: Vital Signs: Vital Signs Date Time Temp Pulse Resp B/P (MAP) Pulse Ox O2 Delivery O2 Flow Rate FiO2 11/27/17 16:40 97.8 74 20 165/85 (111) 99 11/24/17 06:30 Room Air I&O Intake and Output 11/27/17 07:00 Intake Total 840 ml Balance 840 ml Intake Oral 840 ml # Voids 4 Labs: Laboratory Tests Test 11/27/17 07:33 Glucose (Fingerstick) 80 mg/dL (70-99) Current Medications: Meds: Current Medications Haloperidol Lactate (Haldol) 5 mg STK-MED ONCE .ROUTE ; Start 10/22/17 at 19:51; Stop 10/22/17 at 19:52; Status DC Haloperidol Lactate (Haldol) 5 mg 1X ONCE IM Last administered on 10/22/17at 19: 56; Start 10/22/17 at 20:00; Stop 10/22/17 at 20:55; Status DC Lorazepam (Ativan) 1 mg 1X ONCE PO ; Start 10/22/17 at 20:15; Stop 10/22/17 at 20 :38; Status DC Cephalexin HCl (Keflex) 500 mg 1X ONCE PO Last administered on 10/22/17at 20:56 ; Start 10/22/17 at 21:00; Stop 10/22/17 at 21:01; Status DC Acetaminophen (Tylenol) 650 mg PRN Q6HRS PRN PO PAIN / TEMP Last administered on 10/26/17at 12:32; Start 10/22/17 at 22:00 Multi-Ingredient Ointment (Analgesic [place]) 1 dane PRN QID PRN TP MUSCLE PAIN; Start 10/22/17 at 22:00 Al Hydroxide/Mg Hydroxide (Mylanta Plus Xs) 15 ml PRN AFTMEALHC PRN PO DYSPEPSIA; Start 10/22/17 at 22:00 Magnesium Hydroxide (Milk Of Magnesia) 2,400 mg PRN QHS PRN PO CONSTIPATION Last administered on 10/25/17 07:58; Start 10/22/17 at 22:00 Lorazepam (Ativan) 0.5 mg PRN QID PRN PO ANXIETY Last administered on 16:57; Start 10/22/17 at 23:00 Quetiapine Fumarate (SEROquel) 25 mg TID PO Last administered on 10/23/17 19:53 ; Start 10/23/17 at 09:00; Stop 10/24/17 at 01:41; Status DC Quetiapine Fumarate (SEROquel) 50 mg QHS PO Last administered on 10/26/17 19: 46; Start 10/23/17 at 21:00; Stop 10/27/17 at 10:32; Status DC Trazodone HCl (Desyrel) 25 mg BID@1700,2100 PO Last administered on 10/25/17 16:42; Start 10/23/17 at 17:00; Stop 10/25/17 at 18:24; Status DC Cefpodoxime Proxetil (Vantin) 200 mg BID PO Last administered on 10/31/17 20: 00; Start 10/23/17 at 21:00; Stop 10/31/17 at 21:00; Status DC Lactobacillus Rhamnosus (Culturelle) 1 cap BID PO Last administered on 20:32; Start 10/23/17 at 21:00 Olanzapine (ZyPREXA ZYDIS) 2.5 mg PRN Q2HR PRN PO A Last administered on 09:43; Start 10/23/17 at 17:00 Mirtazapine (Remeron) 7.5 mg QHS PO Last administered on 11/27/17 20:32; Start 10/23/17 at 21:00 Quetiapine Fumarate (SEROquel) 25 mg TID@0900,1300,1700 PO Last administered on 10/27/17 09:02; Start 10/24/17 at 09:00; Stop 10/27/17 at 10:32; Status DC Vitamin D (Vitamin D3) 50,000 unit WEEKLY PO ; Start 10/24/17 at 18:00; Stop 10/24 at 18:00; Status DC Levothyroxine Sodium (Synthroid) 25 mcg DAILY07 PO Last administered on at 06:10; Start 10/25/17 at 07:00 Vitamin D (Vitamin D3) 50,000 unit WEEKLY PO Last administered on 11/22/17at 07: 53; Start 10/25/17 at 09:00 Divalproex Sodium (Depakote Sprinkles) 125 mg BID@0900,1300 PO Last administered on 10/29/17at 14:55; Start 10/25/17 at 09:00; Stop 10/29/17 at 18:18 ; Status DC Trazodone HCl (Desyrel) 25 mg TID@0900,1300,1700 PO Last administered on at 18:15; Start 10/26/17 at 09:00; Stop 11/26/17 at 20:18; Status DC Acetaminophen (Tylenol) 650 mg TID PO Last administered on 11/27/17at 20:33; Start 10/26/17 at 21:00 Metformin HCl (Glucophage) 500 mg BIDWMEALS PO Last administered on 11/27/17at 17:00; Start 10/27/17 at 08:00 Risperidone (RisperDAL) 0.125 mg TID@0900,1300,1700 PO Last administered on at 18:31; Start 10/27/17 at 13:00; Stop 10/31/17 at 19:23; Status DC Divalproex Sodium (Depakote Sprinkles) 125 mg QID PO Last administered on at 16:51; Start 10/29/17 at 21:00; Stop 11/01/17 at 18:38; Status DC Risperidone (RisperDAL) 0.125 mg BID@0900,1300 PO Last administered on at 09:26; Start 11/01/17 at 09:00; Stop 11/03/17 at 11:28; Status DC Risperidone (RisperDAL) 0.25 mg DAILY@1700 PO Last administered on 11/02/17at 16 :37; Start 11/01/17 at 17:00; Stop 11/03/17 at 11:28; Status DC Divalproex Sodium (Depakote Sprinkles) 125 mg TID@0900,1300,1700 PO ; Start at 09:00; Stop 11/02/17 at 09:00; Status DC Divalproex Sodium (Depakote Sprinkles) 250 mg TID@0900,1300,1700 PO Last administered on 11/04/17at 16:24; Start 11/02/17 at 09:00; Stop 11/04/17 at 18:07 ; Status DC Risperidone (RisperDAL) 0.25 mg TID@0900,1300,1700 PO Last administered on 11/27at 17:00; Start 11/03/17 at 13:00 Divalproex Sodium (Depakote Sprinkles) 375 mg TID@0900,1300,1700 PO Last administered on 11/08/17at 17:20; Start 11/05/17 at 09:00; Stop 11/08/17 at 19:21 ; Status DC Divalproex Sodium (Depakote Sprinkles) 375 mg BID@0900,1700 PO ; Start 11/09/17 at 09:00; Stop 11/09/17 at 09:06; Status DC Divalproex Sodium (Depakote Sprinkles) 375 mg DAILY@1300 PO Last administered on 11/11/17at 14:06; Start 11/09/17 at 13:00; Stop 11/11/17 at 18:54; Status DC Divalproex Sodium (Depakote Sprinkles) 500 mg BID@0900,1700 PO Last administered on 11/11/17at 17:40; Start 11/09/17 at 09:05; Stop 11/11/17 at 18:54 ; Status DC Divalproex Sodium (Depakote Sprinkles) 500 mg BID@1300,2100 PO Last administered on 11/27/17at 20:33; Start 11/11/17 at 21:00 Divalproex Sodium (Depakote Sprinkles) 625 mg DAILY@0900 PO Last administered on 11/27/17at 07:41; Start 11/12/17 at 09:00 Sertraline HCl (Zoloft) 25 mg DAILY@1700 PO Last administered on 11/14/17at 18: 11; Start 11/12/17 at 17:00; Stop 11/15/17 at 16:59; Status DC Sertraline HCl (Zoloft) 50 mg DAILY@1700 PO Last administered on 11/17/17at 17:17 ; Start 11/15/17 at 17:00; Stop 11/17/17 at 23:30; Status DC Sertraline HCl (Zoloft) 75 mg 1700 PO Last administered on 11/20/17at 18:40; Start 11/18/17 at 17:00; Stop 11/20/17 at 19:20; Status DC Furosemide (Lasix) 20 mg DAILY PO Last administered on 11/27/17at 07:40; Start 11/18/17 at 09:00 Sertraline HCl (Zoloft) 100 mg 1700 PO Last administered on 11/27/17at 17:00; Start 11/21/17 at 17:00 Buspirone HCl (Buspar) 5 mg 0900,1300 PO Last administered on 11/27/17at 15:34; Start 11/24/17 at 09:00 Trazodone HCl (Desyrel) 25 mg BID@1300,1700 PO Last administered on 11/27/17at 17:00; Start 11/27/17 at 13:00 Trazodone HCl (Desyrel) 37.5 mg DAILY PO Last administered on 11/27/17at 07:43; Start 11/27/17 at 09:00 Active Scripts Active Reported Seroquel (Quetiapine Fumarate) 50 Mg Tablet 50 Mg PO Seroquel (Quetiapine Fumarate) 25 Mg Tablet 25 Mg PO TID Seroquel (Quetiapine Fumarate) 50 Mg Tablet 50 Mg PO QHS Lorazepam 0.5 Mg Tablet 0.5 Mg PO PRN QID PRN Bisacodyl 5 Mg Tablet.dr 10 Mg PO PRN DAILY PRN Tylenol (Acetaminophen) 325 Mg Tablet 325 Mg PO PRN Q6HRS PRN Tylenol (Acetaminophen) 325 Mg Tablet 325 Mg PO PRN Q6HRS PRN Milk Of Magnesia (Magnesium Hydroxide) 2,400 Mg/10 Ml Oral.susp 2,400 Mg PO PRN Q4HRS PRN Furosemide 20 Mg Tablet 20 Mg PO DAILY Furosemide 20 Mg Tablet 1 Tab PO DAILY Potassium Chloride 10 Meq Tablet.er 10 Meq PO DAILY Vitamin D3 (Cholecalciferol (Vitamin D3)) 1,000 Unit Tablet 1,000 Unit PO DAILY B-12 (Cyanocobalamin (Vitamin B-12)) 1,000 Mcg Tablet.er 1,000 Mcg PO DAILY Aspirin Ec (Aspirin) 81 Mg Tablet.dr 81 Mg PO DAILY Trazodone Hcl 50 Mg Tablet 25 Mg PO BID@1700,2100 Keppra (Levetiracetam) 500 Mg Tablet 500 Mg PO BID Metformin Hcl 500 Mg Tablet 500 Mg PO BIDWMEALS I have reviewed the current psychotropics carefully including drug interactions. Risk benefit ratio favors no change other than as noted in my dictated progress note. Diagnosis: Problems: (1) Anxiety disorder (2) Impulse control disorder (3) Dementia, vascular, with depression (4) Dementia, vascular, with delusions (5) Dementia in Alzheimer's disease with depression (6) Dementia in Alzheimer's disease with delusions MELANIE COSTELLO MD November 27, 2017 20:44
--- NOTE | 2017-11-27 22:26 | PN ---
DATE: 11/25/2017 This is a late entry of 11/25/2017 covers elements not covered in my initial note of 11/25/2017. SUBJECTIVE: I met with the patient in the evening. At previous evening, the patient was quite resistive with medications, little more cooperative on 11/25/2017. REVIEW OF SYSTEMS: Ambulation impaired, in wheelchair. No CV, , pulmonary, eye, ENT system symptoms on review. Reliability poor. MENTAL STATUS EXAM: Oriented to herself. Insight, judgment, recent and remote memory, attention, concentration, fund of knowledge poor, consistent with her diagnosis mentioned in my initial note. PLAN: Continue current psychotropics. Valproic acid level is therapeutic at 62. MAN Glory COSTELLO MD DR: MATEO/richie JOB#: [id number] / [id number]
--- NOTE | 2017-11-28 00:09 | PN ---
DATE: 11/26/2017 PSYCHIATRIC PROGRESS NOTE HISTORY OF PRESENT ILLNESS: This is a late entry for 11/26/2017, covers elements not covered in my initial note of 11/26/2017. I met with the patient in the evening. The patient slept 7 hours. Half the time, she is wandering up and down the hallway. REVIEW OF SYSTEMS: No CV, , pulmonary, eye, ENT system symptoms on review. Reliability is poor. MENTAL STATUS EXAM: Oriented to herself. Insight, judgment, recent and remote memory, attention, concentration, fund of knowledge poor, consistent with her diagnosis mentioned in my initial note. PLAN: Trazodone is 25 mg 3 times a day. We will increase the morning dosage to 37.5 mg. Rest unchanged per initial note. MAN Glory COSTELLO MD DR: MATEO/richie JOB#: [id number] / [id number]
[2017-11-28 05:42] VITALS: BP 119/53
[2017-11-28] MEDS: LEVOTHYROXINE 25 MCG TABLET. PO SCH (06:06)
[2017-11-28] MEDS: busPIRone 5 MG TABLET. PO SCH ×2 (08:21→13:40)
[2017-11-28] MEDS: FUROSEMIDE 20 MG TABLET PO SCH (08:21)
[2017-11-28] MEDS: LACTOBACILLUS RHAMNOSUS GG 1 CAPSULE. PO SCH ×2 (08:21→19:14)
[2017-11-28] MEDS: traZODone 50 MG TABLET. PO SCH ×3 (08:21→17:02)
[2017-11-28] MEDS: ACETAMINOPHEN 325 MG TABLET PO SCH ×3 (08:22→19:15)
[2017-11-28] MEDS: risperiDONE 0.25 MG TABLET. PO SCH ×3 (08:22→17:03)
[2017-11-28] MEDS: DIVALPROEX 125 MG CAP.SPRINK PO SCH ×3 (08:22→19:15)
[2017-11-28] MEDS: metFORMIN 500 MG TABLET PO SCH ×2 (08:22→17:01)
[2017-11-28 15:50] VITALS: BP 101/58
[2017-11-28] MEDS: SERTRALINE 100 MG TABLET. PO SCH (17:03)
[2017-11-28] MEDS: MIRTAZAPINE 7.5 MG TABLET. PO SCH (19:15)
--- NOTE | 2017-11-28 20:47 | PDOC ---
Exam Note: [place] Note: Please also refer to the separate dictated note~for this date of service dictated separately.~Patient seen individually. Discussed the patient with Nursing staff reviewed the chart.~Reviewed interim history and current functioning. Reviewed vital signs,~Labs/ Radiology~and current medications noted below. Continue current treatment with the changes noted in the dictated addendum note Assessment: Vital Signs: Vital Signs Date Time Temp Pulse Resp B/P (MAP) Pulse Ox O2 Delivery O2 Flow Rate FiO2 11/28/17 15:50 97.8 80 18 101/58 (72) 93 11/28/17 05:42 Room Air I&O Intake and Output 11/28/17 07:00 Intake Total 485 ml Balance 485 ml Intake Oral 485 ml Labs: Laboratory Tests Test 11/28/17 07:24 Glucose (Fingerstick) 81 mg/dL (70-99) Current Medications: Meds: Current Medications Haloperidol Lactate (Haldol) 5 mg STK-MED ONCE .ROUTE ; Start 10/22/17 at 19:51; Stop 10/22/17 at 19:52; Status DC Haloperidol Lactate (Haldol) 5 mg 1X ONCE IM Last administered on 10/22/17at 19: 56; Start 10/22/17 at 20:00; Stop 10/22/17 at 20:55; Status DC Lorazepam (Ativan) 1 mg 1X ONCE PO ; Start 10/22/17 at 20:15; Stop 10/22/17 at 20 :38; Status DC Cephalexin HCl (Keflex) 500 mg 1X ONCE PO Last administered on 10/22/17at 20:56 ; Start 10/22/17 at 21:00; Stop 10/22/17 at 21:01; Status DC Acetaminophen (Tylenol) 650 mg PRN Q6HRS PRN PO PAIN / TEMP Last administered on 10/26/17at 12:32; Start 10/22/17 at 22:00 Multi-Ingredient Ointment (Analgesic [place]) 1 dane PRN QID PRN TP MUSCLE PAIN; Start 10/22/17 at 22:00 Al Hydroxide/Mg Hydroxide (Mylanta Plus Xs) 15 ml PRN AFTMEALHC PRN PO DYSPEPSIA; Start 10/22/17 at 22:00 Magnesium Hydroxide (Milk Of Magnesia) 2,400 mg PRN QHS PRN PO CONSTIPATION Last administered on 10/25/17 07:58; Start 10/22/17 at 22:00 Lorazepam (Ativan) 0.5 mg PRN QID PRN PO ANXIETY Last administered on 16:57; Start 10/22/17 at 23:00 Quetiapine Fumarate (SEROquel) 25 mg TID PO Last administered on 10/23/17 19:53 ; Start 10/23/17 at 09:00; Stop 10/24/17 at 01:41; Status DC Quetiapine Fumarate (SEROquel) 50 mg QHS PO Last administered on 10/26/17 19: 46; Start 10/23/17 at 21:00; Stop 10/27/17 at 10:32; Status DC Trazodone HCl (Desyrel) 25 mg BID@1700,2100 PO Last administered on 10/25/17 16:42; Start 10/23/17 at 17:00; Stop 10/25/17 at 18:24; Status DC Cefpodoxime Proxetil (Vantin) 200 mg BID PO Last administered on 10/31/17at 20: 00; Start 10/23/17 at 21:00; Stop 10/31/17 at 21:00; Status DC Lactobacillus Rhamnosus (Culturelle) 1 cap BID PO Last administered on 19:14; Start 10/23/17 at 21:00 Olanzapine (ZyPREXA ZYDIS) 2.5 mg PRN Q2HR PRN PO A Last administered on 09:43; Start 10/23/17 at 17:00 Mirtazapine (Remeron) 7.5 mg QHS PO Last administered on 11/28/17 19:15; Start 10/23/17 at 21:00 Quetiapine Fumarate (SEROquel) 25 mg TID@0900,1300,1700 PO Last administered on 10/27/17 09:02; Start 10/24/17 at 09:00; Stop 10/27/17 at 10:32; Status DC Vitamin D (Vitamin D3) 50,000 unit WEEKLY PO ; Start 10/24/17 at 18:00; Stop 10/24 at 18:00; Status DC Levothyroxine Sodium (Synthroid) 25 mcg DAILY07 PO Last administered on at 06:06; Start 10/25/17 at 07:00 Vitamin D (Vitamin D3) 50,000 unit WEEKLY PO Last administered on 11/22/17at 07: 53; Start 10/25/17 at 09:00 Divalproex Sodium (Depakote Sprinkles) 125 mg BID@0900,1300 PO Last administered on 10/29/17at 14:55; Start 10/25/17 at 09:00; Stop 10/29/17 at 18:18 ; Status DC Trazodone HCl (Desyrel) 25 mg TID@0900,1300,1700 PO Last administered on at 18:15; Start 10/26/17 at 09:00; Stop 11/26/17 at 20:18; Status DC Acetaminophen (Tylenol) 650 mg TID PO Last administered on 11/28/17at 19:15; Start 10/26/17 at 21:00 Metformin HCl (Glucophage) 500 mg BIDWMEALS PO Last administered on 11/28/17at 17:01; Start 10/27/17 at 08:00 Risperidone (RisperDAL) 0.125 mg TID@0900,1300,1700 PO Last administered on at 18:31; Start 10/27/17 at 13:00; Stop 10/31/17 at 19:23; Status DC Divalproex Sodium (Depakote Sprinkles) 125 mg QID PO Last administered on at 16:51; Start 10/29/17 at 21:00; Stop 11/01/17 at 18:38; Status DC Risperidone (RisperDAL) 0.125 mg BID@0900,1300 PO Last administered on at 09:26; Start 11/01/17 at 09:00; Stop 11/03/17 at 11:28; Status DC Risperidone (RisperDAL) 0.25 mg DAILY@1700 PO Last administered on 11/02/17at 16 :37; Start 11/01/17 at 17:00; Stop 11/03/17 at 11:28; Status DC Divalproex Sodium (Depakote Sprinkles) 125 mg TID@0900,1300,1700 PO ; Start at 09:00; Stop 11/02/17 at 09:00; Status DC Divalproex Sodium (Depakote Sprinkles) 250 mg TID@0900,1300,1700 PO Last administered on 11/04/17at 16:24; Start 11/02/17 at 09:00; Stop 11/04/17 at 18:07 ; Status DC Risperidone (RisperDAL) 0.25 mg TID@0900,1300,1700 PO Last administered on 11/28at 17:03; Start 11/03/17 at 13:00 Divalproex Sodium (Depakote Sprinkles) 375 mg TID@0900,1300,1700 PO Last administered on 11/08/17at 17:20; Start 11/05/17 at 09:00; Stop 11/08/17 at 19:21 ; Status DC Divalproex Sodium (Depakote Sprinkles) 375 mg BID@0900,1700 PO ; Start 11/09/17 at 09:00; Stop 11/09/17 at 09:06; Status DC Divalproex Sodium (Depakote Sprinkles) 375 mg DAILY@1300 PO Last administered on 11/11/17at 14:06; Start 11/09/17 at 13:00; Stop 11/11/17 at 18:54; Status DC Divalproex Sodium (Depakote Sprinkles) 500 mg BID@0900,1700 PO Last administered on 11/11/17at 17:40; Start 11/09/17 at 09:05; Stop 11/11/17 at 18:54 ; Status DC Divalproex Sodium (Depakote Sprinkles) 500 mg BID@1300,2100 PO Last administered on 11/28/17at 19:15; Start 11/11/17 at 21:00 Divalproex Sodium (Depakote Sprinkles) 625 mg DAILY@0900 PO Last administered on 11/28/17at 08:22; Start 11/12/17 at 09:00 Sertraline HCl (Zoloft) 25 mg DAILY@1700 PO Last administered on 11/14/17at 18: 11; Start 11/12/17 at 17:00; Stop 11/15/17 at 16:59; Status DC Sertraline HCl (Zoloft) 50 mg DAILY@1700 PO Last administered on 11/17/17 17:17 ; Start 11/15/17 at 17:00; Stop 11/17/17 at 23:30; Status DC Sertraline HCl (Zoloft) 75 mg 1700 PO Last administered on 11/20/17at 18:40; Start 11/18/17 at 17:00; Stop 11/20/17 at 19:20; Status DC Furosemide (Lasix) 20 mg DAILY PO Last administered on 11/28/17at 08:21; Start 11/18/17 at 09:00 Sertraline HCl (Zoloft) 100 mg 1700 PO Last administered on 11/28/17at 17:03; Start 11/21/17 at 17:00 Buspirone HCl (Buspar) 5 mg 0900,1300 PO Last administered on 11/28/17at 13:40; Start 11/24/17 at 09:00 Trazodone HCl (Desyrel) 25 mg BID@1300,1700 PO Last administered on 11/28/17at 17:02; Start 11/27/17 at 13:00 Trazodone HCl (Desyrel) 37.5 mg DAILY PO Last administered on 11/28/17 08:21; Start 11/27/17 at 09:00 Active Scripts Active Reported Seroquel (Quetiapine Fumarate) 50 Mg Tablet 50 Mg PO Seroquel (Quetiapine Fumarate) 25 Mg Tablet 25 Mg PO TID Seroquel (Quetiapine Fumarate) 50 Mg Tablet 50 Mg PO QHS Lorazepam 0.5 Mg Tablet 0.5 Mg PO PRN QID PRN Bisacodyl 5 Mg Tablet.dr 10 Mg PO PRN DAILY PRN Tylenol (Acetaminophen) 325 Mg Tablet 325 Mg PO PRN Q6HRS PRN Tylenol (Acetaminophen) 325 Mg Tablet 325 Mg PO PRN Q6HRS PRN Milk Of Magnesia (Magnesium Hydroxide) 2,400 Mg/10 Ml Oral.susp 2,400 Mg PO PRN Q4HRS PRN Furosemide 20 Mg Tablet 20 Mg PO DAILY Furosemide 20 Mg Tablet 1 Tab PO DAILY Potassium Chloride 10 Meq Tablet.er 10 Meq PO DAILY Vitamin D3 (Cholecalciferol (Vitamin D3)) 1,000 Unit Tablet 1,000 Unit PO DAILY B-12 (Cyanocobalamin (Vitamin B-12)) 1,000 Mcg Tablet.er 1,000 Mcg PO DAILY Aspirin Ec (Aspirin) 81 Mg Tablet. 81 Mg PO DAILY Trazodone Hcl 50 Mg Tablet 25 Mg PO BID@1700,2100 Keppra (Levetiracetam) 500 Mg Tablet 500 Mg PO BID Metformin Hcl 500 Mg Tablet 500 Mg PO BIDWMEALS I have reviewed the current psychotropics carefully including drug interactions. Risk benefit ratio favors no change other than as noted in my dictated progress note. Diagnosis: Problems: (1) Anxiety disorder (2) Impulse control disorder (3) Dementia, vascular, with depression (4) Dementia, vascular, with delusions (5) Dementia in Alzheimer's disease with depression (6) Dementia in Alzheimer's disease with delusions MELANIE COSTELLO MD November 28, 2017 20:47
--- NOTE | 2017-11-29 04:55 | PN ---
DATE: 11/27/2017 This is a late entry, 11/27/2017, covers the elements not covered in my initial note, 11/27/2017. SUBJECTIVE: I met with the patient in the evening. The patient has been anxious, restless, in and out of other's rooms, in a wheelchair. She was combative when showers, but redirected. REVIEW OF SYSTEMS: No CV, , pulmonary, eye, ENT system symptoms on review. Reliability poor. MENTAL STATUS EXAM: Oriented to herself. Insight, judgment, recent and remote memory, attention, concentration, fund of knowledge poor, consistent with her diagnosis as mentioned in my initial note. PLAN: Valproic acid level is therapeutic at 62, continue Depakote. Rest of the psychotropics as mentioned in my initial note. MAN Glory COSTELLO MD DR: MATEO/richie JOB#: [id number] / [id number]
[2017-11-29] MEDS: LEVOTHYROXINE 25 MCG TABLET. PO SCH (05:18)
[2017-11-29 06:16] VITALS: BP 115/89
[2017-11-29] MEDS: LACTOBACILLUS RHAMNOSUS GG 1 CAPSULE. PO SCH ×2 (08:26→19:51)
[2017-11-29] MEDS: DIVALPROEX 125 MG CAP.SPRINK PO SCH ×3 (08:26→19:51)
[2017-11-29] MEDS: busPIRone 5 MG TABLET. PO SCH ×2 (08:27→13:39)
[2017-11-29] MEDS: CHOLECALCIFEROL (VITAMIN D3) 50,000 UNIT CAPSULE PO SCH (08:27)
[2017-11-29] MEDS: metFORMIN 500 MG TABLET PO SCH ×2 (08:27→16:26)
[2017-11-29] MEDS: FUROSEMIDE 20 MG TABLET PO SCH (08:27)
[2017-11-29] MEDS: ACETAMINOPHEN 325 MG TABLET PO SCH ×3 (08:27→19:51)
[2017-11-29] MEDS: risperiDONE 0.25 MG TABLET. PO SCH ×3 (08:27→16:26)
[2017-11-29] MEDS: traZODone 50 MG TABLET. PO SCH ×3 (08:27→16:26)
[2017-11-29] MEDS: SERTRALINE 100 MG TABLET. PO SCH (16:26)
[2017-11-29 16:29] VITALS: BP 149/87
--- NOTE | 2017-11-29 18:04 | PN ---
DATE: 11/28/2017 PSYCHIATRIC PROGRESS NOTE This is a late entry for 11/28/2017, covers elements not covered in my initial note of 11/28/2017. SUBJECTIVE: I met with the patient in the evening. She remains anxious, restless in her wheelchair up and down the hallway, but redirectable. She takes her medications in ice cream. REVIEW OF SYSTEMS: No CV, , pulmonary, eye, ENT system symptoms on review. Reliability poor. MENTAL STATUS EXAM: Oriented to herself. Insight, judgment, recent and remote memory, attention, concentration, fund of knowledge poor, consistent with her diagnosis mentioned in my initial note. PLAN: Continue current psychotropics. Adjust further as clinically indicated. MELANIE COSTELLO MD DR: MATEO/richie JOB#: [id number] / [id number]
[2017-11-29] MEDS: MIRTAZAPINE 7.5 MG TABLET. PO SCH (19:51)
--- NOTE | 2017-11-29 20:15 | PDOC ---
Exam Note: [place] Note: Please also refer to the separate dictated note~for this date of service dictated separately.~Patient seen individually. Discussed the patient with Nursing staff reviewed the chart.~Reviewed interim history and current functioning. Reviewed vital signs,~Labs/ Radiology~and current medications noted below. Continue current treatment with the changes noted in the dictated addendum note Assessment: Vital Signs: Vital Signs Date Time Temp Pulse Resp B/P (MAP) Pulse Ox O2 Delivery O2 Flow Rate FiO2 11/29/17 16:29 97.4 70 22 149/87 (107) 100 11/28/17 05:42 Room Air I&O Intake and Output 11/29/17 07:00 Intake Total 840 ml Balance 840 ml Intake Oral 840 ml Labs: Laboratory Tests Test 11/29/17 07:43 Glucose (Fingerstick) 80 mg/dL (70-99) Current Medications: Meds: Current Medications Haloperidol Lactate (Haldol) 5 mg STK-MED ONCE .ROUTE ; Start 10/22/17 at 19:51; Stop 10/22/17 at 19:52; Status DC Haloperidol Lactate (Haldol) 5 mg 1X ONCE IM Last administered on 10/22/17at 19: 56; Start 10/22/17 at 20:00; Stop 10/22/17 at 20:55; Status DC Lorazepam (Ativan) 1 mg 1X ONCE PO ; Start 10/22/17 at 20:15; Stop 10/22/17 at 20 :38; Status DC Cephalexin HCl (Keflex) 500 mg 1X ONCE PO Last administered on 10/22/17at 20:56 ; Start 10/22/17 at 21:00; Stop 10/22/17 at 21:01; Status DC Acetaminophen (Tylenol) 650 mg PRN Q6HRS PRN PO PAIN / TEMP Last administered on 10/26/17at 12:32; Start 10/22/17 at 22:00 Multi-Ingredient Ointment (Analgesic [place]) 1 dane PRN QID PRN TP MUSCLE PAIN; Start 10/22/17 at 22:00 Al Hydroxide/Mg Hydroxide (Mylanta Plus Xs) 15 ml PRN AFTMEALHC PRN PO DYSPEPSIA; Start 10/22/17 at 22:00 Magnesium Hydroxide (Milk Of Magnesia) 2,400 mg PRN QHS PRN PO CONSTIPATION Last administered on 10/25/17 07:58; Start 10/22/17 at 22:00 Lorazepam (Ativan) 0.5 mg PRN QID PRN PO ANXIETY Last administered on 16:57; Start 10/22/17 at 23:00 Quetiapine Fumarate (SEROquel) 25 mg TID PO Last administered on 10/23/17 19:53 ; Start 10/23/17 at 09:00; Stop 10/24/17 at 01:41; Status DC Quetiapine Fumarate (SEROquel) 50 mg QHS PO Last administered on 10/26/17 19: 46; Start 10/23/17 at 21:00; Stop 10/27/17 at 10:32; Status DC Trazodone HCl (Desyrel) 25 mg BID@1700,2100 PO Last administered on 10/25/17 16:42; Start 10/23/17 at 17:00; Stop 10/25/17 at 18:24; Status DC Cefpodoxime Proxetil (Vantin) 200 mg BID PO Last administered on 10/31/17at 20: 00; Start 10/23/17 at 21:00; Stop 10/31/17 at 21:00; Status DC Lactobacillus Rhamnosus (Culturelle) 1 cap BID PO Last administered on 19:51; Start 10/23/17 at 21:00 Olanzapine (ZyPREXA ZYDIS) 2.5 mg PRN Q2HR PRN PO A Last administered on 09:43; Start 10/23/17 at 17:00 Mirtazapine (Remeron) 7.5 mg QHS PO Last administered on 11/29/17 19:51; Start 10/23/17 at 21:00 Quetiapine Fumarate (SEROquel) 25 mg TID@0900,1300,1700 PO Last administered on 10/27/17 09:02; Start 10/24/17 at 09:00; Stop 10/27/17 at 10:32; Status DC Vitamin D (Vitamin D3) 50,000 unit WEEKLY PO ; Start 10/24/17 at 18:00; Stop 10/24 at 18:00; Status DC Levothyroxine Sodium (Synthroid) 25 mcg DAILY07 PO Last administered on at 05:18; Start 10/25/17 at 07:00 Vitamin D (Vitamin D3) 50,000 unit WEEKLY PO Last administered on 11/29/17at 08: 27; Start 10/25/17 at 09:00 Divalproex Sodium (Depakote Sprinkles) 125 mg BID@0900,1300 PO Last administered on 10/29/17at 14:55; Start 10/25/17 at 09:00; Stop 10/29/17 at 18:18 ; Status DC Trazodone HCl (Desyrel) 25 mg TID@0900,1300,1700 PO Last administered on at 18:15; Start 10/26/17 at 09:00; Stop 11/26/17 at 20:18; Status DC Acetaminophen (Tylenol) 650 mg TID PO Last administered on 11/29/17at 19:51; Start 10/26/17 at 21:00 Metformin HCl (Glucophage) 500 mg BIDWMEALS PO Last administered on 11/29/17at 16:26; Start 10/27/17 at 08:00 Risperidone (RisperDAL) 0.125 mg TID@0900,1300,1700 PO Last administered on at 18:31; Start 10/27/17 at 13:00; Stop 10/31/17 at 19:23; Status DC Divalproex Sodium (Depakote Sprinkles) 125 mg QID PO Last administered on at 16:51; Start 10/29/17 at 21:00; Stop 11/01/17 at 18:38; Status DC Risperidone (RisperDAL) 0.125 mg BID@0900,1300 PO Last administered on at 09:26; Start 11/01/17 at 09:00; Stop 11/03/17 at 11:28; Status DC Risperidone (RisperDAL) 0.25 mg DAILY@1700 PO Last administered on 11/02/17at 16 :37; Start 11/01/17 at 17:00; Stop 11/03/17 at 11:28; Status DC Divalproex Sodium (Depakote Sprinkles) 125 mg TID@0900,1300,1700 PO ; Start at 09:00; Stop 11/02/17 at 09:00; Status DC Divalproex Sodium (Depakote Sprinkles) 250 mg TID@0900,1300,1700 PO Last administered on 11/04/17at 16:24; Start 11/02/17 at 09:00; Stop 11/04/17 at 18:07 ; Status DC Risperidone (RisperDAL) 0.25 mg TID@0900,1300,1700 PO Last administered on 11/29at 16:26; Start 11/03/17 at 13:00 Divalproex Sodium (Depakote Sprinkles) 375 mg TID@0900,1300,1700 PO Last administered on 11/08/17at 17:20; Start 11/05/17 at 09:00; Stop 11/08/17 at 19:21 ; Status DC Divalproex Sodium (Depakote Sprinkles) 375 mg BID@0900,1700 PO ; Start 11/09/17 at 09:00; Stop 11/09/17 at 09:06; Status DC Divalproex Sodium (Depakote Sprinkles) 375 mg DAILY@1300 PO Last administered on 11/11/17at 14:06; Start 11/09/17 at 13:00; Stop 11/11/17 at 18:54; Status DC Divalproex Sodium (Depakote Sprinkles) 500 mg BID@0900,1700 PO Last administered on 11/11/17at 17:40; Start 11/09/17 at 09:05; Stop 11/11/17 at 18:54 ; Status DC Divalproex Sodium (Depakote Sprinkles) 500 mg BID@1300,2100 PO Last administered on 11/29/17at 19:51; Start 11/11/17 at 21:00 Divalproex Sodium (Depakote Sprinkles) 625 mg DAILY@0900 PO Last administered on 11/29/17at 08:26; Start 11/12/17 at 09:00 Sertraline HCl (Zoloft) 25 mg DAILY@1700 PO Last administered on 11/14/17at 18: 11; Start 11/12/17 at 17:00; Stop 11/15/17 at 16:59; Status DC Sertraline HCl (Zoloft) 50 mg DAILY@1700 PO Last administered on 11/17/17 17:17 ; Start 11/15/17 at 17:00; Stop 11/17/17 at 23:30; Status DC Sertraline HCl (Zoloft) 75 mg 1700 PO Last administered on 11/20/17at 18:40; Start 11/18/17 at 17:00; Stop 11/20/17 at 19:20; Status DC Furosemide (Lasix) 20 mg DAILY PO Last administered on 11/29/17at 08:27; Start 11/18/17 at 09:00 Sertraline HCl (Zoloft) 100 mg 1700 PO Last administered on 11/29/17 16:26; Start 11/21/17 at 17:00 Buspirone HCl (Buspar) 5 mg 0900,1300 PO Last administered on 11/29/17at 13:39; Start 11/24/17 at 09:00 Trazodone HCl (Desyrel) 25 mg BID@1300,1700 PO Last administered on 11/29/17at 16:26; Start 11/27/17 at 13:00 Trazodone HCl (Desyrel) 37.5 mg DAILY PO Last administered on 11/29/17 08:27; Start 11/27/17 at 09:00 Active Scripts Active Reported Seroquel (Quetiapine Fumarate) 50 Mg Tablet 50 Mg PO Seroquel (Quetiapine Fumarate) 25 Mg Tablet 25 Mg PO TID Seroquel (Quetiapine Fumarate) 50 Mg Tablet 50 Mg PO QHS Lorazepam 0.5 Mg Tablet 0.5 Mg PO PRN QID PRN Bisacodyl 5 Mg Tablet.dr 10 Mg PO PRN DAILY PRN Tylenol (Acetaminophen) 325 Mg Tablet 325 Mg PO PRN Q6HRS PRN Tylenol (Acetaminophen) 325 Mg Tablet 325 Mg PO PRN Q6HRS PRN Milk Of Magnesia (Magnesium Hydroxide) 2,400 Mg/10 Ml Oral.susp 2,400 Mg PO PRN Q4HRS PRN Furosemide 20 Mg Tablet 20 Mg PO DAILY Furosemide 20 Mg Tablet 1 Tab PO DAILY Potassium Chloride 10 Meq Tablet.er 10 Meq PO DAILY Vitamin D3 (Cholecalciferol (Vitamin D3)) 1,000 Unit Tablet 1,000 Unit PO DAILY B-12 (Cyanocobalamin (Vitamin B-12)) 1,000 Mcg Tablet.er 1,000 Mcg PO DAILY Aspirin Ec (Aspirin) 81 Mg Tablet.dr 81 Mg PO DAILY Trazodone Hcl 50 Mg Tablet 25 Mg PO BID@1700,2100 Keppra (Levetiracetam) 500 Mg Tablet 500 Mg PO BID Metformin Hcl 500 Mg Tablet 500 Mg PO BIDWMEALS I have reviewed the current psychotropics carefully including drug interactions. Risk benefit ratio favors no change other than as noted in my dictated progress note. Diagnosis: Problems: (1) Anxiety disorder (2) Impulse control disorder (3) Dementia, vascular, with depression (4) Dementia, vascular, with delusions (5) Dementia in Alzheimer's disease with depression (6) Dementia in Alzheimer's disease with delusions MELANIE COSTELLO MD November 29, 2017 20:15
[2017-11-30] MEDS ORDERED: DIVA125C3 PO ×2 (01:18→01:19)
[2017-11-30] MEDS ORDERED: LACT1CAP21 PO (01:20)
[2017-11-30] MEDS ORDERED: LEVO25TA4 PO (01:20)
[2017-11-30] MEDS ORDERED: METH29OI TP (01:21)
[2017-11-30] MEDS ORDERED: MAG355OR17 PO (01:21)
[2017-11-30] MEDS ORDERED: MIRT7.5T8 PO (01:23)
[2017-11-30] MEDS ORDERED: OLAN5TAB7 PO (01:23)
[2017-11-30] MEDS ORDERED: SERT100T PO (01:24)
[2017-11-30] MEDS ORDERED: BUSP5TAB PO (01:24)
[2017-11-30] MEDS ORDERED: RISP0.5T3 PO (01:25)
[2017-11-30] MEDS ORDERED: RISP0.253 PO (01:26)
[2017-11-30] MEDS ORDERED: TRAZ50TA15 PO (01:28)
[2017-11-30] MEDS ORDERED: CHOL500050 PO (01:33)
[2017-11-30 05:56] VITALS: BP 114/66
[2017-11-30] MEDS: LEVOTHYROXINE 25 MCG TABLET. PO SCH (06:13)
[2017-11-30] MEDS: busPIRone 5 MG TABLET. PO SCH (09:24)
[2017-11-30] MEDS: LACTOBACILLUS RHAMNOSUS GG 1 CAPSULE. PO SCH (09:24)
[2017-11-30] MEDS: traZODone 50 MG TABLET. PO SCH (09:24)
[2017-11-30] MEDS: metFORMIN 500 MG TABLET PO SCH (09:24)
[2017-11-30] MEDS: FUROSEMIDE 20 MG TABLET PO SCH (09:24)
[2017-11-30] MEDS: ACETAMINOPHEN 325 MG TABLET PO SCH (09:24)
[2017-11-30] MEDS: risperiDONE 0.25 MG TABLET. PO SCH (09:25)
[2017-11-30] MEDS: DIVALPROEX 125 MG CAP.SPRINK PO SCH (09:25)
--- NOTE | 2017-11-30 22:02 | PDOC ---
Exam Note: [place] Note: Please also refer to the separate dictated note~for this date of service dictated separately.~Patient seen individually. Discussed the patient with Nursing staff reviewed the chart.~Reviewed interim history and current functioning. Reviewed vital signs,~Labs/ Radiology~and current medications noted below. Continue current treatment with the changes noted in the dictated addendum note Assessment: Vital Signs: Vital Signs Date Time Temp Pulse Resp B/P (MAP) Pulse Ox O2 Delivery O2 Flow Rate FiO2 11/30/17 05:56 97.7 72 18 114/66 (82) 98 11/28/17 05:42 Room Air I&O Intake and Output 11/30/17 07:00 Intake Total 480 ml Balance 480 ml Intake Oral 480 ml Labs: Laboratory Tests Test 11/30/17 07:47 Glucose (Fingerstick) 131 mg/dL (70-99) H Current Medications: Meds: Current Medications Haloperidol Lactate (Haldol) 5 mg STK-MED ONCE .ROUTE ; Start 10/22/17 at 19:51; Stop 10/22/17 at 19:52; Status DC Haloperidol Lactate (Haldol) 5 mg 1X ONCE IM Last administered on 10/22/17at 19: 56; Start 10/22/17 at 20:00; Stop 10/22/17 at 20:55; Status DC Lorazepam (Ativan) 1 mg 1X ONCE PO ; Start 10/22/17 at 20:15; Stop 10/22/17 at 20 :38; Status DC Cephalexin HCl (Keflex) 500 mg 1X ONCE PO Last administered on 10/22/17at 20:56 ; Start 10/22/17 at 21:00; Stop 10/22/17 at 21:01; Status DC Acetaminophen (Tylenol) 650 mg PRN Q6HRS PRN PO PAIN / TEMP Last administered on 10/26/17at 12:32; Start 10/22/17 at 22:00; Stop 11/30/17 at 12:58; Status DC Multi-Ingredient Ointment (Analgesic [place]) 1 bryan PRN QID PRN TP MUSCLE PAIN; Start 10/22/17 at 22:00; Stop 11/30/17 at 12:58; Status DC Al Hydroxide/Mg Hydroxide (Mylanta Plus Xs) 15 ml PRN AFTMEALHC PRN PO DYSPEPSIA; Start 10/22/17 at 22:00; Stop 11/30/17 at 12:58; Status DC Magnesium Hydroxide (Milk Of Magnesia) 2,400 mg PRN QHS PRN PO CONSTIPATION Last administered on 10/25/17at 07:58; Start 10/22/17 at 22:00; Stop 11/30/17 at 12:58; Status DC Lorazepam (Ativan) 0.5 mg PRN QID PRN PO ANXIETY Last administered on at 16:57; Start 10/22/17 at 23:00; Stop 11/30/17 at 12:58; Status DC Quetiapine Fumarate (SEROquel) 25 mg TID PO Last administered on 10/23/17at 19:53 ; Start 10/23/17 at 09:00; Stop 10/24/17 at 01:41; Status DC Quetiapine Fumarate (SEROquel) 50 mg QHS PO Last administered on 10/26/17at 19: 46; Start 10/23/17 at 21:00; Stop 10/27/17 at 10:32; Status DC Trazodone HCl (Desyrel) 25 mg BID@1700,2100 PO Last administered on 10/25/17at 16:42; Start 10/23/17 at 17:00; Stop 10/25/17 at 18:24; Status DC Cefpodoxime Proxetil (Vantin) 200 mg BID PO Last administered on 10/31/17at 20: 00; Start 10/23/17 at 21:00; Stop 10/31/17 at 21:00; Status DC Lactobacillus Rhamnosus (Culturelle) 1 cap BID PO Last administered on at 09:24; Start 10/23/17 at 21:00; Stop 11/30/17 at 12:58; Status DC Olanzapine (ZyPREXA ZYDIS) 2.5 mg PRN Q2HR PRN PO A Last administered on at 09:43; Start 10/23/17 at 17:00; Stop 11/30/17 at 12:58; Status DC Mirtazapine (Remeron) 7.5 mg QHS PO Last administered on 11/29/17at 19:51; Start 10/23/17 at 21:00; Stop 11/30/17 at 12:58; Status DC Quetiapine Fumarate (SEROquel) 25 mg TID@0900,1300,1700 PO Last administered on 10/27/17at 09:02; Start 10/24/17 at 09:00; Stop 10/27/17 at 10:32; Status DC Vitamin D (Vitamin D3) 50,000 unit WEEKLY PO ; Start 10/24/17 at 18:00; Stop 10/24 at 18:00; Status DC Levothyroxine Sodium (Synthroid) 25 mcg DAILY07 PO Last administered on at 06:13; Start 10/25/17 at 07:00; Stop 11/30/17 at 12:58; Status DC Vitamin D (Vitamin D3) 50,000 unit WEEKLY PO Last administered on 11/29/17at 08: 27; Start 10/25/17 at 09:00; Stop 11/30/17 at 12:58; Status DC Divalproex Sodium (Depakote Sprinkles) 125 mg BID@0900,1300 PO Last administered on 10/29/17at 14:55; Start 10/25/17 at 09:00; Stop 10/29/17 at 18:18 ; Status DC Trazodone HCl (Desyrel) 25 mg TID@0900,1300,1700 PO Last administered on at 18:15; Start 10/26/17 at 09:00; Stop 11/26/17 at 20:18; Status DC Acetaminophen (Tylenol) 650 mg TID PO Last administered on 11/30/17at 09:24; Start 10/26/17 at 21:00; Stop 11/30/17 at 12:58; Status DC Metformin HCl (Glucophage) 500 mg BIDWMEALS PO Last administered on 11/30/17at 09:24; Start 10/27/17 at 08:00; Stop 11/30/17 at 12:58; Status DC Risperidone (RisperDAL) 0.125 mg TID@0900,1300,1700 PO Last administered on at 18:31; Start 10/27/17 at 13:00; Stop 10/31/17 at 19:23; Status DC Divalproex Sodium (Depakote Sprinkles) 125 mg QID PO Last administered on at 16:51; Start 10/29/17 at 21:00; Stop 11/01/17 at 18:38; Status DC Risperidone (RisperDAL) 0.125 mg BID@0900,1300 PO Last administered on at 09:26; Start 11/01/17 at 09:00; Stop 11/03/17 at 11:28; Status DC Risperidone (RisperDAL) 0.25 mg DAILY@1700 PO Last administered on 11/02/17at 16 :37; Start 11/01/17 at 17:00; Stop 11/03/17 at 11:28; Status DC Divalproex Sodium (Depakote Sprinkles) 125 mg TID@0900,1300,1700 PO ; Start at 09:00; Stop 11/02/17 at 09:00; Status DC Divalproex Sodium (Depakote Sprinkles) 250 mg TID@0900,1300,1700 PO Last administered on 11/04/17at 16:24; Start 11/02/17 at 09:00; Stop 11/04/17 at 18:07 ; Status DC Risperidone (RisperDAL) 0.25 mg TID@0900,1300,1700 PO Last administered on 11/30at 09:25; Start 11/03/17 at 13:00; Stop 11/30/17 at 12:58; Status DC Divalproex Sodium (Depakote Sprinkles) 375 mg TID@0900,1300,1700 PO Last administered on 11/08/17at 17:20; Start 11/05/17 at 09:00; Stop 11/08/17 at 19:21 ; Status DC Divalproex Sodium (Depakote Sprinkles) 375 mg BID@0900,1700 PO ; Start 11/09/17 at 09:00; Stop 11/09/17 at 09:06; Status DC Divalproex Sodium (Depakote Sprinkles) 375 mg DAILY@1300 PO Last administered on 11/11/17at 14:06; Start 11/09/17 at 13:00; Stop 11/11/17 at 18:54; Status DC Divalproex Sodium (Depakote Sprinkles) 500 mg BID@0900,1700 PO Last administered on 11/11/17 17:40; Start 11/09/17 at 09:05; Stop 11/11/17 at 18:54 ; Status DC Divalproex Sodium (Depakote Sprinkles) 500 mg BID@1300,2100 PO Last administered on 11/29/17 19:51; Start 11/11/17 at 21:00; Stop 11/30/17 at 12:58 ; Status DC Divalproex Sodium (Depakote Sprinkles) 625 mg DAILY@0900 PO Last administered on 11/30/17 09:25; Start 11/12/17 at 09:00; Stop 11/30/17 at 12:58; Status DC Sertraline HCl (Zoloft) 25 mg DAILY@1700 PO Last administered on 11/14/17 18: 11; Start 11/12/17 at 17:00; Stop 11/15/17 at 16:59; Status DC Sertraline HCl (Zoloft) 50 mg DAILY@1700 PO Last administered on 11/17/17 17:17 ; Start 11/15/17 at 17:00; Stop 11/17/17 at 23:30; Status DC Sertraline HCl (Zoloft) 75 mg 1700 PO Last administered on 11/20/17 18:40; Start 11/18/17 at 17:00; Stop 11/20/17 at 19:20; Status DC Furosemide (Lasix) 20 mg DAILY PO Last administered on 11/30/17 09:24; Start 11/18/17 at 09:00; Stop 11/30/17 at 12:58; Status DC Sertraline HCl (Zoloft) 100 mg 1700 PO Last administered on 11/29/17 16:26; Start 11/21/17 at 17:00; Stop 11/30/17 at 12:58; Status DC Buspirone HCl (Buspar) 5 mg 0900,1300 PO Last administered on 11/30/17 09:24; Start 11/24/17 at 09:00; Stop 11/30/17 at 12:58; Status DC Trazodone HCl (Desyrel) 25 mg BID@1300,1700 PO Last administered on 11/29/17at 16:26; Start 11/27/17 at 13:00; Stop 11/30/17 at 12:58; Status DC Trazodone HCl (Desyrel) 37.5 mg DAILY PO Last administered on 11/30/17at 09:24; Start 11/27/17 at 09:00; Stop 11/30/17 at 12:58; Status DC Active Scripts Active Reported Vitamin D3 (Cholecalciferol (Vitamin D3)) 50,000 Unit Capsule 50,000 Unit PO WEEKLY Trazodone Hcl 50 Mg Tablet 37.5 Mg PO DAILY Risperidone 0.25 Mg Tablet 0.25 Mg PO TID AT 03/30/1700 Buspirone Hcl 5 Mg Tablet 5 Mg PO BID AT 0900/1300 Zoloft (Sertraline Hcl) 100 Mg Tablet 100 Mg PO DAILYWSUP Olanzapine Odt (Olanzapine) 5 Mg Tab.rapdis 2.5 Mg PO PRN Q2HR PRN NTE 7.5mg/ 24 hours Mirtazapine 7.5 Mg Tablet 7.5 Mg PO HS Analgesic [place] (Methyl Salicylate/Menthol) 28 Gm Oint...g. 1 Bryan TP PRN QID PRN Advanced Antacid Liquid (Mag Hydrox/Al Hydrox/Simeth) 355 Ml Oral.susp 15 Ml PO PRN AFTMEALHC PRN Levothyroxine Sodium 25 Mcg Tablet 25 Mcg PO DAILYAC Culturelle (Lactobacillus Rhamnosus Gg) 1 Each Capsule 1 Cap PO BID Divalproex Sodium 125 Mg Cap.sprink 625 Mg PO DAILY AT 0900 Divalproex Sodium 125 Mg Cap.sprink 500 Mg PO BID AT 1300/2100 Lorazepam 0.5 Mg Tablet 0.5 Mg PO PRN QID PRN Tylenol (Acetaminophen) 325 Mg Tablet 650 Mg PO TID Tylenol (Acetaminophen) 325 Mg Tablet 650 Mg PO PRN Q6HRS PRN Milk Of Magnesia (Magnesium Hydroxide) 2,400 Mg/10 Ml Oral.susp 2,400 Mg PO PRN Q4HRS PRN Furosemide 20 Mg Tablet 20 Mg PO DAILY Trazodone Hcl 50 Mg Tablet 25 Mg PO BID@1300/1700 Metformin Hcl 500 Mg Tablet 500 Mg PO BIDWMEALS I have reviewed the current psychotropics carefully including drug interactions. Risk benefit ratio favors no change other than as noted in my dictated progress note. Diagnosis: Problems: (1) Anxiety disorder (2) Impulse control disorder (3) Dementia, vascular, with depression (4) Dementia, vascular, with delusions (5) Dementia in Alzheimer's disease with depression (6) Dementia in Alzheimer's disease with delusions MELANIE COSTELLO MD November 30, 2017 22:02
--- NOTE | 2017-12-01 00:37 | PN ---
DATE: 11/29/2017 This is a late entry, 11/29/2017, covers the elements not covered in my initial note, 11/29/2017. SUBJECTIVE: I met with the patient in the evening. After her lunchtime, the patient sat in a wheelchair staring out of the window from about 3 hours per nursing report from 1 p.m. to 4:30 p.m. She appears somewhat sad at times, but less irritable, less impulsive. REVIEW OF SYSTEMS: Ambulation impaired, in wheelchair. No CV, , pulmonary, eye system symptoms on review. MENTAL STATUS EXAM: Oriented to herself. Insight, judgment, recent and remote memory, attention, concentration, fund of knowledge poor, consistent with her diagnosis as mentioned in my initial note. PLAN: Continue current psychotropics. Valproic acid level therapeutic at 62. MAN Glory COSTELLO MD DR: MATEO/richie JOB#: [id number] / [id number]
--- NOTE | 2017-12-02 20:47 | DS ---
DATE OF DISCHARGE: 11/30/2017 This late entry 11/30/2017 covers elements not covered in my initial note 11/30/2017. I met with the patient individually. REASON FOR ADMISSION: Please refer to the admission history for details. Briefly, the patient is a 77-year-old female referred to us from [facility] in [place], [place] by her primary care physician on account of increasing agitation, disrobing and urinating on the floor and sitting on it with poor appetite. Noncompliant with cares and pericare. The patient had failed outpatient psychiatric interventions for her dementia, Alzheimer's, vascular with delusion, depression, behavioral disturbance, her agitation was unmanageable at the facility, had failed outpatient psychiatric interventions resulting in this referral. SIGNIFICANT FINDINGS AND CLINICAL COURSE: Following admission, the patient was seen daily individually by myself, followed medically per Dr. Forrest/Dr. Cotto. She was quite psychotic, very confused, up and down the hallway in the wheelchair. Adjustments were made in her psychotropics and she seemed to respond to a combination of Risperdal 0.25 mg 3 times a day. She was extremely psychotic, actively hallucinating and thus the reason for the Risperdal. She was also on trazodone 37.5 mg in the morning and 25 mg b.i.d., Ativan 0.5 mg q.i.d. p.r.n., Remeron 7.5 mg at bedtime, Zyprexa p.r.n., Depakote 625 mg daily and 500 mg b.i.d., Zoloft 100 mg daily, BuSpar 5 mg b.i.d. prior to discharge on 11/30/2017. REVIEW OF SYSTEMS: Ambulation impaired, in wheelchair. No CV, , pulmonary, eye, ENT system symptoms on review. Reliability poor. MENTAL STATUS EXAM: Oriented to herself. Insight, judgment, recent and remote memory, attention, concentration, fund of knowledge poor, consistent with her diagnosis mentioned in my initial note. FINAL DIAGNOSES: Major neurocognitive disorder, Alzheimer, vascular with depression, delusion, behavioral disturbance; anxiety disorder, unspecified; impulse control disorder, unspecified. Rest unchanged from admission. DISCHARGE MEDICATIONS: Please refer to the EMRAD. DISCHARGE INSTRUCTIONS: Outpatient psychiatric and medical followup at the [facility]. Time for discharge day management greater than 30 minutes. MELANIE COSTELLO MD DR: MATEO/richie JOB#: [id number] / [id number]
== END 2017-11-30 11:00 | disposition home or self-care (01) | DRG 56 ==
LOC: ER 19:36 → GEROPSY 21:25
PROVIDERS: ADMIT Psychiatry & Neurology Psychiatry; ATTEND Psychiatry & Neurology Psychiatry
DX: G30.9 Alzheimer's disease, unspecified (principal); E43 Unspecified severe protein-calorie malnutrition; F01.51 Vascular dementia, unspecified severity, with behavioral disturbance; E11.9 Type 2 diabetes mellitus without complications; F02.81 Dementia in other diseases classified elsewhere, unspecified severity, with behavioral disturbance; N39.0 Urinary tract infection, site not specified; F31.9 Bipolar disorder, unspecified; Z66 Do not resuscitate; Z87.440 Personal history of urinary (tract) infections; F63.9 Impulse disorder, unspecified; F41.9 Anxiety disorder, unspecified; Z91.19 Patient's noncompliance with other medical treatment and regimen; G40.909 Epilepsy, unspecified, not intractable, without status epilepticus; Z68.23 Body mass index [BMI] 23.0-23.9, adult
CPT/HCPCS: 36415; 73130; 80053; 80061; 80164; 81001; 82306; 82607; 82947; 83036; 83540; 83550; 83735; 84436; 84443; 84480; 85025; 85027; 86593; 87086; 87186; 93005; 93971; 96372; J1630; 97530; 99285-25